=== PATIENT | male | born 1945 | race Caucasian/White ===

== ENCOUNTER 2018-01-24 08:01 | Inpatient (IN) | payer MEDICARE ==
[~2018-01-24] VITALS: Ht 177.8 cm; Wt 113.4 kg
--- NOTE | 2018-01-24 08:19 | PHYS DOC ---
Adult General HPI HPI Patient is a 72 year old male who presents to be evaluated for hematuria. Patient states he was discharged yesterday from the [facility] after being admitted for pneumonia. He states he had a Sutherland catheter for 4 days, he states the Sutherland catheter was removed yesterday before he went to rehab. He states he got to rehab, voided and was noted to have blood in his urine. He states he was sent to the emergency room to be evaluated because he is on blood thinners. Patient states he takes Plavix. Patient denies any other symptoms. Review of Systems Review of Systems Constitutional: Denies fever or chills [] Eyes: Denies change in visual acuity, redness, or eye pain [] HENT: Denies nasal congestion or sore throat [] Respiratory: Denies cough or shortness of breath [] Cardiovascular: No additional information not addressed in HPI [] GI: Denies abdominal pain, nausea, vomiting, bloody stools or diarrhea [] : Reports hematuria. Denies dysuria Musculoskeletal: Denies back pain or joint pain [] Integument: Denies rash or skin lesions [] Neurologic: Denies headache, focal weakness or sensory changes [] All other systems were reviewed and found to be within normal limits, except as documented in this note. Current Medications Current Medications Current Medications Medications (Trade) Dose Ordered Sig/[facility] Start Time Stop Time Status Last Admin Dose Admin Albuterol/ Ipratropium (Duoneb) 3 ml 1X ONCE 01/24/18 08:45 01/24/18 08:46 UNV 01/24/18 09:10 3 ML Physical Exam Physical Exam Constitutional: Well developed, well nourished, no acute distress, non-toxic appearance. [] HENT: Normocephalic, atraumatic, bilateral external ears normal, oropharynx moist, no oral exudates, nose normal. [] Eyes: PERRLA, EOMI, conjunctiva normal, no discharge. [] Neck: Normal range of motion, no tenderness, supple, no stridor. [] Cardiovascular:Heart rate regular rhythm, no murmur [] Lungs & Thorax: On oxygen, diminished breath sounds to posterior lung bases. Abdomen: Bowel sounds normal, soft, no tenderness, no masses, no pulsatile masses. [] Skin: Warm, dry, no erythema, no rash. [] Back: No tenderness, no CVA tenderness. [] Extremities: No tenderness, no cyanosis, no clubbing, ROM intact, no edema. [] Neurologic: Alert and oriented X 3, normal motor function, normal sensory function, no focal deficits noted. [] Psychologic: Affect normal, judgement normal, mood normal. [] Current Patient Data Vital Signs Vital Signs Date Time Temp Pulse Resp B/P (MAP) Pulse Ox O2 Delivery O2 Flow Rate FiO2 01/24/18 09:13 96 Nasal Cannula 3.0 01/24/18 08:30 98.0 103 25 153/80 (104) 98.0 Lab Values Laboratory Tests Test 01/24/18 08:40 White Blood Count 8.8 x10^3/uL (4.0-11.0) Red Blood Count 4.11 x10^6/uL (4.30-5.70) L Hemoglobin 13.1 g/dL (13.0-17.5) Hematocrit 39.3 % (39.0-53.0) Mean Corpuscular Volume 95 fL (79-100) Mean Corpuscular Hemoglobin 32 pg (25-35) Mean Corpuscular Hemoglobin Concent 34 g/dL (31-37) Red Cell Distribution Width 15.3 % (11.5-14.5) H Platelet Count 204 x10^3/uL (140-400) Neutrophils (%) (Auto) 77 % (31-73) H Lymphocytes (%) (Auto) 13 % (24-48) L Monocytes (%) (Auto) 9 % (0-9) Eosinophils (%) (Auto) 1 % (0-3) Basophils (%) (Auto) 0 % (0-3) Neutrophils # (Auto) 6.7 x10^3uL (1.8-7.7) Lymphocytes # (Auto) 1.1 x10^3/uL (1.0-4.8) Monocytes # (Auto) 0.8 x10^3/uL (0.0-1.1) Eosinophils # (Auto) 0.1 x10^3/uL (0.0-0.7) Basophils # (Auto) 0.0 x10^3/uL (0.0-0.2) Prothrombin Time 14.2 SEC (11.7-14.0) H Prothrombin Time INR 1.2 (0.8-1.1) H PTT 25 SEC (24-38) Sodium Level 146 mmol/L (136-145) H Potassium Level 4.1 mmol/L (3.5-5.1) Chloride Level 105 mmol/L (98-107) Carbon Dioxide Level 35 mmol/L (21-32) H Anion Gap 6 (6-14) Blood Urea Nitrogen 24 mg/dL (8-26) Creatinine 1.7 mg/dL (0.7-1.3) H Estimated GFR (Cockcroft-Gault) 39.6 BUN/Creatinine Ratio 14 (6-20) Glucose Level 158 mg/dL (70-99) H Calcium Level 8.9 mg/dL (8.5-10.1) Total Bilirubin 0.6 mg/dL (0.2-1.0) Aspartate Amino Transferase (AST) 31 U/L (15-37) Alanine Aminotransferase (ALT) 31 U/L (16-63) Alkaline Phosphatase 69 U/L (46-116) Total Protein 6.5 g/dL (6.4-8.2) Albumin 3.0 g/dL (3.4-5.0) L Albumin/Globulin Ratio 0.9 (1.0-1.7) L Laboratory Tests 01/24/18 08:40 Laboratory Tests 01/24/18 08:40 EKG EKG [] Radiology/Procedures Radiology/Procedures [] Course & Med Decision Making Course & Med Decision Making Pertinent Labs and Imaging studies reviewed. (See chart for details) This is a 72-year-old male patient presenting to the ED today to be evaluated for hematuria. Patient had a catheter that was removed yesterday and was noted to have blood in his urine. Currently on blood thinners/Plavix Dr. Hoover called requesting we admit patient under his service and get a urology consult. Dragon Disclaimer Dragon Disclaimer This electronic medical record was generated, in whole or in part, using a voice recognition dictation system. Departure Departure Impression: Primary Impression: Hematuria Disposition: ADMITTED INPATIENT Condition: STABLE Problem Qualifiers Primary Impression: Hematuria Hematuria type: gross Qualified Codes: R31.0 - Gross hematuria MOE [employer] Jan 24, 2018 08:19
[2018-01-24] MEDS ORDERED: IPRATRPIUM/ALBUTEROL 0.5/2.5MG 3 ML NEBU. NEB ONE (08:45)
[2018-01-24 08:55] LABS: BASO % 0 % (0-3); EOS # 0.1 x10^3/uL (0.0-0.7); EOS % 1 % (0-3); HEMATOCRIT 39.3 % (39.0-53.0); HEMOGLOBIN 13.1 g/dL (13.0-17.5); LYMPH # 1.1 x10^3/uL (1.0-4.8); LYMPH % 13 % (24-48); MEAN CORPUSCULAR HEMOGLOBIN 32 pg (25-35); MEAN CORPUSCULAR HGB CONC 34 g/dL (31-37); MEAN CORPUSCULAR VOLUME 95 fL (79-100); MONO # 0.8 x10^3/uL (0.0-1.1); MONO % 9 % (0-9); NEUT # 6.7 x10^3uL (1.8-7.7); NEUT % 77 % (31-73); PLATELET COUNT 204 x10^3/uL (140-400); RED BLOOD COUNT 4.11 x10^6/uL (4.30-5.70); RED CELL DISTRIBUTION WIDTH 15.3 % (11.5-14.5); WHITE BLOOD COUNT 8.8 x10^3/uL (4.0-11.0)
[2018-01-24 09:00] LABS: CALCIUM 8.9 mg/dL (8.5-10.1); CREATININE 1.7 mg/dL (0.7-1.3); GFR 39.6; POTASSIUM 4.1 mmol/L (3.5-5.1)
[2018-01-24 09:06] LABS: ALBUMIN/GLOBULIN RATIO 0.9 (1.0-1.7); TOTAL BILIRUBIN 0.6 mg/dL (0.2-1.0); TOTAL PROTEIN 6.5 g/dL (6.4-8.2)
[2018-01-24 09:10] LABS: PROTHROMBIN TIME PATIENT 14.2 SEC (11.7-14.0)
[2018-01-24] MEDS ORDERED: ACETAMINOPHEN 325 MG TABLET. PO PRN (09:30)
[2018-01-24] MEDS ORDERED: MORPHINE SULFATE 4 MG/ML VIAL. IV PRN (09:30)
[2018-01-24] MEDS ORDERED: ONDANSETRON PF 4 MG/2 ML VIAL. IV PRN (09:30)
[2018-01-24 11:00] VITALS: BP 131/71
--- NOTE | 2018-01-24 11:39 | PDOC2 ---
UROLOGY CONSULT Date of Consult Date of Consult DATE: 01/24/18 TIME: 11:24 Reason for Consult Reason for Consult: Gross Hematuria Referring Physician Referring Physician: Genesis Agrawal Identification/Chief Complaint Chief Complaint Gross Hematuria Source Source: Caregiver, Chart review, Patient History of Present Illness Reason for Visit: 72 year old pleasant male [facility] after having a mendoza catheter removed at the rehabilitation facility yesterday. He was transferred to the [facility] the [facility] after a recent londono with pneumonia and a mechanical fall. He reports that when the catheter came out, it "did not come out easy" and even hurt a little bit. A few hours after the mendoza was removed he had "very thick, bloody urine with some clots." This was yesterday. Today his urine is actually thin, and just red tinged like red Koolade with out the clots. He denies ever having visible hematuria before. He does have "weak kidneys" but denies ever having had kidney stones. He also denies enlarged prostate or history of prostate cancer. His last PSA and prostate check was about two years ago at the [place] and they told him at the time that everything "looked fine. " He denies frequency or bothersome nocturia (he gets up once or twice at night , but that's it). Despite the hematuria, he is not having significant pain with urination, only mild dysuria. Current Problem List Problems: (1) Hematuria Current Medications Current Medications Current Medications Acetaminophen (Tylenol) 650 mg PRN Q4HRS PRN PO FEVER; Start 01/24/18 at 09:30 ; Stop 01/25/18 at 09:29 Albuterol/ Ipratropium (Duoneb) 3 ml 1X ONCE NEB Last administered on at 09:10; Start 01/24/18 at 08:45; Stop 01/24/18 at 09:53; Status DC Albuterol/ Ipratropium (Duoneb) 3 ml RTQID NEB ; Start 01/24/18 at 12:00; Stop 01/25/18 at 11:59 Morphine Sulfate (Morphine Sulfate) 4 mg PRN Q2HR PRN IV PAIN; Start 01/24/18 at 09:30; Stop 01/25/18 at 09:29 Ondansetron HCl (Zofran) 4 mg PRN Q8HRS PRN IV NAUSEA/VOMITING; Start at 09:30; Stop 01/25/18 at 09:29 Allergies Allergies: Coded Allergies: Penicillins (Verified Allergy, Unknown, 01/24/18) ROS Review Of Systems: CONSTITUTIONAL: No fever or chills EYES: No recent changes SKIN: No rash or itching CARDIOVASCULAR: No chest pain, syncope, palpitations, or edema RESPIRATORY: No SOB or cough GASTROINTESTINAL: No nausea, vomiting or abdominal pain NEUROLOGICAL: No headaches or weakness ENDOCRINE: No cold or heat intolerance GENITOURINARY: Mild dysuria, gross hematuria MUSCULOSKELETAL: No back pain or joint pain LYMPHATICS: No enlarged lymph nodes PSYCHIATRIC: No anxiety or depression Physical Exam Physical Exam: General: Pleasant, no acute distress, well groomed Eyes: conjunctiva anicteric, eyes full range of motion ENT: moist oral mucosa, normal dentition Neck: Trachea midline, no masses Respiratory: unlabored breathing, not using accessory muscles. NC in place Abdomen: nontender, soft, obese nondistended Pelvic:Half- Buried phallus, scrotum WNL. No visible blood on genitals, groin area, legs or clothes. Psych: normal mood, affect. Alert and oriented x 3. Vitals VITALS Vital Signs Date Time Temp Pulse Resp B/P (MAP) Pulse Ox O2 Delivery O2 Flow Rate FiO2 01/24/18 09:36 100 22 132/62 (85) 95 3.0 01/24/18 09:13 Nasal Cannula 01/24/18 08:30 98.0 98.0 Labs Labs Laboratory Tests Test 01/24/18 08:40 White Blood Count 8.8 x10^3/uL (4.0-11.0) Red Blood Count 4.11 x10^6/uL (4.30-5.70) Hemoglobin 13.1 g/dL (13.0-17.5) Hematocrit 39.3 % (39.0-53.0) Mean Corpuscular Volume 95 fL (79-100) Mean Corpuscular Hemoglobin 32 pg (25-35) Mean Corpuscular Hemoglobin Concent 34 g/dL (31-37) Red Cell Distribution Width 15.3 % (11.5-14.5) Platelet Count 204 x10^3/uL (140-400) Neutrophils (%) (Auto) 77 % (31-73) Lymphocytes (%) (Auto) 13 % (24-48) Monocytes (%) (Auto) 9 % (0-9) Eosinophils (%) (Auto) 1 % (0-3) Basophils (%) (Auto) 0 % (0-3) Neutrophils # (Auto) 6.7 x10^3uL (1.8-7.7) Lymphocytes # (Auto) 1.1 x10^3/uL (1.0-4.8) Monocytes # (Auto) 0.8 x10^3/uL (0.0-1.1) Eosinophils # (Auto) 0.1 x10^3/uL (0.0-0.7) Basophils # (Auto) 0.0 x10^3/uL (0.0-0.2) Prothrombin Time 14.2 SEC (11.7-14.0) Prothromb Time International Ratio 1.2 (0.8-1.1) Activated Partial Thromboplast Time 25 SEC (24-38) Sodium Level 146 mmol/L (136-145) Potassium Level 4.1 mmol/L (3.5-5.1) Chloride Level 105 mmol/L (98-107) Carbon Dioxide Level 35 mmol/L (21-32) Anion Gap 6 (6-14) Blood Urea Nitrogen 24 mg/dL (8-26) Creatinine 1.7 mg/dL (0.7-1.3) Estimated GFR (Cockcroft-Gault) 39.6 BUN/Creatinine Ratio 14 (6-20) Glucose Level 158 mg/dL (70-99) Calcium Level 8.9 mg/dL (8.5-10.1) Total Bilirubin 0.6 mg/dL (0.2-1.0) Aspartate Amino Transf (AST/SGOT) 31 U/L (15-37) Alanine Aminotransferase (ALT/SGPT) 31 U/L (16-63) Alkaline Phosphatase 69 U/L (46-116) Total Protein 6.5 g/dL (6.4-8.2) Albumin 3.0 g/dL (3.4-5.0) Albumin/Globulin Ratio 0.9 (1.0-1.7) Laboratory Tests Test 01/24/18 08:40 White Blood Count 8.8 x10^3/uL (4.0-11.0) Red Blood Count 4.11 x10^6/uL (4.30-5.70) Hemoglobin 13.1 g/dL (13.0-17.5) Hematocrit 39.3 % (39.0-53.0) Mean Corpuscular Volume 95 fL (79-100) Mean Corpuscular Hemoglobin 32 pg (25-35) Mean Corpuscular Hemoglobin Concent 34 g/dL (31-37) Red Cell Distribution Width 15.3 % (11.5-14.5) Platelet Count 204 x10^3/uL (140-400) Neutrophils (%) (Auto) 77 % (31-73) Lymphocytes (%) (Auto) 13 % (24-48) Monocytes (%) (Auto) 9 % (0-9) Eosinophils (%) (Auto) 1 % (0-3) Basophils (%) (Auto) 0 % (0-3) Neutrophils # (Auto) 6.7 x10^3uL (1.8-7.7) Lymphocytes # (Auto) 1.1 x10^3/uL (1.0-4.8) Monocytes # (Auto) 0.8 x10^3/uL (0.0-1.1) Eosinophils # (Auto) 0.1 x10^3/uL (0.0-0.7) Basophils # (Auto) 0.0 x10^3/uL (0.0-0.2) Prothrombin Time 14.2 SEC (11.7-14.0) Prothromb Time International Ratio 1.2 (0.8-1.1) Activated Partial Thromboplast Time 25 SEC (24-38) Sodium Level 146 mmol/L (136-145) Potassium Level 4.1 mmol/L (3.5-5.1) Chloride Level 105 mmol/L (98-107) Carbon Dioxide Level 35 mmol/L (21-32) Anion Gap 6 (6-14) Blood Urea Nitrogen 24 mg/dL (8-26) Creatinine 1.7 mg/dL (0.7-1.3) Estimated GFR (Cockcroft-Gault) 39.6 BUN/Creatinine Ratio 14 (6-20) Glucose Level 158 mg/dL (70-99) Calcium Level 8.9 mg/dL (8.5-10.1) Total Bilirubin 0.6 mg/dL (0.2-1.0) Aspartate Amino Transf (AST/SGOT) 31 U/L (15-37) Alanine Aminotransferase (ALT/SGPT) 31 U/L (16-63) Alkaline Phosphatase 69 U/L (46-116) Total Protein 6.5 g/dL (6.4-8.2) Albumin 3.0 g/dL (3.4-5.0) Albumin/Globulin Ratio 0.9 (1.0-1.7) Assessment/Plan Assessment/Plan Gross Hematuria: Secondary to mendoza catheter trauma during removal. Should resolve with time. If Urine continues to stay light watermelon color or even red Gatorade color without clots, just continue to observe for now. Patient knows to notify Nursing staff if urine changes to resemble resemble laura blood or starts to have large clots. It patient starts to have very dark, copious red urine with laura blood or numerous large clots, please insert [address]za catheter and hand irrigate using the following procedure: Draw up 60 cc of NS into irrigation syringe, instill 30 cc into the bladder, withdraw. May instill up to 120 cc NS, and if no return after this, discontinue procedure, leave mendoza in place with CBI port capped, and notify Urology staff. Urology cart is at bedside, leave in place overnight for quick access. Repeat UA tomorrow. CORNELIO ABRAHAM APRN Jan 24, 2018 11:39
[2018-01-24] MEDS: IPRATRPIUM/ALBUTEROL 0.5/2.5MG 3 ML NEBU. NEB SCH ×3 (11:58→19:19)
[2018-01-24] MEDS ORDERED: APIX2.5T PO (12:13)
[2018-01-24] MEDS ORDERED: TRAZ-85 PO (12:13)
[2018-01-24] MEDS ORDERED: ACET325T9 PO (12:13)
[2018-01-24] MEDS ORDERED: CHOL10003 PO (12:13)
[2018-01-24] MEDS ORDERED: LEVO50TA5 PO (12:13)
[2018-01-24] MEDS ORDERED: PANT20TA2 PO (12:13)
[2018-01-24] MEDS ORDERED: DULO60CA44 PO (12:13)
[2018-01-24] MEDS ORDERED: CALC0.25 PO (12:13)
[2018-01-24] MEDS ORDERED: GUAI600T47 PO (12:13)
[2018-01-24] MEDS ORDERED: FURO20TA3 PO (12:13)
[2018-01-24] MEDS ORDERED: ATORVASTATIN CA80 MG PO (12:13)
[2018-01-24] MEDS ORDERED: BUSP10TA PO (12:13)
[2018-01-24] MEDS ORDERED: FOLI1TAB16 PO (12:13)
[2018-01-24] MEDS ORDERED: LACT1CAP19 PO (12:13)
[2018-01-24] MEDS ORDERED: GLIP5TAB10 PO (12:13)
[2018-01-24] MEDS ORDERED: POTA20TA82 PO (12:13)
[2018-01-24 12:15] LABS: BILIRUBIN,URINE NEGATIVE (NEG); COLOR,URINE RED; NITRITE,URINE NEGATIVE (NEG); PROTEIN,URINE 30 mg/dL (NEG-TRACE)
[2018-01-24 12:29] LABS: CLARITY,URINE CLOUDY
[2018-01-24 12:35] LABS: BACTERIA,URINE FEW /HPF (0-FEW); RBC,URINE TNTC /HPF (0-2); SQUAMOUS EPITHELIAL CELL,UR FEW /LPF
[2018-01-24 13:15] LABS: HEMATOCRIT 38.6 % (39.0-53.0); HEMOGLOBIN 12.8 g/dL (13.0-17.5)
[2018-01-24] MEDS: guaiFENesin ORAL 200 MG/10 ML LIQUID. PO SCH ×2 (14:27→20:35)
[2018-01-24] MEDS: DULoxetine HCL 30 MG CAPSULE.DR PO SCH (14:27)
[2018-01-24] MEDS: FOLIC ACID 1 MG TABLET. PO SCH (14:27)
[2018-01-24] MEDS: LACTOBACILLUS RHAMNOSUS GG 1 CAPSULE. PO SCH (14:27)
[2018-01-24] MEDS: POTASSIUM CHLORIDE 20 MEQ TABLET.ER. PO SCH (14:28)
[2018-01-24] MEDS: busPIRone 10 MG TABLET. PO SCH ×2 (14:28→20:37)
[2018-01-24] MEDS: ACETAMINOPHEN 500 MG TABLET PO SCH ×2 (14:28→20:37)
[2018-01-24] MEDS: CHOLECALCIFEROL (VITAMIN D3) 1,000 UNIT TABLET PO SCH (14:28)
[2018-01-24] MEDS: FUROSEMIDE 20 MG TABLET PO SCH (14:30)
[2018-01-24 15:00] VITALS: BP 123/55
[2018-01-24] MEDS: CALCITRIOL 0.25 MCG CAPSULE. PO SCH (17:08)
[2018-01-24 19:05] VITALS: BP 110/72
[2018-01-24] MEDS: glipiZIDE 5 MG TABLET PO SCH (20:35)
[2018-01-24] MEDS: traZODone 50 MG TABLET. PO SCH (20:35)
[2018-01-24] MEDS: ATORVASTATIN CALCIUM 40 MG TABLET. PO SCH (20:37)
[2018-01-24 23:05] VITALS: BP 106/67
[2018-01-25 03:05] VITALS: BP 132/76
[2018-01-25 05:05] LABS: BASO % 0 % (0-3); EOS # 0.2 x10^3/uL (0.0-0.7); EOS % 3 % (0-3); HEMATOCRIT 36.7 % (39.0-53.0); HEMOGLOBIN 12.2 g/dL (13.0-17.5); LYMPH # 1.1 x10^3/uL (1.0-4.8); LYMPH % 15 % (24-48); MEAN CORPUSCULAR HEMOGLOBIN 32 pg (25-35); MEAN CORPUSCULAR HGB CONC 33 g/dL (31-37); MEAN CORPUSCULAR VOLUME 96 fL (79-100); MONO # 0.6 x10^3/uL (0.0-1.1); MONO % 8 % (0-9); NEUT # 5.4 x10^3uL (1.8-7.7); NEUT % 73 % (31-73); PLATELET COUNT 174 x10^3/uL (140-400); RED BLOOD COUNT 3.82 x10^6/uL (4.30-5.70); RED CELL DISTRIBUTION WIDTH 15.3 % (11.5-14.5); WHITE BLOOD COUNT 7.4 x10^3/uL (4.0-11.0)
[2018-01-25 05:19] LABS: CALCIUM 8.9 mg/dL (8.5-10.1); CREATININE 1.9 mg/dL (0.7-1.3); GFR 34.8
[2018-01-25] MEDS: LEVOTHYROXINE 50 MCG TABLET PO SCH (06:18)
[2018-01-25 07:00] VITALS: BP 117/63
[2018-01-25] MEDS: IPRATRPIUM/ALBUTEROL 0.5/2.5MG 3 ML NEBU. NEB SCH (07:53)
--- NOTE | 2018-01-25 08:44 | PDOC ---
SUBJECTIVE Subjective Pt did well over night. Dysuria clearing up, no more hematuria. No pain. Would like to sit up and eat breakfast. OBJECTIVE Objective Physical Exam: General appearance: Alert and Oriented Head: Normocephalic, without obvious abnormality Eyes: conjunctivae/corneas clear. PERRL, EOM's intact. Fundi benign Lungs: regular respirations, non labored breathing Abdomen: soft, non-tender. No masses, no organomegaly Pelvic: Phallus half buried, WNL, no blood noted on genitals or gown/sheets. Vital Signs Vital Signs Date Time Temp Pulse Resp B/P (MAP) Pulse Ox O2 Delivery O2 Flow Rate FiO2 01/25/18 07:54 Nasal Cannula 3.0 01/25/18 07:00 97.5 99 20 117/63 (81) 94 Nasal Cannula 3.0 97.5 01/25/18 03:05 97.8 99 20 132/76 (94) 90 Nasal Cannula 3.0 97.8 01/24/18 23:05 97.7 99 20 106/67 (80) 90 Nasal Cannula 3.0 97.7 01/24/18 20:00 Nasal Cannula 3.0 01/24/18 19:19 Nasal Cannula 3.0 01/24/18 19:05 97.7 104 20 110/72 (85) 92 Room Air 3.0 97.7 01/24/18 16:27 Nasal Cannula 3.0 01/24/18 15:00 98.4 98 28 123/55 (77) 94 Nasal Cannula 3.0 98.4 01/24/18 13:36 Nasal Cannula 3.0 01/24/18 12:00 93 Nasal Cannula 3.0 01/24/18 11:00 97.7 101 24 131/71 (91) 89 Nasal Cannula 3.0 97.7 01/24/18 09:36 100 22 132/62 (85) 95 3.0 01/24/18 09:13 96 Nasal Cannula 3.0 I & O Intake and Output 01/25/18 07:00 Intake Total 650 ml Output Total 400 ml Balance 250 ml Intake Oral 650 ml Output Urine Total 400 ml # Voids 3 # Bowel Movements 2 PHYSICAL EXAM Physical Exam Physical Exam: General appearance: Alert and Oriented Head: Normocephalic, without obvious abnormality Eyes: conjunctivae/corneas clear. PERRL, EOM's intact. Fundi benign Lungs: regular respirations, non labored breathing Abdomen: soft, non-tender. No masses, no organomegaly Pelvic: Phallus half buried, WNL, no blood noted on genitals or gown/sheets. ASSESSMENT/PLAN Assessment/Plan Gross hematuria: Pt did not have any gross hematuria overnight. His dysuria is improving also. Bowels moving ok. Urine culture in progress, preliminary should be back tomorrow. Pt has a follow up appointment on 02/11/[address] at [address] De Leon of [facility]. Pt given appointment card, new patient paperwork. All questions answered. Ok to keep until culture is back. Discussed with Dr. Martinez. Will follow peripherally over the rest of the weekend but please call Urology with questions or concerns. Problems: (1) Hematuria COMMENT Lab Laboratory Tests Test 01/24/18 12:00 01/24/18 12:50 01/25/18 04:05 Urine Collection Type Unknown Urine Color Red Urine Clarity Cloudy Urine pH 7.0 Urine Specific [place] 1.025 Urine Protein 30 mg/dL (NEG-TRACE) Urine Glucose (UA) Negative mg/dL (NEG) Urine Ketones (Stick) Trace mg/dL (NEG) Urine Blood Large (NEG) Urine Nitrite Negative (NEG) Urine Bilirubin Negative (NEG) Urine Urobilinogen Dipstick 1.0 mg/dL (0.2 mg/dL) Urine Leukocyte Esterase Small (NEG) Urine RBC Tntc /HPF (0-2) Urine WBC 5-10 /HPF (0-4) Urine Squamous Epithelial Cells Few /LPF Urine Bacteria Few /HPF (0-FEW) Urine Mucus Slight /LPF Hemoglobin 12.8 g/dL (13.0-17.5) 12.2 g/dL (13.0-17.5) Hematocrit 38.6 % (39.0-53.0) 36.7 % (39.0-53.0) Mean Corpuscular Hemoglobin Concent 33 g/dL (31-37) 33 g/dL (31-37) White Blood Count 7.4 x10^3/uL (4.0-11.0) Red Blood Count 3.82 x10^6/uL (4.30-5.70) Mean Corpuscular Volume 96 fL (79-100) Mean Corpuscular Hemoglobin 32 pg (25-35) Red Cell Distribution Width 15.3 % (11.5-14.5) Platelet Count 174 x10^3/uL (140-400) Neutrophils (%) (Auto) 73 % (31-73) Lymphocytes (%) (Auto) 15 % (24-48) Monocytes (%) (Auto) 8 % (0-9) Eosinophils (%) (Auto) 3 % (0-3) Basophils (%) (Auto) 0 % (0-3) Neutrophils # (Auto) 5.4 x10^3uL (1.8-7.7) Lymphocytes # (Auto) 1.1 x10^3/uL (1.0-4.8) Monocytes # (Auto) 0.6 x10^3/uL (0.0-1.1) Eosinophils # (Auto) 0.2 x10^3/uL (0.0-0.7) Basophils # (Auto) 0.0 x10^3/uL (0.0-0.2) Sodium Level 144 mmol/L (136-145) Potassium Level 4.0 mmol/L (3.5-5.1) Chloride Level 104 mmol/L (98-107) Carbon Dioxide Level 32 mmol/L (21-32) Anion Gap 8 (6-14) Blood Urea Nitrogen 25 mg/dL (8-26) Creatinine 1.9 mg/dL (0.7-1.3) Estimated GFR (Cockcroft-Gault) 34.8 Glucose Level 118 mg/dL (70-99) Calcium Level 8.9 mg/dL (8.5-10.1) Problem Qualifiers (1) Hematuria: Hematuria type: gross Qualified Codes: R31.0 - Gross hematuria CORNELIO ABRAHAM APRN Jan 25, 2018 08:44
[2018-01-25] MEDS: FUROSEMIDE 20 MG TABLET PO SCH (09:00)
[2018-01-25] MEDS: LACTOBACILLUS RHAMNOSUS GG 1 CAPSULE. PO SCH (10:01)
[2018-01-25] MEDS: guaiFENesin ORAL 200 MG/10 ML LIQUID. PO SCH ×3 (10:01→20:53)
[2018-01-25] MEDS: busPIRone 10 MG TABLET. PO SCH ×2 (10:01→20:52)
[2018-01-25] MEDS: PANTOPRAZOLE 40 MG TABLET.DR. PO SCH (10:01)
[2018-01-25] MEDS: FOLIC ACID 1 MG TABLET. PO SCH (10:02)
[2018-01-25] MEDS: POTASSIUM CHLORIDE 20 MEQ TABLET.ER. PO SCH (10:02)
[2018-01-25] MEDS: CHOLECALCIFEROL (VITAMIN D3) 1,000 UNIT TABLET PO SCH (10:02)
[2018-01-25] MEDS: ACETAMINOPHEN 500 MG TABLET PO SCH ×3 (10:02→20:52)
[2018-01-25] MEDS: glipiZIDE 5 MG TABLET PO SCH ×2 (10:02→20:53)
[2018-01-25] MEDS: DULoxetine HCL 30 MG CAPSULE.DR PO SCH (10:02)
--- NOTE | 2018-01-25 10:40 | HP ---
ADMIT DATE: 01/24/2018 HISTORY OF PRESENT ILLNESS: The patient is a 72-year-old male patient, resident, who was just discharged from [facility] where he was admitted with increasing shortness of breath and was diagnosed with pneumonia. For some reason, he has a Sutherland catheter while at the [facility] and that apparently was removed prior to his discharge and by the time he arrived to the [facility] in [place], he developed gross hematuria. Unfortunately, he is also on apixaban for a history of DVT and pulmonary emboli x 2 and as he continued to have gross hematuria, a decision was made to send him to the Emergency Room where he was evaluated and was admitted to consult the Urology team. REVIEW OF SYSTEMS: The patient denied any abdominal pain. Denied any frequency or dysuria, but obviously has gross hematuria. On arrival to the Emergency Room, his hemoglobin was 13.1, hematocrit was 39.3, so I held his apixaban and will monitor his H and H, and if he continued to have gross hematuria, I have already consulted and the urology team in case he continues to bleed. PAST MEDICAL HISTORY: Significant for type 2 diabetes mellitus, hypertension, hyperlipidemia, coronary artery disease, status post myocardial infarction. He has a history of DVT and PE x 2, hypothyroidism, chronic kidney disease, benign prostatic hypertrophy, chronic obstructive pulmonary disease, morbid obesity, obstructive sleep apnea and he has also chronic back pain. PAST SURGICAL HISTORY: Significant for bilateral cataract extraction. He has had a loop monitor placed and removed about 3-4 years ago and underwent esophagogastroduodenoscopy and colonoscopy. ALLERGIES: HE IS ALLERGIC TO PENICILLIN. MEDICATIONS: He is currently on following medications: Apixaban 2.5 mg twice a day, atorvastatin calcium 80 mg at bedtime, acetaminophen 650 mg 3 times a day, duloxetine 60 mg daily, trazodone 50 mg at bedtime, buspirone 10 mg twice a day, potassium chloride 20 mEq once a day, furosemide 60 mg daily. He is on Mucinex 600 mg twice a day, Protonix 20 mg daily, lactobacillus rhamnosus for [place] 1 twice a day, glipizide 5 mg twice a day, levothyroxine sodium 50 mcg once a day. He is on folic acid 1 mg once a day, calcitriol 0.25 mcg once a day, cholecalciferol 2000 International Unit once a day. FAMILY HISTORY: He has one brother younger and lives with him, and he assists him. He has two sisters, both younger, one of them has multiple medical problems. The youngest sister is healthy. His father at the age of 47 because of myocardial infarction. His mother at age of 85, the cause of it is not clear to him. SOCIAL HISTORY: He is , has 2 daughters, one of them lives in [place]. He has a son who lives in [place] and one son because of alcoholism. He is an ex-smoker, quit in 1995. He drinks a shot of vodka every day. He used to be a [employer] and was in the [employer]. REVIEW OF SYSTEMS: The patient has bilateral cataract extraction, but denied any glaucoma or macular degeneration. He has bilateral hearing aid. Denied any stuffy nose, nosebleed or postnasal drip. Denied any sore throat, sore tongue, toothache, hoarseness of voice or difficulty swallowing. Denied any nausea, vomiting, diarrhea or constipation. Denied any hematemesis, melena or hematochezia. Denied any dysuria or frequency, but did obviously has gross hematuria. Denied any chest pain. Did complain of shortness of breath and orthopnea, but denied any paroxysmal nocturnal dyspnea. Denied any cough, phlegm or hemoptysis. Denied any chills, rigors or fever. OBJECTIVE: GENERAL: On arrival to the Emergency Room, he looked well and was clearly in no apparent respiratory distress, slightly pale, but no jaundice, cyanosis or thyromegaly. No jugular venous distention. No lower limb edema. VITAL SIGNS: His heart rate was 103, blood pressure was 153/80, temperature was 98, respiratory rate was 25, and oxygen saturation was 95% on 3 liters of oxygen. HEAD, EYES, EAR, NOSE AND THROAT: Showed normocephalic, atraumatic. NECK: Supple. HEART: Showed normal first and second heart sounds. No gallop, rub or murmur. CHEST: Shows central trachea, equally reduced expansion, reduced air entry. No crepitation or rhonchi. ABDOMEN: Distended, soft, nontender. NEUROLOGIC: He was awake, alert, responding appropriately. Cranial nerves intact. He moves extremities without difficulty. He ambulates with a walker. LABORATORY WORK: On admission showed a white cell count of 8800, hemoglobin 13, hematocrit 39, MCV 95 and platelet count of 204,000. His prothrombin time was 14.2, INR 1.2, APTT was 25. His serum sodium was 146, potassium 4.1, chloride 105, bicarbonate 35, anion gap of 6, BUN 24, creatinine 1.7, estimated GFR was 39 mL per hour. His blood sugar was 158, calcium was 8.9. Total bilirubin, AST, ALT, alkaline phosphatase were normal. His total protein was 6.5 and albumin was 3. His urinalysis showed the urine was red, cloudy with a pH of 7, specific gravity of 1.025. There was small amount of protein. The urine was negative for glucose, trace of ketones, large amount of blood, negative for nitrite and bilirubin. There was small amount of leukocyte esterase, too numerous to count rbcs, 5-10 wbc's and few bacteria. Plan is obviously to hold his apixaban and consult the urology team and monitor his H and H and once the urine cleared, we can discharge him back to [facility]. KAR PERSAUD MD DR: KEENAN/lindsay JOB#: [id number] / [id number]
[2018-01-25 11:00] VITALS: BP 115/63
[2018-01-25 15:00] VITALS: BP 127/89
--- NOTE | 2018-01-25 15:57 | PN ---
DATE: 01/25/2018 SUBJECTIVE: The patient is sitting at the edge of the bed comfortably, eating his breakfast, in no apparent distress. On questioning him, he denied any chest pain or shortness of breath, but continues to have some hematuria. His culture is still pending at the time of this dictation. His H and H has remained somewhat stable. His initial hemoglobin was 13.1, dropped down to 12.8 and this morning it was 12.2. He was seen by the urology team, and the plan is to monitor his H and H and await the result of the blood culture, and we will decide on further management accordingly. When I examined him this morning, he was sitting in the edge of the bed, eating his breakfast comfortably, in no apparent distress. He was slightly pale, but no jaundice or cyanosis. No lymphadenopathy, no thyromegaly. No jugular venous distention. No lower limb edema. PHYSICAL EXAMINATION: VITAL SIGNS: His heart rate was 99, blood pressure was 117/63, temperature was 97.5, respiratory rate was 20, and oxygen saturation was 94% on 3 liters of oxygen. HEAD, EYES, EARS, NOSE AND THROAT: Showed he is normocephalic, atraumatic. NECK: Supple. HEART: Showed normal first and second heart sounds. No gallop, rub or murmur. CHEST: Clear to auscultation. No crepitation or rhonchi. ABDOMEN: Distended, soft, nontender. NEUROLOGIC: He is awake, alert, responding appropriately. All his cranial nerves are intact. He moves extremities without difficulty, ambulates with a walker. His intake over the last 24 hours was 650, output was 400. LABORATORY DATA: His lab work this morning showed a white cell count 7400, hemoglobin 12, hematocrit 36, MCV was 96 and platelet count of 174,000. His chemistry showed a serum sodium 144, potassium 4, chloride 104, bicarbonate 32, anion gap of 8, BUN 25, creatinine was 1.9, estimated GFR was 34 mL per minute. His glucose was 118, calcium was 8.9. ASSESSMENT: Gross hematuria after removal of his Sutherland catheter prior to discharge from [facility], probably traumatic in nature. I held his apixaban. He continued to have gross hematuria, possible urinary tract infection, awaiting the result of urine culture and sensitivity. He has multiple other medical problems including acute on chronic kidney injury. His creatinine has slightly risen up from 1.7-1.9. We did scan his bladder, and he does not seem to be retaining urine. He is currently on most of his medication except his apixaban. I will probably hold his diuretics if they were not given this morning and repeat his labs tomorrow. KAR PERSAUD MD DR: KEENAN/lindsay JOB#: [id number] / [id number]
[2018-01-25 19:00] VITALS: BP 145/96
[2018-01-25] MEDS: ATORVASTATIN CALCIUM 40 MG TABLET. PO SCH (20:52)
[2018-01-25] MEDS: traZODone 50 MG TABLET. PO SCH (20:52)
[2018-01-25 22:46] VITALS: BP 156/88
[2018-01-26 03:00] VITALS: BP 138/80
[2018-01-26] MEDS ORDERED: HYDROcodone/APAP 5/325MG 1 TAB TABLET PO ONE (04:30)
[2018-01-26] MEDS: LEVOTHYROXINE 50 MCG TABLET PO SCH (05:39)
[2018-01-26 07:00] VITALS: BP 119/60
[2018-01-26 07:22] LABS: HEMATOCRIT 39.7 % (39.0-53.0); HEMOGLOBIN 12.8 g/dL (13.0-17.5); RED BLOOD COUNT 4.09 x10^6/uL (4.30-5.70); RED CELL DISTRIBUTION WIDTH 15.1 % (11.5-14.5); WHITE BLOOD COUNT 6.9 x10^3/uL (4.0-11.0)
[2018-01-26 07:51] LABS: CALCIUM 8.7 mg/dL (8.5-10.1); CREATININE 1.7 mg/dL (0.7-1.3); GFR 39.6; POTASSIUM 4.4 mmol/L (3.5-5.1)
[2018-01-26] MEDS: LACTOBACILLUS RHAMNOSUS GG 1 CAPSULE. PO SCH (09:33)
[2018-01-26] MEDS: guaiFENesin ORAL 200 MG/10 ML LIQUID. PO SCH ×3 (09:33→20:26)
[2018-01-26] MEDS: CHOLECALCIFEROL (VITAMIN D3) 1,000 UNIT TABLET PO SCH (09:33)
[2018-01-26] MEDS: DULoxetine HCL 30 MG CAPSULE.DR PO SCH (09:33)
[2018-01-26] MEDS: APIXABAN 2.5 MG TABLET. PO SCH ×2 (09:34→20:24)
[2018-01-26] MEDS: FOLIC ACID 1 MG TABLET. PO SCH (09:34)
[2018-01-26] MEDS: ACETAMINOPHEN 500 MG TABLET PO SCH ×3 (09:34→20:23)
[2018-01-26] MEDS: glipiZIDE 5 MG TABLET PO SCH ×2 (09:34→20:26)
[2018-01-26] MEDS: busPIRone 10 MG TABLET. PO SCH ×2 (09:34→20:23)
[2018-01-26] MEDS: PANTOPRAZOLE 40 MG TABLET.DR. PO SCH (09:34)
[2018-01-26] MEDS: FUROSEMIDE 20 MG TABLET PO SCH (09:34)
[2018-01-26] MEDS: POTASSIUM CHLORIDE 20 MEQ TABLET.ER. PO SCH (09:35)
[2018-01-26 10:41] VITALS: BP 120/64
[2018-01-26 15:00] VITALS: BP 118/60
[2018-01-26 19:00] VITALS: BP 134/82
--- NOTE | 2018-01-26 19:46 | PN ---
DATE: 01/26/2018 SUBJECTIVE: The patient is sitting comfortably in his chair, eating his breakfast, in no apparent distress. He stated that his urine is clear. Denied any pain. Denied any dysuria, frequency or hematuria. His urine culture showed growth of less than 10,000 colony forming units of bacteria per mL of urine. OBJECTIVE: GENERAL: When I examined him, he looked well and was clearly in no apparent respiratory distress. No pallor, jaundice, cyanosis, or thyromegaly. No jugular venous distension. No limb edema. VITAL SIGNS: His heart rate was 82, blood pressure was 118/69, temperature was 97.2, respiratory rate was 20, and oxygen saturation was 91% on 4 liters of oxygen. HEAD, EYES, EARS, NOSE AND THROAT: Showed normocephalic, atraumatic. NECK: Supple. HEART: Showed normal first and second heart sounds. No gallop, rub or murmur. CHEST: Clear to auscultation. No crepitation or rhonchi. ABDOMEN: Distended, soft, nontender. NEUROLOGIC: She was awake, alert, responding appropriately. All cranial nerves intact. He moves extremities without difficulty. His intake over the last 24 hours was 650, output was 400. LABORATORY DATA: As of this morning, his white cell count was 6800, hemoglobin 12.8, hematocrit 39.7, MCV 97 and platelet count of 189,000. His chemistry showed a serum sodium 143, potassium 4.4, chloride 103, bicarbonate 36, anion gap of 4, BUN 21, creatinine 1.7, estimated GFR was 39 mL per minute and glucose was 123, calcium was 8.7. ASSESSMENT: Gross hematuria, resolved. I will start his apixaban today and if he has no further episodes of hematuria, we can discharge him tomorrow, possible urinary tract infection; however, urine culture has grown only about less than 10,000 colony forming units per mL. The patient has multiple other medical problems including type 2 diabetes mellitus. This seems to be well controlled. Hypertension, hyperlipidemia, coronary artery disease, status post myocardial infarction. He has history of deep venous thrombosis and pulmonary embolism x 2, hypothyroidism, chronic kidney disease, benign prostatic hypertrophy, chronic obstructive pulmonary disease, morbid obesity, obstructive sleep apnea, also chronic back pain. PLAN: I will repeat his H and H tomorrow and if he remains stable and has no further episodes of hematuria, we will discharge him back to [facility] in [place]. KAR PERSAUD MD DR: KEENAN/lindsay JOB#: [id number] / [id number]
[2018-01-26] MEDS: ATORVASTATIN CALCIUM 40 MG TABLET. PO SCH (20:23)
[2018-01-26] MEDS: traZODone 50 MG TABLET. PO SCH (20:23)
[2018-01-26 23:00] VITALS: BP 139/73
[2018-01-27 03:00] VITALS: BP 140/81
[2018-01-27 04:03] LABS: HEMATOCRIT 38.7 % (39.0-53.0); HEMOGLOBIN 12.7 g/dL (13.0-17.5)
[2018-01-27] MEDS: LEVOTHYROXINE 50 MCG TABLET PO SCH (05:29)
[2018-01-27 07:00] VITALS: BP 131/69
--- NOTE | 2018-01-27 08:03 | DISCH ---
DISCHARGE DISCHARGE INFORMATION: FINAL DIAGNOSIS Problems Medical Problems: (1) Hematuria Status: Acute CONDITION ON DISCHARGE: Stable CODE STATUS: Code Status: Full CUSTODIAL: SNF STAY <30 DAYS: Yes POST DISCHARGE ORDERS: ACTIVITY ORDERS: Activity as tolerated DIET AFTER DISCHARGE: ADA CHECKS AFTER DISCHARGE: CHECKS AFTER DISCHARGE: Check blood sugar, ac/hs TREATMENT/EQUIPMENT ORDERS: ADAPTIVE EQUIPMENT NEEDED: Walker RESPIRATORY EQUIPMENT NEEDED: Oxygen, Nebulizer, CPAP Physical Therapy For: Evalulation/Treatment Occupational Therapy For: Evaluation/Treatment DISCHARGE MEDICATIONS: Home Meds Reported Medications Trazodone Hcl (TRAZODONE HCL) 50 Mg Tablet, 1 TAB PO QHS, #30 TAB 1 Refill 01/24/18 Lactobacillus Rhamnosus Gg (CULTURELLE) 1 Each Cap.sprink, 1 EACH PO, CAP 01/24/18 Atorvastatin Calcium (ATORVASTATIN CALCIUM) 80 Mg Tablet, 1 TAB PO DAILY, #30 TAB 5 Refills 01/24/18 Buspirone Hcl (BUSPIRONE HCL) 10 Mg Tablet, 1 TAB PO BID, #60 TAB 1 Refill 01/24/18 Glipizide (GLIPIZIDE) 5 Mg Tablet, 1 TAB PO BID, #60 TAB 3 Refills 01/24/18 Apixaban (ELIQUIS) 2.5 Mg Tablet, 2.5 MG PO BID, TAB 01/24/18 Pantoprazole Sodium (PROTONIX) 20 Mg Tablet.dr, 1 TAB PO DAILY, #30 TAB 01/24/18 Duloxetine Hcl (DULOXETINE HCL) 60 Mg Capsule.dr, 60 MG PO DAILY, CAP 01/24/18 Furosemide (FUROSEMIDE) 20 Mg Tablet, 60 TAB PO DAILY, #90 TAB 1 Refill 01/24/18 Calcitriol (CALCITRIOL) 0.25 Mcg Capsule, 1 CAP PO 3X/WEEK, #30 CAP 5 Refills 01/24/18 Guaifenesin (MUCINEX) 600 Mg Tablet.er, 200 TAB PO TID, #14 TAB 01/24/18 Potassium Chloride (POTASSIUM CHLORIDE) 20 Meq Tablet.er, 20 MEQ PO DAILY, TAB.SR 01/24/18 Levothyroxine Sodium (LEVOTHYROXINE SODIUM) 50 Mcg Tablet, 1 TAB PO DAILY, #30 TAB 5 Refills 01/24/18 Acetaminophen (TYLENOL) 325 Mg Tablet, 500 MG PO TID, TAB 01/24/18 Cholecalciferol (Vitamin D3) (VITAMIN D3) 1,000 Unit Tablet, 2 TAB PO DAILY, # 30 TAB 5 Refills 01/24/18 Folic Acid (FOLIC ACID) 1 Mg Tablet, 1 TAB PO DAILY, #90 TAB 1 Refill 01/24/18 KAR PERSAUD MD Jan 27, 2018 08:03
[2018-01-27] MEDS: glipiZIDE 5 MG TABLET PO SCH (08:07)
[2018-01-27] MEDS: ACETAMINOPHEN 500 MG TABLET PO SCH ×2 (08:07→11:46)
[2018-01-27] MEDS: FUROSEMIDE 20 MG TABLET PO SCH (08:07)
[2018-01-27] MEDS: guaiFENesin ORAL 200 MG/10 ML LIQUID. PO SCH ×2 (08:07→11:46)
[2018-01-27] MEDS: LACTOBACILLUS RHAMNOSUS GG 1 CAPSULE. PO SCH (08:07)
[2018-01-27] MEDS: busPIRone 10 MG TABLET. PO SCH (08:07)
[2018-01-27] MEDS: CHOLECALCIFEROL (VITAMIN D3) 1,000 UNIT TABLET PO SCH (08:07)
[2018-01-27] MEDS: FOLIC ACID 1 MG TABLET. PO SCH (08:08)
[2018-01-27] MEDS: APIXABAN 2.5 MG TABLET. PO SCH (08:08)
[2018-01-27] MEDS: DULoxetine HCL 30 MG CAPSULE.DR PO SCH (08:08)
[2018-01-27] MEDS: POTASSIUM CHLORIDE 20 MEQ TABLET.ER. PO SCH (08:08)
[2018-01-27] MEDS: PANTOPRAZOLE 40 MG TABLET.DR. PO SCH (08:08)
--- NOTE | 2018-01-27 09:15 | DS ---
DATE OF DISCHARGE: HOSPITAL COURSE: The patient is a 72-year-old male patient who was admitted with gross hematuria. He was on apixaban for history of DVT and PE before, and he was seen in consultation by the Urology. We basically monitored him, monitored his H and H and his urine, and his hemoglobin and hematocrit remained stable and his urine has cleared. I did start him back on his apixaban yesterday without any problem. When I questioned him this morning, he denied any complaint. The nursing staff did not voice any concerns that he had an uneventful night. PHYSICAL EXAMINATION: GENERAL: When I examined him, he was sitting comfortably in his chair, eating his breakfast, in no apparent distress. VITAL SIGNS: His heart rate was 91, blood pressure was 131/69, temperature was 97.8, respiratory rate 20 and oxygen saturation was 94% on 4 liters of oxygen. HEAD, EYES, EARS, NOSE AND THROAT: Showed normocephalic, atraumatic. NECK: Supple. HEART: Showed normal first and second heart sounds. No gallop, rub or murmur. CHEST: Clear to auscultation. No crepitation or rhonchi. ABDOMEN: Distended, soft, nontender. No guarding or rigidity. No organomegaly. All hernial orifice intact. Bowel sounds normal. NEUROLOGIC: He was awake, alert, responding appropriately. All cranial nerves intact. He moves extremities without difficulty. He ambulates with a walker. His intake over the last 24 hours was 2550, output was 1350. LABORATORY DATA: As of this morning showed his hemoglobin was 12.7, hematocrit 38.7. His chemistry showed a serum sodium 143, potassium 4.4, chloride 103, bicarbonate was 36, anion gap of 4, BUN of 21, creatinine 1.7, estimated GFR was 39 mL per minute. His glucose was 123 and calcium was 8.7. DISCHARGE MEDICATIONS: He will be discharged back to [facility] in [place] to continue on Tylenol 650 mg 3 times a day, apixaban 2.5 mg twice a day, atorvastatin calcium 80 mg daily, buspirone 10 mg twice a day, calcitriol 0.25 mcg 1 capsule 3 times per week, cholecalciferol for vitamin D3 of 2000 International Unit once a day, duloxetine 60 mg daily, folic acid 1 mg once a day, furosemide 60 mg daily, glipizide 5 mg twice a day, guaifenesin for Mucinex 200 mg 3 times a day, lactobacillus rhamnosus 1 capsule twice a day, levothyroxine sodium 50 mcg daily, Protonix 40 mg daily, potassium chloride 20 mEq daily, trazodone 50 mg at bedtime. FINAL DISCHARGE DIAGNOSES: 1. Gross hematuria, likely traumatic in nature, resolved. 2. Type 2 diabetes mellitus, reasonably controlled. 3. Hypertension. 4. Hyperlipidemia. 5. Coronary artery disease, status post myocardial infarction. 6. Deep vein thrombosis and pulmonary emboli, for which he is on apixaban. 7. Hypothyroidism. 8. Chronic kidney disease. 9. Benign prostatic hypertrophy. 10. Chronic obstructive pulmonary disease. 11. Morbid obesity, obstructive sleep apnea. 12. Chronic pain syndrome. KAR PERSAUD MD DR: KEENAN/lindsay JOB#: [id number] / [id number]
--- NOTE | 2018-01-27 09:58 | PDOC ---
SUBJECTIVE Subjective Pt doing well. No more hematuria/dysuria. Going to long term later today, feels ready to go. OBJECTIVE Objective Physical Exam: General appearance: Alert and Oriented Head: Normocephalic, without obvious abnormality Eyes: conjunctivae/corneas clear. PERRL, EOM's intact. Fundi benign Lungs: regular respirations, non labored breathing. Abdomen: soft, obese, non tender. Vital Signs Vital Signs Date Time Temp Pulse Resp B/P (MAP) Pulse Ox O2 Delivery O2 Flow Rate FiO2 01/27/18 08:00 Nasal Cannula 4.0 01/27/18 07:00 97.8 91 20 131/69 (89) 94 Nasal Cannula 4.0 97.8 01/27/18 03:00 98.0 101 20 140/81 (100) 91 Nasal Cannula 4.0 98.0 01/26/18 23:00 97.8 94 18 139/73 (95) 97 Room Air 4.0 97.8 01/26/18 20:00 Nasal Cannula 4.0 01/26/18 19:00 97.7 88 20 134/82 (99) 97 Nasal Cannula 4.0 97.7 01/26/18 15:00 97.7 80 20 118/60 (79) 93 Nasal Cannula 4.0 97.7 01/26/18 10:41 97.9 80 20 120/64 (82) 92 Nasal Cannula 4.0 97.9 I & O Intake and Output 01/27/18 07:00 Intake Total 2550 ml Output Total 1350 ml Balance 1200 ml Intake Oral 2550 ml Output Urine Total 1350 ml # Bowel Movements 2 PHYSICAL EXAM Physical Exam Physical Exam: General appearance: Alert and Oriented Head: Normocephalic, without obvious abnormality Eyes: conjunctivae/corneas clear. PERRL, EOM's intact. Fundi benign Lungs: regular respirations, non labored breathing. Abdomen: soft, obese, non tender. ASSESSMENT/PLAN Assessment/Plan Pt doing well, no more dysuria/hematuria. Hematuria from cath trauma, appears to be resolved now. Pt may go back to long term from a Urology perspective. Pt has follow up on the at 1000 am with Urology, he intends to keep this appointment. Still has paperwork, appointment card Will sign off at this time but please call with questions or changes in patient condition. Problems: (1) Hematuria (2) Traumatic hematuria COMMENT Lab Laboratory Tests Test 01/26/18 20:16 01/27/18 03:30 01/27/18 07:15 Glucose (Fingerstick) 175 mg/dL (70-99) 120 mg/dL (70-99) Hemoglobin 12.7 g/dL (13.0-17.5) Hematocrit 38.7 % (39.0-53.0) Problem Qualifiers (1) Hematuria: Hematuria type: gross Qualified Codes: R31.0 - Gross hematuria CORNELIO ABRAHAM APRN Jan 27, 2018 09:58
[2018-01-27 11:13] VITALS: BP 135/64
[2018-01-27 14:51] VITALS: BP 132/68
[2018-01-27] MEDS: CALCITRIOL 0.25 MCG CAPSULE. PO SCH (16:44)
== END 2018-01-27 17:49 | DRG 682 ==
LOC: ER 08:01 → 5 SOUTH 09:14
PROVIDERS: ADMIT Internal Medicine; ATTEND Internal Medicine
DX: N17.9 Acute kidney failure, unspecified (principal); I26.99 Other pulmonary embolism without acute cor pulmonale; R31.0 Gross hematuria; E03.9 Hypothyroidism, unspecified; E11.22 Type 2 diabetes mellitus with diabetic chronic kidney disease; E66.01 Morbid (severe) obesity due to excess calories; E78.5 Hyperlipidemia, unspecified; G47.33 Obstructive sleep apnea (adult) (pediatric); G89.4 Chronic pain syndrome; I12.9 Hypertensive chronic kidney disease with stage 1 through stage 4 chronic kidney disease, or unspecified chronic kidney disease; I25.10 Atherosclerotic heart disease of native coronary artery without angina pectoris; J44.9 Chronic obstructive pulmonary disease, unspecified; N18.9 Chronic kidney disease, unspecified; I25.2 Old myocardial infarction; N40.0 Benign prostatic hyperplasia without lower urinary tract symptoms; Z79.01 Long term (current) use of anticoagulants; Z82.49 Family history of ischemic heart disease and other diseases of the circulatory system; Z86.718 Personal history of other venous thrombosis and embolism; Z87.891 Personal history of nicotine dependence; Z98.41 Cataract extraction status, right eye; Z98.42 Cataract extraction status, left eye; Z86.711 Personal history of pulmonary embolism; Z87.01 Personal history of pneumonia (recurrent)
CPT/HCPCS: 36415; 80048; 80053; 81001; 82962; 85014; 85018; 85025; 85027; 85610; 85730; 87086; 87641; 94640; J7620; 99285-25

== ENCOUNTER 2018-01-29 08:13 | Inpatient (IN) | payer MEDICARE ==
[~2018-01-29] VITALS: Ht 177.8 cm; Wt 113.4 kg
[~2018-01-29 08:13] MED LIST: ACET325T9 PO; APIX2.5T PO; ATORVASTATIN CA80 MG PO; BUSP10TA PO; CALC0.25 PO; CHOL10003 PO; DULO60CA44 PO; FOLI1TAB16 PO; FURO20TA3 PO; GLIP5TAB10 PO; GUAI600T47 PO; LACT1CAP19 PO; LEVO50TA5 PO; PANT20TA2 PO; POTA20TA82 PO; TRAZ-85 PO
--- NOTE | 2018-01-29 08:44 | PHYS DOC ---
Past Medical History Past Medical History: CAD, COPD, Diabetes-Type II, DVT, Hypothyroid, [place], Pneumonia, Other Additional Past Medical Histor: PE,BPH,CKD,O. SLEEP APNEA,CHRONIC BACK PAIN Past Surgical History: Other Additional Past Surgical Histo: LOOP MONITOR, BILAT CATARACTS Smoking: Quit Greater Than 1 Year Alcohol Use: Heavy Additional Information: '2 SCREWDRIVERS EVERY DAY' Drug Use: None Adult General Chief Complaint Chief Complaint: BLOOD IN URINE HPI HPI Patient is a 72-year-old male who presents to the emergency department via EMS from his nursing facility. He states he was [facility] from the [facility] about 2 days ago, after being hospitalized there with pneumonia. He states that he had a Sutherland catheter in place during his hospital stay, and states he was removed before he left the hospital, although he states it was somewhat painful when it was removed. He states that this morning he was using the urine all to nursing facility and he had gross hematuria with some clots. There are still some blood clot remaining in his perineal area. He denies any other trauma or any wounds. He denies any genital pain. He does take Eliquis for a prior history of pulmonary embolism. He has not had any fevers or chills, denies any flank or back pain. There are no alleviating or exacerbating factors to his symptoms otherwise. Review of Systems Review of Systems Constitutional: Denies fever or chills [] Eyes: Denies change in visual acuity, redness, or eye pain [] HENT: Denies nasal congestion or sore throat [] Respiratory: Denies cough or shortness of breath [] Cardiovascular: The patient denies any shortness of breath, chest pain, palpitations, or orthopnea [] GI: Denies abdominal pain, nausea, vomiting, bloody stools or diarrhea [] : Denies dysuria. Does report gross hematuria this morning[] Musculoskeletal: Denies back pain or joint pain [] Integument: Denies rash or skin lesions. Denies any other easy bruising or bleeding. [] Neurologic: Denies headache, focal weakness or sensory changes [] Endocrine: Denies polyuria or polydipsia [] All other systems were reviewed and found to be within normal limits, except as documented in this note. Allergies Allergies Allergies Coded Allergies Type Severity Reaction Last Updated Verified Penicillins Allergy Intermediate 01/29/18 Yes oxycodone Allergy Intermediate Rash 01/29/18 Yes Physical Exam Physical Exam PHYSICAL EXAM: CONSTITUTIONAL: Well developed, well nourished HEAD: normocephalic, atraumatic EENT: PERRL, EOMI. Conjunctivae normal color, sclerae non-icteric; moist mucous membranes. NECK: Supple, non-tender; no meningismus. LUNGS: Lungs CTA, breathing even and unlabored. Normal air movement. HEART: Regular rate and rhythm, no murmur CHEST: No deformity; non-tender ABDOMEN: The abdomen is soft, and non-tender, no masses or bruits. EXTREM: Normal ROM; no deformity, no calf tenderness. Normal pulses palpable in all extremities. There is no pedal edema. SKIN: No rash; no diaphoresis NEURO: Alert; normal speech and cognition; CN's grossly intact; strength grossly intact without focal deficit. BACK: No CVA TTP. GENITOURINARY: Normal external genitalia. There are some dried blood clots on the perineum, although when they are removed, there are no wounds visualized. There is no gross blood at the urethral meatus. The patient did urinate in the urine on his urine appears rather normal looking, without obvious gross hematuria. Current Patient Data Vital Signs Vital Signs Date Time Temp Pulse Resp B/P (MAP) Pulse Ox O2 Delivery O2 Flow Rate FiO2 01/29/18 08:13 97.6 97 18 179/82 (114) 95 Nasal Cannula 3.0 97.6 Lab Values Laboratory Tests Test 01/29/18 08:45 White Blood Count 6.0 x10^3/uL (4.0-11.0) Red Blood Count 4.28 x10^6/uL (4.30-5.70) L Hemoglobin 13.4 g/dL (13.0-17.5) Hematocrit 41.0 % (39.0-53.0) Mean Corpuscular Volume 96 fL (79-100) Mean Corpuscular Hemoglobin 31 pg (25-35) Mean Corpuscular Hemoglobin Concent 33 g/dL (31-37) Red Cell Distribution Width 14.1 % (11.5-14.5) Platelet Count 186 x10^3/uL (140-400) Neutrophils (%) (Auto) 74 % (31-73) H Lymphocytes (%) (Auto) 15 % (24-48) L Monocytes (%) (Auto) 7 % (0-9) Eosinophils (%) (Auto) 3 % (0-3) Basophils (%) (Auto) 1 % (0-3) Neutrophils # (Auto) 4.4 x10^3uL (1.8-7.7) Lymphocytes # (Auto) 0.9 x10^3/uL (1.0-4.8) L Monocytes # (Auto) 0.4 x10^3/uL (0.0-1.1) Eosinophils # (Auto) 0.2 x10^3/uL (0.0-0.7) Basophils # (Auto) 0.0 x10^3/uL (0.0-0.2) Urine Color Lydia Urine Clarity Clear Urine pH 6.0 Urine Specific Granger 1.025 Urine Protein 30 mg/dL (NEG-TRACE) Urine Glucose (UA) Negative mg/dL (NEG) Urine Ketones (Stick) Trace mg/dL (NEG) Urine Blood Large (NEG) Urine Nitrite Negative (NEG) Urine Bilirubin Small (NEG) Urine Urobilinogen Dipstick 0.2 mg/dL (0.2 mg/dL) Urine Leukocyte Esterase Small (NEG) Urine RBC Tntc /HPF (0-2) Urine WBC Occ /HPF (0-4) Urine Bacteria 0 /HPF (0-FEW) Sodium Level 142 mmol/L (136-145) Potassium Level 4.4 mmol/L (3.5-5.1) Chloride Level 100 mmol/L (98-107) Carbon Dioxide Level 39 mmol/L (21-32) H Anion Gap 3 (6-14) L Blood Urea Nitrogen 17 mg/dL (8-26) Creatinine 1.8 mg/dL (0.7-1.3) H Estimated GFR (Cockcroft-Gault) 37.1 BUN/Creatinine Ratio 9 (6-20) Glucose Level 148 mg/dL (70-99) H Calcium Level 9.3 mg/dL (8.5-10.1) Total Bilirubin 0.6 mg/dL (0.2-1.0) Aspartate Amino Transferase (AST) 36 U/L (15-37) Alanine Aminotransferase (ALT) 40 U/L (16-63) Alkaline Phosphatase 62 U/L (46-116) Total Protein 6.8 g/dL (6.4-8.2) Albumin 3.3 g/dL (3.4-5.0) L Albumin/Globulin Ratio 0.9 (1.0-1.7) L Laboratory Tests 01/29/18 08:45 Laboratory Tests 01/29/18 08:45 EKG EKG [] Radiology/Procedures Radiology/Procedures [PROCEDURE: CT ABDOMEN PELVIS WO CONTRAST PQRS Compliance Statement: One or more of the following individualized dose reduction techniques were utilized for this examination: 1. Automated exposure control 2. Adjustment of the mA and/or kV according to patient size 3. Use of iterative reconstruction technique CT ABDOMEN PELVIS WO CONTRAST Clinical Indication: HEMATURIA Comparison: None. Technique: Helical CT imaging of the abdomen and pelvis is performed without IV or oral contrast. Findings: Peribronchial thickening in the bilateral basilar lower lobes. Mild consolidations in the bilateral lower lobes just above the hemidiaphragms may be pneumonia or atelectasis or aspiration. Mild cardiomegaly. Coronary artery disease. Cholelithiasis. Mild splenomegaly. The liver, pancreas, and adrenal glands are normal. Atherosclerotic abdominal aorta and its branches. There is no aneurysm. Moderate bilateral perinephric stranding. No renal calculus. No hydronephrosis. Stomach unremarkable. Tiny fat-containing periumbilical hernia. No small bowel obstruction. There is moderate sigmoid colon diverticulosis. The appendix is normal. No colon wall thickening. No abdominal adenopathy or free fluid. Urinary bladder is not well distended accentuating wall thickness. Prostate size normal. No pelvic free fluid. There are chronic appearing compression fractures of L1, L2, and L4. IMPRESSION: 1. There is bilateral lower lobe bronchitis. Small consolidation in the anterior right lower lobe is likely infectious/inflammatory. There are bilateral consolidations in the lower lobes just above the hemidiaphragms that may be pneumonia or atelectasis or aspiration. 2. No obstructive uropathy. 3. Cholelithiasis. 4. Mild splenomegaly. 5. Distal colon diverticulosis without diverticulitis. 6. Chronic appearing compression fractures of L1, L2, and L4.] Course & Med Decision Making Course & Med Decision Making Pertinent Labs and Imaging studies reviewed. (See chart for details) [The patient's condition remained stable. For some reason his cardiac in relation tests are still pending. I discussed the case with Dr. Persaud, the patient's PCP. He states that the patient has had problems with bleeding on and off since his recent hospital discharge. He held his Eliquis for the past 2 days and the bleeding seemed to have resolved but was resumed yesterday. He would like the patient admitted for urology consultation which will be obtained. ] Dragon Disclaimer Dragon Disclaimer This electronic medical record was generated, in whole or in part, using a voice recognition dictation system. Departure Departure Impression: Primary Impression: Gross hematuria Additional Impression: Traumatic hematuria Disposition: ADMITTED INPATIENT Admitting Physician: Arlyn Persaud Condition: STABLE Referrals: ARLYN PERSAUD MD (PCP) Problem Qualifiers KANNAN OSCAR MD Jan 29, 2018 08:44
[2018-01-29 08:54] LABS: BASO % 1 % (0-3); EOS # 0.2 x10^3/uL (0.0-0.7); EOS % 3 % (0-3); HEMOGLOBIN 13.4 g/dL (13.0-17.5); LYMPH # 0.9 x10^3/uL (1.0-4.8); LYMPH % 15 % (24-48); MEAN CORPUSCULAR HEMOGLOBIN 31 pg (25-35); MEAN CORPUSCULAR HGB CONC 33 g/dL (31-37); MEAN CORPUSCULAR VOLUME 96 fL (79-100); MONO # 0.4 x10^3/uL (0.0-1.1); MONO % 7 % (0-9); NEUT # 4.4 x10^3uL (1.8-7.7); NEUT % 74 % (31-73); PLATELET COUNT 186 x10^3/uL (140-400); RED BLOOD COUNT 4.28 x10^6/uL (4.30-5.70); RED CELL DISTRIBUTION WIDTH 14.1 % (11.5-14.5)
[2018-01-29 08:57] LABS: BILIRUBIN,URINE SMALL (NEG); CLARITY,URINE CLEAR; COLOR,URINE AMBER; NITRITE,URINE NEGATIVE (NEG); PROTEIN,URINE 30 mg/dL (NEG-TRACE); UROBILINOGEN,URINE 0.2 mg/dL (0.2 mg/dL)
[2018-01-29 09:12] LABS: CALCIUM 9.3 mg/dL (8.5-10.1); CREATININE 1.8 mg/dL (0.7-1.3); GFR 37.1; POTASSIUM 4.4 mmol/L (3.5-5.1)
[2018-01-29 09:24] LABS: ALBUMIN 3.3 g/dL (3.4-5.0); ALBUMIN/GLOBULIN RATIO 0.9 (1.0-1.7); TOTAL BILIRUBIN 0.6 mg/dL (0.2-1.0); TOTAL PROTEIN 6.8 g/dL (6.4-8.2)
[2018-01-29 09:30] LABS: BACTERIA,URINE 0 /HPF (0-FEW); RBC,URINE TNTC /HPF (0-2); WBC,URINE OCC /HPF (0-4)
--- NOTE | 2018-01-29 09:48 | RAD ---
PQRS Compliance Statement: One or more of the following individualized dose reduction techniques were utilized for this examination: 1. Automated exposure control 2. Adjustment of the mA and/or kV according to patient size 3. Use of iterative reconstruction technique CT ABDOMEN PELVIS WO CONTRAST Clinical Indication: HEMATURIA Comparison: None. Technique: Helical CT imaging of the abdomen and pelvis is performed without IV or oral contrast. Findings: Peribronchial thickening in the bilateral basilar lower lobes. Mild consolidations in the bilateral lower lobes just above the hemidiaphragms may be pneumonia or atelectasis or aspiration. Mild cardiomegaly. Coronary artery disease. Cholelithiasis. Mild splenomegaly. The liver, pancreas, and adrenal glands are normal. Atherosclerotic abdominal aorta and its branches. There is no aneurysm. Moderate bilateral perinephric stranding. No renal calculus. No hydronephrosis. Stomach unremarkable. Tiny fat-containing periumbilical hernia. No small bowel obstruction. There is moderate sigmoid colon diverticulosis. The appendix is normal. No colon wall thickening. No abdominal adenopathy or free fluid. Urinary bladder is not well distended accentuating wall thickness. Prostate size normal. No pelvic free fluid. There are chronic appearing compression fractures of L1, L2, and L4. IMPRESSION: 1. There is bilateral lower lobe bronchitis. Small consolidation in the anterior right lower lobe is likely infectious/inflammatory. There are bilateral consolidations in the lower lobes just above the hemidiaphragms that may be pneumonia or atelectasis or aspiration. 2. No obstructive uropathy. 3. Cholelithiasis. 4. Mild splenomegaly. 5. Distal colon diverticulosis without diverticulitis. 6. Chronic appearing compression fractures of L1, L2, and L4. Electronically signed by: Hebert Cleaning MD (01/29/2018 9:45 AM) [id number]
[2018-01-29 10:43] LABS: PROTHROMBIN TIME PATIENT 12.7 SEC (11.7-14.0)
[2018-01-29 12:07] VITALS: BP 154/85
[2018-01-29] MEDS ORDERED: C.DIFF MED SCREEN BY RX. MC ONE (14:00)
[2018-01-29] MEDS ORDERED: FURO40TA4 PO (14:05)
[2018-01-29] MEDS ORDERED: BUDE0.25 NEB (14:05)
[2018-01-29] MEDS ORDERED: ALBU2.5V14 NEB (14:05)
[2018-01-29 15:00] VITALS: BP 126/77
--- NOTE | 2018-01-29 15:34 | PDOC2 ---
UROLOGY CONSULT Date of Admission DATE: 01/29/18 TIME: 15:29 Reason for Consult: gh Chief Complaint gh Hx of recent [facility] ago and chronic anticoagulations for PE. UA on admission with no bacteria. NC-CT a/p with no gu abnormalities. cr 1.8 GH has resolved by this encounter. No luts, has mild dysuria. 60ppy smoking hx. ROS ROS: RESPIRATORY: Shortness of breath denies. Cough denies. UROLOGY: +blood in urine. Denies difficulty urinating Past Surgical History: Cataract Removal Past Surgical History: Other Additional Past Surgical Histo: LOOP MONITOR, BILAT CATARACTS Current Medications Current Medications Pharmacy Consult (C.diff Med Screen By Rx) 1 each 1X ONCE [facility] ; Start 01/29/18 at 14:00; Stop 01/29/18 at 14:01; Status DC Active Scripts Active Reported Furosemide 40 Mg Tablet 1.5 Tab PO DAILY Budesonide 0.25 Mg/2 Ml Ampul.neb 1 Vial NEB BID Albuterol Sulfate Conc Neb Soln (Albuterol Sulfate) 2.5 Mg/0.5 Ml Vial.neb 1 Vial NEB Q6HRS PRN Trazodone Hcl 50 Mg Tablet 1 Tab PO QHS Culturelle (Lactobacillus Rhamnosus Gg) 1 Each Cap.sprink 1 Each PO Atorvastatin Calcium 80 Mg Tablet 1 Tab PO DAILY Buspirone Hcl 10 Mg Tablet 1 Tab PO BID Glipizide 5 Mg Tablet 1 Tab PO BID Eliquis (Apixaban) 2.5 Mg Tablet 2.5 Mg PO BID Protonix (Pantoprazole Sodium) 20 Mg Tablet.dr 1 Tab PO DAILY Duloxetine Hcl 60 Mg Capsule.dr 60 Mg PO DAILY Furosemide 20 Mg Tablet 60 Tab PO DAILY Calcitriol 0.25 Mcg Capsule 1 Cap PO 3X/WEEK Mucinex (Guaifenesin) 600 Mg Tablet.er 200 Tab PO TID Potassium Chloride 20 Meq Tablet.er 20 Meq PO DAILY Levothyroxine Sodium 50 Mcg Tablet 1 Tab PO DAILY Tylenol (Acetaminophen) 325 Mg Tablet 500 Mg PO TID Vitamin D3 (Cholecalciferol (Vitamin D3)) 1,000 Unit Tablet 2 Tab PO DAILY Folic Acid 1 Mg Tablet 1 Tab PO DAILY Allergies: Coded Allergies: Penicillins (Verified Allergy, Intermediate, 01/29/18) oxycodone (Verified Allergy, Intermediate, Rash, 01/29/18) Physical Examination PHYSICAL EXAMINATION: GENERAL: Gen. appearance: No acute distress. Mood/affect: Pleasant. HEENT: Head: Normocephalic, atraumatic. Airway Impairment: No. CHEST: Shape and expansion: Normal. Expansion: Normal. SKIN: General: Warm. Color: Good. GENITOURINARY:External genitalia - wnl. NEUROLOGICAL: Mental status: Alert and oriented 3. Language: Normal. no blood at meatus DOES THIS PATIENT HAVE URINARY: No VITALS Vital Signs Date Time Temp Pulse Resp B/P (MAP) Pulse Ox O2 Delivery O2 Flow Rate FiO2 01/29/18 12:07 97.5 82 18 154/85 (108) 96 Nasal Cannula 3.0 97.5 Labs Laboratory Tests Test 01/29/18 08:45 White Blood Count 6.0 x10^3/uL (4.0-11.0) Red Blood Count 4.28 x10^6/uL (4.30-5.70) Hemoglobin 13.4 g/dL (13.0-17.5) Hematocrit 41.0 % (39.0-53.0) Mean Corpuscular Volume 96 fL (79-100) Mean Corpuscular Hemoglobin 31 pg (25-35) Mean Corpuscular Hemoglobin Concent 33 g/dL (31-37) Red Cell Distribution Width 14.1 % (11.5-14.5) Platelet Count 186 x10^3/uL (140-400) Neutrophils (%) (Auto) 74 % (31-73) Lymphocytes (%) (Auto) 15 % (24-48) Monocytes (%) (Auto) 7 % (0-9) Eosinophils (%) (Auto) 3 % (0-3) Basophils (%) (Auto) 1 % (0-3) Neutrophils # (Auto) 4.4 x10^3uL (1.8-7.7) Lymphocytes # (Auto) 0.9 x10^3/uL (1.0-4.8) Monocytes # (Auto) 0.4 x10^3/uL (0.0-1.1) Eosinophils # (Auto) 0.2 x10^3/uL (0.0-0.7) Basophils # (Auto) 0.0 x10^3/uL (0.0-0.2) Prothrombin Time 12.7 SEC (11.7-14.0) Prothromb Time International Ratio 1.0 (0.8-1.1) Activated Partial Thromboplast Time 28 SEC (24-38) Urine Color Lydia Urine Clarity Clear Urine pH 6.0 Urine Specific [place] 1.025 Urine Protein 30 mg/dL (NEG-TRACE) Urine Glucose (UA) Negative mg/dL (NEG) Urine Ketones (Stick) Trace mg/dL (NEG) Urine Blood Large (NEG) Urine Nitrite Negative (NEG) Urine Bilirubin Small (NEG) Urine Urobilinogen Dipstick 0.2 mg/dL (0.2 mg/dL) Urine Leukocyte Esterase Small (NEG) Urine RBC Tntc /HPF (0-2) Urine WBC Occ /HPF (0-4) Urine Bacteria 0 /HPF (0-FEW) Sodium Level 142 mmol/L (136-145) Potassium Level 4.4 mmol/L (3.5-5.1) Chloride Level 100 mmol/L (98-107) Carbon Dioxide Level 39 mmol/L (21-32) Anion Gap 3 (6-14) Blood Urea Nitrogen 17 mg/dL (8-26) Creatinine 1.8 mg/dL (0.7-1.3) Estimated GFR (Cockcroft-Gault) 37.1 BUN/Creatinine Ratio 9 (6-20) Glucose Level 148 mg/dL (70-99) Calcium Level 9.3 mg/dL (8.5-10.1) Total Bilirubin 0.6 mg/dL (0.2-1.0) Aspartate Amino Transf (AST/SGOT) 36 U/L (15-37) Alanine Aminotransferase (ALT/SGPT) 40 U/L (16-63) Alkaline Phosphatase 62 U/L (46-116) Total Protein 6.8 g/dL (6.4-8.2) Albumin 3.3 g/dL (3.4-5.0) Albumin/Globulin Ratio 0.9 (1.0-1.7) Laboratory Tests Test 01/29/18 08:45 White Blood Count 6.0 x10^3/uL (4.0-11.0) Red Blood Count 4.28 x10^6/uL (4.30-5.70) Hemoglobin 13.4 g/dL (13.0-17.5) Hematocrit 41.0 % (39.0-53.0) Mean Corpuscular Volume 96 fL (79-100) Mean Corpuscular Hemoglobin 31 pg (25-35) Mean Corpuscular Hemoglobin Concent 33 g/dL (31-37) Red Cell Distribution Width 14.1 % (11.5-14.5) Platelet Count 186 x10^3/uL (140-400) Neutrophils (%) (Auto) 74 % (31-73) Lymphocytes (%) (Auto) 15 % (24-48) Monocytes (%) (Auto) 7 % (0-9) Eosinophils (%) (Auto) 3 % (0-3) Basophils (%) (Auto) 1 % (0-3) Neutrophils # (Auto) 4.4 x10^3uL (1.8-7.7) Lymphocytes # (Auto) 0.9 x10^3/uL (1.0-4.8) Monocytes # (Auto) 0.4 x10^3/uL (0.0-1.1) Eosinophils # (Auto) 0.2 x10^3/uL (0.0-0.7) Basophils # (Auto) 0.0 x10^3/uL (0.0-0.2) Prothrombin Time 12.7 SEC (11.7-14.0) Prothromb Time International Ratio 1.0 (0.8-1.1) Activated Partial Thromboplast Time 28 SEC (24-38) Urine Color Lydia Urine Clarity Clear Urine pH 6.0 Urine Specific [place] 1.025 Urine Protein 30 mg/dL (NEG-TRACE) Urine Glucose (UA) Negative mg/dL (NEG) Urine Ketones (Stick) Trace mg/dL (NEG) Urine Blood Large (NEG) Urine Nitrite Negative (NEG) Urine Bilirubin Small (NEG) Urine Urobilinogen Dipstick 0.2 mg/dL (0.2 mg/dL) Urine Leukocyte Esterase Small (NEG) Urine RBC Tntc /HPF (0-2) Urine WBC Occ /HPF (0-4) Urine Bacteria 0 /HPF (0-FEW) Sodium Level 142 mmol/L (136-145) Potassium Level 4.4 mmol/L (3.5-5.1) Chloride Level 100 mmol/L (98-107) Carbon Dioxide Level 39 mmol/L (21-32) Anion Gap 3 (6-14) Blood Urea Nitrogen 17 mg/dL (8-26) Creatinine 1.8 mg/dL (0.7-1.3) Estimated GFR (Cockcroft-Gault) 37.1 BUN/Creatinine Ratio 9 (6-20) Glucose Level 148 mg/dL (70-99) Calcium Level 9.3 mg/dL (8.5-10.1) Total Bilirubin 0.6 mg/dL (0.2-1.0) Aspartate Amino Transf (AST/SGOT) 36 U/L (15-37) Alanine Aminotransferase (ALT/SGPT) 40 U/L (16-63) Alkaline Phosphatase 62 U/L (46-116) Total Protein 6.8 g/dL (6.4-8.2) Albumin 3.3 g/dL (3.4-5.0) Albumin/Globulin Ratio 0.9 (1.0-1.7) Images nct ct as above Assessment/Plan GH. urethra trauma. Hx of smoking. Pyridium prn dysuria. Recommend cysto as OP next week given smoking hx. may dc home tomorrow am from Gu standpoint. Past Medical History: CAD, COPD, Diabetes-Type II, DVT, Hypothyroid, PR, Pneumonia, Other Additional Past Medical Histor: PE,BPH,CKD,O. SLEEP APNEA,CHRONIC BACK PAIN Smoking: Quit Greater Than 1 Year Alcohol Use: Heavy Additional Information: '2 SCREWDRIVERS EVERY DAY' Drug Use: None MONICA COX MD Jan 29, 2018 15:34
[2018-01-29] MEDS ORDERED: PHENAZOPYRIDINE 200 MG TABLET. PO PRN (15:45)
[2018-01-29] MEDS ORDERED: ALBUTEROL SULFATE 2.5 MG/3 ML NEBU. NEB PRN (16:00)
[2018-01-29] MEDS ORDERED: PANTOPRAZOLE 40 MG TABLET.DR. PO SCH (16:30)
[2018-01-29] MEDS: LACTOBACILLUS RHAMNOSUS GG 1 CAPSULE. PO SCH (16:53)
[2018-01-29] MEDS: FOLIC ACID 1 MG TABLET. PO SCH (16:53)
[2018-01-29] MEDS: glipiZIDE 5 MG TABLET PO SCH (16:53)
[2018-01-29] MEDS: FUROSEMIDE 40 MG TABLET. PO SCH (16:53)
[2018-01-29] MEDS: CHOLECALCIFEROL (VITAMIN D3) 1,000 UNIT TABLET PO SCH (16:53)
[2018-01-29] MEDS: DULoxetine HCL 30 MG CAPSULE.DR PO SCH (16:53)
[2018-01-29] MEDS: LEVOTHYROXINE 50 MCG TABLET PO SCH (16:53)
[2018-01-29 18:15] LABS: HEMATOCRIT 45.1 % (39.0-53.0); HEMOGLOBIN 14.8 g/dL (13.0-17.5)
[2018-01-29 19:00] VITALS: BP 150/83
[2018-01-29] MEDS: BUDESONIDE 0.5 MG/2 ML NEBU. NEB SCH (20:00)
[2018-01-29] MEDS: busPIRone 10 MG TABLET. PO SCH (20:46)
[2018-01-29] MEDS: ATORVASTATIN CALCIUM 40 MG TABLET. PO SCH (20:46)
[2018-01-29] MEDS: traZODone 50 MG TABLET. PO SCH (20:46)
[2018-01-29] MEDS: ACETAMINOPHEN 500 MG TABLET PO SCH (20:47)
[2018-01-29] MEDS ORDERED: NON FORMULARY ITEM (Budesonide 1 VIAL) NEB SCH (21:00)
[2018-01-29 23:00] VITALS: BP 131/71
[2018-01-30] VITALS (7 sets, daily range): BP systolic 117–139; BP diastolic 70–96
[2018-01-30 04:50] LABS: BASO % 1 % (0-3); EOS # 0.2 x10^3/uL (0.0-0.7); EOS % 3 % (0-3); HEMATOCRIT 39.4 % (39.0-53.0); HEMOGLOBIN 13.1 g/dL (13.0-17.5); LYMPH # 0.8 x10^3/uL (1.0-4.8); LYMPH % 15 % (24-48); MEAN CORPUSCULAR HEMOGLOBIN 32 pg (25-35); MEAN CORPUSCULAR HGB CONC 33 g/dL (31-37); MEAN CORPUSCULAR VOLUME 96 fL (79-100); MONO # 0.4 x10^3/uL (0.0-1.1); MONO % 8 % (0-9); NEUT # 4.2 x10^3uL (1.8-7.7); NEUT % 74 % (31-73); PLATELET COUNT 165 x10^3/uL (140-400); PROTHROMBIN TIME PATIENT 12.3 SEC (11.7-14.0); RED CELL DISTRIBUTION WIDTH 14.8 % (11.5-14.5); WHITE BLOOD COUNT 5.6 x10^3/uL (4.0-11.0)
[2018-01-30 05:25] LABS: ALBUMIN 3.1 g/dL (3.4-5.0); ALBUMIN/GLOBULIN RATIO 0.9 (1.0-1.7); CREATININE 1.6 mg/dL (0.7-1.3); GFR 42.5; POTASSIUM 3.9 mmol/L (3.5-5.1); TOTAL BILIRUBIN 0.6 mg/dL (0.2-1.0); TOTAL PROTEIN 6.6 g/dL (6.4-8.2)
[2018-01-30] MEDS: LEVOTHYROXINE 50 MCG TABLET PO SCH (06:45)
[2018-01-30] MEDS: BUDESONIDE 0.5 MG/2 ML NEBU. NEB SCH (08:00)
[2018-01-30] MEDS: FUROSEMIDE 40 MG TABLET. PO SCH (08:42)
[2018-01-30] MEDS: FOLIC ACID 1 MG TABLET. PO SCH (08:42)
[2018-01-30] MEDS: CHOLECALCIFEROL (VITAMIN D3) 1,000 UNIT TABLET PO SCH (08:42)
[2018-01-30] MEDS: FAMOTIDINE 20 MG TABLET. PO SCH (08:43)
[2018-01-30] MEDS: LACTOBACILLUS RHAMNOSUS GG 1 CAPSULE. PO SCH (08:43)
[2018-01-30] MEDS: glipiZIDE 5 MG TABLET PO SCH ×2 (08:43→17:11)
[2018-01-30] MEDS: busPIRone 10 MG TABLET. PO SCH ×2 (08:43→20:16)
[2018-01-30] MEDS: ACETAMINOPHEN 500 MG TABLET PO SCH ×3 (08:43→20:16)
[2018-01-30] MEDS: DULoxetine HCL 30 MG CAPSULE.DR PO SCH (08:43)
[2018-01-30] MEDS: POTASSIUM CHLORIDE 20 MEQ TABLET.ER. PO SCH (08:43)
[2018-01-30] MEDS ORDERED: FUROSEMIDE 20 MG TABLET PO SCH (09:00)
--- NOTE | 2018-01-30 14:09 | HP ---
ADMIT DATE: 01/29/2018 INCOMPLETE DICTATION HISTORY OF PRESENT ILLNESS: The patient is a 72-year-old male patient who was discharged actually specifically on 01/27/2018 only to be admitted again yesterday, 01/29/2018, with again an episode of gross hematuria. Initially, the hematuria was related to trauma after he pulled the catheter out and given the patient is known to have been a smoker before and there is no trauma this time, it is obviously concerning that he might have either another source of bleeding, either malignancy in the bladder or the kidneys and therefore, I sent the patient to be admitted again and to consult the urologist. He has had multiple episodes of gross hematuria at [facility] in [place] and again, he continues to have gross hematuria by the time he arrived to the Emergency Room of [facility]. He was actually investigated in the Emergency Room and his initial H and H were 13.4 and 41. His chemistry showed that his BUN is 17, creatinine 1.8. He did have a CT scan of the abdomen and pelvis without contrast, which shows that there is bilateral lower lobe bronchitis, more consolidation in the anterior right lower lobe, likely infectious and inflammatory. There are bilateral consolidations in the lower lobes just above the hemidiaphragm that may represent pneumonia, atelectasis or aspiration. No obstructive uropathy. He was found to have cholelithiasis, mild splenomegaly and distal colon diverticulosis without diverticulitis. He has also chronic-appearing compression fracture of L1, L2 and L4. The patient was admitted to monitor his H and H and to consult the Urology team. PAST MEDICAL HISTORY: Significant for type 2 diabetes mellitus, hypertension, hyperlipidemia, coronary artery disease, status post myocardial infarction, has a history of DVT and PE x 2, hypothyroidism, chronic kidney disease, benign prostatic hypertrophy, chronic obstructive pulmonary disease, morbid obesity, obstructive sleep apnea and has also chronic back pain due to multiple compression fractures. PAST SURGICAL HISTORY: Significant for bilateral cataract extraction. He has also had loop monitor placed and removed about 3-4 years ago and underwent esophagogastroduodenoscopy and colonoscopy. ALLERGIES: HE IS ALLERGIC TO PENICILLIN. MEDICATIONS: He is currently on the following medications: He was on apixaban 2.5 mg twice a day, atorvastatin calcium 80 mg at bedtime, acetaminophen 650 mg 3 times a day, duloxetine 60 mg daily, trazodone 50 mg at bedtime, buspirone 2 mg twice a day, potassium chloride 20 mEq once a day, furosemide 60 mg daily, he is on Mucinex 600 mg twice a day, Protonix 20 mg daily, lactobacillus rhamnosus 1 twice a day. He is on glipizide 5 mg twice a day, levothyroxine sodium 50 mcg once a day. He is on folic acid 1 mg once a day, calcitriol 0.25 mcg once a day and ergocalciferol 2000 international unit once a day. FAMILY HISTORY: He has one brother, younger and lives with him. He has two sisters, both younger, one of them has multiple medical problems. The youngest sister is healthy. His father at the age of 47 because of myocardial infarction. His mother at the age of 85; the cause of is not clear to him. SOCIAL HISTORY: He is , has 2 daughters and one son. One of his daughters lives in [place]. His son lives in [place], [place] and had one son who because of alcoholism. He is an ex-smoker, quit in 1995. He drinks a shot of vodka every day. 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 REVIEW OF SYSTEMS: The patient had bilateral cataract extraction, but denied any glaucoma or macular degeneration. Denied any earache, tinnitus or sensorineural deafness. Denied any nosebleeds, stuffy nose or postnasal drip. Denied any sore throat, sore tongue, toothache, hoarseness of voice or difficulty swallowing. Denied any nausea, vomiting, diarrhea or constipation. Denied any hematemesis, melena or hematochezia. Denied any dysuria, frequency or hematuria. Did complain of gross hematuria. PHYSICAL EXAMINATION: GENERAL: On arrival to the Emergency Room, he looked well and was clearly in no apparent respiratory distress. No pallor, jaundice, cyanosis or thyromegaly. No jugular venous distention. Mild bilateral lower limb edema. VITAL SIGNS: His heart rate was 84, blood pressure was 127/89, temperature was 97.7, respiratory rate was 20 and oxygen saturation was 94% on 2 liters of oxygen. HEENT: Examination of the head, eyes, ears, nose and throat showed normocephalic, atraumatic. NECK: Supple. HEART: Showed normal first and second heart sounds. No gallop, rub or murmur. CHEST: Clear to auscultation. No crepitation or rhonchi. ABDOMEN: Distended, soft and tender. NEUROLOGIC: He was awake, alert, responding appropriately. All cranial nerves intact. He moves extremities without difficulty. LABORATORY DATA: His lab work on arrival showed white cell count of 6000, hemoglobin 13.4, hematocrit 41, MCV 96 and platelet count of 186,000. His chemistry showed a serum sodium 142, potassium 4.4, chloride 100, bicarbonate 39, anion gap of 3, BUN 17, creatinine 1.8, estimated GFR was 37 mL per minute, his glucose 148 and calcium was 9.3. Total bilirubin, AST, ALT, alkaline phosphatase were normal. Total protein was 6.8. Albumin 3.3. His prothrombin time was 12.3, INR of 1. His urinalysis showed the urine was clear with a pH of 6, specific gravity of 1.025, small amount of protein. The urine was negative for glucose, trace of ketones, large amount of blood, negative for nitrite, small amount of leukocyte esterase, too numerous to count rbc's, very few wbc's and no bacteria. SUMMARY: The patient was admitted. We will hold his apixaban. Continue to monitor his H and H and consult the Urology, as this time he came with spontaneous bleeding. He has no Sutherland catheter and given that and history of smoking, bladder cancer is obviously a possibility. DICTATION ENDS HERE. KAR PERSAUD MD DR: KEENAN/lindsay JOB#: [id number] / [id number]
[2018-01-30] MEDS: traZODone 50 MG TABLET. PO SCH (20:16)
[2018-01-30] MEDS: ATORVASTATIN CALCIUM 40 MG TABLET. PO SCH (20:16)
[2018-01-30] MEDS: APIXABAN 2.5 MG TABLET. PO SCH (20:16)
[2018-01-31 02:50] VITALS: BP 137/80
--- NOTE | 2018-01-31 03:42 | PN ---
DATE: SUBJECTIVE: The patient is sitting comfortably, eating his lunch, in no apparent distress. He continued to have blood in the urine. He was seen by , the urologist, who recommended that he can be discharged back and to come as an outpatient for cystoscopy. I am somewhat concerned that we are going to keep this patient back and forth. He has a history of DVT and PEs twice and he is on apixaban, continued with apixaban. Obviously, it would make him continue with this gross hematuria and I am not sure why he cannot have cystoscopy while as an inpatient. I would consult Dr. Bay to see whether perhaps an inferior vena cava filter is indicated in this case so that we can stop apixaban until his cystoscopy done. PHYSICAL EXAMINATION: GENERAL: When I examined him today, he looked well and was clearly in no apparent respiratory distress. No pallor, jaundice, cyanosis or thyromegaly. No jugular venous distension. No limb edema. VITAL SIGNS: Her heart rate was 96, blood pressure was 117/70, temperature was 98.1, respiratory rate was 20, and his oxygen saturation was 93% on 3 L of oxygen. The rest of examination is unremarkable, has not really changed. LABORATORY DATA: His lab work this morning showed his white cell count to be 5600, hemoglobin is 13.1, hematocrit 39, MCV 96, and platelet count of 165,000. His serum sodium was 145, potassium 3.9, chloride 102, bicarbonate 42, anion gap of 1, BUN 14, creatinine 1.6, estimated GFR was 42 mL per minute, his glucose 131, calcium was 9. Total bilirubin, AST, ALT, alkaline phosphatase were normal. Total protein 6.6, albumin 3.1. ASSESSMENT: Recurrent episode of gross hematuria. The patient was a heavy smoker before. On the last admission, there was suspicion that this may be traumatic in nature, but this time, it came spontaneously without any perceived trauma. PLAN: My plan is to discuss this ischium for further with the urologist and also consult Dr. Bay to see whether should we consider inferior vena cava filter given the fact that he has 2 episodes of DVT before and PE and his mobility is limited. KAR PERSAUD MD DR: KEENAN/lindsay JOB#: [id number] / [id number]
[2018-01-31] MEDS: LEVOTHYROXINE 50 MCG TABLET PO SCH (05:14)
[2018-01-31 07:00] VITALS: BP 138/73
[2018-01-31] MEDS: BUDESONIDE 0.5 MG/2 ML NEBU. NEB SCH ×3 (08:00→21:13)
[2018-01-31 08:13] LABS: HEMATOCRIT 41.7 % (39.0-53.0); HEMOGLOBIN 13.5 g/dL (13.0-17.5)
[2018-01-31] MEDS: glipiZIDE 5 MG TABLET PO SCH ×2 (08:22→17:00)
[2018-01-31] MEDS: busPIRone 10 MG TABLET. PO SCH ×2 (08:22→21:36)
[2018-01-31] MEDS: DULoxetine HCL 30 MG CAPSULE.DR PO SCH (08:22)
[2018-01-31] MEDS: APIXABAN 2.5 MG TABLET. PO SCH ×2 (08:22→21:36)
[2018-01-31] MEDS: FUROSEMIDE 40 MG TABLET. PO SCH (08:22)
[2018-01-31] MEDS: FOLIC ACID 1 MG TABLET. PO SCH (08:22)
[2018-01-31] MEDS: POTASSIUM CHLORIDE 20 MEQ TABLET.ER. PO SCH (08:23)
[2018-01-31] MEDS: LACTOBACILLUS RHAMNOSUS GG 1 CAPSULE. PO SCH (08:23)
[2018-01-31] MEDS: ACETAMINOPHEN 500 MG TABLET PO SCH ×3 (08:23→21:36)
[2018-01-31] MEDS: CHOLECALCIFEROL (VITAMIN D3) 1,000 UNIT TABLET PO SCH (08:23)
[2018-01-31] MEDS: FAMOTIDINE 20 MG TABLET. PO SCH (08:23)
[2018-01-31 08:27] LABS: CALCIUM 9.1 mg/dL (8.5-10.1); CREATININE 1.8 mg/dL (0.7-1.3); GFR 37.1; POTASSIUM 4.1 mmol/L (3.5-5.1)
[2018-01-31] MEDS ORDERED: CALCITRIOL 0.25 MCG CAPSULE. PO SCH (09:00)
[2018-01-31 11:00] VITALS: BP 135/69
[2018-01-31 15:55] VITALS: BP 129/76
--- NOTE | 2018-01-31 17:24 | PDOC ---
PULMONARY PROGRESS NOTES Vitals Vital Signs Date Time Temp Pulse Resp B/P (MAP) Pulse Ox O2 Delivery O2 Flow Rate FiO2 01/31/18 15:55 97.9 71 20 129/76 (93) 95 Nasal Cannula 3.0 97.9 Labs Laboratory Tests Test 01/29/18 18:05 01/29/18 21:06 01/30/18 03:55 01/30/18 07:29 Hemoglobin 14.8 g/dL (13.0-17.5) 13.1 g/dL (13.0-17.5) Hematocrit 45.1 % (39.0-53.0) 39.4 % (39.0-53.0) Mean Corpuscular Hemoglobin Concent 33 g/dL (31-37) 33 g/dL (31-37) Glucose (Fingerstick) 98 mg/dL (70-99) 135 mg/dL (70-99) White Blood Count 5.6 x10^3/uL (4.0-11.0) Red Blood Count 4.10 x10^6/uL (4.30-5.70) Mean Corpuscular Volume 96 fL (79-100) Mean Corpuscular Hemoglobin 32 pg (25-35) Red Cell Distribution Width 14.8 % (11.5-14.5) Platelet Count 165 x10^3/uL (140-400) Neutrophils (%) (Auto) 74 % (31-73) Lymphocytes (%) (Auto) 15 % (24-48) Monocytes (%) (Auto) 8 % (0-9) Eosinophils (%) (Auto) 3 % (0-3) Basophils (%) (Auto) 1 % (0-3) Neutrophils # (Auto) 4.2 x10^3uL (1.8-7.7) Lymphocytes # (Auto) 0.8 x10^3/uL (1.0-4.8) Monocytes # (Auto) 0.4 x10^3/uL (0.0-1.1) Eosinophils # (Auto) 0.2 x10^3/uL (0.0-0.7) Basophils # (Auto) 0.0 x10^3/uL (0.0-0.2) Prothrombin Time 12.3 SEC (11.7-14.0) Prothromb Time International Ratio 1.0 (0.8-1.1) Sodium Level 145 mmol/L (136-145) Potassium Level 3.9 mmol/L (3.5-5.1) Chloride Level 102 mmol/L (98-107) Carbon Dioxide Level 42 mmol/L (21-32) Anion Gap 1 (6-14) Blood Urea Nitrogen 14 mg/dL (8-26) Creatinine 1.6 mg/dL (0.7-1.3) Estimated GFR (Cockcroft-Gault) 42.5 BUN/Creatinine Ratio 9 (6-20) Glucose Level 131 mg/dL (70-99) Calcium Level 9.0 mg/dL (8.5-10.1) Total Bilirubin 0.6 mg/dL (0.2-1.0) Aspartate Amino Transf (AST/SGOT) 34 U/L (15-37) Alanine Aminotransferase (ALT/SGPT) 37 U/L (16-63) Alkaline Phosphatase 58 U/L (46-116) Total Protein 6.6 g/dL (6.4-8.2) Albumin 3.1 g/dL (3.4-5.0) Albumin/Globulin Ratio 0.9 (1.0-1.7) Test 01/30/18 11:00 01/31/18 08:05 Glucose (Fingerstick) 161 mg/dL (70-99) Hemoglobin 13.5 g/dL (13.0-17.5) Hematocrit 41.7 % (39.0-53.0) Sodium Level 142 mmol/L (136-145) Potassium Level 4.1 mmol/L (3.5-5.1) Chloride Level 98 mmol/L (98-107) Carbon Dioxide Level 41 mmol/L (21-32) Anion Gap 3 (6-14) Blood Urea Nitrogen 14 mg/dL (8-26) Creatinine 1.8 mg/dL (0.7-1.3) Estimated GFR (Cockcroft-Gault) 37.1 Glucose Level 152 mg/dL (70-99) Calcium Level 9.1 mg/dL (8.5-10.1) Laboratory Tests Test 01/31/18 08:05 Hemoglobin 13.5 g/dL (13.0-17.5) Hematocrit 41.7 % (39.0-53.0) Sodium Level 142 mmol/L (136-145) Potassium Level 4.1 mmol/L (3.5-5.1) Chloride Level 98 mmol/L (98-107) Carbon Dioxide Level 41 mmol/L (21-32) Anion Gap 3 (6-14) Blood Urea Nitrogen 14 mg/dL (8-26) Creatinine 1.8 mg/dL (0.7-1.3) Estimated GFR (Cockcroft-Gault) 37.1 Glucose Level 152 mg/dL (70-99) Calcium Level 9.1 mg/dL (8.5-10.1) Medications Active Scripts Medications Dose Route/Sig Max Daily Dose Days Date Category Furosemide 40 Mg Tablet 1.5 Tab PO DAILY 01/29/18 Reported Budesonide 0.25 Mg/2 Ml Ampul.neb 1 Vial NEB BID 01/29/18 Reported Albuterol Sulfate Conc Neb Soln (Albuterol Sulfate) 2.5 Mg/0.5 Ml Vial.neb 1 Vial NEB Q6HRS PRN 01/29/18 Reported Trazodone Hcl 50 Mg Tablet 1 Tab PO QHS 01/24/18 Reported Culturelle (Lactobacillus Rhamnosus Gg) 1 Each Cap.sprink 1 Each PO 01/24/18 Reported Atorvastatin Calcium 80 Mg Tablet 1 Tab PO DAILY 01/24/18 Reported Buspirone Hcl 10 Mg Tablet 1 Tab PO BID 01/24/18 Reported Glipizide 5 Mg Tablet 1 Tab PO BID 01/24/18 Reported Eliquis (Apixaban) 2.5 Mg Tablet 2.5 Mg PO BID 01/24/18 Reported Protonix (Pantoprazole Sodium) 20 Mg Tablet.dr 1 Tab PO DAILY 01/24/18 Reported Duloxetine Hcl 60 Mg Capsule.dr 60 Mg PO DAILY 01/24/18 Reported Furosemide 20 Mg Tablet 60 Tab PO DAILY 01/24/18 Reported Calcitriol 0.25 Mcg Capsule 1 Cap PO 3X/WEEK 01/24/18 Reported Mucinex (Guaifenesin) 600 Mg Tablet.er 200 Tab PO TID 01/24/18 Reported Potassium Chloride 20 Meq Tablet.er 20 Meq PO DAILY 01/24/18 Reported Levothyroxine Sodium 50 Mcg Tablet 1 Tab PO DAILY 01/24/18 Reported Tylenol (Acetaminophen) 325 Mg Tablet 500 Mg PO TID 01/24/18 Reported Vitamin D3 (Cholecalciferol (Vitamin D3)) 1,000 Unit Tablet 2 Tab PO DAILY 01/24/18 Reported Folic Acid 1 Mg Tablet 1 Tab PO DAILY 01/24/18 Reported Impression . NOTE DICTATED WILL D/W DR PERSAUD, CONTINUE ANTICOAGULATION FOR NOW VENOUS DOPPLER LOWER EXT THANKS CHELSEY CASTILLO MD Jan 31, 2018 17:24
[2018-01-31 19:59] VITALS: BP 134/71
[2018-01-31] MEDS: ATORVASTATIN CALCIUM 40 MG TABLET. PO SCH (21:36)
[2018-01-31] MEDS: traZODone 50 MG TABLET. PO SCH (21:36)
[2018-01-31 23:59] VITALS: BP 125/55
--- NOTE | 2018-02-01 01:07 | CONS ---
DATE OF CONSULTATION: 01/31/2018 ATTENDING PHYSICIAN: Dr. Hoover. REASON FOR CONSULTATION: The patient seen in pulmonary consultation at the request of Dr. Hoover for history of DVT, PE on anticoagulation and he now has hematuria. The patient has been seen by the urologist who recommended a cystoscopy as an outpatient next week. The patient currently is not having any gross hematuria. He does not know the specifics around his DVT and PE. He was never told of cause. He does not think he had DVT, even though it has been documented in the past medical history. He denies any hemoptysis. He wears oxygen at home at 3 liters. He has underlying COPD, quit tobacco in 1995. PAST MEDICAL HISTORY: 1. Chronic respiratory failure secondary to COPD, quit tobacco in 1995. 2. COPD. 3. DVT and PE x 2, specifics are unknown. The patient is on chronic anticoagulation. 4. Type 2 diabetes. 5. Hypertension. 6. Coronary artery disease, status post previous myocardial infarction. 7. Morbid obesity. 8. Obstructive sleep apnea. 9. Chronic pain. PAST SURGICAL HISTORY: Status post bilateral cataract extraction. He has had previous colonoscopy and EGD. MEDICATIONS: List was reviewed. He is back on [employer]. FAMILY HISTORY: Remarkable for coronary artery disease. SOCIAL HISTORY: He is , has 2 daughters. He is an ex-smoker, quit in 1995. Worked as a [employer], is a . REVIEW OF SYSTEMS: As indicated above, otherwise, a 10-point system was reviewed and negative. CONSTITUTIONAL: No fever or chills. EYES: No change in visual acuity. HEENT: No nasal congestion, no sore throat. PULMONARY: As indicated above. CARDIOVASCULAR: No chest pain or pressure. GASTROINTESTINAL: No nausea, vomiting, or diarrhea. GENITOURINARY: No dysuria or frequency. MUSCULOSKELETAL: No localized muscle aches or joint pains. SKIN: No new skin rashes. NEUROLOGIC: No headaches, diplopia or blurred vision. PHYSICAL EXAMINATION: VITAL SIGNS: Stable. O2 saturation was greater than 92% on his chronic 2 liters of oxygen supplementation. HEENT: Eyes, the sclerae were nonicteric. NECK: Jugular venous distention was not elevated. No lymphadenopathy. CHEST: Full expansion. LUNGS: Adequate airway flow with no wheezes. CARDIOVASCULAR: Regular rate and rhythm with S1, S2, no S3. ABDOMEN: Soft, obese. EXTREMITIES: No clubbing, cyanosis. Minimal edema. NEUROLOGIC: The patient was awake, alert, following commands. A detailed neuro exam was not performed. LABORATORY DATA: Reviewed. White count was normal. Hemoglobin and hematocrit were noted. IMPRESSION: 1. History of pulmonary embolism, questionable deep vein thrombosis x 2. 2. Hematuria. 3. Chronic obstructive pulmonary disease. 4. Chronic respiratory failure. 5. Other comorbidities as indicated above. PLAN: 1. Currently, the patient has no hematuria. We will recommend continue Eliquis. 2. We will discuss case with Dr. Hoover, possible discharge home and obtain outpatient cystoscopy. I do appreciate the privilege in sharing this patient's care. CHELSEY CASTILLO MD DR: CALI/lindsay JOB#: [id number] / [id number]
[2018-02-01 04:59] VITALS: BP 154/74
[2018-02-01] MEDS: LEVOTHYROXINE 50 MCG TABLET PO SCH (06:34)
[2018-02-01 07:00] VITALS: BP 141/80
[2018-02-01] MEDS: BUDESONIDE 0.5 MG/2 ML NEBU. NEB SCH (07:18)
--- NOTE | 2018-02-01 07:27 | PN ---
DATE: 01/31/2018 SUBJECTIVE: The patient is resting, sitting up in his chair, in no apparent respiratory distress. He has no further episode of gross hematuria; however, we did start him back on his apixaban. I will observe him one more time overnight and if obviously has further episodes of hematuria we will keep him over the weekend and otherwise we might be able to discharge him back to the retirement tomorrow. PHYSICAL EXAMINATION: GENERAL: When I examined him, he looked well and was clearly in no apparent respiratory distress. VITAL SIGNS: His heart rate was 75, blood pressure was 135/69, temperature was 98.7, respiratory rate was 20 and oxygen saturation was 97% on 3 liters oxygen by nasal cannula. The rest of clinical examination is stable. LABORATORY DATA: His H and H was 13.5 and hematocrit was 41.7. His chemistry showed that his serum sodium 142, potassium 4.1, chloride 98, bicarbonate 41, anion gap of 3, BUN 14, creatinine 1.8, estimated GFR was 37, glucose 152 and calcium was 9.1. ASSESSMENT: Recurrent episode of gross hematuria. The patient has a history of deep venous thrombosis and pulmonary embolism for which he is on apixaban. Other medical problems include type 2 diabetes for which he is on oral hypoglycemic agent, hypertension, hyperlipidemia, coronary artery disease, status post myocardial infarction, hypothyroidism, chronic kidney disease, benign prostatic hypertrophy, chronic obstructive pulmonary disease, morbid obesity, obstructive sleep apnea and chronic back pain due to multiple vertebral compression fractures. KAR PERSAUD MD DR: KEENAN/lindsay JOB#: [id number] / [id number]
[2018-02-01 07:29] LABS: HEMATOCRIT 37.9 % (39.0-53.0); HEMOGLOBIN 12.6 g/dL (13.0-17.5)
--- NOTE | 2018-02-01 07:56 | PDOC ---
PULMONARY PROGRESS NOTES Subjective PT NOT MUNIR SOA Vitals Vital Signs Date Time Temp Pulse Resp B/P (MAP) Pulse Ox O2 Delivery O2 Flow Rate FiO2 02/01/18 07:20 Nasal Cannula 3.0 02/01/18 07:00 97.5 95 18 141/80 (100) 98 97.5 ROS: No Nausea, No Chest Pain, No Abdominal Pain, No Increase Cough Labs Laboratory Tests Test 01/30/18 11:00 01/31/18 08:05 02/01/18 06:17 Glucose (Fingerstick) 161 mg/dL (70-99) Hemoglobin 13.5 g/dL (13.0-17.5) 12.6 g/dL (13.0-17.5) Hematocrit 41.7 % (39.0-53.0) 37.9 % (39.0-53.0) Sodium Level 142 mmol/L (136-145) Potassium Level 4.1 mmol/L (3.5-5.1) Chloride Level 98 mmol/L (98-107) Carbon Dioxide Level 41 mmol/L (21-32) Anion Gap 3 (6-14) Blood Urea Nitrogen 14 mg/dL (8-26) Creatinine 1.8 mg/dL (0.7-1.3) Estimated GFR (Cockcroft-Gault) 37.1 Glucose Level 152 mg/dL (70-99) Calcium Level 9.1 mg/dL (8.5-10.1) Laboratory Tests Test 01/31/18 08:05 02/01/18 06:17 Hemoglobin 13.5 g/dL (13.0-17.5) 12.6 g/dL (13.0-17.5) Hematocrit 41.7 % (39.0-53.0) 37.9 % (39.0-53.0) Sodium Level 142 mmol/L (136-145) Potassium Level 4.1 mmol/L (3.5-5.1) Chloride Level 98 mmol/L (98-107) Carbon Dioxide Level 41 mmol/L (21-32) Anion Gap 3 (6-14) Blood Urea Nitrogen 14 mg/dL (8-26) Creatinine 1.8 mg/dL (0.7-1.3) Estimated GFR (Cockcroft-Gault) 37.1 Glucose Level 152 mg/dL (70-99) Calcium Level 9.1 mg/dL (8.5-10.1) Medications Active Scripts Medications Dose Route/Sig Max Daily Dose Days Date Category Furosemide 40 Mg Tablet 1.5 Tab PO DAILY 01/29/18 Reported Budesonide 0.25 Mg/2 Ml Ampul.neb 1 Vial NEB BID 01/29/18 Reported Albuterol Sulfate Conc Neb Soln (Albuterol Sulfate) 2.5 Mg/0.5 Ml Vial.neb 1 Vial NEB Q6HRS PRN 01/29/18 Reported Trazodone Hcl 50 Mg Tablet 1 Tab PO QHS 01/24/18 Reported Culturelle (Lactobacillus Rhamnosus Gg) 1 Each Cap.sprink 1 Each PO 01/24/18 Reported Atorvastatin Calcium 80 Mg Tablet 1 Tab PO DAILY 01/24/18 Reported Buspirone Hcl 10 Mg Tablet 1 Tab PO BID 01/24/18 Reported Glipizide 5 Mg Tablet 1 Tab PO BID 01/24/18 Reported Eliquis (Apixaban) 2.5 Mg Tablet 2.5 Mg PO BID 01/24/18 Reported Protonix (Pantoprazole Sodium) 20 Mg Tablet.dr 1 Tab PO DAILY 01/24/18 Reported Duloxetine Hcl 60 Mg Capsule.dr 60 Mg PO DAILY 01/24/18 Reported Furosemide 20 Mg Tablet 60 Tab PO DAILY 01/24/18 Reported Calcitriol 0.25 Mcg Capsule 1 Cap PO 3X/WEEK 01/24/18 Reported Mucinex (Guaifenesin) 600 Mg Tablet.er 200 Tab PO TID 01/24/18 Reported Potassium Chloride 20 Meq Tablet.er 20 Meq PO DAILY 01/24/18 Reported Levothyroxine Sodium 50 Mcg Tablet 1 Tab PO DAILY 01/24/18 Reported Tylenol (Acetaminophen) 325 Mg Tablet 500 Mg PO TID 01/24/18 Reported Vitamin D3 (Cholecalciferol (Vitamin D3)) 1,000 Unit Tablet 2 Tab PO DAILY 01/24/18 Reported Folic Acid 1 Mg Tablet 1 Tab PO DAILY 01/24/18 Reported Impression . IMPRESSION: 1. History of pulmonary embolism, questionable deep vein thrombosis x 2. 2. Hematuria. 3. Chronic obstructive pulmonary disease. 4. Chronic respiratory failure. 5. Other comorbidities as indicated above. Plan . VENOUS DOPPLER NEGATIVE I DO NOT RECOMMEND A IVC FILTER D/W DR CORI LÓPEZ TO D/C ON ANTICOAGULATION NO HEMATURIA THIS AM OUT PT CYSTOSCOPY CHELSEY CASTILLO MD Feb 01, 2018 07:56
[2018-02-01] MEDS ORDERED: ANTI-COAG MONITOR BY PHARMACY. MC PRN (08:00)
[2018-02-01] MEDS: APIXABAN 2.5 MG TABLET. PO SCH (08:54)
[2018-02-01] MEDS: LACTOBACILLUS RHAMNOSUS GG 1 CAPSULE. PO SCH (08:55)
[2018-02-01] MEDS: POTASSIUM CHLORIDE 20 MEQ TABLET.ER. PO SCH (08:55)
[2018-02-01] MEDS: FOLIC ACID 1 MG TABLET. PO SCH (08:55)
[2018-02-01] MEDS: FUROSEMIDE 40 MG TABLET. PO SCH (08:55)
[2018-02-01] MEDS: DULoxetine HCL 30 MG CAPSULE.DR PO SCH (08:55)
[2018-02-01] MEDS: ACETAMINOPHEN 500 MG TABLET PO SCH ×2 (08:56→15:33)
[2018-02-01] MEDS: busPIRone 10 MG TABLET. PO SCH (08:56)
[2018-02-01] MEDS: CHOLECALCIFEROL (VITAMIN D3) 1,000 UNIT TABLET PO SCH (08:56)
[2018-02-01] MEDS: FAMOTIDINE 20 MG TABLET. PO SCH (08:56)
[2018-02-01] MEDS: glipiZIDE 5 MG TABLET PO SCH ×3 (09:01→17:02)
--- NOTE | 2018-02-01 09:12 | RAD ---
Examination: VENOUS LOWER EXT BILATERAL History: SOA, HX OF PE, NO LEG COMPLAINTS

NO EVIDENCE OF DVT Comparison/Correlation: None Findings: Bilateral lower extremity venous duplex ultrasound exam was performed. Grayscale, color Doppler, and spectral Doppler imaging was performed. Compression and augmentation performed. Common femoral vein, superficial femoral vein, popliteal vein, and calf veins are unremarkable with no thrombus identified. Posterior tibial and peroneal veins bilaterally are normal. Greater saphenous vein bilaterally is normal. Impression: No evidence of lower extremity deep venous thrombus. Electronically signed by: Zelalem Pope MD (02/01/2018 9:10 AM) [facility]
[2018-02-01 10:56] VITALS: BP 160/79
--- NOTE | 2018-02-01 13:36 | DISCH ---
DISCHARGE DISCHARGE INFORMATION: FINAL DIAGNOSIS Problems Medical Problems: (1) Gross hematuria Status: Acute CONDITION ON DISCHARGE: Stable CODE STATUS: Code Status: Full MCC: SNF STAY <30 DAYS: Yes POST DISCHARGE ORDERS: ACTIVITY ORDERS: Activity as tolerated DIET AFTER DISCHARGE: ADA WOUND/INCISION CARE: No wound care needed CHECKS AFTER DISCHARGE: CHECKS AFTER DISCHARGE: Check blood sugar, ac/hs FOLLOW-UP: PHYSICIAN FOLLOW-UP: urology office with Dr Natalia Aviles for outpatient Cystoscopy LAB ORDERS FOR FOLLOW-UP: CBC, BMP ON Saturday02/03/2018 TREATMENT/EQUIPMENT ORDERS: ADAPTIVE EQUIPMENT NEEDED: None, Front wheeled walker (Contact Dr Persaud if he develop gross hematuria) RESPIRATORY EQUIPMENT NEEDED: Oxygen, Nebulizer, CPAP Physical Therapy For: Evalulation/Treatment Occupational Therapy For: Evaluation/Treatment DISCHARGE MEDICATIONS: Home Meds Reported Medications Furosemide (FUROSEMIDE) 40 Mg Tablet, 1.5 TAB PO DAILY, #30 TAB 5 Refills 01/29/18 Budesonide (BUDESONIDE) 0.25 Mg/2 Ml Ampul.neb, 1 VIAL NEB BID, #60 ML 01/29/18 Albuterol Sulfate (ALBUTEROL SULFATE CONC NEB SOLN) 2.5 Mg/0.5 Ml Vial.neb, 1 VIAL NEB Q6HRS PRN for SHORTNESS OF BREATH, #120 VIAL 5 Refills 01/29/18 Trazodone Hcl (TRAZODONE HCL) 50 Mg Tablet, 1 TAB PO QHS, #30 TAB 1 Refill 01/24/18 Lactobacillus Rhamnosus Gg (CULTURELLE) 1 Each Cap.sprink, 1 EACH PO, CAP 01/24/18 Atorvastatin Calcium (ATORVASTATIN CALCIUM) 80 Mg Tablet, 1 TAB PO DAILY, #30 TAB 5 Refills 01/24/18 Buspirone Hcl (BUSPIRONE HCL) 10 Mg Tablet, 1 TAB PO BID, #60 TAB 1 Refill 01/24/18 Glipizide (GLIPIZIDE) 5 Mg Tablet, 1 TAB PO BID, #60 TAB 3 Refills 01/24/18 Apixaban (ELIQUIS) 2.5 Mg Tablet, 2.5 MG PO BID, TAB 01/24/18 Pantoprazole Sodium (PROTONIX) 20 Mg Tablet.dr, 1 TAB PO DAILY, #30 TAB 01/24/18 Duloxetine Hcl (DULOXETINE HCL) 60 Mg Capsule.dr, 60 MG PO DAILY, CAP 01/24/18 Furosemide (FUROSEMIDE) 20 Mg Tablet, 60 TAB PO DAILY, #90 TAB 1 Refill 01/24/18 Calcitriol (CALCITRIOL) 0.25 Mcg Capsule, 1 CAP PO 3X/WEEK, #30 CAP 5 Refills 01/24/18 Guaifenesin (MUCINEX) 600 Mg Tablet.er, 200 TAB PO TID, #14 TAB 01/24/18 Potassium Chloride (POTASSIUM CHLORIDE) 20 Meq Tablet.er, 20 MEQ PO DAILY, TAB.SR 01/24/18 Levothyroxine Sodium (LEVOTHYROXINE SODIUM) 50 Mcg Tablet, 1 TAB PO DAILY, #30 TAB 5 Refills 01/24/18 Acetaminophen (TYLENOL) 325 Mg Tablet, 500 MG PO TID, TAB 01/24/18 Cholecalciferol (Vitamin D3) (VITAMIN D3) 1,000 Unit Tablet, 2 TAB PO DAILY, # 30 TAB 5 Refills 01/24/18 Folic Acid (FOLIC ACID) 1 Mg Tablet, 1 TAB PO DAILY, #90 TAB 1 Refill 01/24/18 KAR PERSAUD MD Feb 01, 2018 13:36
[2018-02-01 15:00] VITALS: BP 122/73
--- NOTE | 2018-02-02 01:43 | DS ---
DATE OF DISCHARGE: 02/01/2018 HOSPITAL COURSE: The patient is a 72-year-old male patient, a resident at [facility] in [place], who yet again came with gross hematuria. We have observed him. We held initially his apixaban and although initially he did have some gross hematuria, his urine has cleared. I did restart him on apixaban and so far yesterday and today has no further episodes of hematuria. He was seen in consultation by the urologist and the plan is for him to be seen as an outpatient for cystoscopy to make sure that there is no bladder cancer as he is known to have been a heavy smoker before. He did have a CT scan of the abdomen and pelvis, which basically showed that there is bilateral lower lobe bronchitis, small consolidation in the anterior right lower lobe as likely infectious, inflammatory. There are bilateral consolidations in the lower just above the hemidiaphragm, likely due to atelectasis. There is no obstructive uropathy. There is cholelithiasis, mild splenomegaly. There is distal colon diverticulosis without diverticulitis. He has also chronic appearing compression fracture of L1, L2, L4. As he remained hemodynamically stable, his H and H is stable. His kidney function also remained stable. His creatinine about 1.8 which is his baseline. A decision was made to discharge him back to [facility] in [place] to continue with the Physical Therapy and Occupational Therapy. Continue with apixaban. We will continue to monitor his hemoglobin, hematocrit and obviously to keep an appointment with Dr. Josefina Aviles for outpatient cystoscopy. PHYSICAL EXAMINATION: GENERAL: When I examined him this afternoon, he looked well and was clearly in no apparent respiratory distress. No pallor, jaundice, cyanosis, or thyromegaly. No jugular venous distension. No limb edema. VITAL SIGNS: His heart rate was 93, blood pressure was 160/79, temperature was 98.6, respiratory rate was 18 and oxygen saturation was 96% on 3 liters of oxygen by nasal cannula. HEAD, EYES, EARS, NOSE AND THROAT: Showed normocephalic, atraumatic. NECK: Supple. HEART: Showed normal first and second sounds. No gallop, rub or murmur. CHEST: Clear to auscultation. No crepitation or rhonchi. ABDOMEN: Distended, soft, nontender. No guarding or rigidity. No organomegaly. Hernial orifice intact. Bowel sounds normal. NEUROLOGIC: He is awake, alert, responding appropriately. All cranial nerves intact. He moves extremities without difficulty, ambulates with a walker. LABORATORY DATA: His intake was 980, output was 1000. His lab work this morning showed a serum sodium 142, potassium 4.1, chloride 98, bicarbonate 41, anion gap of 3, BUN 14, creatinine 1.8, estimated GFR was 37 mL per minute, glucose 162, calcium was 9.1. His most recent hemoglobin of this morning was 12.6 and hematocrit 37.9. He did have a Doppler ultrasound of his both lower extremities, which showed no evidence of lower extremity deep vein thrombosis. I did consult Dr. Bay and the plan is to discharge the patient back to [place] and for him to be seen at the Urology office for outpatient cystoscopy. FINAL DISCHARGE DIAGNOSES: Recurrent episode of gross hematuria and the patient was already on apixaban for deep vein thrombosis and pulmonary embolism. Other problems include chronic obstructive pulmonary disease, hypothyroidism, chronic back pain, obstructive sleep apnea, benign prostatic hypertrophy, chronic kidney disease. KAR PERSAUD MD DR: KEENAN/lindsay JOB#: [id number] / [id number]
== END 2018-02-01 18:00 | DRG 696 ==
LOC: ER 08:13 → 5 SOUTH 10:50
PROVIDERS: ADMIT Internal Medicine; ATTEND Internal Medicine
DX: R31.0 Gross hematuria (principal); J96.10 Chronic respiratory failure, unspecified whether with hypoxia or hypercapnia; J98.11 Atelectasis; M48.56XA Collapsed vertebra, not elsewhere classified, lumbar region, initial encounter for fracture; M54.9 Dorsalgia, unspecified; N40.0 Benign prostatic hyperplasia without lower urinary tract symptoms; N18.9 Chronic kidney disease, unspecified; E11.22 Type 2 diabetes mellitus with diabetic chronic kidney disease; G89.29 Other chronic pain; G47.33 Obstructive sleep apnea (adult) (pediatric); F17.200 Nicotine dependence, unspecified, uncomplicated; I25.10 Atherosclerotic heart disease of native coronary artery without angina pectoris; E66.01 Morbid (severe) obesity due to excess calories; K80.20 Calculus of gallbladder without cholecystitis without obstruction; R16.1 Splenomegaly, not elsewhere classified; K57.30 Diverticulosis of large intestine without perforation or abscess without bleeding; E03.9 Hypothyroidism, unspecified; E78.5 Hyperlipidemia, unspecified; I12.9 Hypertensive chronic kidney disease with stage 1 through stage 4 chronic kidney disease, or unspecified chronic kidney disease; Z88.0 Allergy status to penicillin; Z98.49 Cataract extraction status, unspecified eye; Z82.49 Family history of ischemic heart disease and other diseases of the circulatory system; Z79.01 Long term (current) use of anticoagulants; I25.2 Old myocardial infarction; Z98.41 Cataract extraction status, right eye; Z98.42 Cataract extraction status, left eye; Z86.711 Personal history of pulmonary embolism; Z86.718 Personal history of other venous thrombosis and embolism; Z99.81 Dependence on supplemental oxygen
CPT/HCPCS: 36415; 74176; 80048; 80053; 81001; 82962; 85014; 85018; 85025; 85610; 85730; 87086; 93970; 94640; J7626; 99285-25

== ENCOUNTER 2018-07-28 10:21 | Inpatient (IN) | payer MEDICARE, OTHER ==
[2018-07-28] VITALS (13 sets, daily range): BP systolic 95–145; BP diastolic 43–88
[~2018-07-28] VITALS: Ht 177.8 cm; Wt 117.1 kg
[~2018-07-28 10:21] MED LIST changes: +ALBU2.5V14 NEB; +BUDE0.25 NEB; +FURO40TA4 PO; +TRAZ-118 PO; -TRAZ-85 PO
[2018-07-28] MEDS: MILRINONE 20MG/100ML PREMIX 100 ML IV PRN (11:51)
[2018-07-28] MEDS ORDERED: NON FORMULARY ITEM (Albuterol Sulfate (Albuterol Sulfate Conc Neb Soln) 1 VIAL) NEB PRN (12:00)
[2018-07-28] MEDS: METOPROLOL TART IMMED RELEASE 50 MG TABLET. PO SCH ×2 (12:00→20:59)
[2018-07-28] MEDS ORDERED: GUAI200T3 PO (12:18)
[2018-07-28] MEDS ORDERED: DEXTROSE 50% 25 GM / 50ML DISP.SYRIN. IV PRN (12:30)
[2018-07-28] MEDS: FUROSEMIDE 100 MG/10 ML VIAL. IVP SCH (13:00)
[2018-07-28] MEDS ORDERED: VANCOMYCIN 2 GM in IV NORMAL SALINE 500ML BAG 500 ML IV ONE (13:00)
[2018-07-28 13:55] LABS: BASE EXCESS ABG 6 mmol/L (-3-3); HCO3 ABG 33 mmol/L (21-28); PCO2 ABG 59 mmHg (35-46); PO2 ABG 60 mmHg (65-108); SAT O2 ABG 90 % (92-99)
--- NOTE | 2018-07-28 13:55 | PDOC ---
PULMONARY PROGRESS NOTES Vitals Vital Signs Date Time Temp Pulse Resp B/P (MAP) Pulse Ox O2 Delivery O2 Flow Rate FiO2 07/28/18 12:39 98 BiPAP/CPAP 07/28/18 12:00 92 24 141/74 (96) 07/28/18 11:00 97.8 97.8 Medications Active Scripts Medications Dose Route/Sig Max Daily Dose Days Date Category Guaifenesin 200 Mg Tablet 200 Mg PO PRN TID PRN 07/28/18 Reported Budesonide 0.25 Mg/2 Ml Ampul.neb 1 Vial NEB BID 01/29/18 Reported Albuterol Sulfate Conc Neb Soln (Albuterol Sulfate) 2.5 Mg/0.5 Ml Vial.neb 1 Vial NEB Q6HRS PRN 01/29/18 Reported Trazodone Hcl 50 Mg Tablet 1 Tab PO QHS 01/24/18 Reported Culturelle (Lactobacillus Rhamnosus Gg) 1 Each Cap.sprink 1 Each PO 01/24/18 Reported Atorvastatin Calcium 80 Mg Tablet 1 Tab PO DAILY 01/24/18 Reported Buspirone Hcl 10 Mg Tablet 1 Tab PO BID 01/24/18 Reported Glipizide 5 Mg Tablet 1 Tab PO BID 01/24/18 Reported Eliquis (Apixaban) 2.5 Mg Tablet 2.5 Mg PO BID 01/24/18 Reported Protonix (Pantoprazole Sodium) 20 Mg Tablet.dr 1 Tab PO DAILY 01/24/18 Reported Duloxetine Hcl 60 Mg Capsule.dr 60 Mg PO DAILY 01/24/18 Reported Furosemide 20 Mg Tablet 60 Tab PO DAILY 01/24/18 Reported Calcitriol 0.25 Mcg Capsule 1 Cap PO 3X/WEEK 01/24/18 Reported Mucinex (Guaifenesin) 600 Mg Tablet.er 200 Tab PO TID 01/24/18 Reported Potassium Chloride 20 Meq Tablet.er 20 Meq PO DAILY 01/24/18 Reported Levothyroxine Sodium 50 Mcg Tablet 1 Tab PO DAILY 01/24/18 Reported Tylenol (Acetaminophen) 325 Mg Tablet 500 Mg PO TID 01/24/18 Reported Vitamin D3 (Cholecalciferol (Vitamin D3)) 1,000 Unit Tablet 2 Tab PO DAILY 01/24/18 Reported Folic Acid 1 Mg Tablet 1 Tab PO DAILY 01/24/18 Reported Impression . full note dictated A/C HYPOXEMIC HYPERCAPNIA RESP FAILURE A/C SYST CHF ABNORMAL CXR WITH EFFUSION R>L SE ORDERS WILL PROCEED WITH THORACENTESIS THANKS CHELSEY CASTILLO MD Jul 28, 2018 13:55
[2018-07-28 13:56] LABS: FIO2 ABG 35
[2018-07-28] MEDS: ACETAMINOPHEN 325 MG TABLET. PO SCH ×2 (14:00→20:58)
[2018-07-28] MEDS: BUDESONIDE 0.5 MG/2 ML NEBU. NEB SCH ×2 (14:30→20:03)
[2018-07-28] MEDS: NYSTATIN TOPICAL POWDER 15GM BOTTLE. TP SCH ×2 (14:34→20:59)
[2018-07-28] MEDS: MEROPENEM 1 GM in IV NORMAL SALINE 100ML 100 ML IV SCH ×2 (14:34→20:57)
[2018-07-28] MEDS: FOLIC ACID 1 MG TABLET. PO SCH (16:15)
[2018-07-28] MEDS: CALCITRIOL 0.25 MCG CAPSULE. PO SCH (16:15)
[2018-07-28] MEDS: PANTOPRAZOLE 40 MG TABLET.DR. PO SCH (16:15)
[2018-07-28] MEDS: busPIRone 10 MG TABLET. PO SCH ×2 (16:15→20:58)
[2018-07-28] MEDS: DULoxetine HCL 30 MG CAPSULE.DR PO SCH (16:16)
[2018-07-28] MEDS: CHOLECALCIFEROL (VITAMIN D3) 1,000 UNIT TABLET PO SCH (16:16)
[2018-07-28] MEDS: LEVOTHYROXINE 50 MCG TABLET PO SCH (16:16)
[2018-07-28] MEDS: glipiZIDE 5 MG TABLET PO SCH (16:20)
[2018-07-28] MEDS: INSULIN LISPRO 300 UNITS/3 ML INSULN.PEN. SQ SCH (16:21)
[2018-07-28] MEDS: VANCOMYCIN PER PHARMACY MC PRN ×2 (16:52→17:03)
[2018-07-28] MEDS ORDERED: VANCOMYCIN 1.75 GM in IV NORMAL SALINE 500ML BAG 500 ML IV SCH (17:00)
--- NOTE | 2018-07-28 17:04 | NUR ---
Pharmacy Vancomycin Dosing Note S:Consulted to monitor and dose vancomycin started 07/24/18. O:JOVANNI IZQUIERDO is a 73 year old M with Pneumonia . Height: 5 feet, 10 inches Weight: 118.107379 kg [place] Body Weight: 73.00 Adjusted Body Weight: 91.00 Dosing Weight: Actual Other Antibiotics: MEROPENEM 07/24 - LABS: Last BUN: 41 Last Creatinine: 2.6 Creatinine Clearance: 34 mL/min Last WBC: 8.6 Last Procalcitonin: 0.15 Tmax (past 24 hours): 97.7 Microbiology: 07/28: 07/24 [facility] NGTD I/O: 820/625 Drug Levels: Last Trough level: 17.7 on 07/26/18 at 2300 Last dose given 07/27/18 at 2345 Vancomycin Dosing: Loading Dose: x1 Dosing Weight: Actual Target Trough: 15-20 A: Based on: [facility], P: 1. INITIATE Vancomycin 1750 mg IV q24h 2. Follow up Trough level on 07/30/18 at 1630 3. Pharmacy will continue to monitor, follow and adjust therapy as needed. LEIDY FRANK ROPER [facility], 07/28/18 [id number]
--- NOTE | 2018-07-28 17:46 | PDOC ---
CARDIOLOGY PROGRESS NOTE SUBJECTIVE: Patient being followed at [facility] and has been transferred to [facility] for further evaluation 73-year-old man presented originally with Sarmad carlos with RVR and also had significant heart failure. Despite aggressive diuresis and rate control he has not made any significant progress and continues to have worsening of hypoxia and respiratory issues. His renal function also has been worsening. Today he is on a noninvasive ventilation and minimally responsive OBJECTIVE: Vital SIgns: Vital Signs Date Time Temp Pulse Resp B/P (MAP) Pulse Ox O2 Delivery O2 Flow Rate FiO2 07/28/18 16:22 98 BiPAP/CPAP 07/28/18 12:00 92 24 141/74 (96) 07/28/18 11:00 97.8 97.8 Objective: Decreased breath sounds in the lung bases Protrudent abdomen Anasarca Irregular heart tones CURRENT MEDICATIONS: Current Medications Medications (Trade) Dose Ordered Sig/Bettina Start Time Stop Time Status Last Admin Dose Admin Acetaminophen (Tylenol) 500 mg TID 07/28/18 14:00 Albuterol Sulfate (Ventolin Neb Soln) 2.5 mg PRN Q6HRS PRN 07/28/18 18:00 Atorvastatin Calcium (Lipitor) 40 mg QHS 07/28/18 21:00 Budesonide (Pulmicort) 0.5 mg RTBID 07/28/18 12:00 07/28/18 14:30 0.5 MG Buspirone HCl (Buspar) 10 mg BID 07/28/18 12:00 07/28/18 16:15 10 MG Calcitriol (Rocaltrol) 0.25 mcg MoWeFr 07/28/18 12:00 07/28/18 16:15 0.25 MCG Dextrose (Dextrose 50%-Water Syringe) 12.5 gm PRN Q15MIN PRN 07/28/18 12:30 Duloxetine HCl (Cymbalta) 60 mg DAILY 07/29/18 09:00 UNV Fluticasone Propionate (Flonase) 2 spray DAILY 07/29/18 09:00 Folic Acid (Folic Acid) 1 mg DAILY 07/28/18 12:00 07/28/18 16:15 1 MG Furosemide (Lasix) 80 mg DAILY 07/28/18 13:00 Glipizide (Glucotrol) 2.5 mg BIDBFRMEAL 07/28/18 16:30 07/28/18 16:20 2.5 MG Insulin Human Lispro (HumaLOG) 0-5 UNITS TIDWMEALS 07/28/18 17:00 Lactobacillus Rhamnosus (Culturelle) 1 cap BID 07/28/18 21:00 Levothyroxine Sodium (Synthroid) 50 mcg DAILY06 07/28/18 15:30 07/28/18 16:16 50 MCG Lorazepam (Ativan) 0.5 mg PRN Q4HRS PRN 07/28/18 12:15 Meropenem 1 gm/ Sodium Chloride 100 ml @ 200 mls/hr Q12HR 07/28/18 12:00 07/28/18 14:34 200 MLS/HR Metoprolol Tartrate (Lopressor) 50 mg BID 07/28/18 12:00 Milrinone Lactate/ Dextrose 100 ml @ 4.238 mls/ hr CONT PRN 07/28/18 11:00 07/28/18 11:51 4.4 MLS/HR Non-Formulary Medication (Albuterol Sulfate (Albuterol Sulfate Conc Neb Soln)) 1 vial Q6HRS PRN 07/28/18 12:00 UNV Non-Formulary Medication (Budesonide ) 1 vial BID 07/28/18 21:00 UNV Nystatin (Nystop) 1 ute BID 07/28/18 13:00 07/28/18 14:34 1 UTE Pantoprazole Sodium (Protonix) 40 mg DAILYAC 07/28/18 16:30 07/28/18 16:15 40 MG Senna/Docusate Sodium (Senna Plus) 2 tab PRN BID PRN 07/28/18 12:15 Trazodone HCl (Desyrel) 50 mg QHS 07/28/18 21:00 Vancomycin HCl (Vanco Per Pharmacy) 1 each PRN DAILY PRN 07/28/18 12:15 07/28/18 17:03 1 EACH Vancomycin HCl (Vancomycin Trough Level) 1 each 1X ONCE 07/30/18 16:30 07/30/18 16:31 Vancomycin HCl 1.75 gm/Sodium Chloride 500 ml @ 250 mls/hr Q24H 07/28/18 17:00 07/28/18 17:00 250 MLS/HR Vancomycin HCl 2 gm/Sodium Chloride 500 ml @ 250 mls/hr ONCE ONCE 07/28/18 13:00 07/28/18 14:59 Cancel Vitamin D (Vitamin D3) 2,000 unit DAILY 07/28/18 12:00 07/28/18 16:16 2,000 UNIT DIAGNOSTIC TESTING: Creatinine 2.6 ASSESSMENT: 1. Acute on chronic systolic and diastolic heart failure 2. Anasarca 3. Acute on chronic kidney disease 4. Acute hypoxemic and hypercapnic respiratory failure likely secondary to above 5. Atrial fibrillation with a rapid ventricular response now better controlled PLAN: 1. We will start milrinone therapy for inotropic support. Continue diuresis as renal function allows. Agree with thoracentesis. Supportive care. SHIRLENE RAMOS MD Jul 28, 2018 17:46
--- NOTE | 2018-07-28 17:47 | PDOC ---
Provider Note Provider Note Please see cardiology consult from [place] for further details. Patient initially presented 07/24/18 to [facility] due to shortness of breath and worsening edema. He was initially noted in AFIB with RVR and started on Cardizem gtt. CXR with R > L pleural effusion. Echo showed severe impaired LV systolic function with an EF of 20-25%. Due to significant cardiomyopathy, Cardizem was converted to oral metoprolol. Patient was diuresed with IV Lasix. Due to worsening renal function and decline in respiratory status overnight requiring continuous BiPAP, patient was transferred to [facility] for further evaluation and treatment. Assessment 1. Acute on chronic respiratory failure; multifactorial given pleural effusion, a/c systolic HF, PNA, and AE COPD 2. Acute on chronic systolic HF 3. ICM; LVEF 20% 4. AFIB; remains in AFIB with controlled rate. 5. CAD with prior HI 6. YARELY on CKD; Cr^ 7. Hypertension 8. H/o recurrent DVT/PE 9. Diabetes, II 0. Hyperlipidemia Recommendations Resume BB for rate control Hold Eliquis for possible thoracentesis Continue diuresis Start inotropic with milrinone therapy Renal consult. Follow pulm recommendations. KOBE BENSON APRN Jul 28, 2018 17:47
[2018-07-28] MEDS ORDERED: ALBUTEROL SULFATE 2.5 MG/3 ML NEBU. NEB PRN (18:00)
[2018-07-28] MEDS ORDERED: BUDESONIDE 0.5 MG/2 ML NEBU. NEB SCH (20:00)
[2018-07-28] MEDS: IPRATRPIUM/ALBUTEROL 0.5/2.5MG 3 ML NEBU. NEB SCH (20:13)
[2018-07-28] MEDS: LACTOBACILLUS RHAMNOSUS GG 1 CAPSULE. PO SCH (20:58)
[2018-07-28] MEDS: ATORVASTATIN CALCIUM 40 MG TABLET. PO SCH (20:58)
[2018-07-28] MEDS: traZODone 50 MG TABLET. PO SCH (20:58)
[2018-07-28] MEDS ORDERED: NON FORMULARY ITEM (Budesonide 1 VIAL) NEB SCH (21:00)
[2018-07-29] VITALS (24 sets, daily range): BP systolic 91–176; BP diastolic 57–87
[2018-07-29] MEDS ORDERED: FUROSEMIDE 40 MG/4 ML VIAL. IVP ONE (00:15)
--- NOTE | 2018-07-29 04:14 | CONS ---
DATE OF CONSULTATION: 07/28/2018 ATTENDING PHYSICIAN: Dr. Hoover. REASON FOR CONSULTATION: The patient seen in pulmonary consultation at the request of Dr. Hoover for abnormal x-ray of hypercapnic respiratory failure. HISTORY OF PRESENT ILLNESS: The patient is a 73-year-old that was initially hospitalized on 07/24/2018 at [facility] with increasing shortness of breath. He has been treated for [id number] CHF with no improvement. His x-ray revealed bilateral effusions, right greater than left, evidence of CHF. This morning, the patient had difficulty with hypercapnic respiratory failure. He was placed on BiPAP. He was transferred to [facility] for further evaluation and management. He currently is on BiPAP. He is arousable, follows direction. PAST MEDICAL HISTORY: The patient actually had been hospitalized in the past back in January for history of pulmonary embolism, questionable prior DVT x 2. He has chronic respiratory failure secondary to COPD, quit tobacco in 1995, type 2 diabetes, hypertension, coronary artery disease, status post previous myocardial infarction, morbid obesity, obstructive sleep apnea, chronic pain. He has had cardiomyopathy in comparison to the echocardiogram of 2013, which revealed a normal ejection fraction; his ejection fraction is now 20-25%. PAST SURGICAL HISTORY: Status post bilateral cataract extraction. He had previous colonoscopy and EGD. MEDICATIONS: List was reviewed. FAMILY HISTORY: Coronary artery disease. SOCIAL HISTORY: He is , has 2 daughters. He is an ex-smoker, quit in 1995. Worked as a [employer]. He was also an ex-. REVIEW OF SYSTEMS: Unobtainable secondary to the patient's condition. PHYSICAL EXAMINATION: GENERAL: The patient was in the intensive care unit. He is currently being treated with milrinone. He also has a-fib with rapid ventricular response. VITAL SIGNS: His temperature was 97.8. He is on BiPAP. HEENT: Eyes, the sclerae were nonicteric. NECK: Jugular venous distention could not be assessed secondary to body habitus. CHEST: Full expansion. LUNGS: Adequate air flow, no wheezes. CARDIOVASCULAR: Regular rate and rhythm with S1, S2, no S3. ABDOMEN: Soft, nontender, nondistended. EXTREMITIES: No clubbing, cyanosis, 1+ edema. LABORATORY DATA: Chest x-ray as indicated above. Labs are pending. Arterial blood gas noted. IMPRESSION: 1. Acute hypoxemic hypercapnic respiratory failure, multifactorial. 2. Acute on chronic heart failure. 3. Abnormal x-ray with persistent right lower lobe effusion greater than left. 4. Cardiomyopathy, ejection fraction 20-25%. 5. Atrial fibrillation with rapid ventricular response. 6. Type 2 diabetes. 7. Hypertension. 8. Obesity. 9. Chronic obstructive pulmonary disease, unknown FEV1. 10. Possible obstructive sleep apnea. PLAN: 1. We will continue support with BiPAP. 2. Repeat ABG. 3. Follow Cardiology input, continue milrinone. 4. Interventional radiologist to perform thoracentesis. 5. Hold anticoagulation. 6. Diurese. I do appreciate the privilege in sharing in this patient's care. CHELSEY CASTILLO MD DR: CALI/lindsay JOB#: [id number] / [id number]
[2018-07-29] MEDS: MILRINONE 20MG/100ML PREMIX 100 ML IV PRN (04:42)
[2018-07-29] MEDS: LEVOTHYROXINE 50 MCG TABLET PO SCH (05:44)
[2018-07-29] MEDS: INSULIN LISPRO 300 UNITS/3 ML INSULN.PEN. SQ SCH ×3 (08:00→17:00)
[2018-07-29] MEDS: IPRATRPIUM/ALBUTEROL 0.5/2.5MG 3 ML NEBU. NEB SCH ×4 (08:37→19:36)
[2018-07-29] MEDS: BUDESONIDE 0.5 MG/2 ML NEBU. NEB SCH ×2 (08:37→19:36)
[2018-07-29] MEDS: MEROPENEM 1 GM in IV NORMAL SALINE 100ML 100 ML IV SCH ×2 (08:57→20:55)
[2018-07-29] MEDS ORDERED: DULoxetine HCL 30 MG CAPSULE.DR PO SCH (09:00)
[2018-07-29] MEDS: FUROSEMIDE 100 MG/10 ML VIAL. IVP SCH (09:07)
[2018-07-29] MEDS: PANTOPRAZOLE 40 MG TABLET.DR. PO SCH (09:07)
[2018-07-29] MEDS: LACTOBACILLUS RHAMNOSUS GG 1 CAPSULE. PO SCH ×2 (09:07→20:54)
[2018-07-29] MEDS: FOLIC ACID 1 MG TABLET. PO SCH (09:08)
[2018-07-29] MEDS: CHOLECALCIFEROL (VITAMIN D3) 1,000 UNIT TABLET PO SCH (09:08)
[2018-07-29] MEDS: ACETAMINOPHEN 325 MG TABLET. PO SCH ×3 (09:08→20:54)
[2018-07-29] MEDS: glipiZIDE 5 MG TABLET PO SCH ×2 (09:08→17:18)
[2018-07-29] MEDS: busPIRone 10 MG TABLET. PO SCH ×2 (09:08→20:54)
[2018-07-29] MEDS: DULoxetine HCL 30 MG CAPSULE.DR PO SCH (09:09)
[2018-07-29] MEDS: FLUTICASONE 50MCG/NASAL SPRAY 16GM BOTTLE. NS SCH (09:14)
[2018-07-29] MEDS: METOPROLOL TART IMMED RELEASE 50 MG TABLET. PO SCH ×2 (09:14→20:54)
[2018-07-29] MEDS: NYSTATIN TOPICAL POWDER 15GM BOTTLE. TP SCH ×2 (09:15→21:00)
--- NOTE | 2018-07-29 09:28 | PDOC ---
THUY SAVAGE SOFTWARE PROJECT MANAGER 07/29/18 0928: CARDIO Progress Notes Date and Time Date of Service 07/29/2018 Time of Evaluation 0845 Subjective Subjective: No Chest Pain, No Palpitations, Other (on bipap but SOA better) Vitals Vitals Vital Signs Date Time Temp Pulse Resp B/P (MAP) Pulse Ox O2 Delivery O2 Flow Rate FiO2 07/29/18 09:14 109 169/83 07/29/18 08:38 98 BiPAP/CPAP 07/29/18 07:00 97.8 27 4.0 97.8 Weight Weight [ ] Input and Output Intake and Output Intake and Output 07/29/18 07:00 Intake Total 1373 ml Output Total 1550 ml Balance -177 ml Intake Oral 700 ml IV Total 673 ml Output Urine Total 1550 ml Laboratory Labs Laboratory Tests Test 07/28/18 13:40 07/28/18 16:19 07/29/18 09:06 O2 Saturation 90 % (92-99) Arterial Blood pH 7.37 (7.35-7.45) Arterial Blood pCO2 at Patient Temp 59 mmHg (35-46) Arterial Blood pO2 at Patient Temp 60 mmHg (65-108) Arterial Blood HCO3 33 mmol/L (21-28) Arterial Blood Base Excess 6 mmol/L (-3-3) FiO2 35 Glucose (Fingerstick) 115 mg/dL (70-99) 108 mg/dL (70-99) Physical Exam HEENT: Neck Supple W Full Motion Chest: Symmetric LUNGS: Other (diminsihed) Heart: irregularly irregular (AFIB) Abdomen: Soft N/T, Other (obese) Extremities: Other (3-4+ bilateral LE pitting edema) Neurology: alert, oriented, follow commands Assessment Assessment 1. Acute on chronic respiratory failure; multifactorial given pleural effusion, a/c systolic HF, PNA, and AE COPD 2. Acute on chronic systolic CHF 3. ICM; LVEF 20% 4. AFIB; rate controlled 5. CAD with prior ME 6. YARELY on CKD; good UOP, nephrology following 7. Hypertension 8. H/o recurrent DVT/PE 9. Diabetes, II 0. Hyperlipidemia Recommendations Continue BB. Lasix therapy and milrinone Hold Eliquis for possible thoracentesis today Supportive care Bipap PRN SHIRLENE RAMOS MD 07/29/18 0600: CARDIO Progress Notes Plan Plan Pt. seen and examined. Agree with above RADIOLOGICAL TECHNICIAN note. Discussed at bedside extensively with family about his multiorgan issues including COPD, decompensated HF and renal failure. Continue diuresis as tolerated and thoracentesis. When resp more stable, consider ischemic evaluation. THUY SAVAGE APRN Jul 29, 2018 09:28 SHIRLENE RAMOS MD Jul 29, 2018 18:20
[2018-07-29 09:47] LABS: HEMATOCRIT 37.6 % (39.0-53.0); HEMOGLOBIN 11.9 g/dL (13.0-17.5); RED BLOOD COUNT 3.95 x10^6/uL (4.30-5.70); RED CELL DISTRIBUTION WIDTH 14.8 % (11.5-14.5); WHITE BLOOD COUNT 6.1 x10^3/uL (4.0-11.0)
[2018-07-29 09:56] LABS: PROTHROMBIN TIME PATIENT 13.7 SEC (11.7-14.0)
[2018-07-29 09:57] LABS: CALCIUM 8.6 mg/dL (8.5-10.1); CREATININE 2.4 mg/dL (0.7-1.3); GFR 26.5; POTASSIUM 3.5 mmol/L (3.5-5.1)
[2018-07-29 10:03] LABS: ALBUMIN 2.6 g/dL (3.4-5.0); TOTAL BILIRUBIN 0.9 mg/dL (0.2-1.0); TOTAL PROTEIN 5.3 g/dL (6.4-8.2)
--- NOTE | 2018-07-29 10:21 | HP ---
ADMIT DATE: 07/28/2018 HISTORY OF PRESENT ILLNESS: The patient is a 73-year-old male patient who was admitted to [facility] in 07/24/2018 with increasing shortness of breath and generalized anasarca. He was at [facility], undergoing physical therapy and was noted to have worsening shortness of breath and at that time, he was transferred to Emergency Room of [facility]. He, in fact, was on Levaquin for treatment of healthcare-associated pneumonia. He did report increased shortness of breath with exertion, increased swelling and later in the Emergency Room, was found to be in atrial fibrillation with rapid ventricular response. He was started on Cardizem drip and was eventually admitted to ICU where he continued to be on Cardizem drip and eventually I did switch him to IV vancomycin and meropenem as he is allergic to PENICILLIN. He has had an echocardiogram done, which showed that his ejection fraction was only 25% and the patient's kidney function continued to worsen, his congestive heart failure has worsened and required BiPAP to maintain an oxygen saturation more than 90% and therefore, a decision was made to transfer him to [facility] ICU for further evaluation and treatment by the centrifugal drier operator, clip loading machine adjuster as well as sanitary aide. PAST MEDICAL HISTORY: Significant for type 2 diabetes mellitus, hypertension, hyperlipidemia, coronary artery disease, status post myocardial infarction, known to have chronic diastolic congestive heart failure, history of DVT and PE for which he is on Eliquis, hypothyroidism, chronic kidney disease, benign prostatic hypertrophy, chronic obstructive pulmonary disease. He has also morbid obesity, obstructive sleep apnea, chronic back pain with multiple compression fractures, had had history of pneumonia and also multiple episodes of gross hematuria. Apparently, his ejection fraction on an echocardiogram done in 2013 was 55%-60%. At that time, his left ventricular size was normal with normal left ventricular systolic wall thickness and his transmitral Doppler flow pattern was a grade 1 abnormal relaxation pattern, mild aortic valve sclerosis. PAST SURGICAL HISTORY: Significant for bilateral cataract extraction, loop implantation and removal. He has also had cystoscopy. FAMILY HISTORY: His father of myocardial infarction in his 40s. SOCIAL HISTORY: He is and lives with his brother, he has a son and 2 daughters. He quit smoking in 1995. He drinks vodka daily. He denied any drug abuse. REVIEW OF SYSTEMS: As per history of present illness. ALLERGIES: He is allergic to PENICILLIN and OXYCODONE. MEDICATIONS: The patient was transferred from [facility] to continue on following medications: He is on albuterol sulfate 2.5 mg in 0.5 mL via nebulizer every 6 hours, apixaban 2.5 mg twice a day, atorvastatin calcium 80 mg daily, Tylenol 500 mg 3 times a day, duloxetine 60 mg daily, trazodone 50 mg at bedtime, buspirone 10 mg twice a day, potassium chloride 20 mEq once a day, furosemide 60 mg once a day, Pulmicort 0.25 mg in 2 mL by nebulizer twice a day, Mucinex 600 mg twice a day, Protonix 40 mg daily, lactobacillus rhamnosus 1 capsule once a day, glipizide 5 mg p.o. b.i.d., levothyroxine sodium 50 mcg once a day, folic acid 1 mg once a day, calcitriol 0.25 mcg 3 times a week, and cholecalciferol or vitamin D3 2000 international units once a day. OBJECTIVE: GENERAL: On arrival to the ICU at [facility], the patient was lethargic, but arousable. There was no pallor, jaundice, cyanosis, or thyromegaly. No jugular venous distension. No lower limb edema. VITAL SIGNS: His heart rate was 92, blood pressure was 126/88, temperature was 97.8, respiratory rate was 24, and oxygen saturation was 97% on BiPAP. HEAD, EYES, EARS, NOSE AND THROAT: Showed normocephalic, atraumatic. NECK: Supple. HEART: Showed normal first and second sounds. No gallop or murmur. CHEST: Shows central trachea, equally reduced chest expansion, reduced air entry, vesicular breath sounds. I really could not appreciate any crepitation or bilateral diffuse rhonchi. ABDOMEN: Distended, soft, nontender. NEUROLOGIC: He was lethargic, but arousable. All cranial nerves intact. EXTREMITIES: He moves extremities without difficulty. PLAN: Consult the centrifugal drier operator and clip loading machine adjuster. Continue with his current medication. ADMISSION DIAGNOSES: 1. Mrpyt-[id number] respiratory failure. Hypoxic, hypercapnic, multifactorial including [id number] systolic congestive heart failure, pneumonia, chronic obstructive pulmonary disease exacerbation and pleural effusion. 2. Fpwad-if-ranuyhj systolic congestive heart failure. 3. Ischemic cardiomyopathy, left ventricular ejection fraction of only 20%. 4. Atrial fibrillation with rate controlled on apixaban. 5. Coronary artery disease with prior myocardial infarction. 6. Acute kidney [id number] kidney disease. 7. Hypertension. 8. 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 9. Type 2 diabetes. 10. Hyperlipidemia. 11. Morbid obesity and obstructive sleep apnea. 12. Chronic back pain due to multiple compression fractures. His Eliquis was held for possible thoracentesis. KAR PERSAUD MD DR: KEENAN/lindsay JOB#: [id number] / [id number]
[2018-07-29 10:48] LABS: BASE EXCESS ABG 8 mmol/L (-3-3); HCO3 ABG 36 mmol/L (21-28); PCO2 ABG 63 mmHg (35-46); PO2 ABG 65 mmHg (65-108)
[2018-07-29 10:49] LABS: FIO2 ABG 35; SAT O2 ABG 92 % (92-99)
--- NOTE | 2018-07-29 11:41 | PDOC ---
PULMONARY PROGRESS NOTES Subjective Pt. is currently on bipap and appear comfortably, he opens is eyes but is minimally interactive on exam. Vitals Vital Signs Date Time Temp Pulse Resp B/P (MAP) Pulse Ox O2 Delivery O2 Flow Rate FiO2 07/29/18 10:00 109 25 166/76 (106) 94 BiPAP/CPAP 07/29/18 07:00 97.8 4.0 97.8 Comments ROS unobtainable General: Alert Cardiovascular: Other (Diminished) Abdomen: Soft, Non-tender Neuro Exam: Alert Extremities: Other (edema BLE +2) Skin: Warm, Dry Labs Laboratory Tests Test 07/28/18 13:40 07/28/18 16:19 07/29/18 08:00 07/29/18 08:55 O2 Saturation 90 % 92 % Arterial Blood pH 7.37 7.37 Arterial Blood pCO2 at Patient Temp 59 mmHg 63 mmHg Arterial Blood pO2 at Patient Temp 60 mmHg 65 mmHg Arterial Blood HCO3 33 mmol/L 36 mmol/L Arterial Blood Base Excess 6 mmol/L 8 mmol/L FiO2 35 35 Glucose (Fingerstick) 115 mg/dL White Blood Count 6.1 x10^3/uL Red Blood Count 3.95 x10^6/uL Hemoglobin 11.9 g/dL Hematocrit 37.6 % Mean Corpuscular Volume 95 fL Mean Corpuscular Hemoglobin 30 pg Mean Corpuscular Hemoglobin Concent 32 g/dL Red Cell Distribution Width 14.8 % Platelet Count 83 x10^3/uL Prothrombin Time 13.7 SEC Prothromb Time International Ratio 1.1 Sodium Level 143 mmol/L Potassium Level 3.5 mmol/L Chloride Level 100 mmol/L Carbon Dioxide Level 38 mmol/L Anion Gap 5 Blood Urea Nitrogen 40 mg/dL Creatinine 2.4 mg/dL Estimated GFR (Cockcroft-Gault) 26.5 BUN/Creatinine Ratio 17 Glucose Level 123 mg/dL Calcium Level 8.6 mg/dL Total Bilirubin 0.9 mg/dL Aspartate Amino Transf (AST/SGOT) 19 U/L Alanine Aminotransferase (ALT/SGPT) 17 U/L Alkaline Phosphatase 45 U/L Total Protein 5.3 g/dL Albumin 2.6 g/dL Albumin/Globulin Ratio 1.0 Thyroid Stimulating Hormone (TSH) 1.372 uIU/mL Test 07/29/18 09:06 Glucose (Fingerstick) 108 mg/dL Current Medications Medications (Trade) Dose Ordered Sig/Bettina Route PRN Reason Start Time Stop Time Status Last Admin Dose Admin Milrinone Lactate/ Dextrose 100 ml @ 4.238 mls/ hr CONT PRN IV SEE I/O RECORD 07/28/18 11:00 07/29/18 04:42 Acetaminophen (Tylenol) 500 mg TID PO 07/28/18 14:00 07/29/18 09:08 Buspirone HCl (Buspar) 10 mg BID PO 07/28/18 12:00 07/29/18 09:08 Vitamin D (Vitamin D3) 2,000 unit DAILY PO 07/28/18 12:00 07/29/18 09:08 Folic Acid (Folic Acid) 1 mg DAILY PO 07/28/18 12:00 07/29/18 09:08 Non-Formulary Medication (Albuterol Sulfate (Albuterol Sulfate Conc Neb Soln)) 1 vial Q6HRS PRN NEB SHORTNESS OF BREATH 07/28/18 12:00 UNV Non-Formulary Medication (Budesonide ) 1 vial BID NEB 07/28/18 21:00 UNV Calcitriol (Rocaltrol) 0.25 mcg MoWeFr PO 07/28/18 12:00 07/28/18 16:15 Duloxetine HCl (Cymbalta) 60 mg DAILY PO 07/28/18 12:00 07/29/18 09:09 Levothyroxine Sodium (Synthroid) 50 mcg DAILY06 PO 07/28/18 15:30 07/29/18 05:44 Atorvastatin Calcium (Lipitor) 40 mg QHS PO 07/28/18 21:00 07/28/18 20:58 Budesonide (Pulmicort) 0.5 mg RTBID NEB 07/28/18 20:00 UNV Fluticasone Propionate (Flonase) 2 spray DAILY NS 07/29/18 09:00 07/29/18 09:14 Duloxetine HCl (Cymbalta) 60 mg DAILY PO 07/29/18 09:00 UNV Furosemide (Lasix) 80 mg DAILY IVP 07/28/18 13:00 07/29/18 09:07 Lactobacillus Rhamnosus (Culturelle) 1 cap BID PO 07/28/18 21:00 07/29/18 09:07 Lorazepam (Ativan) 0.5 mg PRN Q4HRS PRN PO ANXIETY / AGITATION 07/28/18 12:15 Meropenem 1 gm/ Sodium Chloride 100 ml @ 200 mls/hr Q12HR IV 07/28/18 12:00 07/29/18 08:57 Metoprolol Tartrate (Lopressor) 50 mg BID PO 07/28/18 12:00 07/29/18 09:14 Nystatin (Nystop) 1 ute BID TP 07/28/18 13:00 07/29/18 09:15 Pantoprazole Sodium (Protonix) 40 mg DAILYAC PO 07/28/18 16:30 07/29/18 09:07 Senna/Docusate Sodium (Senna Plus) 2 tab PRN BID PRN PO CONSTIPATION 07/28/18 12:15 Vancomycin HCl (Vanco Per Pharmacy) 1 each PRN DAILY PRN MC SEE COMMENTS 07/28/18 12:15 07/28/18 17:03 Glipizide (Glucotrol) 2.5 mg BIDBFRMEAL PO 07/28/18 16:30 07/29/18 09:08 Trazodone HCl (Desyrel) 50 mg QHS PO 07/28/18 21:00 07/28/18 20:58 Budesonide (Pulmicort) 0.5 mg RTBID NEB 07/28/18 12:00 07/29/18 08:37 Insulin Human Lispro (HumaLOG) 0-5 UNITS TIDWMEALS SQ 07/28/18 17:00 Dextrose (Dextrose 50%-Water Syringe) 12.5 gm PRN Q15MIN PRN IV SEE COMMENTS 07/28/18 12:30 Albuterol Sulfate (Ventolin Neb Soln) 2.5 mg PRN Q6HRS PRN NEB SHORTNESS OF BREATH 07/28/18 18:00 07/28/18 20:07 Vancomycin HCl 2 gm/Sodium Chloride 500 ml @ 250 mls/hr ONCE ONCE IV 07/28/18 13:00 07/28/18 14:59 Cancel Vancomycin HCl 1.75 gm/Sodium Chloride 500 ml @ 250 mls/hr Q24H IV 07/28/18 17:00 07/28/18 17:00 Vancomycin HCl (Vancomycin Trough Level) 1 each 1X ONCE MC 07/30/18 16:30 07/30/18 16:31 Albuterol/ Ipratropium (Duoneb) 3 ml RTQID NEB 07/28/18 20:30 07/29/18 08:37 Furosemide (Lasix) 40 mg 1X ONCE IVP 07/29/18 00:15 07/29/18 00:16 DC 07/29/18 00:28 Laboratory Tests Test 07/28/18 13:40 07/28/18 16:19 07/29/18 08:00 07/29/18 08:55 O2 Saturation 90 % (92-99) 92 % (92-99) Arterial Blood pH 7.37 (7.35-7.45) 7.37 (7.35-7.45) Arterial Blood pCO2 at Patient Temp 59 mmHg (35-46) 63 mmHg (35-46) Arterial Blood pO2 at Patient Temp 60 mmHg (65-108) 65 mmHg (65-108) Arterial Blood HCO3 33 mmol/L (21-28) 36 mmol/L (21-28) Arterial Blood Base Excess 6 mmol/L (-3-3) 8 mmol/L (-3-3) FiO2 35 35 Glucose (Fingerstick) 115 mg/dL (70-99) White Blood Count 6.1 x10^3/uL (4.0-11.0) Red Blood Count 3.95 x10^6/uL (4.30-5.70) Hemoglobin 11.9 g/dL (13.0-17.5) Hematocrit 37.6 % (39.0-53.0) Mean Corpuscular Volume 95 fL (79-100) Mean Corpuscular Hemoglobin 30 pg (25-35) Mean Corpuscular Hemoglobin Concent 32 g/dL (31-37) Red Cell Distribution Width 14.8 % (11.5-14.5) Platelet Count 83 x10^3/uL (140-400) Prothrombin Time 13.7 SEC (11.7-14.0) Prothromb Time International Ratio 1.1 (0.8-1.1) Sodium Level 143 mmol/L (136-145) Potassium Level 3.5 mmol/L (3.5-5.1) Chloride Level 100 mmol/L (98-107) Carbon Dioxide Level 38 mmol/L (21-32) Anion Gap 5 (6-14) Blood Urea Nitrogen 40 mg/dL (8-26) Creatinine 2.4 mg/dL (0.7-1.3) Estimated GFR (Cockcroft-Gault) 26.5 BUN/Creatinine Ratio 17 (6-20) Glucose Level 123 mg/dL (70-99) Calcium Level 8.6 mg/dL (8.5-10.1) Total Bilirubin 0.9 mg/dL (0.2-1.0) Aspartate Amino Transf (AST/SGOT) 19 U/L (15-37) Alanine Aminotransferase (ALT/SGPT) 17 U/L (16-63) Alkaline Phosphatase 45 U/L (46-116) Total Protein 5.3 g/dL (6.4-8.2) Albumin 2.6 g/dL (3.4-5.0) Albumin/Globulin Ratio 1.0 (1.0-1.7) Thyroid Stimulating Hormone (TSH) 1.372 uIU/mL (0.358-3.74) Test 07/29/18 09:06 Glucose (Fingerstick) 108 mg/dL (70-99) Laboratory Tests Test 07/28/18 13:40 07/28/18 16:19 07/29/18 08:00 07/29/18 08:55 O2 Saturation 90 % (92-99) 92 % (92-99) Arterial Blood pH 7.37 (7.35-7.45) 7.37 (7.35-7.45) Arterial Blood pCO2 at Patient Temp 59 mmHg (35-46) 63 mmHg (35-46) Arterial Blood pO2 at Patient Temp 60 mmHg (65-108) 65 mmHg (65-108) Arterial Blood HCO3 33 mmol/L (21-28) 36 mmol/L (21-28) Arterial Blood Base Excess 6 mmol/L (-3-3) 8 mmol/L (-3-3) FiO2 35 35 Glucose (Fingerstick) 115 mg/dL (70-99) White Blood Count 6.1 x10^3/uL (4.0-11.0) Red Blood Count 3.95 x10^6/uL (4.30-5.70) Hemoglobin 11.9 g/dL (13.0-17.5) Hematocrit 37.6 % (39.0-53.0) Mean Corpuscular Volume 95 fL (79-100) Mean Corpuscular Hemoglobin 30 pg (25-35) Mean Corpuscular Hemoglobin Concent 32 g/dL (31-37) Red Cell Distribution Width 14.8 % (11.5-14.5) Platelet Count 83 x10^3/uL (140-400) Prothrombin Time 13.7 SEC (11.7-14.0) Prothromb Time International Ratio 1.1 (0.8-1.1) Sodium Level 143 mmol/L (136-145) Potassium Level 3.5 mmol/L (3.5-5.1) Chloride Level 100 mmol/L (98-107) Carbon Dioxide Level 38 mmol/L (21-32) Anion Gap 5 (6-14) Blood Urea Nitrogen 40 mg/dL (8-26) Creatinine 2.4 mg/dL (0.7-1.3) Estimated GFR (Cockcroft-Gault) 26.5 BUN/Creatinine Ratio 17 (6-20) Glucose Level 123 mg/dL (70-99) Calcium Level 8.6 mg/dL (8.5-10.1) Total Bilirubin 0.9 mg/dL (0.2-1.0) Aspartate Amino Transf (AST/SGOT) 19 U/L (15-37) Alanine Aminotransferase (ALT/SGPT) 17 U/L (16-63) Alkaline Phosphatase 45 U/L (46-116) Total Protein 5.3 g/dL (6.4-8.2) Albumin 2.6 g/dL (3.4-5.0) Albumin/Globulin Ratio 1.0 (1.0-1.7) Thyroid Stimulating Hormone (TSH) 1.372 uIU/mL (0.358-3.74) Test 07/29/18 09:06 Glucose (Fingerstick) 108 mg/dL (70-99) Medications Active Scripts Medications Dose Route/Sig Max Daily Dose Days Date Category Guaifenesin 200 Mg Tablet 200 Mg PO PRN TID PRN 07/28/18 Reported Budesonide 0.25 Mg/2 Ml Ampul.neb 1 Vial NEB BID 01/29/18 Reported Albuterol Sulfate Conc Neb Soln (Albuterol Sulfate) 2.5 Mg/0.5 Ml Vial.neb 1 Vial NEB Q6HRS PRN 01/29/18 Reported Trazodone Hcl 50 Mg Tablet 1 Tab PO QHS 01/24/18 Reported Culturelle (Lactobacillus Rhamnosus Gg) 1 Each Cap.sprink 1 Each PO 01/24/18 Reported Atorvastatin Calcium 80 Mg Tablet 1 Tab PO DAILY 01/24/18 Reported Buspirone Hcl 10 Mg Tablet 1 Tab PO BID 01/24/18 Reported Glipizide 5 Mg Tablet 1 Tab PO BID 01/24/18 Reported Eliquis (Apixaban) 2.5 Mg Tablet 2.5 Mg PO BID 01/24/18 Reported Protonix (Pantoprazole Sodium) 20 Mg Tablet.dr 1 Tab PO DAILY 01/24/18 Reported Duloxetine Hcl 60 Mg Capsule.dr 60 Mg PO DAILY 01/24/18 Reported Furosemide 20 Mg Tablet 60 Tab PO DAILY 01/24/18 Reported Calcitriol 0.25 Mcg Capsule 1 Cap PO 3X/WEEK 01/24/18 Reported Mucinex (Guaifenesin) 600 Mg Tablet.er 200 Tab PO TID 01/24/18 Reported Potassium Chloride 20 Meq Tablet.er 20 Meq PO DAILY 01/24/18 Reported Levothyroxine Sodium 50 Mcg Tablet 1 Tab PO DAILY 01/24/18 Reported Tylenol (Acetaminophen) 325 Mg Tablet 500 Mg PO TID 01/24/18 Reported Vitamin D3 (Cholecalciferol (Vitamin D3)) 1,000 Unit Tablet 2 Tab PO DAILY 01/24/18 Reported Folic Acid 1 Mg Tablet 1 Tab PO DAILY 01/24/18 Reported Active Scripts Medications Dose Route/Sig Max Daily Dose Days Date Category Guaifenesin 200 Mg Tablet 200 Mg PO PRN TID PRN 07/28/18 Reported Budesonide 0.25 Mg/2 Ml Ampul.neb 1 Vial NEB BID 01/29/18 Reported Albuterol Sulfate Conc Neb Soln (Albuterol Sulfate) 2.5 Mg/0.5 Ml Vial.neb 1 Vial NEB Q6HRS PRN 01/29/18 Reported Trazodone Hcl 50 Mg Tablet 1 Tab PO QHS 01/24/18 Reported Culturelle (Lactobacillus Rhamnosus Gg) 1 Each Cap.sprink 1 Each PO 01/24/18 Reported Atorvastatin Calcium 80 Mg Tablet 1 Tab PO DAILY 01/24/18 Reported Buspirone Hcl 10 Mg Tablet 1 Tab PO BID 01/24/18 Reported Glipizide 5 Mg Tablet 1 Tab PO BID 01/24/18 Reported Eliquis (Apixaban) 2.5 Mg Tablet 2.5 Mg PO BID 01/24/18 Reported Protonix (Pantoprazole Sodium) 20 Mg Tablet.dr 1 Tab PO DAILY 01/24/18 Reported Duloxetine Hcl 60 Mg Capsule.dr 60 Mg PO DAILY 01/24/18 Reported Furosemide 20 Mg Tablet 60 Tab PO DAILY 01/24/18 Reported Calcitriol 0.25 Mcg Capsule 1 Cap PO 3X/WEEK 01/24/18 Reported Mucinex (Guaifenesin) 600 Mg Tablet.er 200 Tab PO TID 01/24/18 Reported Potassium Chloride 20 Meq Tablet.er 20 Meq PO DAILY 01/24/18 Reported Levothyroxine Sodium 50 Mcg Tablet 1 Tab PO DAILY 01/24/18 Reported Tylenol (Acetaminophen) 325 Mg Tablet 500 Mg PO TID 01/24/18 Reported Vitamin D3 (Cholecalciferol (Vitamin D3)) 1,000 Unit Tablet 2 Tab PO DAILY 01/24/18 Reported Folic Acid 1 Mg Tablet 1 Tab PO DAILY 01/24/18 Reported Impression . 1. Acute hypoxemic hypercapnic respiratory failure, multifactorial. 2. Acute on chronic heart failure. 3. Abnormal x-ray with persistent right lower lobe effusion greater than left. 4. Cardiomyopathy, ejection fraction 20-25%. 5. Atrial fibrillation with rapid ventricular response. 6. Type 2 diabetes. 7. Hypertension. 8. Obesity. 9. Chronic obstructive pulmonary disease, unknown FEV1. 10. Possible obstructive sleep apnea. Plan . Acute hypoxemic hypercapnic respiratory failure * multifactorial.Possible obstructive sleep apnea/COPD/heart failure * cont. bronchodilators/Pulmicort * BIPAP @ 35% * cont. ABX Acute on chronic heart failure/Cardiomyopathy, * ejection fraction 20-25%. * cont. milrinone * cardiology following Atrial fibrillation with rapid ventricular response. * rate controlled today * on BB * eliquis at home * cardiology following Chronic obstructive pulmonary disease * unknown FEV1. * as above Pleural Effusion * cont. Lasix * repeat CXR today * plan for thoracentesis tomorrow, Eliquis on hold YARELY on CKD * Cr. 1.6-1.8 is past * Cr. is 2.4 today * avoid nephrotoxic medications * nephrology following DVT/GI PPX: Protonix, eliquis on hold/ [facility] CHELSEY CASTILLO MD Jul 29, 2018 11:41
--- NOTE | 2018-07-29 11:58 | PDOC2 ---
CONSULT Date of Consult Date of Consult DATE: 07/29/18 TIME: 11:47 Reason for Consult Reason for Consult: YARELY Referring Physician Referring Physician: CORI Identification/Chief Complaint Chief Complaint SOB Source Source: Chart review History of Present Illness Reason for Visit: THIS IS A 73 YR OLD WITH SOB AND AFIB RVR ON ADMIT. WAS HYPOXIC AND NOW ON BIPAP AND SUPPLEMENTAL O2. CR OF 2.4 NOW. HAS CKD STAGE 3 WITH CR OF 1.7-1.8 AT BASELINE. HX NOTABLE FOR CM WITH EF OF 20-25%. UA NOTED FOR HEMATURIA WITHOUT ANY EVIDENCE OF NEPHRITIS. MOST LIKELY BURT TRAUMA. NO OTHER HX NOTED EXCEPT TO BURT TRAUMA AND RELATED HEMATURIA IN JAN OF LAST YEAR FOR WHICH HAD A FOLLOW UP WITH UROLOGY FOR A CYSTO. UNCERTAIN IF THIS WAS DONE SINCE HE IS NOT ABLE TO PROVIDE ANY HX. CKD DUE TO DM II AND HTN Past Medical History Cardiovascular: AFIB, CAD, CHF, HTN GI: Constipation Heme/Onc: Anemia NOS Renal/: Chronic renal insuff Endocrine: Diabetes, Hyperparathyroidism Past Surgical History Past Surgical History: Cataract Removal Family History Family History: No Significant Current Medications Current Medications Current Medications Milrinone Lactate/ Dextrose 100 ml @ 4.238 mls/ hr CONT PRN IV SEE I/O RECORD Last administered on 07/29/18at 04:42; Start 07/28/18 at 11:00 Acetaminophen (Tylenol) 500 mg TID PO Last administered on 07/29/18at 09:08; Start 07/28/18 at 14:00 Buspirone HCl (Buspar) 10 mg BID PO Last administered on 07/29/18at 09:08; Start 07/28/18 at 12:00 Vitamin D (Vitamin D3) 2,000 unit DAILY PO Last administered on 07/29/18at 09:08; Start 07/28/18 at 12:00 Folic Acid (Folic Acid) 1 mg DAILY PO Last administered on 07/29/18at 09:08; Start 07/28/18 at 12:00 Non-Formulary Medication (Albuterol Sulfate (Albuterol Sulfate Conc Neb Soln)) 1 vial Q6HRS PRN NEB SHORTNESS OF BREATH; Start 07/28/18 at 12:00; Status UNV Non-Formulary Medication (Budesonide ) 1 vial BID NEB ; Start 07/28/18 at 21:00; Status UNV Calcitriol (Rocaltrol) 0.25 mcg MoWeFr PO Last administered on 07/28/18 16:15; Start 07/28/18 at 12:00 Duloxetine HCl (Cymbalta) 60 mg DAILY PO Last administered on 07/29/18 09:09; Start 07/28/18 at 12:00 Levothyroxine Sodium (Synthroid) 50 mcg DAILY06 PO Last administered on 07/29/18 05:44; Start 07/28/18 at 15:30 Atorvastatin Calcium (Lipitor) 40 mg QHS PO Last administered on 07/28/18 20:58; Start 07/28/18 at 21:00 Budesonide (Pulmicort) 0.5 mg RTBID NEB ; Start 07/28/18 at 20:00; Status UNV Fluticasone Propionate (Flonase) 2 spray DAILY NS Last administered on 07/29/18 09:14; Start 07/29/18 at 09:00 Duloxetine HCl (Cymbalta) 60 mg DAILY PO ; Start 07/29/18 at 09:00; Status UNV Furosemide (Lasix) 80 mg DAILY IVP Last administered on 07/29/18 09:07; Start 07/28/18 at 13:00 Lactobacillus Rhamnosus (Culturelle) 1 cap BID PO Last administered on 07/29/18 09:07; Start 07/28/18 at 21:00 Lorazepam (Ativan) 0.5 mg PRN Q4HRS PRN PO ANXIETY / AGITATION; Start 07/28/18 at 12:15 Meropenem 1 gm/ Sodium Chloride 100 ml @ 200 mls/hr Q12HR IV Last administered on 07/29/18 08:57; Start 07/28/18 at 12:00 Metoprolol Tartrate (Lopressor) 50 mg BID PO Last administered on 07/29/18 09:14; Start 07/28/18 at 12:00 Nystatin (Nystop) 1 ute BID TP Last administered on 07/29/18 09:15; Start 07/28/18 at 13:00 Pantoprazole Sodium (Protonix) 40 mg DAILYAC PO Last administered on 07/29/18 09:07; Start 07/28/18 at 16:30 Senna/Docusate Sodium (Senna Plus) 2 tab PRN BID PRN PO CONSTIPATION; Start 07/28/18 at 12:15 Vancomycin HCl (Vanco Per Pharmacy) 1 each PRN DAILY PRN MC SEE COMMENTS Last administered on 07/28/18at 17:03; Start 07/28/18 at 12:15 Glipizide (Glucotrol) 2.5 mg BIDBFRMEAL PO Last administered on 07/29/18at 09:08; Start 07/28/18 at 16:30 Trazodone HCl (Desyrel) 50 mg QHS PO Last administered on 07/28/18at 20:58; Start 07/28/18 at 21:00 Budesonide (Pulmicort) 0.5 mg RTBID NEB Last administered on 07/29/18at 08:37; Start 07/28/18 at 12:00 Insulin Human Lispro (HumaLOG) 0-5 UNITS TIDWMEALS SQ ; Start 07/28/18 at 17:00 Dextrose (Dextrose 50%-Water Syringe) 12.5 gm PRN Q15MIN PRN IV SEE COMMENTS; Start 07/28/18 at 12:30 Albuterol Sulfate (Ventolin Neb Soln) 2.5 mg PRN Q6HRS PRN NEB SHORTNESS OF BREATH Last administered on 07/28/18at 20:07; Start 07/28/18 at 18:00 Vancomycin HCl 2 gm/Sodium Chloride 500 ml @ 250 mls/hr ONCE ONCE IV ; Start 07/28/18 at 13:00; Stop 07/28/18 at 14:59; Status Cancel Vancomycin HCl 1.75 gm/Sodium Chloride 500 ml @ 250 mls/hr Q24H IV Last administered on 07/28/18at 17:00; Start 07/28/18 at 17:00 Vancomycin HCl (Vancomycin Trough Level) 1 each 1X ONCE MC ; Start 07/30/18 at 16:30; Stop 07/30/18 at 16:31 Albuterol/ Ipratropium (Duoneb) 3 ml RTQID NEB Last administered on 07/29/18at 08:37; Start 07/28/18 at 20:30 Furosemide (Lasix) 40 mg 1X ONCE IVP Last administered on 07/29/18at 00:28; Start 07/29/18 at 00:15; Stop 07/29/18 at 00:16; Status DC Active Scripts Active Reported Guaifenesin 200 Mg Tablet 200 Mg PO PRN TID PRN Budesonide 0.25 Mg/2 Ml Ampul.neb 1 Vial NEB BID Albuterol Sulfate Conc Neb Soln (Albuterol Sulfate) 2.5 Mg/0.5 Ml Vial.neb 1 Vial NEB Q6HRS PRN Trazodone Hcl 50 Mg Tablet 1 Tab PO QHS Culturelle (Lactobacillus Rhamnosus Gg) 1 Each Cap.sprink 1 Each PO Atorvastatin Calcium 80 Mg Tablet 1 Tab PO DAILY Buspirone Hcl 10 Mg Tablet 1 Tab PO BID Glipizide 5 Mg Tablet 1 Tab PO BID Eliquis (Apixaban) 2.5 Mg Tablet 2.5 Mg PO BID Protonix (Pantoprazole Sodium) 20 Mg Tablet.dr 1 Tab PO DAILY Duloxetine Hcl 60 Mg Capsule.dr 60 Mg PO DAILY Furosemide 20 Mg Tablet 60 Tab PO DAILY Calcitriol 0.25 Mcg Capsule 1 Cap PO 3X/WEEK Mucinex (Guaifenesin) 600 Mg Tablet.er 200 Tab PO TID Potassium Chloride 20 Meq Tablet.er 20 Meq PO DAILY Levothyroxine Sodium 50 Mcg Tablet 1 Tab PO DAILY Tylenol (Acetaminophen) 325 Mg Tablet 500 Mg PO TID Vitamin D3 (Cholecalciferol (Vitamin D3)) 1,000 Unit Tablet 2 Tab PO DAILY Folic Acid 1 Mg Tablet 1 Tab PO DAILY Allergies Allergies: Coded Allergies: Penicillins (Verified Allergy, Intermediate, 01/29/18) oxycodone (Verified Allergy, Intermediate, Rash, 01/29/18) ROS Review of System UNABLE TO OBTAIN FROM PT Physical Exam General: moderate distress HEENT: Other (BIPAP IN PLACE) Lungs: Other (BASILAR RALES) Heart: Regular rate, Other (OCC TACY WITH AFIB RVR) Abdomen: Normal bowel sounds, Soft, No hepatosplenomegaly Extremities: No clubbing, No cyanosis, Other (2+ EDEMA) Skin: No rashes Neuro: Other (UNABLE TO ASSESS) Psych/Mental Status: Other (ANXIOUS, UNABLE TO ASSESS) MUSCULOSKELETAL: No joint tenderness, Other (EDEMA) Vitals VITALS Vital Signs Date Time Temp Pulse Resp B/P (MAP) Pulse Ox O2 Delivery O2 Flow Rate FiO2 07/29/18 10:00 109 25 166/76 (106) 94 BiPAP/CPAP 07/29/18 07:00 97.8 4.0 97.8 Labs Labs Laboratory Tests Test 07/28/18 13:40 07/28/18 16:19 07/29/18 08:00 07/29/18 08:55 O2 Saturation 90 % (92-99) 92 % (92-99) Arterial Blood pH 7.37 (7.35-7.45) 7.37 (7.35-7.45) Arterial Blood pCO2 at Patient Temp 59 mmHg (35-46) 63 mmHg (35-46) Arterial Blood pO2 at Patient Temp 60 mmHg (65-108) 65 mmHg (65-108) Arterial Blood HCO3 33 mmol/L (21-28) 36 mmol/L (21-28) Arterial Blood Base Excess 6 mmol/L (-3-3) 8 mmol/L (-3-3) FiO2 35 35 Glucose (Fingerstick) 115 mg/dL (70-99) White Blood Count 6.1 x10^3/uL (4.0-11.0) Red Blood Count 3.95 x10^6/uL (4.30-5.70) Hemoglobin 11.9 g/dL (13.0-17.5) Hematocrit 37.6 % (39.0-53.0) Mean Corpuscular Volume 95 fL (79-100) Mean Corpuscular Hemoglobin 30 pg (25-35) Mean Corpuscular Hemoglobin Concent 32 g/dL (31-37) Red Cell Distribution Width 14.8 % (11.5-14.5) Platelet Count 83 x10^3/uL (140-400) Prothrombin Time 13.7 SEC (11.7-14.0) Prothromb Time International Ratio 1.1 (0.8-1.1) Sodium Level 143 mmol/L (136-145) Potassium Level 3.5 mmol/L (3.5-5.1) Chloride Level 100 mmol/L (98-107) Carbon Dioxide Level 38 mmol/L (21-32) Anion Gap 5 (6-14) Blood Urea Nitrogen 40 mg/dL (8-26) Creatinine 2.4 mg/dL (0.7-1.3) Estimated GFR (Cockcroft-Gault) 26.5 BUN/Creatinine Ratio 17 (6-20) Glucose Level 123 mg/dL (70-99) Calcium Level 8.6 mg/dL (8.5-10.1) Total Bilirubin 0.9 mg/dL (0.2-1.0) Aspartate Amino Transf (AST/SGOT) 19 U/L (15-37) Alanine Aminotransferase (ALT/SGPT) 17 U/L (16-63) Alkaline Phosphatase 45 U/L (46-116) Total Protein 5.3 g/dL (6.4-8.2) Albumin 2.6 g/dL (3.4-5.0) Albumin/Globulin Ratio 1.0 (1.0-1.7) Thyroid Stimulating Hormone (TSH) 1.372 uIU/mL (0.358-3.74) Test 07/29/18 09:06 Glucose (Fingerstick) 108 mg/dL (70-99) Laboratory Tests Test 07/28/18 13:40 07/28/18 16:19 07/29/18 08:00 07/29/18 08:55 O2 Saturation 90 % (92-99) 92 % (92-99) Arterial Blood pH 7.37 (7.35-7.45) 7.37 (7.35-7.45) Arterial Blood pCO2 at Patient Temp 59 mmHg (35-46) 63 mmHg (35-46) Arterial Blood pO2 at Patient Temp 60 mmHg (65-108) 65 mmHg (65-108) Arterial Blood HCO3 33 mmol/L (21-28) 36 mmol/L (21-28) Arterial Blood Base Excess 6 mmol/L (-3-3) 8 mmol/L (-3-3) FiO2 35 35 Glucose (Fingerstick) 115 mg/dL (70-99) White Blood Count 6.1 x10^3/uL (4.0-11.0) Red Blood Count 3.95 x10^6/uL (4.30-5.70) Hemoglobin 11.9 g/dL (13.0-17.5) Hematocrit 37.6 % (39.0-53.0) Mean Corpuscular Volume 95 fL (79-100) Mean Corpuscular Hemoglobin 30 pg (25-35) Mean Corpuscular Hemoglobin Concent 32 g/dL (31-37) Red Cell Distribution Width 14.8 % (11.5-14.5) Platelet Count 83 x10^3/uL (140-400) Prothrombin Time 13.7 SEC (11.7-14.0) Prothromb Time International Ratio 1.1 (0.8-1.1) Sodium Level 143 mmol/L (136-145) Potassium Level 3.5 mmol/L (3.5-5.1) Chloride Level 100 mmol/L (98-107) Carbon Dioxide Level 38 mmol/L (21-32) Anion Gap 5 (6-14) Blood Urea Nitrogen 40 mg/dL (8-26) Creatinine 2.4 mg/dL (0.7-1.3) Estimated GFR (Cockcroft-Gault) 26.5 BUN/Creatinine Ratio 17 (6-20) Glucose Level 123 mg/dL (70-99) Calcium Level 8.6 mg/dL (8.5-10.1) Total Bilirubin 0.9 mg/dL (0.2-1.0) Aspartate Amino Transf (AST/SGOT) 19 U/L (15-37) Alanine Aminotransferase (ALT/SGPT) 17 U/L (16-63) Alkaline Phosphatase 45 U/L (46-116) Total Protein 5.3 g/dL (6.4-8.2) Albumin 2.6 g/dL (3.4-5.0) Albumin/Globulin Ratio 1.0 (1.0-1.7) Thyroid Stimulating Hormone (TSH) 1.372 uIU/mL (0.358-3.74) Test 07/29/18 09:06 Glucose (Fingerstick) 108 mg/dL (70-99) Assessment/Plan Assessment/Plan IMP YARELY WITH CR OF 2.1-[id number] CKD STAGE 3 WITH CR OF 1.7-1.8 ACUTE ON CHRONIC SYSTOLIC AND DIASTOLIC CHF CM WITH EF OF 20-25% AFIB RVR DM II HTN COPD CHRONIC MET ALKALOSIS PLAN DIURESE BIPAP SUPPLEMENTAL O2 INOTROPE AND NEG CHRONOTROPES TRIAL OF PINA-I TO AFTERLOAD LATER WILL FOLLOW JOSE ANTONIO JACKSON MD Jul 29, 2018 11:58
[2018-07-29 14:29] LABS: BASE EXCESS ABG 8 mmol/L (-3-3); HCO3 ABG 35 mmol/L (21-28); PO2 ABG 61 mmHg (65-108); SAT O2 ABG 89 % (92-99)
[2018-07-29 14:34] LABS: FIO2 ABG 35%; PCO2 ABG 63 mmHg (35-46)
--- NOTE | 2018-07-29 18:02 | RAD ---
CHEST AP ONLY History: soa. No prior study for comparison. There is widening of cardiomediastinal silhouette, although this partially could be due to the portable technique. Small moderate right pleural effusion and small left pleural effusion. There are hazy opacities in both lung bases. No lobar consolidation is seen. No pneumothorax. IMPRESSION: 1. Pleural effusions, greater on the right. 2. Hazy opacities in both lung bases, compatible with superimposed infiltrate or atelectasis. 3. Widening of the cardiac silhouette, could be due to cardiomegaly or pericardial effusion. Electronically signed by: Lamin Velázquez MD (07/29/2018 6:00 PM) [id number]
[2018-07-29] MEDS: ATORVASTATIN CALCIUM 40 MG TABLET. PO SCH (20:55)
[2018-07-29] MEDS: traZODone 50 MG TABLET. PO SCH (20:55)
--- NOTE | 2018-07-29 22:10 | PN ---
DATE: 07/29/2018 SUBJECTIVE: The patient is resting, slightly propped up continues to be on BiPAP, is very lethargic, arousable. He is on milrinone drip. PHYSICAL EXAMINATION: GENERAL: When I examined him, he looked pale. No jaundice, cyanosis or thyromegaly. No jugular venous distention but generalized anasarca. VITAL SIGNS: His heart rate was 109, blood pressure was /83, temperature was 97.8, respiratory rate was 27 and oxygen saturation was 98%. HEAD, EYES, EARS, NOSE AND THROAT: Normocephalic and atraumatic. NECK: Supple. HEART: Showed normal first and second heart sounds. No gallop or murmur. CHEST: Clear to auscultation. No crepitation or rhonchi. ABDOMEN: Distended, soft and nontender. NEUROLOGICAL: He was lethargic but arousable. His intake over the last 24 hours and output were incompletely recorded. LABORATORY DATA: His blood gases showed a pH of 7.37, pCO2 of 59 and pO2 of 60. Oxygen saturation was 90% on FiO2 of 35%. ASSESSMENT: 1. Ovluy-ke-[id number] hypoxic hypercapnic respiratory failure, multifactorial due to acute on chronic systolic congestive heart failure, pneumonia, chronic obstructive pulmonary disease exacerbation as well as pleural effusion. 2. Nyace-cb-ckiiftu systolic congestive heart failure. 3. Ischemic cardiomyopathy with ejection fraction has dropped down to 20% on most recent echocardiogram. 4. Atrial fibrillation, rate controlled, was well anticoagulated on apixaban; however, apixaban was on hold. 5. Coronary artery disease, history of myocardial infarction. 6. Acute kidney injury on chronic kidney disease with rising serum creatinine. 7. Hypertension. 8. 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 9. Type 2 diabetes mellitus. 10. Hyperlipidemia. 11. Morbid obesity with obstructive sleep apnea. 12. Chronic back pain due to multiple lumbar vertebral compression fracture. PLAN: Obviously, the patient is scheduled for thoracentesis and apixaban was discontinued. We will continue with all his other medications. Continue with diuresis. Continue with milrinone drip. Continue with BiPAP machine as per special forces specialist. KAR PERSAUD MD DR: KEENAN/lindsay JOB#: [id number] / [id number]
[2018-07-30] VITALS (25 sets, daily range): BP systolic 85–161; BP diastolic 55–94
[2018-07-30] MEDS: MILRINONE 20MG/100ML PREMIX 100 ML IV PRN (00:11)
[2018-07-30] MEDS: LORazepam 0.5 MG TABLET PO PRN ×2 (01:26→18:54)
[2018-07-30 05:56] LABS: HEMATOCRIT 37.7 % (39.0-53.0); HEMOGLOBIN 12.1 g/dL (13.0-17.5); RED BLOOD COUNT 3.98 x10^6/uL (4.30-5.70); RED CELL DISTRIBUTION WIDTH 14.4 % (11.5-14.5); WHITE BLOOD COUNT 3.8 x10^3/uL (4.0-11.0)
[2018-07-30] MEDS: LEVOTHYROXINE 50 MCG TABLET PO SCH (06:02)
[2018-07-30 06:14] LABS: ALBUMIN 2.4 g/dL (3.4-5.0); ALBUMIN/GLOBULIN RATIO 0.9 (1.0-1.7); CALCIUM 8.4 mg/dL (8.5-10.1); CREATININE 2.5 mg/dL (0.7-1.3); GFR 25.3; PHOSPHORUS 3.2 mg/dL (2.6-4.7); POTASSIUM 3.4 mmol/L (3.5-5.1); TOTAL BILIRUBIN 0.8 mg/dL (0.2-1.0); TOTAL PROTEIN 5.2 g/dL (6.4-8.2)
[2018-07-30] MEDS: IPRATRPIUM/ALBUTEROL 0.5/2.5MG 3 ML NEBU. NEB SCH ×4 (07:37→19:25)
[2018-07-30] MEDS: BUDESONIDE 0.5 MG/2 ML NEBU. NEB SCH ×2 (07:37→19:25)
[2018-07-30] MEDS ORDERED: POTASSIUM CHLORIDE 20 MEQ TABLET.ER. PO ONE (07:45)
[2018-07-30] MEDS: INSULIN LISPRO 300 UNITS/3 ML INSULN.PEN. SQ SCH ×3 (08:00→16:39)
[2018-07-30] MEDS: FUROSEMIDE 100 MG/10 ML VIAL. IVP SCH ×2 (08:52→21:46)
[2018-07-30] MEDS: glipiZIDE 5 MG TABLET PO SCH ×2 (08:52→16:32)
[2018-07-30] MEDS: MEROPENEM 1 GM in IV NORMAL SALINE 100ML 100 ML IV SCH ×2 (08:52→21:47)
[2018-07-30] MEDS: LACTOBACILLUS RHAMNOSUS GG 1 CAPSULE. PO SCH ×2 (08:53→21:30)
[2018-07-30] MEDS: DULoxetine HCL 30 MG CAPSULE.DR PO SCH (08:53)
[2018-07-30] MEDS: busPIRone 10 MG TABLET. PO SCH ×2 (08:53→21:30)
[2018-07-30] MEDS: METOPROLOL TART IMMED RELEASE 50 MG TABLET. PO SCH ×2 (08:53→21:32)
[2018-07-30] MEDS: FOLIC ACID 1 MG TABLET. PO SCH (08:54)
[2018-07-30] MEDS: PANTOPRAZOLE 40 MG TABLET.DR. PO SCH (08:54)
[2018-07-30] MEDS: ACETAMINOPHEN 325 MG TABLET. PO SCH ×3 (08:54→21:30)
[2018-07-30] MEDS: CHOLECALCIFEROL (VITAMIN D3) 1,000 UNIT TABLET PO SCH (08:54)
[2018-07-30] MEDS: NYSTATIN TOPICAL POWDER 15GM BOTTLE. TP SCH ×2 (08:55→21:00)
[2018-07-30] MEDS: FLUTICASONE 50MCG/NASAL SPRAY 16GM BOTTLE. NS SCH (08:55)
[2018-07-30] MEDS ORDERED: METOPROLOL TART IMMED RELEASE 25 MG TABLET. PO ONE (10:00)
--- NOTE | 2018-07-30 10:01 | PDOC ---
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 07/30/18 1001: CARDIO Progress Notes Date and Time Date of Service 07/30/2018 Time of Evaluation 0940 Subjective Subjective: No Chest Pain, No shortness of breath, No Palpitations, Other (no discomfort) Vitals Vitals Vital Signs Date Time Temp Pulse Resp B/P (MAP) Pulse Ox O2 Delivery O2 Flow Rate FiO2 07/30/18 08:53 111 141/68 07/30/18 07:40 96 Venturi Mask 6.0 07/30/18 07:00 98.0 28 98.0 Weight Weight [ ] Input and Output Intake and Output Intake and Output 07/30/18 06:59 Intake Total 142 ml Output Total 1385 ml Balance -1243 ml Intake Oral 120 ml IV Total 22 ml Output Urine Total 1385 ml Laboratory Labs Laboratory Tests Test 07/29/18 12:43 07/29/18 14:08 07/29/18 17:24 07/30/18 05:30 Glucose (Fingerstick) 105 mg/dL (70-99) 110 mg/dL (70-99) O2 Saturation 89 % (92-99) Arterial Blood pH 7.37 (7.35-7.45) Arterial Blood pCO2 at Patient Temp 63 mmHg (35-46) Arterial Blood pO2 at Patient Temp 61 mmHg (65-108) Arterial Blood HCO3 35 mmol/L (21-28) Arterial Blood Base Excess 8 mmol/L (-3-3) FiO2 35% White Blood Count 3.8 x10^3/uL (4.0-11.0) Red Blood Count 3.98 x10^6/uL (4.30-5.70) Hemoglobin 12.1 g/dL (13.0-17.5) Hematocrit 37.7 % (39.0-53.0) Mean Corpuscular Volume 95 fL (79-100) Mean Corpuscular Hemoglobin 31 pg (25-35) Mean Corpuscular Hemoglobin Concent 32 g/dL (31-37) Red Cell Distribution Width 14.4 % (11.5-14.5) Platelet Count 82 x10^3/uL (140-400) Sodium Level 144 mmol/L (136-145) Potassium Level 3.4 mmol/L (3.5-5.1) Chloride Level 102 mmol/L (98-107) Carbon Dioxide Level 39 mmol/L (21-32) Anion Gap 3 (6-14) Blood Urea Nitrogen 35 mg/dL (8-26) Creatinine 2.5 mg/dL (0.7-1.3) Estimated GFR (Cockcroft-Gault) 25.3 BUN/Creatinine Ratio 14 (6-20) Glucose Level 120 mg/dL (70-99) Calcium Level 8.4 mg/dL (8.5-10.1) Phosphorus Level 3.2 mg/dL (2.6-4.7) Magnesium Level 2.0 mg/dL (1.8-2.4) Total Bilirubin 0.8 mg/dL (0.2-1.0) Aspartate Amino Transf (AST/SGOT) 23 U/L (15-37) Alanine Aminotransferase (ALT/SGPT) 19 U/L (16-63) Alkaline Phosphatase 46 U/L (46-116) Total Protein 5.2 g/dL (6.4-8.2) Albumin 2.4 g/dL (3.4-5.0) Albumin/Globulin Ratio 0.9 (1.0-1.7) Test 07/30/18 08:23 Glucose (Fingerstick) 98 mg/dL (70-99) Physical Exam HEENT: Neck Supple W Full Motion Chest: Symmetric LUNGS: Other (diminished, faint upper expiratory wheeze) Heart: irregularly irregular (AFIB) Abdomen: Soft N/T, Other (obese, anasarca) Extremities: Other (3-4+ bilateral LE pitting edema) Neurology: alert, oriented, follow commands Assessment Assessment 1. Acute on chronic respiratory failure; multifactorial with pleural effusion, a/c systolic CHF, PNA, and AECOPD 2. Acute on chronic systolic CHF 3. ICM; LVEF 20% 4. AFIB; rate at 100-120s 5. CAD with prior TX 6. YARELY on CKD; Cr steady at 2.5. nephrology following 7. Hypertension: controlled 8. H/o recurrent DVT/PE 9. DM2/HLP 10. Obesity Recommendations Continue BB additional 25 mg this am. Lasix therapy and milrinone Continue to hold Eliquis for thoracentesis scheduled today. ASA. Replace K. Bipap PRN SHIRLENE RAMOS MD 07/30/18 4002: CARDIO Progress Notes Plan Plan Pt. seen and examined. 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 Continue diuresis as tolerated. Reviewed renal notes, labs. Consider outpt ischemic w[facility]u [facility] or [facility] office. Will follow along. 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
--- NOTE | 2018-07-30 10:56 | PDOC ---
PULMONARY PROGRESS NOTES Subjective OFF BIPAP ALL AM NOW BACK ON BIPAP LESS SOA Vitals Vital Signs Date Time Temp Pulse Resp B/P (MAP) Pulse Ox O2 Delivery O2 Flow Rate FiO2 07/30/18 10:52 113 144/66 07/30/18 07:40 96 Venturi Mask 6.0 07/30/18 07:00 98.0 28 98.0 Comments ROS unobtainable General: Alert Cardiovascular: Other (Diminished) Abdomen: Soft, Non-tender Neuro Exam: Alert Extremities: Other (edema BLE +2) Skin: Warm, Dry Labs Laboratory Tests Test 07/28/18 13:40 07/28/18 13:45 07/28/18 16:19 07/29/18 08:00 O2 Saturation 90 % (92-99) 92 % (92-99) Arterial Blood pH 7.37 (7.35-7.45) 7.37 (7.35-7.45) Arterial Blood pCO2 at Patient Temp 59 mmHg (35-46) 63 mmHg (35-46) Arterial Blood pO2 at Patient Temp 60 mmHg (65-108) 65 mmHg (65-108) Arterial Blood HCO3 33 mmol/L (21-28) 36 mmol/L (21-28) Arterial Blood Base Excess 6 mmol/L (-3-3) 8 mmol/L (-3-3) FiO2 35 35 Nasal Screen MRSA (PCR) Negative (Negative) Glucose (Fingerstick) 115 mg/dL (70-99) Test 07/29/18 08:55 07/29/18 09:06 07/29/18 12:43 07/29/18 14:08 White Blood Count 6.1 x10^3/uL (4.0-11.0) Red Blood Count 3.95 x10^6/uL (4.30-5.70) Hemoglobin 11.9 g/dL (13.0-17.5) Hematocrit 37.6 % (39.0-53.0) Mean Corpuscular Volume 95 fL (79-100) Mean Corpuscular Hemoglobin 30 pg (25-35) Mean Corpuscular Hemoglobin Concent 32 g/dL (31-37) Red Cell Distribution Width 14.8 % (11.5-14.5) Platelet Count 83 x10^3/uL (140-400) Prothrombin Time 13.7 SEC (11.7-14.0) Prothromb Time International Ratio 1.1 (0.8-1.1) Sodium Level 143 mmol/L (136-145) Potassium Level 3.5 mmol/L (3.5-5.1) Chloride Level 100 mmol/L (98-107) Carbon Dioxide Level 38 mmol/L (21-32) Anion Gap 5 (6-14) Blood Urea Nitrogen 40 mg/dL (8-26) Creatinine 2.4 mg/dL (0.7-1.3) Estimated GFR (Cockcroft-Gault) 26.5 BUN/Creatinine Ratio 17 (6-20) Glucose Level 123 mg/dL (70-99) Calcium Level 8.6 mg/dL (8.5-10.1) Total Bilirubin 0.9 mg/dL (0.2-1.0) Aspartate Amino Transf (AST/SGOT) 19 U/L (15-37) Alanine Aminotransferase (ALT/SGPT) 17 U/L (16-63) Alkaline Phosphatase 45 U/L (46-116) Total Protein 5.3 g/dL (6.4-8.2) Albumin 2.6 g/dL (3.4-5.0) Albumin/Globulin Ratio 1.0 (1.0-1.7) Thyroid Stimulating Hormone (TSH) 1.372 uIU/mL (0.358-3.74) Glucose (Fingerstick) 108 mg/dL (70-99) 105 mg/dL (70-99) O2 Saturation 89 % (92-99) Arterial Blood pH 7.37 (7.35-7.45) Arterial Blood pCO2 at Patient Temp 63 mmHg (35-46) Arterial Blood pO2 at Patient Temp 61 mmHg (65-108) Arterial Blood HCO3 35 mmol/L (21-28) Arterial Blood Base Excess 8 mmol/L (-3-3) FiO2 35% Test 07/29/18 17:24 07/30/18 05:30 07/30/18 08:23 Glucose (Fingerstick) 110 mg/dL (70-99) 98 mg/dL (70-99) White Blood Count 3.8 x10^3/uL (4.0-11.0) Red Blood Count 3.98 x10^6/uL (4.30-5.70) Hemoglobin 12.1 g/dL (13.0-17.5) Hematocrit 37.7 % (39.0-53.0) Mean Corpuscular Volume 95 fL (79-100) Mean Corpuscular Hemoglobin 31 pg (25-35) Mean Corpuscular Hemoglobin Concent 32 g/dL (31-37) Red Cell Distribution Width 14.4 % (11.5-14.5) Platelet Count 82 x10^3/uL (140-400) Sodium Level 144 mmol/L (136-145) Potassium Level 3.4 mmol/L (3.5-5.1) Chloride Level 102 mmol/L (98-107) Carbon Dioxide Level 39 mmol/L (21-32) Anion Gap 3 (6-14) Blood Urea Nitrogen 35 mg/dL (8-26) Creatinine 2.5 mg/dL (0.7-1.3) Estimated GFR (Cockcroft-Gault) 25.3 BUN/Creatinine Ratio 14 (6-20) Glucose Level 120 mg/dL (70-99) Calcium Level 8.4 mg/dL (8.5-10.1) Phosphorus Level 3.2 mg/dL (2.6-4.7) Magnesium Level 2.0 mg/dL (1.8-2.4) Total Bilirubin 0.8 mg/dL (0.2-1.0) Aspartate Amino Transf (AST/SGOT) 23 U/L (15-37) Alanine Aminotransferase (ALT/SGPT) 19 U/L (16-63) Alkaline Phosphatase 46 U/L (46-116) Total Protein 5.2 g/dL (6.4-8.2) Albumin 2.4 g/dL (3.4-5.0) Albumin/Globulin Ratio 0.9 (1.0-1.7) Laboratory Tests Test 07/29/18 12:43 07/29/18 14:08 07/29/18 17:24 07/30/18 05:30 Glucose (Fingerstick) 105 mg/dL (70-99) 110 mg/dL (70-99) O2 Saturation 89 % (92-99) Arterial Blood pH 7.37 (7.35-7.45) Arterial Blood pCO2 at Patient Temp 63 mmHg (35-46) Arterial Blood pO2 at Patient Temp 61 mmHg (65-108) Arterial Blood HCO3 35 mmol/L (21-28) Arterial Blood Base Excess 8 mmol/L (-3-3) FiO2 35% White Blood Count 3.8 x10^3/uL (4.0-11.0) Red Blood Count 3.98 x10^6/uL (4.30-5.70) Hemoglobin 12.1 g/dL (13.0-17.5) Hematocrit 37.7 % (39.0-53.0) Mean Corpuscular Volume 95 fL (79-100) Mean Corpuscular Hemoglobin 31 pg (25-35) Mean Corpuscular Hemoglobin Concent 32 g/dL (31-37) Red Cell Distribution Width 14.4 % (11.5-14.5) Platelet Count 82 x10^3/uL (140-400) Sodium Level 144 mmol/L (136-145) Potassium Level 3.4 mmol/L (3.5-5.1) Chloride Level 102 mmol/L (98-107) Carbon Dioxide Level 39 mmol/L (21-32) Anion Gap 3 (6-14) Blood Urea Nitrogen 35 mg/dL (8-26) Creatinine 2.5 mg/dL (0.7-1.3) Estimated GFR (Cockcroft-Gault) 25.3 BUN/Creatinine Ratio 14 (6-20) Glucose Level 120 mg/dL (70-99) Calcium Level 8.4 mg/dL (8.5-10.1) Phosphorus Level 3.2 mg/dL (2.6-4.7) Magnesium Level 2.0 mg/dL (1.8-2.4) Total Bilirubin 0.8 mg/dL (0.2-1.0) Aspartate Amino Transf (AST/SGOT) 23 U/L (15-37) Alanine Aminotransferase (ALT/SGPT) 19 U/L (16-63) Alkaline Phosphatase 46 U/L (46-116) Total Protein 5.2 g/dL (6.4-8.2) Albumin 2.4 g/dL (3.4-5.0) Albumin/Globulin Ratio 0.9 (1.0-1.7) Test 07/30/18 08:23 Glucose (Fingerstick) 98 mg/dL (70-99) Medications Active Scripts Medications Dose Route/Sig Max Daily Dose Days Date Category Guaifenesin 200 Mg Tablet 200 Mg PO PRN TID PRN 07/28/18 Reported Budesonide 0.25 Mg/2 Ml Ampul.neb 1 Vial NEB BID 01/29/18 Reported Albuterol Sulfate Conc Neb Soln (Albuterol Sulfate) 2.5 Mg/0.5 Ml Vial.neb 1 Vial NEB Q6HRS PRN 01/29/18 Reported Trazodone Hcl 50 Mg Tablet 1 Tab PO QHS 01/24/18 Reported Culturelle (Lactobacillus Rhamnosus Gg) 1 Each Cap.sprink 1 Each PO 01/24/18 Reported Atorvastatin Calcium 80 Mg Tablet 1 Tab PO DAILY 01/24/18 Reported Buspirone Hcl 10 Mg Tablet 1 Tab PO BID 01/24/18 Reported Glipizide 5 Mg Tablet 1 Tab PO BID 01/24/18 Reported Eliquis (Apixaban) 2.5 Mg Tablet 2.5 Mg PO BID 01/24/18 Reported Protonix (Pantoprazole Sodium) 20 Mg Tablet.dr 1 Tab PO DAILY 01/24/18 Reported Duloxetine Hcl 60 Mg Capsule.dr 60 Mg PO DAILY 01/24/18 Reported Furosemide 20 Mg Tablet 60 Tab PO DAILY 01/24/18 Reported Calcitriol 0.25 Mcg Capsule 1 Cap PO 3X/WEEK 01/24/18 Reported Mucinex (Guaifenesin) 600 Mg Tablet.er 200 Tab PO TID 01/24/18 Reported Potassium Chloride 20 Meq Tablet.er 20 Meq PO DAILY 01/24/18 Reported Levothyroxine Sodium 50 Mcg Tablet 1 Tab PO DAILY 01/24/18 Reported Tylenol (Acetaminophen) 325 Mg Tablet 500 Mg PO TID 01/24/18 Reported Vitamin D3 (Cholecalciferol (Vitamin D3)) 1,000 Unit Tablet 2 Tab PO DAILY 01/24/18 Reported Folic Acid 1 Mg Tablet 1 Tab PO DAILY 01/24/18 Reported Active Scripts Medications Dose Route/Sig Max Daily Dose Days Date Category Guaifenesin 200 Mg Tablet 200 Mg PO PRN TID PRN 07/28/18 Reported Budesonide 0.25 Mg/2 Ml Ampul.neb 1 Vial NEB BID 01/29/18 Reported Albuterol Sulfate Conc Neb Soln (Albuterol Sulfate) 2.5 Mg/0.5 Ml Vial.neb 1 Vial NEB Q6HRS PRN 01/29/18 Reported Trazodone Hcl 50 Mg Tablet 1 Tab PO QHS 01/24/18 Reported Culturelle (Lactobacillus Rhamnosus Gg) 1 Each Cap.sprink 1 Each PO 01/24/18 Reported Atorvastatin Calcium 80 Mg Tablet 1 Tab PO DAILY 01/24/18 Reported Buspirone Hcl 10 Mg Tablet 1 Tab PO BID 01/24/18 Reported Glipizide 5 Mg Tablet 1 Tab PO BID 01/24/18 Reported Eliquis (Apixaban) 2.5 Mg Tablet 2.5 Mg PO BID 01/24/18 Reported Protonix (Pantoprazole Sodium) 20 Mg Tablet.dr 1 Tab PO DAILY 01/24/18 Reported Duloxetine Hcl 60 Mg Capsule.dr 60 Mg PO DAILY 01/24/18 Reported Furosemide 20 Mg Tablet 60 Tab PO DAILY 01/24/18 Reported Calcitriol 0.25 Mcg Capsule 1 Cap PO 3X/WEEK 01/24/18 Reported Mucinex (Guaifenesin) 600 Mg Tablet.er 200 Tab PO TID 01/24/18 Reported Potassium Chloride 20 Meq Tablet.er 20 Meq PO DAILY 01/24/18 Reported Levothyroxine Sodium 50 Mcg Tablet 1 Tab PO DAILY 01/24/18 Reported Tylenol (Acetaminophen) 325 Mg Tablet 500 Mg PO TID 01/24/18 Reported Vitamin D3 (Cholecalciferol (Vitamin D3)) 1,000 Unit Tablet 2 Tab PO DAILY 01/24/18 Reported Folic Acid 1 Mg Tablet 1 Tab PO DAILY 01/24/18 Reported Impression . 1. Acute hypoxemic hypercapnic respiratory failure, multifactorial. 2. Acute on chronic heart failure. 3. Abnormal x-ray with persistent right lower lobe effusion greater than left. 4. Cardiomyopathy, ejection fraction 20-25%. 5. Atrial fibrillation with rapid ventricular response. 6. Type 2 diabetes. 7. Hypertension. 8. Obesity. 9. Chronic obstructive pulmonary disease, unknown FEV1. 10. Possible obstructive sleep apnea. Plan . Acute hypoxemic hypercapnic respiratory failure * multifactorial.Possible obstructive sleep apnea/COPD/heart failure * cont. bronchodilators/Pulmicort * BIPAP @ 35% PRN AND QHS * cont. ABX Acute on chronic heart failure/Cardiomyopathy, * ejection fraction 20-25%. * cardiology following Atrial fibrillation with rapid ventricular response. * rate controlled today * on BB * eliquis at home * cardiology following Chronic obstructive pulmonary disease * unknown FEV1. * as above Pleural Effusion S/P THORACOCENTESIS SEE ORDERS * cont. Lasix * repeat CXR NO PTX * FOLLOW ANALYSIS YARELY on CKD * Cr. 1.6-1.8 is past * Cr. is 2.4 today * avoid nephrotoxic medications * nephrology following DVT/GI PPX: saige Garza on hold/ [facility] CHELSEY CASTILLO MD Jul 30, 2018 10:56
--- NOTE | 2018-07-30 12:19 | PDOC ---
Renal-Progress Notes Subjective Notes Notes LESS SOB, O2 BETTER History of Present Illness Hx of present illness IMPROVING Vitals Vitals Vital Signs Date Time Temp Pulse Resp B/P (MAP) Pulse Ox O2 Delivery O2 Flow Rate FiO2 07/30/18 12:00 Venturi Mask 07/30/18 12:00 114 26 96/64 (75) 98 9.0 07/30/18 07:00 98.0 98.0 Weight Weight [ ] I.O. Intake and Output Intake and Output 07/30/18 06:59 Intake Total 142 ml Output Total 1385 ml Balance -1243 ml Intake Oral 120 ml IV Total 22 ml Output Urine Total 1385 ml Labs Labs Laboratory Tests Test 07/29/18 12:43 07/29/18 14:08 07/29/18 17:24 07/30/18 05:30 Glucose (Fingerstick) 105 mg/dL (70-99) 110 mg/dL (70-99) O2 Saturation 89 % (92-99) Arterial Blood pH 7.37 (7.35-7.45) Arterial Blood pCO2 at Patient Temp 63 mmHg (35-46) Arterial Blood pO2 at Patient Temp 61 mmHg (65-108) Arterial Blood HCO3 35 mmol/L (21-28) Arterial Blood Base Excess 8 mmol/L (-3-3) FiO2 35% White Blood Count 3.8 x10^3/uL (4.0-11.0) Red Blood Count 3.98 x10^6/uL (4.30-5.70) Hemoglobin 12.1 g/dL (13.0-17.5) Hematocrit 37.7 % (39.0-53.0) Mean Corpuscular Volume 95 fL (79-100) Mean Corpuscular Hemoglobin 31 pg (25-35) Mean Corpuscular Hemoglobin Concent 32 g/dL (31-37) Red Cell Distribution Width 14.4 % (11.5-14.5) Platelet Count 82 x10^3/uL (140-400) Sodium Level 144 mmol/L (136-145) Potassium Level 3.4 mmol/L (3.5-5.1) Chloride Level 102 mmol/L (98-107) Carbon Dioxide Level 39 mmol/L (21-32) Anion Gap 3 (6-14) Blood Urea Nitrogen 35 mg/dL (8-26) Creatinine 2.5 mg/dL (0.7-1.3) Estimated GFR (Cockcroft-Gault) 25.3 BUN/Creatinine Ratio 14 (6-20) Glucose Level 120 mg/dL (70-99) Calcium Level 8.4 mg/dL (8.5-10.1) Phosphorus Level 3.2 mg/dL (2.6-4.7) Magnesium Level 2.0 mg/dL (1.8-2.4) Total Bilirubin 0.8 mg/dL (0.2-1.0) Aspartate Amino Transf (AST/SGOT) 23 U/L (15-37) Alanine Aminotransferase (ALT/SGPT) 19 U/L (16-63) Alkaline Phosphatase 46 U/L (46-116) Total Protein 5.2 g/dL (6.4-8.2) Albumin 2.4 g/dL (3.4-5.0) Albumin/Globulin Ratio 0.9 (1.0-1.7) Test 07/30/18 08:23 Glucose (Fingerstick) 98 mg/dL (70-99) Review of Systems Constitutional: yes: other (CONFUSED) Physical Exam General Appearance: no apparent distress Skin: warm Respiratory: decreased breath sounds Heart: S1S2, other (IRREGULAR) Abdomen: soft, bowel sounds present Genitourinary: mendoza catheter Extremities: edema Neurology: alert Assessment Assessment IMP YARELY WITH CR OF 2.3-[id number] HYPOKALEMIA CKD STAGE 3 WITH CR OF 1.7-1.8 ACUTE ON CHRONIC SYSTOLIC AND DIASTOLIC CHF CM WITH EF OF 20% AFIB RVR-BETTER DM II HTN COPD CHRONIC MET ALKALOSIS PLAN DIURESE REPLACE K BIPAP SUPPLEMENTAL O2 TRIAL OF PINA-I TO AFTERLOAD LATER WILL FOLLOW JOSE ANTONIO JACKSON MD Jul 30, 2018 12:19
[2018-07-30] MEDS ORDERED: ELECTROLYTE (ICU) PROTOCOL. MC PRN (13:45)
[2018-07-30 14:13] LABS: TOTAL PROTEIN 4.6 g/dL (6.4-8.2)
--- NOTE | 2018-07-30 14:29 | PN ---
DATE: 07/30/2018 SUBJECTIVE: The patient is resting, slightly propped up in bed, no apparent distress. He is more awake, alert. He is on a Venturi mask, maintaining his oxygen saturation at 97% on FiO2 of 35%. Questioning him, he denied any complaint. Nursing staff stated that he has eaten some yesterday. He is n.p.o. for thoracentesis today. We changed his code status to full code. PHYSICAL EXAMINATION: GENERAL: When I examined him, he looked well and was clearly in no apparent respiratory distress. There is no pallor, jaundice, cyanosis or thyromegaly. No jugular venous distention, but generalized anasarca. VITAL SIGNS: His heart rate continued to be high, in fact his heart rate goes up to 110, 130, irregularly irregular. His blood pressure was 133/70, temperature was 98, respiratory rate was 28 and oxygen saturation was 98% on FiO2 of 35%. HEAD, EYES, EARS, NOSE AND THROAT: Showed normocephalic, atraumatic. NECK: Supple. HEART: Showed normal first and second heart sounds. No gallop or murmur. CHEST: Clear to auscultation. No crepitation or rhonchi. ABDOMEN: Distended, soft, nontender. No guarding or rigidity. No organomegaly. All hernial orifices intact. Bowel sounds normal. NEUROLOGIC: He was more awake, alert, responding appropriately. All cranial nerves are intact. He moves extremities without difficulty. INTAKE AND OUTPUT: His intake was 1373, output was 1375. LABORATORY DATA: As of this morning, his white cell count is down to 3800, hemoglobin 12, hematocrit 38, MCV 95, and platelet count of 82,000. His chemistry showed a serum sodium 144, potassium 3.4, chloride 102, bicarbonate 39, anion gap of 3, BUN 35, creatinine 2.5, estimated GFR was 25 mL per minute. His glucose was 120, calcium was 8.4, phosphorus was 3.2, magnesium was 2. Total bilirubin, AST, ALT, alkaline phosphatase were normal. Total protein was 5.2, albumin 2.4. His blood gases of yesterday showed a pH of 7.37, pCO2 of 63, pO2 of 61, bicarbonate 35, and oxygen saturation was 89%. His prothrombin time and INR are normal. His nasal screen for MRSA PCR was negative. His chest x-ray showed that he had bilateral pleural effusion, greater on the right; has hazy opacities in both lung bases compatible with superimposed infiltrate or atelectasis; widening of the cardiac silhouette, could be due to cardiomegaly and/or pericardial effusion. ASSESSMENT: This is a 73-year-old male patient who was transferred from [facility] with: 1. [id number] hypoxic hypercapnic respiratory failure, multifactorial due to fbkec-ai-fhxrqyv systolic congestive heart failure, pneumonia, chronic obstructive pulmonary disease exacerbation as well as pleural effusions. 2. Vbzsp-kw-ljoygoq systolic congestive heart failure. 3. Ischemic cardiomyopathy with ejection fraction has dropped down to 20%, his most recent echocardiogram. 4. Atrial fibrillation. The rate of which is suboptimally controlled. His apixaban was on hold for thoracentesis. 5. Coronary artery disease with history of myocardial infarction. 6. Acute kidney injury on chronic kidney disease. His serum creatinine is rising. Today is up to 2.5 mg/dL. 7. Hypertension. 8. 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 9. Type 2 diabetes mellitus. 10. Hyperlipidemia. 11. Morbid obesity, obstructive sleep apnea. 12. Chronic back pain due to multiple lumbar vertebral compression fractures. PLAN: To continue with the BiPAP machine, continue with milrinone drip, continue with all his other medications. His apixaban still on hold as he is scheduled for thoracentesis today. KAR PERSAUD MD DR: KEENAN/lindsay JOB#: [id number] / [id number]
--- NOTE | 2018-07-30 14:47 | RAD ---
Ultrasound Guided Thoracentesis, right side Indication: 73-year-old with right pleural effusion Sedation: Local anesthesia only Sterility: The procedure was performed in its entirety using appropriate elements of sterile technique. Technique and Findings: Following informed consent, the patient was prepped and draped in the usual sterile fashion. Ultrasound interrogation of the area of interest was performed revealing the presence of a pleural fluid collection. 1% Lidocaine was used to achieve local anesthesia over the area of interest. A small dermatotomy was made and a 5F Xyp-w-rqhutunf catheter was advanced under ultrasound guidance into the pleural space [id number] cc's of clear lucie fluid was removed. The catheter was then removed and hemostasis was achieved with manual compression. Impression: US thoracentesis as described.
--- NOTE | 2018-07-30 16:18 | NUR ---
SS following for discharge planning. SS reviewed pt chart. Pt is from home with brother and is currently requiring oxygen. No discharge needs noted at this time. SS will continue to follow for discharge planning.
[2018-07-30] MEDS: CALCITRIOL 0.25 MCG CAPSULE. PO SCH (16:32)
--- NOTE | 2018-07-30 17:15 | RAD ---
CHEST AP ONLY Clinical Indication: POST RIGHT THORACENTESIS Comparison: AP chest, prior day. Findings: Right pleural effusion has decreased post thoracentesis. No pneumothorax is identified. There are small bilateral pleural effusions. The cardiomediastinal silhouette is stable. There are left greater than right basilar airspace opacities. There are are increased interstitial markings but improved from prior study. There are old left lateral rib fractures.. IMPRESSION: 1. Decreased right pleural effusion postthoracentesis. No pneumothorax. 2. Small bilateral pleural effusions. 3. Left greater than right basilar airspace disease. 4. Interstitial edema is improved. Electronically signed by: Hebert Cleaning MD (07/30/2018 5:12 PM) [id number]
--- NOTE | 2018-07-30 17:42 | NUR ---
Patient tolerated thoracentesis which 1250cc was removed. Patient is tachypneic with a productive, intermittent cough, afib, no fever. Patient is waiting for central line placement at this time. Family friends at bedside Addendum: 07/30/18 at 1841 by MAX RUGGIERO RN Dr. Clemente ordered to stop milrinone. No access for central line. Will change to PICC Line.
--- NOTE | 2018-07-30 19:30 | NUR ---
Received ok from Dr Franks to place PICC
[2018-07-30] MEDS: ATORVASTATIN CALCIUM 40 MG TABLET. PO SCH (21:30)
[2018-07-30] MEDS: traZODone 50 MG TABLET. PO SCH (21:30)
[2018-07-31] VITALS (22 sets, daily range): BP systolic 85–152; BP diastolic 43–78
[2018-07-31 05:51] LABS: HEMATOCRIT 37.9 % (39.0-53.0); HEMOGLOBIN 12.4 g/dL (13.0-17.5); RED BLOOD COUNT 3.98 x10^6/uL (4.30-5.70); RED CELL DISTRIBUTION WIDTH 14.6 % (11.5-14.5); WHITE BLOOD COUNT 4.1 x10^3/uL (4.0-11.0)
[2018-07-31 05:53] LABS: CALCIUM 8.7 mg/dL (8.5-10.1); CREATININE 2.2 mg/dL (0.7-1.3); GFR 29.3; MAGNESIUM 2.1 mg/dL (1.8-2.4); PHOSPHORUS 3.5 mg/dL (2.6-4.7); POTASSIUM 3.6 mmol/L (3.5-5.1)
[2018-07-31] MEDS: LEVOTHYROXINE 50 MCG TABLET PO SCH (05:57)
[2018-07-31] MEDS: BUDESONIDE 0.5 MG/2 ML NEBU. NEB SCH ×2 (07:32→19:38)
[2018-07-31] MEDS: IPRATRPIUM/ALBUTEROL 0.5/2.5MG 3 ML NEBU. NEB SCH ×4 (07:32→19:38)
--- NOTE | 2018-07-31 07:53 | RAD ---
Examination: PORTABLE CHEST 1V History: picc line Comparison/Correlation: 07/30/2018 portable chest x-ray exam Findings: Right-sided PICC is present. No pneumothorax. Cardiomegaly noted. Old left-sided rib fractures are present. Mild pulmonary vasculature congestion. Small pleural effusions noted. Right midthoracic focal opacity noted. Retrocardiac left basilar consolidation. Impression: Congestive heart failure and small pleural effusions. Right midthoracic focal opacity which may represent early infiltrate is present in the interval. Electronically signed by: Zelalem Pope MD (07/31/2018 7:50 AM) [facility]
[2018-07-31] MEDS: INSULIN LISPRO 300 UNITS/3 ML INSULN.PEN. SQ SCH ×3 (08:00→17:00)
[2018-07-31] MEDS: glipiZIDE 5 MG TABLET PO SCH ×2 (08:17→16:30)
[2018-07-31] MEDS: ASPIRIN ENTERIC COATED 81 MG TABLET.DR. PO SCH (08:17)
[2018-07-31] MEDS: CHOLECALCIFEROL (VITAMIN D3) 1,000 UNIT TABLET PO SCH (08:18)
[2018-07-31] MEDS: DULoxetine HCL 30 MG CAPSULE.DR PO SCH (08:18)
[2018-07-31] MEDS: PANTOPRAZOLE 40 MG TABLET.DR. PO SCH (08:18)
[2018-07-31] MEDS: LACTOBACILLUS RHAMNOSUS GG 1 CAPSULE. PO SCH ×2 (08:19→21:15)
[2018-07-31] MEDS: busPIRone 10 MG TABLET. PO SCH ×2 (08:19→21:14)
[2018-07-31] MEDS: ACETAMINOPHEN 325 MG TABLET. PO SCH ×3 (08:19→21:14)
[2018-07-31] MEDS: MEROPENEM 1 GM in IV NORMAL SALINE 100ML 100 ML IV SCH ×3 (08:20→18:08)
[2018-07-31] MEDS: FLUTICASONE 50MCG/NASAL SPRAY 16GM BOTTLE. NS SCH (08:20)
[2018-07-31] MEDS: FUROSEMIDE 100 MG/10 ML VIAL. IVP SCH ×2 (08:20→21:13)
[2018-07-31] MEDS: FOLIC ACID 1 MG TABLET. PO SCH (08:20)
[2018-07-31] MEDS: METOPROLOL TART IMMED RELEASE 50 MG TABLET. PO SCH (08:20)
[2018-07-31] MEDS: NYSTATIN TOPICAL POWDER 15GM BOTTLE. TP SCH ×2 (08:21→21:34)
--- NOTE | 2018-07-31 09:16 | PDOC ---
PULMONARY PROGRESS NOTES Subjective OFF BIPAP IN AM NOW ON BIPAP Vitals Vital Signs Date Time Temp Pulse Resp B/P (MAP) Pulse Ox O2 Delivery O2 Flow Rate FiO2 07/31/18 08:20 116 106/62 07/31/18 07:33 97 Venturi Mask 9.0 07/31/18 07:00 24 07/31/18 04:00 97.8 97.8 Comments ROS unobtainable General: Alert Cardiovascular: Other (Diminished) Abdomen: Soft, Non-tender Neuro Exam: Alert Extremities: Other (edema BLE +2) Skin: Warm, Dry Labs Laboratory Tests Test 07/29/18 12:43 07/29/18 14:08 07/29/18 17:24 07/30/18 05:30 Glucose (Fingerstick) 105 mg/dL (70-99) 110 mg/dL (70-99) O2 Saturation 89 % (92-99) Arterial Blood pH 7.37 (7.35-7.45) Arterial Blood pCO2 at Patient Temp 63 mmHg (35-46) Arterial Blood pO2 at Patient Temp 61 mmHg (65-108) Arterial Blood HCO3 35 mmol/L (21-28) Arterial Blood Base Excess 8 mmol/L (-3-3) FiO2 35% White Blood Count 3.8 x10^3/uL (4.0-11.0) Red Blood Count 3.98 x10^6/uL (4.30-5.70) Hemoglobin 12.1 g/dL (13.0-17.5) Hematocrit 37.7 % (39.0-53.0) Mean Corpuscular Volume 95 fL (79-100) Mean Corpuscular Hemoglobin 31 pg (25-35) Mean Corpuscular Hemoglobin Concent 32 g/dL (31-37) Red Cell Distribution Width 14.4 % (11.5-14.5) Platelet Count 82 x10^3/uL (140-400) Sodium Level 144 mmol/L (136-145) Potassium Level 3.4 mmol/L (3.5-5.1) Chloride Level 102 mmol/L (98-107) Carbon Dioxide Level 39 mmol/L (21-32) Anion Gap 3 (6-14) Blood Urea Nitrogen 35 mg/dL (8-26) Creatinine 2.5 mg/dL (0.7-1.3) Estimated GFR (Cockcroft-Gault) 25.3 BUN/Creatinine Ratio 14 (6-20) Glucose Level 120 mg/dL (70-99) Calcium Level 8.4 mg/dL (8.5-10.1) Phosphorus Level 3.2 mg/dL (2.6-4.7) Magnesium Level 2.0 mg/dL (1.8-2.4) Total Bilirubin 0.8 mg/dL (0.2-1.0) Aspartate Amino Transf (AST/SGOT) 23 U/L (15-37) Alanine Aminotransferase (ALT/SGPT) 19 U/L (16-63) Alkaline Phosphatase 46 U/L (46-116) Lactate Dehydrogenase 253 U/L (85-227) Total Protein 4.6 g/dL (6.4-8.2) Albumin 2.4 g/dL (3.4-5.0) Albumin/Globulin Ratio 0.9 (1.0-1.7) Test 07/30/18 08:23 07/30/18 11:00 07/30/18 16:38 07/30/18 22:53 Glucose (Fingerstick) 98 mg/dL (70-99) 118 mg/dL (70-99) 90 mg/dL (70-99) Body Fluid pH 7.58 Test 07/31/18 05:30 07/31/18 08:16 White Blood Count 4.1 x10^3/uL (4.0-11.0) Red Blood Count 3.98 x10^6/uL (4.30-5.70) Hemoglobin 12.4 g/dL (13.0-17.5) Hematocrit 37.9 % (39.0-53.0) Mean Corpuscular Volume 95 fL (79-100) Mean Corpuscular Hemoglobin 31 pg (25-35) Mean Corpuscular Hemoglobin Concent 33 g/dL (31-37) Red Cell Distribution Width 14.6 % (11.5-14.5) Platelet Count 76 x10^3/uL (140-400) Sodium Level 143 mmol/L (136-145) Potassium Level 3.6 mmol/L (3.5-5.1) Chloride Level 101 mmol/L (98-107) Carbon Dioxide Level 39 mmol/L (21-32) Anion Gap 3 (6-14) Blood Urea Nitrogen 30 mg/dL (8-26) Creatinine 2.2 mg/dL (0.7-1.3) Estimated GFR (Cockcroft-Gault) 29.3 Glucose Level 104 mg/dL (70-99) Calcium Level 8.7 mg/dL (8.5-10.1) Phosphorus Level 3.5 mg/dL (2.6-4.7) Magnesium Level 2.1 mg/dL (1.8-2.4) Glucose (Fingerstick) 124 mg/dL (70-99) Laboratory Tests Test 07/30/18 11:00 07/30/18 16:38 07/30/18 22:53 07/31/18 05:30 Body Fluid pH 7.58 Glucose (Fingerstick) 118 mg/dL (70-99) 90 mg/dL (70-99) White Blood Count 4.1 x10^3/uL (4.0-11.0) Red Blood Count 3.98 x10^6/uL (4.30-5.70) Hemoglobin 12.4 g/dL (13.0-17.5) Hematocrit 37.9 % (39.0-53.0) Mean Corpuscular Volume 95 fL (79-100) Mean Corpuscular Hemoglobin 31 pg (25-35) Mean Corpuscular Hemoglobin Concent 33 g/dL (31-37) Red Cell Distribution Width 14.6 % (11.5-14.5) Platelet Count 76 x10^3/uL (140-400) Sodium Level 143 mmol/L (136-145) Potassium Level 3.6 mmol/L (3.5-5.1) Chloride Level 101 mmol/L (98-107) Carbon Dioxide Level 39 mmol/L (21-32) Anion Gap 3 (6-14) Blood Urea Nitrogen 30 mg/dL (8-26) Creatinine 2.2 mg/dL (0.7-1.3) Estimated GFR (Cockcroft-Gault) 29.3 Glucose Level 104 mg/dL (70-99) Calcium Level 8.7 mg/dL (8.5-10.1) Phosphorus Level 3.5 mg/dL (2.6-4.7) Magnesium Level 2.1 mg/dL (1.8-2.4) Test 07/31/18 08:16 Glucose (Fingerstick) 124 mg/dL (70-99) Medications Active Scripts Medications Dose Route/Sig Max Daily Dose Days Date Category Guaifenesin 200 Mg Tablet 200 Mg PO PRN TID PRN 07/28/18 Reported Budesonide 0.25 Mg/2 Ml Ampul.neb 1 Vial NEB BID 01/29/18 Reported Albuterol Sulfate Conc Neb Soln (Albuterol Sulfate) 2.5 Mg/0.5 Ml Vial.neb 1 Vial NEB Q6HRS PRN 01/29/18 Reported Trazodone Hcl 50 Mg Tablet 1 Tab PO QHS 01/24/18 Reported Culturelle (Lactobacillus Rhamnosus Gg) 1 Each Cap.sprink 1 Each PO 01/24/18 Reported Atorvastatin Calcium 80 Mg Tablet 1 Tab PO DAILY 01/24/18 Reported Buspirone Hcl 10 Mg Tablet 1 Tab PO BID 01/24/18 Reported Glipizide 5 Mg Tablet 1 Tab PO BID 01/24/18 Reported Eliquis (Apixaban) 2.5 Mg Tablet 2.5 Mg PO BID 01/24/18 Reported Protonix (Pantoprazole Sodium) 20 Mg Tablet.dr 1 Tab PO DAILY 01/24/18 Reported Duloxetine Hcl 60 Mg Capsule.dr 60 Mg PO DAILY 01/24/18 Reported Furosemide 20 Mg Tablet 60 Tab PO DAILY 01/24/18 Reported Calcitriol 0.25 Mcg Capsule 1 Cap PO 3X/WEEK 01/24/18 Reported Mucinex (Guaifenesin) 600 Mg Tablet.er 200 Tab PO TID 01/24/18 Reported Potassium Chloride 20 Meq Tablet.er 20 Meq PO DAILY 01/24/18 Reported Levothyroxine Sodium 50 Mcg Tablet 1 Tab PO DAILY 01/24/18 Reported Tylenol (Acetaminophen) 325 Mg Tablet 500 Mg PO TID 01/24/18 Reported Vitamin D3 (Cholecalciferol (Vitamin D3)) 1,000 Unit Tablet 2 Tab PO DAILY 01/24/18 Reported Folic Acid 1 Mg Tablet 1 Tab PO DAILY 01/24/18 Reported Active Scripts Medications Dose Route/Sig Max Daily Dose Days Date Category Guaifenesin 200 Mg Tablet 200 Mg PO PRN TID PRN 07/28/18 Reported Budesonide 0.25 Mg/2 Ml Ampul.neb 1 Vial NEB BID 01/29/18 Reported Albuterol Sulfate Conc Neb Soln (Albuterol Sulfate) 2.5 Mg/0.5 Ml Vial.neb 1 Vial NEB Q6HRS PRN 01/29/18 Reported Trazodone Hcl 50 Mg Tablet 1 Tab PO QHS 01/24/18 Reported Culturelle (Lactobacillus Rhamnosus Gg) 1 Each Cap.sprink 1 Each PO 01/24/18 Reported Atorvastatin Calcium 80 Mg Tablet 1 Tab PO DAILY 01/24/18 Reported Buspirone Hcl 10 Mg Tablet 1 Tab PO BID 01/24/18 Reported Glipizide 5 Mg Tablet 1 Tab PO BID 01/24/18 Reported Eliquis (Apixaban) 2.5 Mg Tablet 2.5 Mg PO BID 01/24/18 Reported Protonix (Pantoprazole Sodium) 20 Mg Tablet.dr 1 Tab PO DAILY 01/24/18 Reported Duloxetine Hcl 60 Mg Capsule.dr 60 Mg PO DAILY 01/24/18 Reported Furosemide 20 Mg Tablet 60 Tab PO DAILY 01/24/18 Reported Calcitriol 0.25 Mcg Capsule 1 Cap PO 3X/WEEK 01/24/18 Reported Mucinex (Guaifenesin) 600 Mg Tablet.er 200 Tab PO TID 01/24/18 Reported Potassium Chloride 20 Meq Tablet.er 20 Meq PO DAILY 01/24/18 Reported Levothyroxine Sodium 50 Mcg Tablet 1 Tab PO DAILY 01/24/18 Reported Tylenol (Acetaminophen) 325 Mg Tablet 500 Mg PO TID 01/24/18 Reported Vitamin D3 (Cholecalciferol (Vitamin D3)) 1,000 Unit Tablet 2 Tab PO DAILY 01/24/18 Reported Folic Acid 1 Mg Tablet 1 Tab PO DAILY 01/24/18 Reported Impression . 1. Acute hypoxemic hypercapnic respiratory failure, multifactorial. 2. Acute on chronic heart failure. 3. Abnormal x-ray with persistent right lower lobe effusion greater than left. 4. Cardiomyopathy, ejection fraction 20-25%. 5. Atrial fibrillation with rapid ventricular response. 6. Type 2 diabetes. 7. Hypertension. 8. Obesity. 9. Chronic obstructive pulmonary disease, unknown FEV1. 10. Possible obstructive sleep apnea. 11. TRANSUDATE EFFUSION Plan . REPEAT ABG AND CXR BIPAP QHS AND PRN FOLLOW CARD THORACENTESIS RESULTS NOTED CHELSEY CASTILLO MD Jul 31, 2018 09:16
--- NOTE | 2018-07-31 11:20 | PDOC ---
Renal-Progress Notes Subjective Notes Notes NOTHING NEW History of Present Illness Hx of present illness IMPROVING Vitals Vitals Vital Signs Date Time Temp Pulse Resp B/P (MAP) Pulse Ox O2 Delivery O2 Flow Rate FiO2 07/31/18 10:00 104 24 89/67 (74) 95 Venturi Mask 07/31/18 08:00 98.6 98.6 07/31/18 07:33 9.0 Weight Weight [ ] I.O. Intake and Output Intake and Output 07/31/18 07:00 Intake Total 608 ml Output Total 3410 ml Balance -2802 ml Intake Oral 370 ml IV Total 238 ml Output Urine Total 3410 ml Labs Labs Laboratory Tests Test 07/30/18 16:38 07/30/18 22:53 07/31/18 05:30 07/31/18 08:16 Glucose (Fingerstick) 118 mg/dL (70-99) 90 mg/dL (70-99) 124 mg/dL (70-99) White Blood Count 4.1 x10^3/uL (4.0-11.0) Red Blood Count 3.98 x10^6/uL (4.30-5.70) Hemoglobin 12.4 g/dL (13.0-17.5) Hematocrit 37.9 % (39.0-53.0) Mean Corpuscular Volume 95 fL (79-100) Mean Corpuscular Hemoglobin 31 pg (25-35) Mean Corpuscular Hemoglobin Concent 33 g/dL (31-37) Red Cell Distribution Width 14.6 % (11.5-14.5) Platelet Count 76 x10^3/uL (140-400) Sodium Level 143 mmol/L (136-145) Potassium Level 3.6 mmol/L (3.5-5.1) Chloride Level 101 mmol/L (98-107) Carbon Dioxide Level 39 mmol/L (21-32) Anion Gap 3 (6-14) Blood Urea Nitrogen 30 mg/dL (8-26) Creatinine 2.2 mg/dL (0.7-1.3) Estimated GFR (Cockcroft-Gault) 29.3 Glucose Level 104 mg/dL (70-99) Calcium Level 8.7 mg/dL (8.5-10.1) Phosphorus Level 3.5 mg/dL (2.6-4.7) Magnesium Level 2.1 mg/dL (1.8-2.4) Review of Systems Constitutional: yes: other (CONFUSED) Physical Exam General Appearance: no apparent distress Skin: warm Respiratory: decreased breath sounds Heart: S1S2, other (IRREGULAR) Abdomen: soft, bowel sounds present Genitourinary: mendoza catheter Extremities: edema Neurology: alert Assessment Assessment IMP YARELY WITH CR IMPROVED TO 2.6-[id number] HYPOKALEMIA CKD STAGE 3 WITH CR OF 1.7-1.8 ACUTE ON CHRONIC SYSTOLIC AND DIASTOLIC CHF CM WITH EF OF 20% AFIB RVR-BETTER DM II HTN COPD CHRONIC MET ALKALOSIS PLAN DIURESE REPLACE K NEEDED BIPAP NEEDED SUPPLEMENTAL O2 TRIAL OF PINA-I TO AFTERLOAD LATER WILL FOLLOW JOSE ANTONIO JACKSON MD Jul 31, 2018 11:20
[2018-07-31] MEDS: METOPROLOL SUCC 24HR ER 50 MG TAB.ER.24H. PO SCH (12:00)
--- NOTE | 2018-07-31 12:20 | NUR ---
Nursing Note Pt on venti mask 35% with increased wob and O2sat in the low 80s. Bipap placed on pt titrating O2 to bring sat up to 88-90%. Dr. Bay at bedside. CXR and ABG ordered. Family at bedside. Will continue to monitor.
[2018-07-31 12:32] LABS: BASE EXCESS ABG 11 mmol/L (-3-3); HCO3 ABG 39 mmol/L (21-28); PO2 ABG 52 mmHg (65-108); SAT O2 ABG 86 % (92-99)
[2018-07-31 12:34] LABS: PCO2 ABG 62 mmHg (35-46)
--- NOTE | 2018-07-31 12:45 | RAD ---
CHEST AP ONLY Clinical Indication: INCREASED SHORT OF BREATH Comparison: AP chest, prior day. Findings: Right PICC tip in right atrium. Stable cardiomegaly. Moderate vascular congestion is unchanged. There is increased opacity in the left lung base probably due to increased effusion. There are bibasilar airspace opacities. Small right pleural effusion is unchanged. There is no pneumothorax. There are old left rib fractures. IMPRESSION: 1. Moderate left pleural effusion, increased from prior study. Stable small right pleural effusion. 2. Unchanged bibasilar airspace opacities. 3. Unchanged pulmonary vascular congestion. Electronically signed by: Hebert Cleaning MD (07/31/2018 12:42 PM) [id number]
--- NOTE | 2018-07-31 15:14 | PDOC ---
THUY SAVAGE [employer] 07/31/18 1514: CARDIO Progress Notes Date and Time Date of Service 07/31/2018 Time of Evaluation 1450 Subjective Subjective: No Chest Pain, No shortness of breath, No Palpitations, Other (no discomfort) Vitals Vitals Vital Signs Date Time Temp Pulse Resp B/P (MAP) Pulse Ox O2 Delivery O2 Flow Rate FiO2 07/31/18 14:00 114 24 114/76 (89) 100 BiPAP/CPAP 07/31/18 12:00 99.0 99.0 07/31/18 11:36 9.0 Weight Weight [ ] Input and Output Intake and Output Intake and Output 07/31/18 06:59 Intake Total 608 ml Output Total 3320 ml Balance -2712 ml Intake Oral 370 ml IV Total 238 ml Output Urine Total 3320 ml Laboratory Labs Laboratory Tests Test 07/30/18 16:38 07/30/18 22:53 07/31/18 05:30 07/31/18 08:16 Glucose (Fingerstick) 118 mg/dL (70-99) 90 mg/dL (70-99) 124 mg/dL (70-99) White Blood Count 4.1 x10^3/uL (4.0-11.0) Red Blood Count 3.98 x10^6/uL (4.30-5.70) Hemoglobin 12.4 g/dL (13.0-17.5) Hematocrit 37.9 % (39.0-53.0) Mean Corpuscular Volume 95 fL (79-100) Mean Corpuscular Hemoglobin 31 pg (25-35) Mean Corpuscular Hemoglobin Concent 33 g/dL (31-37) Red Cell Distribution Width 14.6 % (11.5-14.5) Platelet Count 76 x10^3/uL (140-400) Sodium Level 143 mmol/L (136-145) Potassium Level 3.6 mmol/L (3.5-5.1) Chloride Level 101 mmol/L (98-107) Carbon Dioxide Level 39 mmol/L (21-32) Anion Gap 3 (6-14) Blood Urea Nitrogen 30 mg/dL (8-26) Creatinine 2.2 mg/dL (0.7-1.3) Estimated GFR (Cockcroft-Gault) 29.3 Glucose Level 104 mg/dL (70-99) Calcium Level 8.7 mg/dL (8.5-10.1) Phosphorus Level 3.5 mg/dL (2.6-4.7) Magnesium Level 2.1 mg/dL (1.8-2.4) Test 07/31/18 12:19 07/31/18 13:09 O2 Saturation 86 % (92-99) Arterial Blood pH 7.41 (7.35-7.45) Arterial Blood pCO2 at Patient Temp 62 mmHg (35-46) Arterial Blood pO2 at Patient Temp 52 mmHg (65-108) Arterial Blood HCO3 39 mmol/L (21-28) Arterial Blood Base Excess 11 mmol/L (-3-3) FiO2 40% bipap Glucose (Fingerstick) 92 mg/dL (70-99) Review of Systems Constitutional: yes: other (CONFUSED) Physical Exam HEENT: Neck Supple W Full Motion Chest: Symmetric LUNGS: Other (diminished, bipap in place) Heart: irregularly irregular (AFIB) Abdomen: Soft N/T, Other (obese, anasarca) Extremities: Other (3-4+ bilateral LE pitting edema) Neurology: alert, oriented, follow commands Assessment Assessment 1. Acute on chronic respiratory failure; multifactorial with pleural effusion, a/c systolic CHF, PNA, and AECOPD 2. Acute on chronic systolic CHF 3. ICM; LVEF 20% 4. AFIB; rate controlled 5. CAD with prior MO 6. YARELY on CKD; Cr improving at 2.2. nephrology following 7. Hypertension: controlled 8. H/o recurrent DVT/PE 9. DM2/HLP 10. Obesity Recommendations Continue toprol. Lasix therapy and milrinone Resume eliquis if no any plans for invasive lines. Discussed with RN. Home dose 2.5 mg bid which is inadequate per CrCl if no contraindication then will need 5 mg po bid. ASA. Will consider for Oupt ischemic workup. Bipap PRN SHIRLENE RAMOS MD 07/31/18 2226: CARDIO Progress Notes Plan Plan Pt. seen and examined. Agree with above Bait Tier note. Supportive care. THUY SAVAGE APRN Jul 31, 2018 15:14 SHIRLENE RAMOS MD Jul 31, 2018 22:26
--- NOTE | 2018-07-31 17:17 | RAD ---
Examination: VENOUS UPPER EXTREMITY RIGHT History: DX: Right arm swelling-PICC line put in 24 hrs ago; IMP; What veins I could compress show no DVT; PICC line seen in Basilic v and subclv vein. Could not see part of Veins in Hum due to OPsite from PICC line Comparison/Correlation: None Findings: Right upper extremity deep venous duplex ultrasound examination is present. Simultaneous edema involving the right forearm is noted. Evaluation is limited due to presence of a PICC. The right internal jugular, subclavian, brachial, axillary, cephalic, and basilic veins are identified have normal flow on color Doppler imaging. Basilic vein is evaluated and imaged to have normal flow distal to the PICC. The radial vein has normal flow. Right ulnar vein is not delineated. Impression: No deep venous thrombus involving the right upper extremity. Electronically signed by: Zelalem Pope MD (07/31/2018 5:14 PM) [facility]
--- NOTE | 2018-07-31 19:01 | PN ---
DATE: 07/31/2018 SUBJECTIVE: The patient is resting, slightly propped up in bed, in no apparent respiratory distress. He is definitely more awake, alert, heart rate continued to be suboptimally controlled, in fact started ranging between 120-130. He continued to desaturate quickly even when he talks and his oxygen saturation at around 91% on FiO2 of 40% by Venturi mask. He did have a thoracentesis done yesterday and about 1250 mL of clear lucie fluid were removed. His kidney function has if anything slightly improved. PHYSICAL EXAMINATION: GENERAL: When I examined him this morning, he was somewhat pale, but no jaundice, cyanosis, or thyromegaly. No jugular distention, generalized anasarca. VITAL SIGNS: His heart rate was 130, blood pressure 106/62, temperature was 97.8, respiratory rate was 20, and oxygen saturation was 97% on 9 liters via Venturi mask. HEAD, EYES, EARS, NOSE AND THROAT: Showed normocephalic, atraumatic. NECK: Supple. HEART: Showed normal first and second sounds. No gallop, rub or murmur. CHEST: Shows central trachea, equally reduced expansion, reduced air entry, vesicular sounds with bilateral scattered rhonchi. ABDOMEN: Not distended, soft, nontender. NEUROLOGIC: He is awake, alert, responding appropriately. Cranial nerves intact. He moves extremities without difficulty, although he is mostly bed bound. His intake over the last 24 hours was 242, output was 1585. LABORATORY DATA: As of this morning, his white cell count was 4100, hemoglobin 12, hematocrit 38, MCV 95, platelet count of 76,000. His chemistry showed a serum sodium 143, potassium 3.6, chloride 101, bicarbonate 39, anion gap of 3, BUN 30, creatinine 2.2, estimated GFR was 29 mL per minute, his glucose 104, calcium was 8.7, phosphorus 3.5, magnesium was 2.1. ASSESSMENT: 1. Acute on chronic hypoxic respiratory failure, multifactorial including acute on chronic systolic congestive heart failure, pneumonia, chronic obstructive pulmonary disease exacerbation as well as pleural effusion. 2. Acute on chronic systolic congestive heart failure. 3. Ischemic cardiomyopathy with ejection fraction dropped down to 20% on his most recent echocardiogram. 4. Atrial fibrillation, rate is suboptimally controlled. His apixaban was put on hold for thoracentesis. 5. Coronary artery disease with history of myocardial infarction. 6. Acute kidney injury, chronic kidney disease as her creatinine is slightly down today from 2.5-2.2. 7. Hypertension, well controlled. 8. Recurrent episode of deep vein thrombosis and pulmonary embolism. He was on apixaban. 9. Type 2 diabetes mellitus, seems to be reasonably controlled. 10. Hyperlipidemia. 11. Morbid obesity, obstructive sleep apnea. 12. Chronic back pain due to multiple lumbar vertebral compression fracture. PLAN: To continue with BiPAP machine, continue with milrinone drip. Continue with IV Lasix. KAR PERSAUD MD DR: KEENAN/lindsay JOB#: [id number] / [id number]
[2018-07-31] MEDS: MILRINONE 20MG/100ML PREMIX 100 ML IV PRN (19:46)
[2018-07-31] MEDS: APIXABAN 5 MG TABLET. PO SCH (21:13)
[2018-07-31] MEDS: ATORVASTATIN CALCIUM 40 MG TABLET. PO SCH (21:14)
[2018-07-31] MEDS: traZODone 50 MG TABLET. PO SCH (21:14)
[2018-07-31] MEDS ORDERED: DIGOXIN IV 500 MCG/2 ML AMPUL. IV ONE (22:00)
[2018-08-01] VITALS (18 sets, daily range): BP systolic 81–156; BP diastolic 46–82
[2018-08-01] MEDS: LEVOTHYROXINE 50 MCG TABLET PO SCH ×2 (06:00→06:07)
[2018-08-01 06:24] LABS: CALCIUM 8.5 mg/dL (8.5-10.1); CREATININE 2.2 mg/dL (0.7-1.3); GFR 29.3; POTASSIUM 3.6 mmol/L (3.5-5.1)
[2018-08-01 06:28] LABS: MAGNESIUM 1.9 mg/dL (1.8-2.4); PHOSPHORUS 3.9 mg/dL (2.6-4.7)
[2018-08-01] MEDS: INSULIN LISPRO 300 UNITS/3 ML INSULN.PEN. SQ SCH ×3 (08:00→17:00)
[2018-08-01] MEDS: IPRATRPIUM/ALBUTEROL 0.5/2.5MG 3 ML NEBU. NEB SCH ×4 (08:04→20:18)
[2018-08-01] MEDS: BUDESONIDE 0.5 MG/2 ML NEBU. NEB SCH ×2 (08:05→20:18)
[2018-08-01 08:25] LABS: BASE EXCESS ABG 11 mmol/L (-3-3); HCO3 ABG 38 mmol/L (21-28); PO2 ABG 114 mmHg (65-108); SAT O2 ABG 98 % (92-99)
[2018-08-01 08:29] LABS: PCO2 ABG 64 mmHg (35-46)
[2018-08-01 08:30] LABS: FIO2 ABG 50
[2018-08-01] MEDS: LACTOBACILLUS RHAMNOSUS GG 1 CAPSULE. PO SCH ×2 (09:04→21:02)
[2018-08-01] MEDS: APIXABAN 5 MG TABLET. PO SCH (09:04)
[2018-08-01] MEDS: PANTOPRAZOLE 40 MG TABLET.DR. PO SCH (09:04)
[2018-08-01] MEDS: glipiZIDE 5 MG TABLET PO SCH ×2 (09:04→17:57)
[2018-08-01] MEDS: FOLIC ACID 1 MG TABLET. PO SCH (09:04)
[2018-08-01] MEDS: ASPIRIN ENTERIC COATED 81 MG TABLET.DR. PO SCH (09:04)
[2018-08-01] MEDS: busPIRone 10 MG TABLET. PO SCH ×2 (09:04→21:01)
[2018-08-01] MEDS: METOPROLOL SUCC 24HR ER 50 MG TAB.ER.24H. PO SCH (09:05)
[2018-08-01] MEDS: CHOLECALCIFEROL (VITAMIN D3) 1,000 UNIT TABLET PO SCH (09:06)
[2018-08-01] MEDS: NYSTATIN TOPICAL POWDER 15GM BOTTLE. TP SCH ×2 (09:06→21:02)
[2018-08-01] MEDS: FUROSEMIDE 100 MG/10 ML VIAL. IVP SCH (09:07)
[2018-08-01] MEDS: MEROPENEM 1 GM in IV NORMAL SALINE 100ML 100 ML IV SCH ×2 (09:07→21:02)
--- NOTE | 2018-08-01 09:32 | NUR ---
SS following up with discharge planning. Pt currently requiring BIPAP and Milrinone drip. Pt has Medicare Part A only and has no Part B or supplemental for outpatient services. Pt may require oxygen at discharge. SS will continue to follow for discharge planning.
[2018-08-01] MEDS ORDERED: BISACODYL 10 MG SUPP.RECT. PR ONE (10:30)
[2018-08-01] MEDS: ACETAMINOPHEN 325 MG TABLET. PO SCH ×3 (10:37→21:02)
[2018-08-01] MEDS: SENNOSIDES/DOCUSATE 8.6/50MG TABLET. PO PRN (10:37)
[2018-08-01] MEDS: ANTI-COAG MONITOR BY PHARMACY. MC PRN (10:43)
[2018-08-01] MEDS: DULoxetine HCL 30 MG CAPSULE.DR PO SCH (10:46)
--- NOTE | 2018-08-01 11:03 | PDOC ---
Renal-Progress Notes Subjective Notes Notes SITTING UP FEELING BETTER History of Present Illness Hx of present illness IMPROVED Vitals Vitals Vital Signs Date Time Temp Pulse Resp B/P (MAP) Pulse Ox O2 Delivery O2 Flow Rate FiO2 08/01/18 10:43 98 Nasal Cannula 5.0 08/01/18 09:05 125 117/63 08/01/18 06:00 24 08/01/18 04:00 98.0 98.0 Weight Weight [ ] I.O. Intake and Output Intake and Output0 08/01/18 06:59 Intake Total 482 ml Output Total 1730 ml Balance -1248 ml Intake Oral 460 ml IV Total 22 ml Output Urine Total 1730 ml Labs Labs Laboratory Tests Test 07/31/18 12:19 07/31/18 13:09 07/31/18 16:59 08/01/18 05:55 O2 Saturation 86 % (92-99) Arterial Blood pH 7.41 (7.35-7.45) Arterial Blood pCO2 at Patient Temp 62 mmHg (35-46) Arterial Blood pO2 at Patient Temp 52 mmHg (65-108) Arterial Blood HCO3 39 mmol/L (21-28) Arterial Blood Base Excess 11 mmol/L (-3-3) FiO2 40% bipap Glucose (Fingerstick) 92 mg/dL (70-99) 78 mg/dL (70-99) Sodium Level 144 mmol/L (136-145) Potassium Level 3.6 mmol/L (3.5-5.1) Chloride Level 103 mmol/L (98-107) Carbon Dioxide Level 38 mmol/L (21-32) Anion Gap 3 (6-14) Blood Urea Nitrogen 29 mg/dL (8-26) Creatinine 2.2 mg/dL (0.7-1.3) Estimated GFR (Cockcroft-Gault) 29.3 Glucose Level 113 mg/dL (70-99) Calcium Level 8.5 mg/dL (8.5-10.1) Phosphorus Level 3.9 mg/dL (2.6-4.7) Magnesium Level 1.9 mg/dL (1.8-2.4) Test 08/01/18 08:00 O2 Saturation 98 % (92-99) Arterial Blood pH 7.40 (7.35-7.45) Arterial Blood pCO2 at Patient Temp 64 mmHg (35-46) Arterial Blood pO2 at Patient Temp 114 mmHg (65-108) Arterial Blood HCO3 38 mmol/L (21-28) Arterial Blood Base Excess 11 mmol/L (-3-3) FiO2 50 Micro Micro Microbiology 07/30/18 Anaerobic/Aerobic Culture, Resulted Pending 07/30/18 Anaerobic Culture Result 1 (GARCIA), Resulted Pending 07/30/18 Aerobic Culture, Resulted Pending 07/30/18 Aerobic Culture Result 1 (GARCIA), Resulted Pending 07/30/18 Gram Stain - Final, Resulted 07/30/18 Gram Stain Result 1 (GARCIA) - Final, Resulted 07/30/18 Gram Stain Result 2 (GARCIA) - Final, Resulted Review of Systems Constitutional: yes: other (CONFUSED) Physical Exam General Appearance: no apparent distress Skin: warm Respiratory: decreased breath sounds Heart: S1S2, other (IRREGULAR) Abdomen: soft, bowel sounds present Genitourinary: mendoza catheter Extremities: edema Neurology: alert, oriented, follow commands Assessment Assessment IMP YARELY WITH CR IMPROVED TO 2.9-[id number] HYPOKALEMIA CKD STAGE 3 WITH CR OF 1.7-1.8 ACUTE ON CHRONIC SYSTOLIC AND DIASTOLIC CHF CM WITH EF OF 20% AFIB RVR-BETTER DM II HTN COPD CHRONIC MET ALKALOSIS PLAN DIURESE DECREASE LASIX REPLACE K NEEDED BIPAP NEEDED SUPPLEMENTAL O2 TRIAL OF PINA-I TO AFTERLOAD LATER WILL FOLLOW JOSE ANTONIO JACKSON MD Aug 01, 2018 11:03
--- NOTE | 2018-08-01 11:43 | PDOC ---
PULMONARY PROGRESS NOTES Subjective SITTING UP IN CHAIR OFF BIPAP A/A NAD Vitals Vital Signs Date Time Temp Pulse Resp B/P (MAP) Pulse Ox O2 Delivery O2 Flow Rate FiO2 08/01/18 10:43 98 Nasal Cannula 5.0 08/01/18 09:05 125 117/63 08/01/18 06:00 24 08/01/18 04:00 98.0 98.0 Comments ROS unobtainable General: Alert Cardiovascular: Other (Diminished) Abdomen: Soft, Non-tender Neuro Exam: Alert Extremities: Other (edema BLE +2) Skin: Warm, Dry Labs Laboratory Tests Test 07/30/18 16:38 07/30/18 22:53 07/31/18 05:30 07/31/18 08:16 Glucose (Fingerstick) 118 mg/dL (70-99) 90 mg/dL (70-99) 124 mg/dL (70-99) White Blood Count 4.1 x10^3/uL (4.0-11.0) Red Blood Count 3.98 x10^6/uL (4.30-5.70) Hemoglobin 12.4 g/dL (13.0-17.5) Hematocrit 37.9 % (39.0-53.0) Mean Corpuscular Volume 95 fL (79-100) Mean Corpuscular Hemoglobin 31 pg (25-35) Mean Corpuscular Hemoglobin Concent 33 g/dL (31-37) Red Cell Distribution Width 14.6 % (11.5-14.5) Platelet Count 76 x10^3/uL (140-400) Sodium Level 143 mmol/L (136-145) Potassium Level 3.6 mmol/L (3.5-5.1) Chloride Level 101 mmol/L (98-107) Carbon Dioxide Level 39 mmol/L (21-32) Anion Gap 3 (6-14) Blood Urea Nitrogen 30 mg/dL (8-26) Creatinine 2.2 mg/dL (0.7-1.3) Estimated GFR (Cockcroft-Gault) 29.3 Glucose Level 104 mg/dL (70-99) Calcium Level 8.7 mg/dL (8.5-10.1) Phosphorus Level 3.5 mg/dL (2.6-4.7) Magnesium Level 2.1 mg/dL (1.8-2.4) Test 07/31/18 12:19 07/31/18 13:09 07/31/18 16:59 08/01/18 05:55 O2 Saturation 86 % (92-99) Arterial Blood pH 7.41 (7.35-7.45) Arterial Blood pCO2 at Patient Temp 62 mmHg (35-46) Arterial Blood pO2 at Patient Temp 52 mmHg (65-108) Arterial Blood HCO3 39 mmol/L (21-28) Arterial Blood Base Excess 11 mmol/L (-3-3) FiO2 40% bipap Glucose (Fingerstick) 92 mg/dL (70-99) 78 mg/dL (70-99) Sodium Level 144 mmol/L (136-145) Potassium Level 3.6 mmol/L (3.5-5.1) Chloride Level 103 mmol/L (98-107) Carbon Dioxide Level 38 mmol/L (21-32) Anion Gap 3 (6-14) Blood Urea Nitrogen 29 mg/dL (8-26) Creatinine 2.2 mg/dL (0.7-1.3) Estimated GFR (Cockcroft-Gault) 29.3 Glucose Level 113 mg/dL (70-99) Calcium Level 8.5 mg/dL (8.5-10.1) Phosphorus Level 3.9 mg/dL (2.6-4.7) Magnesium Level 1.9 mg/dL (1.8-2.4) Test 08/01/18 08:00 O2 Saturation 98 % (92-99) Arterial Blood pH 7.40 (7.35-7.45) Arterial Blood pCO2 at Patient Temp 64 mmHg (35-46) Arterial Blood pO2 at Patient Temp 114 mmHg (65-108) Arterial Blood HCO3 38 mmol/L (21-28) Arterial Blood Base Excess 11 mmol/L (-3-3) FiO2 50 Laboratory Tests Test 07/31/18 12:19 07/31/18 13:09 07/31/18 16:59 08/01/18 05:55 O2 Saturation 86 % (92-99) Arterial Blood pH 7.41 (7.35-7.45) Arterial Blood pCO2 at Patient Temp 62 mmHg (35-46) Arterial Blood pO2 at Patient Temp 52 mmHg (65-108) Arterial Blood HCO3 39 mmol/L (21-28) Arterial Blood Base Excess 11 mmol/L (-3-3) FiO2 40% bipap Glucose (Fingerstick) 92 mg/dL (70-99) 78 mg/dL (70-99) Sodium Level 144 mmol/L (136-145) Potassium Level 3.6 mmol/L (3.5-5.1) Chloride Level 103 mmol/L (98-107) Carbon Dioxide Level 38 mmol/L (21-32) Anion Gap 3 (6-14) Blood Urea Nitrogen 29 mg/dL (8-26) Creatinine 2.2 mg/dL (0.7-1.3) Estimated GFR (Cockcroft-Gault) 29.3 Glucose Level 113 mg/dL (70-99) Calcium Level 8.5 mg/dL (8.5-10.1) Phosphorus Level 3.9 mg/dL (2.6-4.7) Magnesium Level 1.9 mg/dL (1.8-2.4) Test 08/01/18 08:00 O2 Saturation 98 % (92-99) Arterial Blood pH 7.40 (7.35-7.45) Arterial Blood pCO2 at Patient Temp 64 mmHg (35-46) Arterial Blood pO2 at Patient Temp 114 mmHg (65-108) Arterial Blood HCO3 38 mmol/L (21-28) Arterial Blood Base Excess 11 mmol/L (-3-3) FiO2 50 Medications Active Scripts Medications Dose Route/Sig Max Daily Dose Days Date Category Guaifenesin 200 Mg Tablet 200 Mg PO PRN TID PRN 07/28/18 Reported Budesonide 0.25 Mg/2 Ml Ampul.neb 1 Vial NEB BID 01/29/18 Reported Albuterol Sulfate Conc Neb Soln (Albuterol Sulfate) 2.5 Mg/0.5 Ml Vial.neb 1 Vial NEB Q6HRS PRN 01/29/18 Reported Trazodone Hcl 50 Mg Tablet 1 Tab PO QHS 01/24/18 Reported Culturelle (Lactobacillus Rhamnosus Gg) 1 Each Cap.sprink 1 Each PO 01/24/18 Reported Atorvastatin Calcium 80 Mg Tablet 1 Tab PO DAILY 01/24/18 Reported Buspirone Hcl 10 Mg Tablet 1 Tab PO BID 01/24/18 Reported Glipizide 5 Mg Tablet 1 Tab PO BID 01/24/18 Reported Eliquis (Apixaban) 2.5 Mg Tablet 2.5 Mg PO BID 01/24/18 Reported Protonix (Pantoprazole Sodium) 20 Mg Tablet.dr 1 Tab PO DAILY 01/24/18 Reported Duloxetine Hcl 60 Mg Capsule.dr 60 Mg PO DAILY 01/24/18 Reported Furosemide 20 Mg Tablet 60 Tab PO DAILY 01/24/18 Reported Calcitriol 0.25 Mcg Capsule 1 Cap PO 3X/WEEK 01/24/18 Reported Mucinex (Guaifenesin) 600 Mg Tablet.er 200 Tab PO TID 01/24/18 Reported Potassium Chloride 20 Meq Tablet.er 20 Meq PO DAILY 01/24/18 Reported Levothyroxine Sodium 50 Mcg Tablet 1 Tab PO DAILY 01/24/18 Reported Tylenol (Acetaminophen) 325 Mg Tablet 500 Mg PO TID 01/24/18 Reported Vitamin D3 (Cholecalciferol (Vitamin D3)) 1,000 Unit Tablet 2 Tab PO DAILY 01/24/18 Reported Folic Acid 1 Mg Tablet 1 Tab PO DAILY 01/24/18 Reported Active Scripts Medications Dose Route/Sig Max Daily Dose Days Date Category Guaifenesin 200 Mg Tablet 200 Mg PO PRN TID PRN 07/28/18 Reported Budesonide 0.25 Mg/2 Ml Ampul.neb 1 Vial NEB BID 01/29/18 Reported Albuterol Sulfate Conc Neb Soln (Albuterol Sulfate) 2.5 Mg/0.5 Ml Vial.neb 1 Vial NEB Q6HRS PRN 01/29/18 Reported Trazodone Hcl 50 Mg Tablet 1 Tab PO QHS 01/24/18 Reported Culturelle (Lactobacillus Rhamnosus Gg) 1 Each Cap.sprink 1 Each PO 01/24/18 Reported Atorvastatin Calcium 80 Mg Tablet 1 Tab PO DAILY 01/24/18 Reported Buspirone Hcl 10 Mg Tablet 1 Tab PO BID 01/24/18 Reported Glipizide 5 Mg Tablet 1 Tab PO BID 01/24/18 Reported Eliquis (Apixaban) 2.5 Mg Tablet 2.5 Mg PO BID 01/24/18 Reported Protonix (Pantoprazole Sodium) 20 Mg Tablet. 1 Tab PO DAILY 01/24/18 Reported Duloxetine Hcl 60 Mg Capsule.dr 60 Mg PO DAILY 01/24/18 Reported Furosemide 20 Mg Tablet 60 Tab PO DAILY 01/24/18 Reported Calcitriol 0.25 Mcg Capsule 1 Cap PO 3X/WEEK 01/24/18 Reported Mucinex (Guaifenesin) 600 Mg Tablet.er 200 Tab PO TID 01/24/18 Reported Potassium Chloride 20 Meq Tablet.er 20 Meq PO DAILY 01/24/18 Reported Levothyroxine Sodium 50 Mcg Tablet 1 Tab PO DAILY 01/24/18 Reported Tylenol (Acetaminophen) 325 Mg Tablet 500 Mg PO TID 01/24/18 Reported Vitamin D3 (Cholecalciferol (Vitamin D3)) 1,000 Unit Tablet 2 Tab PO DAILY 01/24/18 Reported Folic Acid 1 Mg Tablet 1 Tab PO DAILY 01/24/18 Reported Impression . 1. Acute hypoxemic hypercapnic respiratory failure, multifactorial. 2. Acute on chronic heart failure. 3. Abnormal x-ray with persistent right lower lobe effusion greater than left. 4. Cardiomyopathy, ejection fraction 20-25%. 5. Atrial fibrillation with rapid ventricular response. 6. Type 2 diabetes. 7. Hypertension. 8. Obesity. 9. Chronic obstructive pulmonary disease, unknown FEV1. 10. Possible obstructive sleep apnea. 11. TRANSUDATE EFFUSION Impression: No deep venous thrombus involving the right upper extremity. Plan . PT OT WILL NEED REHAB ABG NOTED THIS AM WILL DECREASE 02 REPEAT ABG AND CXR FROM YESTERDAY REVIEWED WILL MONITOR FOR NOW BIPAP QHS AND PRN FOLLOW CARD THORACENTESIS RESULTS NOTED CHELSEY CASTILLO MD Aug 01, 2018 11:43
[2018-08-01] MEDS: FLUTICASONE 50MCG/NASAL SPRAY 16GM BOTTLE. NS SCH (13:02)
[2018-08-01] MEDS: CALCITRIOL 0.25 MCG CAPSULE. PO SCH (13:02)
[2018-08-01] MEDS: FUROSEMIDE 40 MG TABLET. PO SCH (13:06)
--- NOTE | 2018-08-01 13:26 | PDOC ---
KOBE BENSON SOFTWARE FIRMWARE ENGINEER 08/01/18 1326: CARDIO Progress Notes Date and Time Date of Service 08/01/18 Time of Evaluation 1240 Subjective Subjective: No Chest Pain, No Palpitations, Other (SOA and LE edema improved) Vitals Vitals Vital Signs Date Time Temp Pulse Resp B/P (MAP) Pulse Ox O2 Delivery O2 Flow Rate FiO2 08/01/18 12:00 97.9 105 26 98/58 (71) 97 BiPAP/CPAP 97.9 08/01/18 11:00 6.0 Weight Weight [ ] Input and Output Intake and Output Intake and Output 08/01/18 06:59 Intake Total 482 ml Output Total 1730 ml Balance -1248 ml Intake Oral 460 ml IV Total 22 ml Output Urine Total 1730 ml Laboratory Labs Laboratory Tests Test 07/31/18 16:59 08/01/18 05:55 08/01/18 08:00 08/01/18 13:04 Glucose (Fingerstick) 78 mg/dL (70-99) 130 mg/dL (70-99) Sodium Level 144 mmol/L (136-145) Potassium Level 3.6 mmol/L (3.5-5.1) Chloride Level 103 mmol/L (98-107) Carbon Dioxide Level 38 mmol/L (21-32) Anion Gap 3 (6-14) Blood Urea Nitrogen 29 mg/dL (8-26) Creatinine 2.2 mg/dL (0.7-1.3) Estimated GFR (Cockcroft-Gault) 29.3 Glucose Level 113 mg/dL (70-99) Calcium Level 8.5 mg/dL (8.5-10.1) Phosphorus Level 3.9 mg/dL (2.6-4.7) Magnesium Level 1.9 mg/dL (1.8-2.4) O2 Saturation 98 % (92-99) Arterial Blood pH 7.40 (7.35-7.45) Arterial Blood pCO2 at Patient Temp 64 mmHg (35-46) Arterial Blood pO2 at Patient Temp 114 mmHg (65-108) Arterial Blood HCO3 38 mmol/L (21-28) Arterial Blood Base Excess 11 mmol/L (-3-3) FiO2 50 Microbiology Micro Microbiology 07/30/18 Anaerobic/Aerobic Culture, Resulted Pending 07/30/18 Anaerobic Culture Result 1 (GARCIA), Resulted Pending 07/30/18 Aerobic Culture, Resulted Pending 07/30/18 Aerobic Culture Result 1 (GARCIA), Resulted Pending 07/30/18 Gram Stain - Final, Resulted 07/30/18 Gram Stain Result 1 (GARCIA) - Final, Resulted 07/30/18 Gram Stain Result 2 (GARCIA) - Final, Resulted Review of Systems Constitutional: yes: other (CONFUSED) Physical Exam HEENT: Neck Supple W Full Motion Chest: Symmetric LUNGS: Other (diminished throughout, bipap PRN) Heart: irregularly irregular (AFIB rate 105-130) Abdomen: Soft N/T, Other (obese) Extremities: Other (1-2+ bilateral LE pitting edema) Neurology: alert, oriented, follow commands Assessment Assessment 1. Acute on chronic respiratory failure; multifactorial with pleural effusion, a/c systolic CHF, PNA, and AECOPD 2. Acute on chronic systolic CHF; CXR yest with ongoing vascular congestion 3. ICM; LVEF 20% 4. AFIB; rate intermittently elevated. BP marginal. 5. CAD with prior SD 6. YARELY on CKD; Cr stable at 2.2. 7. Hypertension: low-normotensive 8. H/o recurrent DVT/PE 9. DM2/HLP Recommendations Continue Lasix therapy and milrinone gtt BB for rate control. Unable to uptitrate as BP remains marginal Dig IV PRN for tachycardia. Consider scheduled oral Dig. Eliquis for stroke prophylaxis Supportive care SHIRLENE RAMOS MD 08/01/18 1616: CARDIO Progress Notes Plan Plan Pt. seen and examined. Agree with above SENIOR ENERGY CONSULTANT note. Continue current meds including asa, atorvastatin, metoprolol, lasix. Will stop milrinone. May benefit from left sided thoracentesis. Continue supportive care from Cardiopulmonary perspective. Will hold eliquis. Dr. Gaston will follow the patient over the weekend. When stable, ok to transfer to rehab and consider outpt ischemic w/u. KOBE BENSON APRN Aug 01, 2018 13:26 SHIRLENE RAMOS MD Aug 01, 2018 16:16
[2018-08-01] MEDS: ATORVASTATIN CALCIUM 40 MG TABLET. PO SCH (21:01)
[2018-08-01] MEDS: traZODone 50 MG TABLET. PO SCH (21:02)
--- NOTE | 2018-08-01 23:27 | PN ---
DATE: 08/01/2018 SUBJECTIVE: The patient is sitting slightly propped up in bed, eating his breakfast comfortably, in no apparent distress. On questioning him, he denied any complaint. The nursing staff stated that his heart rate continued to be suboptimally controlled. However, he continues to be on milrinone and he continued to have good urine output. Over the last 24 hours, his urine output was 3300. PHYSICAL EXAMINATION: GENERAL: When I examined him, he looked well and was clearly in no apparent respiratory distress. No pallor, jaundice or cyanosis from thyromegaly. No jugular venous distention. Generalized anasarca. VITAL SIGNS: His heart rate was 114, blood pressure was 102/54, temperature was 98, respiratory rate was 24 and oxygen saturation was 100%. HEENT: Examination of the head, eyes, ears, nose and throat showed normocephalic, atraumatic. NECK: Supple. HEART: Showed normal first and second heart sounds. No gallop, rub or murmur. CHEST: Showed central trachea, equal in expansion, reduced air entry, vesicular sounds. I could not appreciate any crepitation or rhonchi anteriorly. ABDOMEN: Distended, soft and nontender. NEUROLOGIC: He was awake, alert, responding appropriately. All cranial nerves intact. He moved extremities without difficulty, although he was mostly bed bound. His intake over the last 24 hours was 608, output was 3320. LABORATORY DATA: As of this morning, his white cell count was 4000, hemoglobin 12, hematocrit 38, MCV 95 and platelet count of 76,000. His chemistry showed a serum sodium 144, potassium 3.6, chloride 103, bicarbonate 38, anion gap of 3, BUN 29, creatinine 2.2, estimated GFR was 29 mL per minute, his glucose 113 and calcium was 8.5. Phosphorus 3.9 and magnesium was 1.9. His blood gas this morning showed a pH of 7.40, pCO2 of 64, pO2 of 114, bicarbonate 38, anion gap of 11 and oxygen saturation was 98% on FiO2 of 50%. ASSESSMENT: 1. Gieaf-eh-yipjout hypoxic respiratory failure, multifactorial, including lrlev-yf-quaictk systolic congestive heart failure, pneumonia, chronic obstructive pulmonary disease exacerbation as well as pleural effusion. 2. Yjxrr-ow-ngeewaj systolic congestive heart failure. 3. Ischemic cardiomyopathy with ejection fraction down to 20% on his most recent echocardiogram. 4. Atrial fibrillation, rate suboptimally controlled. His apixaban was put on hold for thoracentesis. 5. Coronary artery disease with history of myocardial infarction. 6. Acute kidney injury on chronic kidney disease. However, his creatinine is down to 2.2. Today, it continued to be around 2.2. 7. Hypertension, well controlled. 8. Recurrent episode of deep vein thrombosis and pulmonary embolism, for which he was on apixaban. 9. Type 2 diabetes mellitus, which seems to be reasonably controlled. 10. Hyperlipidemia. 11. Morbid obesity and obstructive sleep apnea. 12. Chronic back pain due to multiple lumbar vertebral compression fractures. PLAN: Plan is to continue with milrinone drip. Continue with IV Lasix. Continue with BiPAP machine, continue with fluid restriction. Continue to monitor his blood sugar and adjust insulin as needed. His apixaban was resumed. KAR PERSAUD MD DR: KEENAN/lindsay JOB#: [id number] / [id number]
[2018-08-02] MEDS: ACETAMINOPHEN 325 MG TABLET. PO SCH ×3 (03:02→20:53)
[2018-08-02 03:15] VITALS: BP 95/59
[2018-08-02 06:45] LABS: CALCIUM 8.4 mg/dL (8.5-10.1); CREATININE 2.3 mg/dL (0.7-1.3); GFR 27.9
[2018-08-02 07:00] VITALS: BP 99/54
[2018-08-02] MEDS: BUDESONIDE 0.5 MG/2 ML NEBU. NEB SCH ×2 (07:31→18:26)
[2018-08-02] MEDS: IPRATRPIUM/ALBUTEROL 0.5/2.5MG 3 ML NEBU. NEB SCH ×4 (07:31→18:26)
[2018-08-02] MEDS: INSULIN LISPRO 300 UNITS/3 ML INSULN.PEN. SQ SCH ×3 (07:38→17:23)
[2018-08-02] MEDS: NYSTATIN TOPICAL POWDER 15GM BOTTLE. TP SCH ×2 (08:30→20:54)
[2018-08-02] MEDS: CHOLECALCIFEROL (VITAMIN D3) 1,000 UNIT TABLET PO SCH (08:30)
[2018-08-02] MEDS: FLUTICASONE 50MCG/NASAL SPRAY 16GM BOTTLE. NS SCH (08:30)
[2018-08-02] MEDS: MEROPENEM 1 GM in IV NORMAL SALINE 100ML 100 ML IV SCH ×2 (08:30→20:52)
[2018-08-02] MEDS: FUROSEMIDE 40 MG TABLET. PO SCH ×2 (08:31→14:12)
[2018-08-02] MEDS: busPIRone 10 MG TABLET. PO SCH ×2 (08:31→20:53)
[2018-08-02] MEDS: METOPROLOL SUCC 24HR ER 50 MG TAB.ER.24H. PO SCH (08:31)
[2018-08-02] MEDS: PANTOPRAZOLE 40 MG TABLET.DR. PO SCH (08:31)
[2018-08-02] MEDS: DULoxetine HCL 30 MG CAPSULE.DR PO SCH (08:31)
[2018-08-02] MEDS: glipiZIDE 5 MG TABLET PO SCH ×2 (08:31→16:41)
[2018-08-02] MEDS: FOLIC ACID 1 MG TABLET. PO SCH (08:31)
[2018-08-02] MEDS: LACTOBACILLUS RHAMNOSUS GG 1 CAPSULE. PO SCH ×2 (08:31→20:53)
[2018-08-02] MEDS: ASPIRIN ENTERIC COATED 81 MG TABLET.DR. PO SCH (08:32)
[2018-08-02 11:00] VITALS: BP 115/63
--- NOTE | 2018-08-02 11:12 | PDOC ---
PROGRESS NOTES Subjective Subjective Denied any new complaints Objective Objective Vital Signs Date Time Temp Pulse Resp B/P (MAP) Pulse Ox O2 Delivery O2 Flow Rate FiO2 08/02/18 11:00 98.0 109 20 115/63 (80) 96 Nasal Cannula 4.0 98.0 Intake and Output 08/02/18 06:59 Intake Total 853 ml Output Total 1250 ml Balance -397 ml Intake Oral 610 ml IV Total 243 ml Output Urine Total 1250 ml # Bowel Movements 3 Physical Exam Abdomen: Normal bowel sounds, Soft, No hepatosplenomegaly Heart: Regular rate, Other (OCC TACY WITH AFIB RVR) Extremities: No clubbing, No cyanosis, Other (2+ EDEMA) General: moderate distress HEENT: Other (BIPAP IN PLACE) Lungs: Other (BASILAR RALES) MUSCULOSKELETAL: No joint tenderness, Other (EDEMA) Neuro: Other (UNABLE TO ASSESS) Psych/Mental Status: Other (ANXIOUS, UNABLE TO ASSESS) Skin: No rashes Assessment Assessment 1. Acute on chronic respiratory failure; multifactorial with pleural effusion, a/c systolic CHF, PNA, and AECOPD. Symptoms improved with right sided thoracentesis. Pulmonary team following. 2. Acute on chronic systolic CHF; ischemic cardiomyopathy with LVEF 20% improved with diuretics. Continue current medical regimen 3. AFIB; rate better controlled. Resume eliquis if no further plans for left- sided thoracentesis. 4. CAD with prior AR: Clinically stable and chest pain-free 5. YARELY on CKD; nephrology following 6. DM2/HLP; treated per IM Comment Review of Relevant I have reviewed the following items arturo (where applicable) has been applied. Labs Laboratory Tests Test 08/01/18 13:04 08/01/18 17:58 08/02/18 06:25 08/02/18 07:11 Glucose (Fingerstick) 130 mg/dL (70-99) 144 mg/dL (70-99) 103 mg/dL (70-99) Sodium Level 144 mmol/L (136-145) Potassium Level 4.0 mmol/L (3.5-5.1) Chloride Level 102 mmol/L (98-107) Carbon Dioxide Level 40 mmol/L (21-32) Anion Gap 2 (6-14) Blood Urea Nitrogen 29 mg/dL (8-26) Creatinine 2.3 mg/dL (0.7-1.3) Estimated GFR (Cockcroft-Gault) 27.9 Glucose Level 109 mg/dL (70-99) Calcium Level 8.4 mg/dL (8.5-10.1) Test 08/02/18 10:34 Glucose (Fingerstick) 137 mg/dL (70-99) Microbiology 07/30/18 Anaerobic/Aerobic Culture, Resulted Pending 07/30/18 Anaerobic Culture Result 1 (GARCIA), Resulted Pending 07/30/18 Aerobic Culture - Preliminary, Resulted 07/30/18 Aerobic Culture Result 1 (GARCIA) - Preliminary, Resulted 07/30/18 Gram Stain - Final, Resulted 07/30/18 Gram Stain Result 1 (GARCIA) - Final, Resulted 07/30/18 Gram Stain Result 2 (GARCIA) - Final, Resulted Medications Current Medications Furosemide (Lasix) 40 mg [id number] PO Last administered on 08/02/18at 08:31; Start 08/01/18 at 14:00 Vitals/I & O Vital Sign - Last 24 Hours 08/01/18 08/01/18 08/01/18 08/01/18 12:00 12:00 13:00 13:56 Temp 97.9 97.9 Pulse 105 111 102 Resp 24 25 B/P (MAP) 98/58 (71) 98/58 (71) 84/49 (61) Pulse Ox 97 97 95 O2 Delivery Bi-pap BiPAP/CPAP Nasal Cannula Nasal Cannula O2 Flow Rate 6.0 6.0 08/01/18 08/01/18 08/01/18 08/01/18 15:00 15:50 16:00 19:55 Temp 98.5 98.5 Pulse 108 96 Resp 25 B/P (MAP) 95/49 (64) Pulse Ox 97 99 O2 Delivery Nasal Cannula Nasal Cannula Bi-pap O2 Flow Rate 4.0 5.0 08/01/18 08/01/18 08/01/18 08/01/18 20:00 20:03 20:03 20:09 Temp 97.9 97.9 Pulse 100 Resp 24 B/P (MAP) 114/54 (74) Pulse Ox 99 99 O2 Delivery Nasal Cannula Bi-pap Nasal Cannula O2 Flow Rate 5.0 6.0 5.0 5.0 08/01/18 08/01/18 08/02/18 08/02/18 23:28 23:48 00:04 00:53 Temp 98.0 98.0 Pulse 101 Resp 22 B/P (MAP) 99/51 (67) Pulse Ox 95 96 O2 Delivery Nasal Cannula BiPAP/CPAP O2 Flow Rate 4.0 4.0 4.0 08/02/18 08/02/18 08/02/18 08/02/18 03:15 04:20 07:00 07:28 Temp 98.0 97.9 98.0 97.9 Pulse 90 94 Resp 24 20 B/P (MAP) 95/59 (71) 99/54 (69) Pulse Ox 95 97 98 O2 Delivery Nasal Cannula Nasal Cannula Nasal Cannula O2 Flow Rate 4.0 4.0 4.0 4.0 08/02/18 08/02/18 08/02/18 08/02/18 07:31 07:59 08:31 11:00 Temp 98.0 98.0 Pulse 109 Resp 20 B/P (MAP) 99/54 115/63 (80) Pulse Ox 96 O2 Delivery Nasal Cannula Nasal Cannula O2 Flow Rate 4.0 3.0 4.0 Intake and Output 08/01/18 08/01/18 08/02/18 14:59 22:59 06:59 Intake Total 600 ml 143 ml 110 ml Output Total 450 ml 100 ml 700 ml Balance 150 ml 43 ml -590 ml LAKEISHA LOMELI MD Aug 02, 2018 11:12
--- NOTE | 2018-08-02 12:50 | PDOC ---
PULMONARY PROGRESS NOTES Subjective SITTING UP IN CHAIR OFF BIPAP A/A NAD Vitals Vital Signs Date Time Temp Pulse Resp B/P (MAP) Pulse Ox O2 Delivery O2 Flow Rate FiO2 08/02/18 11:24 97 Nasal Cannula 3.0 08/02/18 11:00 98.0 109 20 115/63 (80) 98.0 Comments ROS unobtainable General: Alert Cardiovascular: Other (Diminished) Abdomen: Soft, Non-tender Neuro Exam: Alert Extremities: Other (edema BLE +2) Skin: Warm, Dry Labs Laboratory Tests Test 07/31/18 13:09 07/31/18 16:59 08/01/18 05:55 08/01/18 08:00 Glucose (Fingerstick) 92 mg/dL (70-99) 78 mg/dL (70-99) Sodium Level 144 mmol/L (136-145) Potassium Level 3.6 mmol/L (3.5-5.1) Chloride Level 103 mmol/L (98-107) Carbon Dioxide Level 38 mmol/L (21-32) Anion Gap 3 (6-14) Blood Urea Nitrogen 29 mg/dL (8-26) Creatinine 2.2 mg/dL (0.7-1.3) Estimated GFR (Cockcroft-Gault) 29.3 Glucose Level 113 mg/dL (70-99) Calcium Level 8.5 mg/dL (8.5-10.1) Phosphorus Level 3.9 mg/dL (2.6-4.7) Magnesium Level 1.9 mg/dL (1.8-2.4) O2 Saturation 98 % (92-99) Arterial Blood pH 7.40 (7.35-7.45) Arterial Blood pCO2 at Patient Temp 64 mmHg (35-46) Arterial Blood pO2 at Patient Temp 114 mmHg (65-108) Arterial Blood HCO3 38 mmol/L (21-28) Arterial Blood Base Excess 11 mmol/L (-3-3) FiO2 50 Test 08/01/18 13:04 08/01/18 17:58 08/02/18 06:25 08/02/18 07:11 Glucose (Fingerstick) 130 mg/dL (70-99) 144 mg/dL (70-99) 103 mg/dL (70-99) Sodium Level 144 mmol/L (136-145) Potassium Level 4.0 mmol/L (3.5-5.1) Chloride Level 102 mmol/L (98-107) Carbon Dioxide Level 40 mmol/L (21-32) Anion Gap 2 (6-14) Blood Urea Nitrogen 29 mg/dL (8-26) Creatinine 2.3 mg/dL (0.7-1.3) Estimated GFR (Cockcroft-Gault) 27.9 Glucose Level 109 mg/dL (70-99) Calcium Level 8.4 mg/dL (8.5-10.1) Test 08/02/18 10:34 Glucose (Fingerstick) 137 mg/dL (70-99) Laboratory Tests Test 08/01/18 13:04 08/01/18 17:58 08/02/18 06:25 08/02/18 07:11 Glucose (Fingerstick) 130 mg/dL (70-99) 144 mg/dL (70-99) 103 mg/dL (70-99) Sodium Level 144 mmol/L (136-145) Potassium Level 4.0 mmol/L (3.5-5.1) Chloride Level 102 mmol/L (98-107) Carbon Dioxide Level 40 mmol/L (21-32) Anion Gap 2 (6-14) Blood Urea Nitrogen 29 mg/dL (8-26) Creatinine 2.3 mg/dL (0.7-1.3) Estimated GFR (Cockcroft-Gault) 27.9 Glucose Level 109 mg/dL (70-99) Calcium Level 8.4 mg/dL (8.5-10.1) Test 08/02/18 10:34 Glucose (Fingerstick) 137 mg/dL (70-99) Medications Active Scripts Medications Dose Route/Sig Max Daily Dose Days Date Category Guaifenesin 200 Mg Tablet 200 Mg PO PRN TID PRN 07/28/18 Reported Budesonide 0.25 Mg/2 Ml Ampul.neb 1 Vial NEB BID 01/29/18 Reported Albuterol Sulfate Conc Neb Soln (Albuterol Sulfate) 2.5 Mg/0.5 Ml Vial.neb 1 Vial NEB Q6HRS PRN 01/29/18 Reported Trazodone Hcl 50 Mg Tablet 1 Tab PO QHS 01/24/18 Reported Culturelle (Lactobacillus Rhamnosus Gg) 1 Each Cap.sprink 1 Each PO 01/24/18 Reported Atorvastatin Calcium 80 Mg Tablet 1 Tab PO DAILY 01/24/18 Reported Buspirone Hcl 10 Mg Tablet 1 Tab PO BID 01/24/18 Reported Glipizide 5 Mg Tablet 1 Tab PO BID 01/24/18 Reported Eliquis (Apixaban) 2.5 Mg Tablet 2.5 Mg PO BID 01/24/18 Reported Protonix (Pantoprazole Sodium) 20 Mg Tablet.dr 1 Tab PO DAILY 01/24/18 Reported Duloxetine Hcl 60 Mg Capsule.dr 60 Mg PO DAILY 01/24/18 Reported Furosemide 20 Mg Tablet 60 Tab PO DAILY 01/24/18 Reported Calcitriol 0.25 Mcg Capsule 1 Cap PO 3X/WEEK 01/24/18 Reported Mucinex (Guaifenesin) 600 Mg Tablet.er 200 Tab PO TID 01/24/18 Reported Potassium Chloride 20 Meq Tablet.er 20 Meq PO DAILY 01/24/18 Reported Levothyroxine Sodium 50 Mcg Tablet 1 Tab PO DAILY 01/24/18 Reported Tylenol (Acetaminophen) 325 Mg Tablet 500 Mg PO TID 01/24/18 Reported Vitamin D3 (Cholecalciferol (Vitamin D3)) 1,000 Unit Tablet 2 Tab PO DAILY 01/24/18 Reported Folic Acid 1 Mg Tablet 1 Tab PO DAILY 01/24/18 Reported Active Scripts Medications Dose Route/Sig Max Daily Dose Days Date Category Guaifenesin 200 Mg Tablet 200 Mg PO PRN TID PRN 07/28/18 Reported Budesonide 0.25 Mg/2 Ml Ampul.neb 1 Vial NEB BID 01/29/18 Reported Albuterol Sulfate Conc Neb Soln (Albuterol Sulfate) 2.5 Mg/0.5 Ml Vial.neb 1 Vial NEB Q6HRS PRN 01/29/18 Reported Trazodone Hcl 50 Mg Tablet 1 Tab PO QHS 01/24/18 Reported Culturelle (Lactobacillus Rhamnosus Gg) 1 Each Cap.sprink 1 Each PO 01/24/18 Reported Atorvastatin Calcium 80 Mg Tablet 1 Tab PO DAILY 01/24/18 Reported Buspirone Hcl 10 Mg Tablet 1 Tab PO BID 01/24/18 Reported Glipizide 5 Mg Tablet 1 Tab PO BID 01/24/18 Reported Eliquis (Apixaban) 2.5 Mg Tablet 2.5 Mg PO BID 01/24/18 Reported Protonix (Pantoprazole Sodium) 20 Mg Tablet.dr 1 Tab PO DAILY 01/24/18 Reported Duloxetine Hcl 60 Mg Capsule.dr 60 Mg PO DAILY 01/24/18 Reported Furosemide 20 Mg Tablet 60 Tab PO DAILY 01/24/18 Reported Calcitriol 0.25 Mcg Capsule 1 Cap PO 3X/WEEK 01/24/18 Reported Mucinex (Guaifenesin) 600 Mg Tablet.er 200 Tab PO TID 01/24/18 Reported Potassium Chloride 20 Meq Tablet.er 20 Meq PO DAILY 01/24/18 Reported Levothyroxine Sodium 50 Mcg Tablet 1 Tab PO DAILY 01/24/18 Reported Tylenol (Acetaminophen) 325 Mg Tablet 500 Mg PO TID 01/24/18 Reported Vitamin D3 (Cholecalciferol (Vitamin D3)) 1,000 Unit Tablet 2 Tab PO DAILY 01/24/18 Reported Folic Acid 1 Mg Tablet 1 Tab PO DAILY 01/24/18 Reported Impression . 1. Acute hypoxemic hypercapnic respiratory failure, multifactorial. 2. Acute on chronic heart failure. 3. Abnormal x-ray with persistent right lower lobe effusion greater than left. 4. Cardiomyopathy, ejection fraction 20-25%. 5. Atrial fibrillation with rapid ventricular response. 6. Type 2 diabetes. 7. Hypertension. 8. Obesity. 9. Chronic obstructive pulmonary disease, unknown FEV1. 10. Possible obstructive sleep apnea. 11. TRANSUDATE EFFUSION Impression: No deep venous thrombus involving the right upper extremity. Plan . BETTER TODAY OFF BIPAP IN AM RESP STATUS IS COMPENSATED PT OT WILL NEED REHAB REPEAT CXR MON BIPAP QHS AND PRN FOLLOW CARD THORACENTESIS RESULTS NOTED CHELSEY CASTILLO MD Aug 02, 2018 12:50
--- NOTE | 2018-08-02 13:27 | PDOC ---
SUBJECTIVE ROS Follow-up for chronic kidney disease stage 3/4 Patient denies any new specific complaints. Asks about going home. CVS: no Orthopnea, no CP RESP: no SOB, no DOAN GI: no Nausea, no Vomiting : no Dysuria, no Urgency S[place] catheter in place OBJECTIVE Vital Signs Vital Signs Date Time Temp Pulse Resp B/P (MAP) Pulse Ox O2 Delivery O2 Flow Rate FiO2 08/02/18 12:00 3.0 08/02/18 11:24 97 Nasal Cannula 08/02/18 11:00 98.0 109 20 115/63 (80) 98.0 I & 0 Intake and Output 08/02/18 07:00 Intake Total 853 ml Output Total 1250 ml Balance -397 ml Intake Oral 610 ml IV Total 243 ml Output Urine Total 1250 ml # Bowel Movements 3 PHYSICAL EXAM Physical Exam GEN: Awake, Oriented x 2, In no visible distress, morbidly obese gentleman sitting up in a chair EYES: Vision Unchanged, Conjunctiva Normal EN: No EN Drainage, Mucous Membranes moist NECK: no JVD, no JVP, Supple, no Thyromegaly, short thick neck and unable to visualize JVD CVS: S1S2, no audible Murmur, No Gallop, No Rub,+ Edema, very distal heart sounds RESP: no Rales, no Rhonchi,no Acc. Muscle Use, barely audible breath sounds given morbid obesity GI: BS + ve, NO Bruit, Non Tender, Non Distended, morbidly obese and unable to palpate hepatosplenomegaly : no CVA tenderness, no Suprapubic Tenderness DIAGNOSIS/ASSESSMENT Assessment & Plan Chronic kidney disease stage 4 at current levels: Creatinine has remained relatively stable at current levels. Current fluid and E-lyte status does not necessitate emergent need for dialysis. Will re-evaluate for dialysis in the am Edema in lower extremity: Diuresis as best tolerated by hemodynamics YARELY WITH CR IMPROVED TO 2.0-[id number] state as has been outlined previously. This may very well be his new baseline and a fluid optimize state. HYPOKALEMIA: Appears to have been repleted currently. Can consider use of Aldactone as an outpatient if needed. ACUTE ON CHRONIC SYSTOLIC AND DIASTOLIC CHF; WITH EF OF 20%: Fluid balance is barely negative at current ongoing diuretics. If respiratory function worsens he may need inotropes. COPD and CHRONIC MET ALKALOSIS which appears to be presumably chronic compensation for underlying respiratory acidosis. COMMENT/RELEVANT DATA Meds Current Medications Medications (Trade) Dose Ordered Sig/Bettina Start Time Stop Time Status Last Admin Dose Admin Acetaminophen (Tylenol) 500 mg TID 07/28/18 14:00 08/02/18 03:02 325 MG Albuterol Sulfate (Ventolin Neb Soln) 2.5 mg PRN Q6HRS PRN 07/28/18 18:00 07/28/18 20:07 2.5 MG Albuterol/ Ipratropium (Duoneb) 3 ml RTQID 07/28/18 20:30 08/02/18 11:24 3 ML Apixaban (Eliquis) 5 mg BID 07/31/18 21:00 08/01/18 16:24 DC 08/01/18 09:04 5 MG Aspirin (Ecotrin) 81 mg [id number] 07/31/18 08:00 08/02/18 08:32 81 MG Atorvastatin Calcium (Lipitor) 40 mg QHS 07/28/18 21:00 08/01/18 21:01 40 MG Bisacodyl (Dulcolax Supp) 10 mg 1X ONCE 08/01/18 10:30 08/01/18 10:31 DC Budesonide (Pulmicort) 0.5 mg RTBID 07/28/18 12:00 08/02/18 07:31 0.5 MG Buspirone HCl (Buspar) 10 mg BID 07/28/18 12:00 08/02/18 08:31 10 MG Calcitriol (Rocaltrol) 0.25 mcg MoWeFr 07/28/18 12:00 08/01/18 13:02 0.25 MCG Dextrose (Dextrose 50%-Water Syringe) 12.5 gm PRN Q15MIN PRN 07/28/18 12:30 Digoxin (Lanoxin) 500 mcg 1X ONCE 07/31/18 22:00 07/31/18 22:01 DC 07/31/18 21:58 500 MCG Duloxetine HCl (Cymbalta) 60 mg DAILY 07/29/18 09:00 UNV Fluticasone Propionate (Flonase) 2 spray DAILY 07/29/18 09:00 08/02/18 08:30 2 SPRAY Folic Acid (Folic Acid) 1 mg DAILY 07/28/18 12:00 08/02/18 08:31 1 MG Furosemide (Lasix) 40 mg [id number] 08/01/18 14:00 08/02/18 08:31 40 MG Glipizide (Glucotrol) 2.5 mg BIDBFRMEAL 07/28/18 16:30 08/02/18 08:31 2.5 MG Info (Anti-Coagulation Monitoring By Pharmacy) 1 each PRN DAILY PRN 07/31/18 17:30 08/01/18 10:43 1 EACH Info (Icu Electrolyte Protocol) 1 ea CONT PRN PRN 07/30/18 13:45 Insulin Human Lispro (HumaLOG) 0-5 UNITS TIDWMEALS 07/28/18 17:00 Lactobacillus Rhamnosus (Culturelle) 1 cap BID 07/28/18 21:00 08/02/18 08:31 1 CAP Levothyroxine Sodium (Synthroid) 50 mcg DAILY06 07/28/18 15:30 08/01/18 06:07 50 MCG Lorazepam (Ativan) 0.5 mg PRN Q4HRS PRN 07/28/18 12:15 07/30/18 18:54 0.5 MG Meropenem 1 gm/ Sodium Chloride 100 ml @ 200 mls/hr Q12HR 07/28/18 12:00 08/02/18 08:30 200 MLS/HR Metoprolol Succinate (Toprol Xl) 75 mg DAILY 07/31/18 12:00 08/02/18 08:31 75 MG Metoprolol Tartrate (Lopressor) 25 mg 1X ONCE 07/30/18 10:00 07/30/18 10:01 DC 07/30/18 10:52 25 MG Milrinone Lactate/ Dextrose 100 ml @ 4.238 mls/ hr CONT PRN 07/28/18 11:00 08/01/18 16:24 DC 07/31/18 19:46 4.238 MLS/HR Non-Formulary Medication (Albuterol Sulfate (Albuterol Sulfate Conc Neb Soln)) 1 vial Q6HRS PRN 07/28/18 12:00 UNV Non-Formulary Medication (Budesonide ) 1 vial BID 07/28/18 21:00 UNV Nystatin (Nystop) 1 ute BID 07/28/18 13:00 08/02/18 08:30 1 UTE Pantoprazole Sodium (Protonix) 40 mg DAILYAC 07/28/18 16:30 08/02/18 08:31 40 MG Potassium Chloride (Klor-Con) 20 meq 1X ONCE 07/30/18 07:45 07/30/18 07:46 DC 07/30/18 08:58 20 MEQ Senna/Docusate Sodium (Senna Plus) 2 tab PRN BID PRN 07/28/18 12:15 08/01/18 10:37 2 TAB Trazodone HCl (Desyrel) 50 mg QHS 07/28/18 21:00 08/01/18 21:02 50 MG Vancomycin HCl (Vanco Per Pharmacy) 1 each PRN DAILY PRN 07/28/18 12:15 07/29/18 14:12 DC 07/28/18 17:03 1 EACH Vancomycin HCl (Vancomycin Trough Level) 1 each 1X ONCE 07/30/18 16:30 07/30/18 16:30 DC Vancomycin HCl 1.75 gm/Sodium Chloride 500 ml @ 250 mls/hr Q24H 07/28/18 17:00 07/29/18 14:12 DC 07/28/18 17:00 250 MLS/HR Vancomycin HCl 2 gm/Sodium Chloride 500 ml @ 250 mls/hr ONCE ONCE 07/28/18 13:00 07/28/18 14:59 Cancel Vitamin D (Vitamin D3) 2,000 unit DAILY 07/28/18 12:00 08/02/18 08:30 2,000 UNIT Lab Laboratory Tests Test 08/01/18 17:58 08/02/18 06:25 08/02/18 07:11 08/02/18 10:34 Glucose (Fingerstick) 144 mg/dL (70-99) 103 mg/dL (70-99) 137 mg/dL (70-99) Sodium Level 144 mmol/L (136-145) Potassium Level 4.0 mmol/L (3.5-5.1) Chloride Level 102 mmol/L (98-107) Carbon Dioxide Level 40 mmol/L (21-32) Anion Gap 2 (6-14) Blood Urea Nitrogen 29 mg/dL (8-26) Creatinine 2.3 mg/dL (0.7-1.3) Estimated GFR (Cockcroft-Gault) 27.9 Glucose Level 109 mg/dL (70-99) Calcium Level 8.4 mg/dL (8.5-10.1) Results All relevant outside records, renal labs, imaging studies, telemetry/EKG's were reviewed. CHAVO DENSON MD Aug 02, 2018 13:27
[2018-08-02] MEDS: SENNOSIDES/DOCUSATE 8.6/50MG TABLET. PO PRN (14:12)
[2018-08-02 15:06] VITALS: BP 133/73
[2018-08-02] MEDS: LORazepam 0.5 MG TABLET PO PRN (16:42)
--- NOTE | 2018-08-02 17:14 | NUR ---
Bleeding noted from PICC to RUE, pt states that he felt like it was pulled on white moving earlier while transferring. Dressing changed, sterile procedure performed, securing device in place but PICC cath appeared to be withdrawn from site. STAT CXR ordered to check for placement.
[2018-08-02 19:05] VITALS: BP 118/70
--- NOTE | 2018-08-02 19:10 | RAD ---
CHEST AP ONLY History: PICC LINE Comparison: July 31, 2018 Findings: Single view of the chest is submitted. There is now a right upper extremity PICC with the tip near the cavoatrial junction. Pericardial cardiac silhouette is again enlarged. There is again probable moderate sized left pleural effusion and small right pleural effusion with adjacent bibasilar airspace opacity somewhat increased on the right in interval. There is no pneumothorax. Impression: 1. There is now a right upper extremity PICC with the tip near the cavoatrial junction. 2. There are again left greater than right pleural effusions, somewhat increased right base airspace opacity which may be due to edema although infiltrates not excluded. Constellation of findings could be due to left ventricular failure given the enlarged cardiac silhouette. Electronically signed by: Abdias Worthy MD (08/02/2018 7:07 PM) [facility]
[2018-08-02] MEDS: traZODone 50 MG TABLET. PO SCH (20:53)
[2018-08-02] MEDS: ATORVASTATIN CALCIUM 40 MG TABLET. PO SCH (20:53)
[2018-08-02 23:24] VITALS: BP 110/69
[2018-08-03 03:46] VITALS: BP 109/57
--- NOTE | 2018-08-03 04:27 | PN ---
DATE: 08/02/2018 SUBJECTIVE: The patient is sitting comfortably in his recliner, in no apparent distress. He is maintaining his oxygen saturation at 97% on 3 liters oxygen, definitely more awake, alert. All the anasarca has largely subsided. He denied any chest pain or shortness of breath. OBJECTIVE: GENERAL: When I examined him, he looked slightly pale, no jaundice, cyanosis, or thyromegaly. No jugular venous distension. No lower limb edema. VITAL SIGNS: Heart rate was 109, blood pressure was 115/63, temperature was 98, respiratory rate 20, and oxygen saturation was 96% on 3 liters of oxygen. HEAD, EYES, EARS, NOSE AND THROAT: Showed he is normocephalic, atraumatic. NECK: Supple. HEART: Showed normal first and second heart sounds. No gallop, rub or murmur. CHEST: Clear to auscultation. No crepitation or rhonchi. Has dull percussion noted mostly in the left side posteriorly. I could not appreciate any crepitation or rhonchi. ABDOMEN: Distended, soft, nontender. No guarding or rigidity. No organomegaly. All hernial orifice intact. Bowel sounds normal. NEUROLOGIC: He was definitely awake, alert, responding appropriately. All cranial nerves intact. He moves extremities without difficulty, although he is mostly bed bound and chair bound. He does ambulate with a walker. INPUT AND OUTPUT: His intake is 482, output was 1730. LABORATORY AND DIAGNOSTIC DATA: As of this morning, his serum sodium was 144, potassium 4, chloride 102, bicarbonate 40, anion gap of 2, BUN 29, creatinine 2.3, estimated GFR was 28 mL per minute, his glucose was 109, calcium was 8.4. His white cell count was 4100, hemoglobin 12.4, hematocrit 37.9, MCV 95, and platelet count 76,000. ASSESSMENT: 1. Acute on chronic hypoxic respiratory failure, multifactorial, improving. 2. Acute on chronic systolic congestive heart failure, much better compensated. 3. Ischemic cardiomyopathy with ejection fraction 20% on his most recent echocardiogram. 4. Atrial fibrillation, rate suboptimally controlled. His apixaban was put on hold for thoracentesis. 5. Coronary artery disease with history of myocardial infarction. 6. Acute kidney injury on chronic kidney disease. Creatinine is slightly up to 2.3. 7. Hypertension, well controlled. 8. 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 9. Type 2 diabetes mellitus that seems to be reasonably controlled. 10. Hyperlipidemia. 11. Morbid obesity, obstructive sleep apnea. 12. Chronic back pain due to multiple lumbar vertebral compression fracture. PLAN: To continue with IV Lasix. Continue BiPAP machine at nighttime and oxygen supplementation daytime. Continue with fluid restriction. Continue to monitor his blood sugar and adjust insulin as needed. He is back on his apixaban. KAR PERSAUD MD DR: KEENAN/lindsay JOB#: [id number] / [id number]
[2018-08-03] MEDS: LEVOTHYROXINE 50 MCG TABLET PO SCH (06:07)
[2018-08-03 06:50] LABS: CALCIUM 8.6 mg/dL (8.5-10.1); CREATININE 2.2 mg/dL (0.7-1.3); GFR 29.3; MAGNESIUM 2.1 mg/dL (1.8-2.4); POTASSIUM 3.8 mmol/L (3.5-5.1)
[2018-08-03 06:55] LABS: HEMATOCRIT 36.7 % (39.0-53.0); HEMOGLOBIN 11.7 g/dL (13.0-17.5); RED BLOOD COUNT 3.83 x10^6/uL (4.30-5.70); RED CELL DISTRIBUTION WIDTH 14.8 % (11.5-14.5); WHITE BLOOD COUNT 3.1 x10^3/uL (4.0-11.0)
[2018-08-03 07:44] VITALS: BP 112/61
[2018-08-03] MEDS: INSULIN LISPRO 300 UNITS/3 ML INSULN.PEN. SQ SCH ×3 (07:53→17:19)
[2018-08-03] MEDS: IPRATRPIUM/ALBUTEROL 0.5/2.5MG 3 ML NEBU. NEB SCH ×4 (08:19→19:15)
[2018-08-03] MEDS: BUDESONIDE 0.5 MG/2 ML NEBU. NEB SCH ×2 (08:19→19:15)
[2018-08-03] MEDS: MEROPENEM 1 GM in IV NORMAL SALINE 100ML 100 ML IV SCH ×2 (08:25→20:16)
[2018-08-03] MEDS: NYSTATIN TOPICAL POWDER 15GM BOTTLE. TP SCH ×2 (08:25→20:17)
[2018-08-03] MEDS: FLUTICASONE 50MCG/NASAL SPRAY 16GM BOTTLE. NS SCH (08:25)
[2018-08-03] MEDS: LACTOBACILLUS RHAMNOSUS GG 1 CAPSULE. PO SCH ×2 (08:25→20:17)
[2018-08-03] MEDS: FUROSEMIDE 40 MG TABLET. PO SCH ×2 (08:26→15:20)
[2018-08-03] MEDS: ASPIRIN ENTERIC COATED 81 MG TABLET.DR. PO SCH (08:26)
[2018-08-03] MEDS: METOPROLOL SUCC 24HR ER 50 MG TAB.ER.24H. PO SCH (08:26)
[2018-08-03] MEDS: PANTOPRAZOLE 40 MG TABLET.DR. PO SCH (08:26)
[2018-08-03] MEDS: DULoxetine HCL 30 MG CAPSULE.DR PO SCH (08:28)
[2018-08-03] MEDS: CHOLECALCIFEROL (VITAMIN D3) 1,000 UNIT TABLET PO SCH (08:28)
[2018-08-03] MEDS: glipiZIDE 5 MG TABLET PO SCH ×2 (08:28→16:27)
[2018-08-03] MEDS: busPIRone 10 MG TABLET. PO SCH ×2 (08:28→20:16)
[2018-08-03] MEDS: FOLIC ACID 1 MG TABLET. PO SCH (08:28)
[2018-08-03] MEDS: ACETAMINOPHEN 500 MG TABLET PO SCH ×3 (09:49→20:17)
[2018-08-03 10:51] VITALS: BP 116/61
--- NOTE | 2018-08-03 11:36 | PDOC ---
PROGRESS NOTES Subjective Subjective Denied any chest pain or shortness of breath Objective Objective Vital Signs Date Time Temp Pulse Resp B/P (MAP) Pulse Ox O2 Delivery O2 Flow Rate FiO2 08/03/18 10:51 98.0 100 32 116/61 (79) 90 BiPAP/CPAP 98.0 08/03/18 08:20 3.0 Intake and Output 08/03/18 07:00 Output Total 1250 ml Balance -1250 ml Output Urine Total 1250 ml Stool Total 0 ml # Bowel Movements 1 Physical Exam Abdomen: Normal bowel sounds, Soft, No hepatosplenomegaly Heart: Regular rate, Other (OCC TACY WITH AFIB RVR) Extremities: No clubbing, No cyanosis, Other (2+ EDEMA) General: moderate distress HEENT: Other (BIPAP IN PLACE) Lungs: Other (BASILAR RALES) MUSCULOSKELETAL: No joint tenderness, Other (EDEMA) Neuro: Other (UNABLE TO ASSESS) Psych/Mental Status: Other (ANXIOUS, UNABLE TO ASSESS) Skin: No rashes Assessment Assessment 1. Acute on chronic respiratory failure; multifactorial with pleural effusion, a/c systolic CHF, PNA, and AECOPD. Symptoms improved with right sided thoracentesis. Pulmonary team following. 2. Acute on chronic systolic CHF; ischemic cardiomyopathy with LVEF 20% improved with diuretics. Continue current medical regimen 3. AFIB; heart rate slightly elevated. Increase Toprol XL to 100 mg daily. Resume eliquis if no further plans for left-sided thoracentesis. 4. CAD with prior HI: Clinically stable and chest pain-free 5. YARELY on CKD; nephrology following 6. DM2/HLP; treated per IM Comment Review of Relevant I have reviewed the following items arturo (where applicable) has been applied. Labs Laboratory Tests Test 08/02/18 17:16 08/02/18 20:53 08/03/18 06:15 08/03/18 07:11 Glucose (Fingerstick) 188 mg/dL (70-99) 140 mg/dL (70-99) 101 mg/dL (70-99) White Blood Count 3.1 x10^3/uL (4.0-11.0) Red Blood Count 3.83 x10^6/uL (4.30-5.70) Hemoglobin 11.7 g/dL (13.0-17.5) Hematocrit 36.7 % (39.0-53.0) Mean Corpuscular Volume 96 fL (79-100) Mean Corpuscular Hemoglobin 31 pg (25-35) Mean Corpuscular Hemoglobin Concent 32 g/dL (31-37) Red Cell Distribution Width 14.8 % (11.5-14.5) Platelet Count 80 x10^3/uL (140-400) Sodium Level 145 mmol/L (136-145) Potassium Level 3.8 mmol/L (3.5-5.1) Chloride Level 101 mmol/L (98-107) Carbon Dioxide Level 42 mmol/L (21-32) Anion Gap 2 (6-14) Blood Urea Nitrogen 26 mg/dL (8-26) Creatinine 2.2 mg/dL (0.7-1.3) Estimated GFR (Cockcroft-Gault) 29.3 Glucose Level 106 mg/dL (70-99) Calcium Level 8.6 mg/dL (8.5-10.1) Magnesium Level 2.1 mg/dL (1.8-2.4) Test 08/03/18 09:59 Glucose (Fingerstick) 123 mg/dL (70-99) Microbiology 07/30/18 Anaerobic/Aerobic Culture, Resulted Pending 07/30/18 Anaerobic Culture Result 1 (GARCIA), Resulted Pending 07/30/18 Aerobic Culture - Final, Resulted 07/30/18 Aerobic Culture Result 1 (GARCIA) - Final, Resulted 07/30/18 Gram Stain - Final, Resulted 07/30/18 Gram Stain Result 1 (GARCIA) - Final, Resulted 07/30/18 Gram Stain Result 2 (GARCIA) - Final, Resulted Medications Current Medications Acetaminophen (Tylenol) 500 mg TID PO Last administered on 08/03/18at 09:49; Start 08/03/18 at 09:00 Vitals/I & O Vital Sign - Last 24 Hours 08/02/18 08/02/18 08/02/18 08/02/18 12:00 15:06 15:28 16:18 Temp 98.4 98.4 Pulse 100 Resp 20 B/P (MAP) 133/73 (93) Pulse Ox 96 O2 Delivery Nasal Cannula Nasal Cannula O2 Flow Rate 3.0 4.0 3.0 3.0 08/02/18 08/02/18 08/02/18 08/02/18 18:27 19:05 19:21 19:22 Temp 97.9 97.9 Pulse 118 Resp 24 B/P (MAP) 118/70 (86) Pulse Ox 96 O2 Delivery Nasal Cannula Nasal Cannula Nasal Cannula O2 Flow Rate 3.0 3.0 3.0 3.0 08/02/18 08/02/18 08/02/18 08/03/18 22:31 23:24 23:56 00:10 Temp 97.9 97.9 Pulse 101 Resp 24 B/P (MAP) 110/69 (83) Pulse Ox 96 96 99 O2 Delivery BiPAP/CPAP BiPAP/CPAP BiPAP/CPAP O2 Flow Rate 3.0 08/03/18 08/03/18 08/03/18 08/03/18 03:46 03:49 04:00 07:44 Temp 97.7 97.8 97.7 97.8 Pulse 91 105 Resp 24 32 B/P (MAP) 109/57 (74) 112/61 (78) Pulse Ox 97 99 93 O2 Delivery BiPAP/CPAP BiPAP/CPAP BiPAP/CPAP O2 Flow Rate 3.0 08/03/18 08/03/18 08/03/18 08/03/18 07:54 08:00 08:20 08:26 B/P (MAP) 112/61 Pulse Ox 94 O2 Delivery Nasal Cannula Nasal Cannula O2 Flow Rate 3.0 3.0 3.0 08/03/18 10:51 Temp 98.0 98.0 Pulse 100 Resp 32 B/P (MAP) 116/61 (79) Pulse Ox 90 O2 Delivery BiPAP/CPAP Intake and Output 08/02/18 08/02/18 08/03/18 15:00 23:00 07:00 Output Total 650 ml 600 ml Balance -650 ml -600 ml LAKEISHA LOMELI MD Aug 03, 2018 11:36
[2018-08-03 15:23] VITALS: BP 138/65
[2018-08-03 19:20] VITALS: BP 151/73
[2018-08-03] MEDS: traZODone 50 MG TABLET. PO SCH (20:17)
[2018-08-03] MEDS: ATORVASTATIN CALCIUM 40 MG TABLET. PO SCH (20:17)
[2018-08-03 23:10] VITALS: BP 109/58
[2018-08-04] VITALS (21 sets, daily range): BP systolic 110–159; BP diastolic 54–74
[2018-08-04] MEDS: LEVOTHYROXINE 50 MCG TABLET PO SCH (05:03)
[2018-08-04] MEDS: ACETAMINOPHEN 500 MG TABLET PO SCH ×3 (05:03→20:39)
[2018-08-04 06:10] LABS: CALCIUM 8.4 mg/dL (8.5-10.1); CREATININE 2.1 mg/dL (0.7-1.3); GFR 30.9; POTASSIUM 3.9 mmol/L (3.5-5.1)
[2018-08-04] MEDS: BUDESONIDE 0.5 MG/2 ML NEBU. NEB SCH ×2 (07:25→19:15)
[2018-08-04] MEDS: IPRATRPIUM/ALBUTEROL 0.5/2.5MG 3 ML NEBU. NEB SCH ×4 (07:25→19:15)
[2018-08-04] MEDS: INSULIN LISPRO 300 UNITS/3 ML INSULN.PEN. SQ SCH ×3 (08:00→17:48)
[2018-08-04] MEDS: PANTOPRAZOLE 40 MG TABLET.DR. PO SCH (08:21)
[2018-08-04] MEDS: glipiZIDE 5 MG TABLET PO SCH ×2 (08:21→17:43)
[2018-08-04] MEDS: ASPIRIN ENTERIC COATED 81 MG TABLET.DR. PO SCH (08:23)
[2018-08-04] MEDS: METOPROLOL SUCC 24HR ER 100 MG TAB.ER.24H. PO SCH (08:30)
[2018-08-04] MEDS: FOLIC ACID 1 MG TABLET. PO SCH (08:30)
[2018-08-04] MEDS: FUROSEMIDE 40 MG TABLET. PO SCH ×2 (08:30→13:51)
[2018-08-04] MEDS: DULoxetine HCL 30 MG CAPSULE.DR PO SCH (08:30)
[2018-08-04] MEDS: busPIRone 10 MG TABLET. PO SCH ×2 (08:30→20:39)
[2018-08-04] MEDS: CHOLECALCIFEROL (VITAMIN D3) 1,000 UNIT TABLET PO SCH (08:30)
[2018-08-04] MEDS: LACTOBACILLUS RHAMNOSUS GG 1 CAPSULE. PO SCH ×2 (08:30→20:39)
[2018-08-04] MEDS: FLUTICASONE 50MCG/NASAL SPRAY 16GM BOTTLE. NS SCH (08:31)
[2018-08-04] MEDS: NYSTATIN TOPICAL POWDER 15GM BOTTLE. TP SCH ×2 (08:31→20:39)
[2018-08-04] MEDS: MEROPENEM 1 GM in IV NORMAL SALINE 100ML 100 ML IV SCH ×2 (09:16→20:39)
--- NOTE | 2018-08-04 09:30 | PDOC ---
PULMONARY PROGRESS NOTES Subjective WANTS TO GO HOME OFF BIPAP A/A NAD Vitals Vital Signs Date Time Temp Pulse Resp B/P (MAP) Pulse Ox O2 Delivery O2 Flow Rate FiO2 08/04/18 08:30 104 124/59 08/04/18 07:27 96 Nasal Cannula 3.0 08/04/18 07:00 98.3 18 98.3 ROS: No Nausea, No Chest Pain, No Abdominal Pain, No Increase Cough General: Alert Cardiovascular: Other (Diminished) Abdomen: Soft, Non-tender Neuro Exam: Alert Extremities: Other (edema BLE +2) Skin: Warm, Dry Labs Laboratory Tests Test 08/02/18 10:34 08/02/18 17:16 08/02/18 20:53 08/03/18 06:15 Glucose (Fingerstick) 137 mg/dL (70-99) 188 mg/dL (70-99) 140 mg/dL (70-99) White Blood Count 3.1 x10^3/uL (4.0-11.0) Red Blood Count 3.83 x10^6/uL (4.30-5.70) Hemoglobin 11.7 g/dL (13.0-17.5) Hematocrit 36.7 % (39.0-53.0) Mean Corpuscular Volume 96 fL (79-100) Mean Corpuscular Hemoglobin 31 pg (25-35) Mean Corpuscular Hemoglobin Concent 32 g/dL (31-37) Red Cell Distribution Width 14.8 % (11.5-14.5) Platelet Count 80 x10^3/uL (140-400) Sodium Level 145 mmol/L (136-145) Potassium Level 3.8 mmol/L (3.5-5.1) Chloride Level 101 mmol/L (98-107) Carbon Dioxide Level 42 mmol/L (21-32) Anion Gap 2 (6-14) Blood Urea Nitrogen 26 mg/dL (8-26) Creatinine 2.2 mg/dL (0.7-1.3) Estimated GFR (Cockcroft-Gault) 29.3 Glucose Level 106 mg/dL (70-99) Calcium Level 8.6 mg/dL (8.5-10.1) Magnesium Level 2.1 mg/dL (1.8-2.4) Test 08/03/18 07:11 08/03/18 09:59 08/03/18 16:46 08/04/18 05:15 Glucose (Fingerstick) 101 mg/dL (70-99) 123 mg/dL (70-99) 159 mg/dL (70-99) Sodium Level 146 mmol/L (136-145) Potassium Level 3.9 mmol/L (3.5-5.1) Chloride Level 103 mmol/L (98-107) Carbon Dioxide Level 41 mmol/L (21-32) Anion Gap 2 (6-14) Blood Urea Nitrogen 23 mg/dL (8-26) Creatinine 2.1 mg/dL (0.7-1.3) Estimated GFR (Cockcroft-Gault) 30.9 Glucose Level 106 mg/dL (70-99) Calcium Level 8.4 mg/dL (8.5-10.1) Test 08/04/18 07:50 Glucose (Fingerstick) 117 mg/dL (70-99) Laboratory Tests Test 08/03/18 09:59 08/03/18 16:46 08/04/18 05:15 08/04/18 07:50 Glucose (Fingerstick) 123 mg/dL (70-99) 159 mg/dL (70-99) 117 mg/dL (70-99) Sodium Level 146 mmol/L (136-145) Potassium Level 3.9 mmol/L (3.5-5.1) Chloride Level 103 mmol/L (98-107) Carbon Dioxide Level 41 mmol/L (21-32) Anion Gap 2 (6-14) Blood Urea Nitrogen 23 mg/dL (8-26) Creatinine 2.1 mg/dL (0.7-1.3) Estimated GFR (Cockcroft-Gault) 30.9 Glucose Level 106 mg/dL (70-99) Calcium Level 8.4 mg/dL (8.5-10.1) Medications Active Scripts Medications Dose Route/Sig Max Daily Dose Days Date Category Guaifenesin 200 Mg Tablet 200 Mg PO PRN TID PRN 07/28/18 Reported Budesonide 0.25 Mg/2 Ml Ampul.neb 1 Vial NEB BID 01/29/18 Reported Albuterol Sulfate Conc Neb Soln (Albuterol Sulfate) 2.5 Mg/0.5 Ml Vial.neb 1 Vial NEB Q6HRS PRN 01/29/18 Reported Trazodone Hcl 50 Mg Tablet 1 Tab PO QHS 01/24/18 Reported Culturelle (Lactobacillus Rhamnosus Gg) 1 Each Cap.sprink 1 Each PO 01/24/18 Reported Atorvastatin Calcium 80 Mg Tablet 1 Tab PO DAILY 01/24/18 Reported Buspirone Hcl 10 Mg Tablet 1 Tab PO BID 01/24/18 Reported Glipizide 5 Mg Tablet 1 Tab PO BID 01/24/18 Reported Eliquis (Apixaban) 2.5 Mg Tablet 2.5 Mg PO BID 01/24/18 Reported Protonix (Pantoprazole Sodium) 20 Mg Tablet.dr 1 Tab PO DAILY 01/24/18 Reported Duloxetine Hcl 60 Mg Capsule.dr 60 Mg PO DAILY 01/24/18 Reported Furosemide 20 Mg Tablet 60 Tab PO DAILY 01/24/18 Reported Calcitriol 0.25 Mcg Capsule 1 Cap PO 3X/WEEK 01/24/18 Reported Mucinex (Guaifenesin) 600 Mg Tablet.er 200 Tab PO TID 01/24/18 Reported Potassium Chloride 20 Meq Tablet.er 20 Meq PO DAILY 01/24/18 Reported Levothyroxine Sodium 50 Mcg Tablet 1 Tab PO DAILY 01/24/18 Reported Tylenol (Acetaminophen) 325 Mg Tablet 500 Mg PO TID 01/24/18 Reported Vitamin D3 (Cholecalciferol (Vitamin D3)) 1,000 Unit Tablet 2 Tab PO DAILY 01/24/18 Reported Folic Acid 1 Mg Tablet 1 Tab PO DAILY 01/24/18 Reported Active Scripts Medications Dose Route/Sig Max Daily Dose Days Date Category Guaifenesin 200 Mg Tablet 200 Mg PO PRN TID PRN 07/28/18 Reported Budesonide 0.25 Mg/2 Ml Ampul.neb 1 Vial NEB BID 01/29/18 Reported Albuterol Sulfate Conc Neb Soln (Albuterol Sulfate) 2.5 Mg/0.5 Ml Vial.neb 1 Vial NEB Q6HRS PRN 01/29/18 Reported Trazodone Hcl 50 Mg Tablet 1 Tab PO QHS 01/24/18 Reported Culturelle (Lactobacillus Rhamnosus Gg) 1 Each Cap.sprink 1 Each PO 01/24/18 Reported Atorvastatin Calcium 80 Mg Tablet 1 Tab PO DAILY 01/24/18 Reported Buspirone Hcl 10 Mg Tablet 1 Tab PO BID 01/24/18 Reported Glipizide 5 Mg Tablet 1 Tab PO BID 01/24/18 Reported Eliquis (Apixaban) 2.5 Mg Tablet 2.5 Mg PO BID 01/24/18 Reported Protonix (Pantoprazole Sodium) 20 Mg Tablet. 1 Tab PO DAILY 01/24/18 Reported Duloxetine Hcl 60 Mg Capsule. 60 Mg PO DAILY 01/24/18 Reported Furosemide 20 Mg Tablet 60 Tab PO DAILY 01/24/18 Reported Calcitriol 0.25 Mcg Capsule 1 Cap PO 3X/WEEK 01/24/18 Reported Mucinex (Guaifenesin) 600 Mg Tablet.er 200 Tab PO TID 01/24/18 Reported Potassium Chloride 20 Meq Tablet.er 20 Meq PO DAILY 01/24/18 Reported Levothyroxine Sodium 50 Mcg Tablet 1 Tab PO DAILY 01/24/18 Reported Tylenol (Acetaminophen) 325 Mg Tablet 500 Mg PO TID 01/24/18 Reported Vitamin D3 (Cholecalciferol (Vitamin D3)) 1,000 Unit Tablet 2 Tab PO DAILY 01/24/18 Reported Folic Acid 1 Mg Tablet 1 Tab PO DAILY 01/24/18 Reported Impression . 1. Acute hypoxemic hypercapnic respiratory failure, multifactorial. 2. Acute on chronic heart failure. 3. Abnormal x-ray with persistent right lower lobe effusion greater than left. 4. Cardiomyopathy, ejection fraction 20-25%. 5. Atrial fibrillation with rapid ventricular response. 6. Type 2 diabetes. 7. Hypertension. 8. Obesity. 9. Chronic obstructive pulmonary disease, unknown FEV1. 10. Possible obstructive sleep apnea. 11. TRANSUDATE EFFUSION REPEAT THORACENTESIS ON 08/04 600 CC REMOVED Procedure Result ANAEROBIC-AEROBIC CULTURE Final Final report ANAEROBIC RES 1 Final Comment No anaerobic growth in 72 hours. AEROBIC CULT Final Final report AEROBIC RES 1 Final Comment No growth in 56 - 72 hours. GRAM STAIN Final Final report GRAM STAIN RES 1 Final Comment No white blood cells seen. GRAM STAIN RES 2 Final No organisms seen Impression: No deep venous thrombus involving the right upper extremity. Plan . REPEAT THORACENTESIS 600 CC RESP STATUS IS COMPENSATED PT OT WILL NEED REHAB BIPAP QHS AND PRN FOLLOW CARD CHELSEY CASTILLO MD Aug 04, 2018 09:30
[2018-08-04] MEDS: CALCITRIOL 0.25 MCG CAPSULE. PO SCH (12:30)
--- NOTE | 2018-08-04 14:15 | PDOC ---
SUBJECTIVE ROS No complaints, eating Lunch OBJECTIVE Vital Signs Vital Signs Date Time Temp Pulse Resp B/P (MAP) Pulse Ox O2 Delivery O2 Flow Rate FiO2 08/04/18 11:28 94 Nasal Cannula 3.0 08/04/18 11:00 97.5 93 20 159/67 (97) 97.5 I & 0 Intake and Output 08/04/18 07:00 Intake Total 500 ml Output Total 1400 ml Balance -900 ml Intake Oral 400 ml IV Total 100 ml Output Urine Total 1400 ml # Voids 1 PHYSICAL EXAM Physical Exam GEN: NAD, Morbidly obese EYES: Vision Unchanged, Conjunctiva Normal EN: No EN Drainage, Mucous Membranes moist NECK: no JVD, no JVP, Supple, no Thyromegaly, short thick neck and unable to visualize JVD CVS: S1S2, no audible Murmur, No Gallop, No Rub,+ Edema, very distal heart sounds RESP: no Rales, no Rhonchi,no Acc. Muscle Use, barely audible breath sounds given morbid obesity GI: BS + ve, NO Bruit, Non Tender, Non Distended, morbidly obese and unable to palpate hepatosplenomegaly : no CVA tenderness, no Suprapubic Tenderness, [place] + DIAGNOSIS/ASSESSMENT Assessment & Plan YARELY -ATN/Cardiorenal Slowly improving Monitor Current fluid and E-lyte status does not necessitate emergent need for dialysis Chronic kidney disease stage 3 - Baseline Cr 1.7-1.8 in 2018 No prior labs Edema in lower extremity: Diuresis as best tolerated by hemodynamics and weight Hypokalemia- resolved Acute on Chronic Systolic and Diastolic CHF - EF OF 20% Pleural Effusion- bilat S/P Rt Thoracentesis on 07/30 Recent CxR Lt > Rt- Pulm following Chronic Metab Alkalosis - presumably chronic compensation for underlying respiratory acidosis Bicarb going up, may need to decrease Lasix COPD COMMENT/RELEVANT DATA Meds Current Medications Medications (Trade) Dose Ordered Sig/Bettina Start Time Stop Time Status Last Admin Dose Admin Acetaminophen (Tylenol) 500 mg TID 08/03/18 09:00 08/04/18 13:51 500 MG Albuterol Sulfate (Ventolin Neb Soln) 2.5 mg PRN Q6HRS PRN 07/28/18 18:00 07/28/18 20:07 2.5 MG Albuterol/ Ipratropium (Duoneb) 3 ml RTQID 07/28/18 20:30 08/04/18 11:28 3 ML Apixaban (Eliquis) 5 mg BID 07/31/18 21:00 08/01/18 16:24 DC 08/01/18 09:04 5 MG Aspirin (Ecotrin) 81 mg [id number] 07/31/18 08:00 08/04/18 08:23 81 MG Atorvastatin Calcium (Lipitor) 40 mg QHS 07/28/18 21:00 08/03/18 20:17 40 MG Bisacodyl (Dulcolax Supp) 10 mg 1X ONCE 08/01/18 10:30 08/01/18 10:31 DC Budesonide (Pulmicort) 0.5 mg RTBID 07/28/18 12:00 08/04/18 07:25 0.5 MG Buspirone HCl (Buspar) 10 mg BID 07/28/18 12:00 08/04/18 08:30 10 MG Calcitriol (Rocaltrol) 0.25 mcg MoWeFr 07/28/18 12:00 08/04/18 12:30 0.25 MCG Dextrose (Dextrose 50%-Water Syringe) 12.5 gm PRN Q15MIN PRN 07/28/18 12:30 Digoxin (Lanoxin) 500 mcg 1X ONCE 07/31/18 22:00 07/31/18 22:01 DC 07/31/18 21:58 500 MCG Duloxetine HCl (Cymbalta) 60 mg DAILY 07/29/18 09:00 UNV Fluticasone Propionate (Flonase) 2 spray DAILY 07/29/18 09:00 08/04/18 08:31 2 SPRAY Folic Acid (Folic Acid) 1 mg DAILY 07/28/18 12:00 08/04/18 08:30 1 MG Furosemide (Lasix) 40 mg BID92 08/01/18 14:00 08/04/18 13:51 40 MG Glipizide (Glucotrol) 2.5 mg BIDBFRMEAL 07/28/18 16:30 08/04/18 08:21 2.5 MG Info (Anti-Coagulation Monitoring By Pharmacy) 1 each PRN DAILY PRN 07/31/18 17:30 08/01/18 10:43 1 EACH Info (Icu Electrolyte Protocol) 1 ea CONT PRN PRN 07/30/18 13:45 08/04/18 11:15 DC Insulin Human Lispro (HumaLOG) 0-5 UNITS TIDWMEALS 07/28/18 17:00 08/03/18 17:19 2 UNITS Lactobacillus Rhamnosus (Culturelle) 1 cap BID 07/28/18 21:00 08/04/18 08:30 1 CAP Levothyroxine Sodium (Synthroid) 50 mcg DAILY06 07/28/18 15:30 08/04/18 05:03 50 MCG Lorazepam (Ativan) 0.5 mg PRN Q4HRS PRN 07/28/18 12:15 08/02/18 16:42 0.5 MG Meropenem 1 gm/ Sodium Chloride 100 ml @ 200 mls/hr Q12HR 07/28/18 12:00 08/04/18 09:16 200 MLS/HR Metoprolol Succinate (Toprol Xl) 100 mg DAILY 08/04/18 09:00 08/04/18 08:30 100 MG Metoprolol Tartrate (Lopressor) 25 mg 1X ONCE 07/30/18 10:00 07/30/18 10:01 DC 07/30/18 10:52 25 MG Milrinone Lactate/ Dextrose 100 ml @ 4.238 mls/ hr CONT PRN 07/28/18 11:00 08/01/18 16:24 DC 07/31/18 19:46 4.238 MLS/HR Non-Formulary Medication (Albuterol Sulfate (Albuterol Sulfate Conc Neb Soln)) 1 vial Q6HRS PRN 07/28/18 12:00 UNV Non-Formulary Medication (Budesonide ) 1 vial BID 07/28/18 21:00 UNV Nystatin (Nystop) 1 ute BID 07/28/18 13:00 08/04/18 08:31 1 UTE Pantoprazole Sodium (Protonix) 40 mg DAILYAC 07/28/18 16:30 08/04/18 08:21 40 MG Potassium Chloride (Klor-Con) 20 meq 1X ONCE 07/30/18 07:45 07/30/18 07:46 DC 07/30/18 08:58 20 MEQ Senna/Docusate Sodium (Senna Plus) 2 tab PRN BID PRN 07/28/18 12:15 08/02/18 14:12 2 TAB Trazodone HCl (Desyrel) 50 mg QHS 07/28/18 21:00 08/03/18 20:17 50 MG Vancomycin HCl (Vanco Per Pharmacy) 1 each PRN DAILY PRN 07/28/18 12:15 07/29/18 14:12 DC 07/28/18 17:03 1 EACH Vancomycin HCl (Vancomycin Trough Level) 1 each 1X ONCE 07/30/18 16:30 07/30/18 16:30 DC Vancomycin HCl 1.75 gm/Sodium Chloride 500 ml @ 250 mls/hr Q24H 07/28/18 17:00 07/29/18 14:12 DC 07/28/18 17:00 250 MLS/HR Vancomycin HCl 2 gm/Sodium Chloride 500 ml @ 250 mls/hr ONCE ONCE 07/28/18 13:00 07/28/18 14:59 Cancel Vitamin D (Vitamin D3) 2,000 unit DAILY 07/28/18 12:00 08/04/18 08:30 2,000 UNIT Lab Laboratory Tests Test 08/03/18 16:46 08/04/18 05:15 08/04/18 07:50 08/04/18 11:51 Glucose (Fingerstick) 159 mg/dL (70-99) 117 mg/dL (70-99) 124 mg/dL (70-99) Sodium Level 146 mmol/L (136-145) Potassium Level 3.9 mmol/L (3.5-5.1) Chloride Level 103 mmol/L (98-107) Carbon Dioxide Level 41 mmol/L (21-32) Anion Gap 2 (6-14) Blood Urea Nitrogen 23 mg/dL (8-26) Creatinine 2.1 mg/dL (0.7-1.3) Estimated GFR (Cockcroft-Gault) 30.9 Glucose Level 106 mg/dL (70-99) Calcium Level 8.4 mg/dL (8.5-10.1) Results All relevant outside records, renal labs, imaging studies, telemetry/EKG's were reviewed. Other CxR-- 1. There is now a right upper extremity PICC with the tip near the cavoatrial junction. 2. There are again left greater than right pleural effusions, somewhat increased right base airspace opacity which may be due to edema although infiltrates not excluded. Constellation of findings could be due to left ventricular failure given the enlarged cardiac silhouette. SHERRIE PEREIRA MD Aug 04, 2018 14:15
--- NOTE | 2018-08-04 15:00 | NUR ---
Pt arrived to unit s/p thoracentesis. Bandaid to right mid back clean, dry, and intact. No complaints of pain or shortness of breath. Will continue to monitor.
--- NOTE | 2018-08-04 15:21 | NUR ---
Wound care: Patient seen per wound care consult. See wound assessment. Patient has skin tear to left elbow. Wound cleansed and assessed. Recommendations for Xeroform gauze, ABD pad, and kerlix. Dressing applied and patient tolerated well. A stockinette placed over dressing to help hold in place. No other wounds noted upon complete head to toe assessment. Patient repositioned in bed. Dressing change instructions left in room. Call light in reach bed lowered. Will follow patient regarding wound care.
--- NOTE | 2018-08-04 15:21 | RAD ---
Ultrasound-guided right-sided thoracentesis 08/04/2018 3:17 PM Indication: LARGE LT PLEURAL EFFUSION Procedure: Informed consent was obtained. A timeout procedure was performed. Sonographic evaluation of the left chest was performed demonstrating moderate pleural effusion. The left upper posterior chest was prepped and draped in sterile fashion. 1% lidocaine without epinephrine was administered for local anesthesia. Real-time ultrasonographic guidance was used in passing a 5 [place] Yueh catheter into the left pleural space. 650 cc of serosanguineous pleural fluid was removed. Samples of fluid were sent to the lab for further evaluation per ordering physician request. The catheter was removed and pressure held to achieve hemostasis. A sterile dressing was applied. No immediate complications were identified. The patient tolerated the procedure well. Impression: Left sided ultrasound-guided thoracentesis
[2018-08-04] MEDS ORDERED: ANTI-COAG MONITOR BY PHARMACY. MC PRN (19:00)
[2018-08-04] MEDS: ATORVASTATIN CALCIUM 40 MG TABLET. PO SCH (20:39)
[2018-08-04] MEDS: traZODone 50 MG TABLET. PO SCH (20:39)
--- NOTE | 2018-08-04 21:19 | PDOC ---
PROGRESS NOTES Subjective Subjective s/p left thoracentesis earlier today and feeling better Objective Objective Vital Signs Date Time Temp Pulse Resp B/P (MAP) Pulse Ox O2 Delivery O2 Flow Rate FiO2 08/04/18 20:00 Nasal Cannula 3.0 08/04/18 19:17 96 08/04/18 19:10 97.7 98 22 116/68 (84) 97.7 Intake and Output 08/04/18 07:00 Intake Total 500 ml Output Total 1400 ml Balance -900 ml Intake Oral 400 ml IV Total 100 ml Output Urine Total 1400 ml # Voids 1 Physical Exam Abdomen: Normal bowel sounds, Soft, No hepatosplenomegaly Heart: Regular rate, Other (OCC TACY WITH AFIB RVR) Extremities: No clubbing, No cyanosis, Other (2+ EDEMA) General: moderate distress HEENT: Other (BIPAP IN PLACE) Lungs: Other (BASILAR RALES) MUSCULOSKELETAL: No joint tenderness, Other (EDEMA) Neuro: Other (UNABLE TO ASSESS) Psych/Mental Status: Other (ANXIOUS, UNABLE TO ASSESS) Skin: No rashes Assessment Assessment 1. Acute on chronic respiratory failure; multifactorial with pleural effusion, a/c systolic CHF, PNA, and AECOPD. Symptoms improved with bilateral thoracentesis. Pulmonary team following. 2. Acute on chronic systolic CHF; ischemic cardiomyopathy with LVEF 20% improved with diuretics. Continue current medical regimen 3. AFIB; heart rate better controlled. Resume eliquis tomorrow since he had thoracentesis today 4. CAD with prior VA: Clinically stable and chest pain-free 5. YARELY on CKD; nephrology following 6. DM2/HLP; treated per IM Comment Review of Relevant I have reviewed the following items arturo (where applicable) has been applied. Labs Laboratory Tests Test 08/04/18 05:15 08/04/18 07:50 08/04/18 11:51 08/04/18 16:32 Sodium Level 146 mmol/L (136-145) Potassium Level 3.9 mmol/L (3.5-5.1) Chloride Level 103 mmol/L (98-107) Carbon Dioxide Level 41 mmol/L (21-32) Anion Gap 2 (6-14) Blood Urea Nitrogen 23 mg/dL (8-26) Creatinine 2.1 mg/dL (0.7-1.3) Estimated GFR (Cockcroft-Gault) 30.9 Glucose Level 106 mg/dL (70-99) Calcium Level 8.4 mg/dL (8.5-10.1) Glucose (Fingerstick) 117 mg/dL (70-99) 124 mg/dL (70-99) 166 mg/dL (70-99) Test 08/04/18 20:39 Glucose (Fingerstick) 153 mg/dL (70-99) Microbiology 07/30/18 Anaerobic/Aerobic Culture - Final, Complete 07/30/18 Anaerobic Culture Result 1 (GARCIA) - Final, Complete 07/30/18 Aerobic Culture - Final, Complete 07/30/18 Aerobic Culture Result 1 (GARCIA) - Final, Complete 07/30/18 Gram Stain - Final, Complete 07/30/18 Gram Stain Result 1 (GARCIA) - Final, Complete 07/30/18 Gram Stain Result 2 (GARCIA) - Final, Complete Medications Current Medications Apixaban (Eliquis) 2.5 mg BID PO ; Start 08/05/18 at 09:00 Info (Anti-Coagulation Monitoring By Pharmacy) 1 each PRN DAILY PRN MC SEE COMMENTS; Start 08/04/18 at 19:00 Metoprolol Succinate (Toprol Xl) 100 mg DAILY PO Last administered on 08/04/18at 08:30; Start 08/04/18 at 09:00 Vitals/I & O Vital Sign - Last 24 Hours 08/03/18 08/04/18 08/04/18 08/04/18 23:10 03:00 07:00 07:27 Temp 97.8 97.7 98.3 97.8 97.7 98.3 Pulse 92 96 104 Resp 22 20 18 B/P (MAP) 109/58 (75) 125/69 (87) 124/59 (80) Pulse Ox 95 96 99 96 O2 Delivery Nasal Cannula Nasal Cannula Nasal Cannula Nasal Cannula O2 Flow Rate 4.0 4.0 4.0 3.0 08/04/18 08/04/18 08/04/18 08/04/18 08:00 08:00 08:30 11:00 Temp 97.5 97.5 Pulse 104 93 Resp 20 B/P (MAP) 124/59 159/67 (97) Pulse Ox 96 O2 Delivery Nasal Cannula Nasal Cannula O2 Flow Rate 3.0 3.0 4.0 08/04/18 08/04/18 08/04/1829/19 11:28 14:45 14:54 15:00 Temp 97.8 97.8 Pulse 102 105 98 Resp 19 18 20 B/P (MAP) 149/74 (99) 124/65 (84) 118/59 (78) Pulse Ox 94 99 98 99 O2 Delivery Nasal Cannula Nasal Cannula Nasal Cannula Nasal Cannula O2 Flow Rate 3.0 3.0 3.0 4.0 08/04/18 08/04/18 08/04/18 08/04/18 15:25 15:33 15:48 16:03 Pulse 106 96 98 100 B/P (MAP) 119/69 (86) 115/62 (79) 131/63 (85) 114/58 (76) Pulse Ox 99 98 O2 Delivery Nasal Cannula Nasal Cannula O2 Flow Rate 4.0 4.0 08/04/18 08/04/18 08/04/18 08/04/18 16:16 16:18 16:33 16:48 Pulse 96 96 98 B/P (MAP) 119/67 (84) 112/60 (77) 116/62 (80) Pulse Ox 97 O2 Delivery Nasal Cannula O2 Flow Rate 3.0 08/04/18 08/04/18 08/04/18 08/04/18 17:03 17:18 17:33 17:48 Pulse 96 100 96 102 B/P (MAP) 129/65 (86) 110/61 (77) 110/56 (74) 112/61 (78) 08/04/18 08/04/18 08/04/18 08/04/18 18:03 18:18 19:10 19:17 Temp 97.7 97.7 Pulse 102 98 98 Resp 22 B/P (MAP) 118/54 (75) 112/58 (76) 116/68 (84) Pulse Ox 96 96 O2 Delivery Nasal Cannula Nasal Cannula O2 Flow Rate 3.0 3.0 08/04/18 20:00 O2 Delivery Nasal Cannula O2 Flow Rate 3.0 Intake and Output 08/03/18 08/03/18 08/04/18 15:00 23:00 07:00 Intake Total 100 ml 400 ml Output Total 950 ml 450 ml Balance -850 ml -50 ml LAKEISHA LOMELI MD Aug 04, 2018 21:19
--- NOTE | 2018-08-04 22:21 | PN ---
DATE: 08/04/2018 SUBJECTIVE: The patient is resting comfortably in his recliner, in no apparent respiratory distress. On questioning him, he denied any complaints, did have a generally uneventful night. OBJECTIVE: GENERAL: When I examined him, he looked pale. No jaundice, cyanosis, or thyromegaly. No jugular venous distention. No limb edema. VITAL SIGNS: His heart rate was 104, blood pressure was 124/59, temperature was 98.3, respiratory rate was 18 and oxygen saturation was 96% on 3 liters of oxygen. HEAD, EYES, EARS, NOSE AND THROAT: Showed normocephalic, atraumatic. NECK: Supple. CARDIAC: Normal first and second heart sounds with no gallop, rub or murmur. CHEST: Showed central trachea, equally reduced expansion, reduced air entry. Dull percussion noted and absent breath sounds in the left side posteriorly, very few scattered rhonchi, could not appreciate any crepitation. ABDOMEN: Markedly distended, soft, nontender. NEUROLOGIC: He is awake, alert, responding appropriately. All cranial nerves intact. He moves extremities without difficulty. He ambulates with a walker. His intake over the last 24 hours was incompletely recorded, output was 1250. LABORATORY DATA: As of this morning, his serum sodium was 146, potassium 3.9, chloride 103, bicarbonate 41, anion gap of 2, BUN 23, creatinine 2.1, estimated GFR was 30 mL per minute. His glucose was 106, calcium was 8.4. ASSESSMENT AND PLAN: 1. Acute on chronic hypoxic respiratory failure, multifactorial, improving. 2. Acute on chronic systolic congestive heart failure, much better compensated. 3. Ischemic cardiomyopathy, ejection fraction 20% on his most recent echocardiogram. 4. Atrial fibrillation, rate much better controlled. His apixaban was on hold for thoracentesis. 5. Coronary artery disease with history of myocardial infarction. 6. Acute kidney injury on chronic kidney disease. His creatinine is slightly down today at 2.1 mg/dL. 7. Hypertension, well controlled. 8. 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 9. Type 2 diabetes mellitus, seems to be reasonably controlled. 10. Hyperlipidemia. 11. Morbid obesity, obstructive sleep apnea. 12. Chronic back pain due to multiple lumbar vertebral compression fractures. 13. Large left-sided pleural effusion for which an order was put in for left-sided thoracentesis. Once that is done and the patient remains stable, we might be able to discharge him back to [place]. KAR PERSAUD MD DR: KEENAN/lindsay JOB#: [id number] / [id number]
--- NOTE | 2018-08-05 01:39 | PN ---
DATE: 08/03/2018 SUBJECTIVE: The patient is resting comfortably in his recliner, in no apparent distress. On questioning him, he denied any complaint. The nursing staff did not voice any concern and stated that he had an uneventful night. His heart rate is much better controlled. PHYSICAL EXAMINATION: GENERAL: When I examined him, he looked well and was clearly in no apparent respiratory distress. No pallor, jaundice or cyanosis from thyromegaly. No jugular venous distention. No lower limb edema. VITAL SIGNS: His heart rate was 100, blood pressure 116/61, temperature was 98, respiratory rate was 20 and oxygen saturation was 90%. HEENT: Examination of the head, eyes, ears, nose and throat showed normocephalic, atraumatic. NECK: Supple. HEART: Showed normal first and second heart sounds. No gallop, rub or murmur. CHEST: Showed central trachea, equally reduced expansion, reduced air entry. Dull percussion noted more on the left side posteriorly. I could not really appreciate any crepitation or rhonchi. ABDOMEN: Distended, soft and nontender. NEUROLOGIC: He was awake, alert, responding appropriately. All cranial nerves intact. He moved extremities without difficulty, although he was mostly bedbound, chair bound. His intake was 850, output was 1250. LABORATORY DATA: As of this morning, his serum sodium was 145, potassium 3.8, chloride 101, bicarbonate 42, anion gap of 2, BUN 26, creatinine 2.2, estimated GFR was 29 mL per minute, his glucose was 106, calcium was 8.6 and magnesium was 2.1. His white cell count was 3100, hemoglobin 11.7, hematocrit 6.7, MCV 96 and platelet count of 80,000. ASSESSMENT: 1. [id number] hypoxic respiratory failure, multifactorial, improving. 2. Roqfm-pr-kiwceqn systolic congestive heart failure, much better compensated. 3. Ischemic cardiomyopathy with ejection fraction 20% on his most recent echocardiogram. 4. Atrial fibrillation, rate much better controlled. His apixaban was put on hold for thoracentesis. 5. Coronary artery disease with history of myocardial infarction. 6. Acute kidney injury on chronic kidney disease. His creatinine is stable around 2.2. 7. Hypertension, well controlled. 8. Recurrent episode of deep vein thrombosis and pulmonary embolism, for which he was on apixaban. 9. Type 2 diabetes mellitus, seems to be reasonably controlled. 10. Hyperlipidemia. 11. Morbid obesity and obstructive sleep apnea. 12. Chronic back pain due to multiple lumbar vertebral compression fractures. PLAN: Plan is to continue with IV Lasix. Continue BiPAP at nighttime and oxygen supplementation at daytime. Continue with fluid restriction. Continue to monitor his blood sugar and adjust insulin as needed. KAR PERSAUD MD DR: KEENAN/lindsay JOB#: [id number] / [id number]
--- NOTE | 2018-08-05 01:47 | RAD ---
Indication:INPATIENT. POST THORACENTESIS. PRIOR XRAY. TECHNIQUE:Portable AP chest X-ray COMPARISON:08/02/2018 FINDINGS: Stable position of right-sided PICC line. Heart is moderately enlarged in size. Blunting of the right CP angle. Bibasilar patchy opacities. Bilateral opacities. No pneumothorax. Visualized bony thorax within normal limits. IMPRESSION: Small right pleural effusion. Bibasilar patchy opacities may be secondary to atelectasis or pneumonia. Electronically signed by: Zeyad Godoy DO (08/05/2018 1:44 AM) [facility]
[2018-08-05] MEDS: LORazepam 0.5 MG TABLET PO PRN (02:13)
[2018-08-05 03:50] VITALS: BP 128/62
[2018-08-05] MEDS: LEVOTHYROXINE 50 MCG TABLET PO SCH (05:30)
[2018-08-05 07:00] VITALS: BP 130/59
[2018-08-05] MEDS: IPRATRPIUM/ALBUTEROL 0.5/2.5MG 3 ML NEBU. NEB SCH ×4 (07:40→19:50)
[2018-08-05] MEDS: INSULIN LISPRO 300 UNITS/3 ML INSULN.PEN. SQ SCH ×3 (08:00→17:00)
[2018-08-05] MEDS ORDERED: APIXABAN 2.5 MG TABLET. PO SCH (09:00)
--- NOTE | 2018-08-05 09:23 | PDOC ---
PULMONARY PROGRESS NOTES Subjective SOA WITH EXERTION OFF BIPAP DURING THE DAY Vitals Vital Signs Date Time Temp Pulse Resp B/P (MAP) Pulse Ox O2 Delivery O2 Flow Rate FiO2 08/05/18 07:44 94 Nasal Cannula 3.0 08/05/18 07:00 98.1 98 22 130/59 (82) 98.1 ROS: No Nausea, No Chest Pain, No Abdominal Pain, No Increase Cough General: Alert Cardiovascular: Other (Diminished) Abdomen: Soft, Non-tender Neuro Exam: Alert Extremities: Other (edema BLE +2) Skin: Warm, Dry Labs Laboratory Tests Test 08/03/18 09:59 08/03/18 16:46 08/04/18 05:15 08/04/18 07:50 Glucose (Fingerstick) 123 mg/dL (70-99) 159 mg/dL (70-99) 117 mg/dL (70-99) Sodium Level 146 mmol/L (136-145) Potassium Level 3.9 mmol/L (3.5-5.1) Chloride Level 103 mmol/L (98-107) Carbon Dioxide Level 41 mmol/L (21-32) Anion Gap 2 (6-14) Blood Urea Nitrogen 23 mg/dL (8-26) Creatinine 2.1 mg/dL (0.7-1.3) Estimated GFR (Cockcroft-Gault) 30.9 Glucose Level 106 mg/dL (70-99) Calcium Level 8.4 mg/dL (8.5-10.1) Test 08/04/18 11:51 08/04/18 16:32 08/04/18 20:39 08/05/18 07:34 Glucose (Fingerstick) 124 mg/dL (70-99) 166 mg/dL (70-99) 153 mg/dL (70-99) 111 mg/dL (70-99) Laboratory Tests Test 08/04/18 11:51 08/04/18 16:32 08/04/18 20:39 08/05/18 07:34 Glucose (Fingerstick) 124 mg/dL (70-99) 166 mg/dL (70-99) 153 mg/dL (70-99) 111 mg/dL (70-99) Medications Active Scripts Medications Dose Route/Sig Max Daily Dose Days Date Category Guaifenesin 200 Mg Tablet 200 Mg PO PRN TID PRN 07/28/18 Reported Budesonide 0.25 Mg/2 Ml Ampul.neb 1 Vial NEB BID 01/29/18 Reported Albuterol Sulfate Conc Neb Soln (Albuterol Sulfate) 2.5 Mg/0.5 Ml Vial.neb 1 Vial NEB Q6HRS PRN 01/29/18 Reported Trazodone Hcl 50 Mg Tablet 1 Tab PO QHS 01/24/18 Reported Culturelle (Lactobacillus Rhamnosus Gg) 1 Each Cap.sprink 1 Each PO 01/24/18 Reported Atorvastatin Calcium 80 Mg Tablet 1 Tab PO DAILY 01/24/18 Reported Buspirone Hcl 10 Mg Tablet 1 Tab PO BID 01/24/18 Reported Glipizide 5 Mg Tablet 1 Tab PO BID 01/24/18 Reported Eliquis (Apixaban) 2.5 Mg Tablet 2.5 Mg PO BID 01/24/18 Reported Protonix (Pantoprazole Sodium) 20 Mg Tablet.dr 1 Tab PO DAILY 01/24/18 Reported Duloxetine Hcl 60 Mg Capsule.dr 60 Mg PO DAILY 01/24/18 Reported Furosemide 20 Mg Tablet 60 Tab PO DAILY 01/24/18 Reported Calcitriol 0.25 Mcg Capsule 1 Cap PO 3X/WEEK 01/24/18 Reported Mucinex (Guaifenesin) 600 Mg Tablet.er 200 Tab PO TID 01/24/18 Reported Potassium Chloride 20 Meq Tablet.er 20 Meq PO DAILY 01/24/18 Reported Levothyroxine Sodium 50 Mcg Tablet 1 Tab PO DAILY 01/24/18 Reported Tylenol (Acetaminophen) 325 Mg Tablet 500 Mg PO TID 01/24/18 Reported Vitamin D3 (Cholecalciferol (Vitamin D3)) 1,000 Unit Tablet 2 Tab PO DAILY 01/24/18 Reported Folic Acid 1 Mg Tablet 1 Tab PO DAILY 01/24/18 Reported Active Scripts Medications Dose Route/Sig Max Daily Dose Days Date Category Guaifenesin 200 Mg Tablet 200 Mg PO PRN TID PRN 07/28/18 Reported Budesonide 0.25 Mg/2 Ml Ampul.neb 1 Vial NEB BID 01/29/18 Reported Albuterol Sulfate Conc Neb Soln (Albuterol Sulfate) 2.5 Mg/0.5 Ml Vial.neb 1 Vial NEB Q6HRS PRN 01/29/18 Reported Trazodone Hcl 50 Mg Tablet 1 Tab PO QHS 01/24/18 Reported Culturelle (Lactobacillus Rhamnosus Gg) 1 Each Cap.sprink 1 Each PO 01/24/18 Reported Atorvastatin Calcium 80 Mg Tablet 1 Tab PO DAILY 01/24/18 Reported Buspirone Hcl 10 Mg Tablet 1 Tab PO BID 01/24/18 Reported Glipizide 5 Mg Tablet 1 Tab PO BID 01/24/18 Reported Eliquis (Apixaban) 2.5 Mg Tablet 2.5 Mg PO BID 01/24/18 Reported Protonix (Pantoprazole Sodium) 20 Mg Tablet.dr 1 Tab PO DAILY 01/24/18 Reported Duloxetine Hcl 60 Mg Capsule.dr 60 Mg PO DAILY 01/24/18 Reported Furosemide 20 Mg Tablet 60 Tab PO DAILY 01/24/18 Reported Calcitriol 0.25 Mcg Capsule 1 Cap PO 3X/WEEK 01/24/18 Reported Mucinex (Guaifenesin) 600 Mg Tablet.er 200 Tab PO TID 01/24/18 Reported Potassium Chloride 20 Meq Tablet.er 20 Meq PO DAILY 01/24/18 Reported Levothyroxine Sodium 50 Mcg Tablet 1 Tab PO DAILY 01/24/18 Reported Tylenol (Acetaminophen) 325 Mg Tablet 500 Mg PO TID 01/24/18 Reported Vitamin D3 (Cholecalciferol (Vitamin D3)) 1,000 Unit Tablet 2 Tab PO DAILY 01/24/18 Reported Folic Acid 1 Mg Tablet 1 Tab PO DAILY 01/24/18 Reported Impression . 1. Acute hypoxemic hypercapnic respiratory failure, multifactorial. 2. Acute on chronic heart failure. 3. Abnormal x-ray with persistent right lower lobe effusion greater than left. 4. Cardiomyopathy, ejection fraction 20-25%. 5. Atrial fibrillation with rapid ventricular response. 6. Type 2 diabetes. 7. Hypertension. 8. Obesity. 9. Chronic obstructive pulmonary disease, unknown FEV1. 10. Possible obstructive sleep apnea. 11. TRANSUDATE EFFUSION REPEAT THORACENTESIS ON 08/04 600 CC REMOVED Procedure Result ANAEROBIC-AEROBIC CULTURE Final Final report ANAEROBIC RES 1 Final Comment No anaerobic growth in 72 hours. AEROBIC CULT Final Final report AEROBIC RES 1 Final Comment No growth in 56 - 72 hours. GRAM STAIN Final Final report GRAM STAIN RES 1 Final Comment No white blood cells seen. GRAM STAIN RES 2 Final No organisms seen Impression: No deep venous thrombus involving the right upper extremity. Plan . SS WORKING ON PLACEMENT BIPAP QHS REPEAT THORACENTESIS 600 CC RESP STATUS IS COMPENSATED PT OT WILL NEED REHAB BIPAP QHS AND PRN FOLLOW CARD CHELSEY CASTILLO MD Aug 05, 2018 09:23
--- NOTE | 2018-08-05 10:14 | PDOC ---
SUBJECTIVE ROS Sitting in chair, states feeling better, s/p Lt Thoracentesis on 08/04 OBJECTIVE Vital Signs Vital Signs Date Time Temp Pulse Resp B/P (MAP) Pulse Ox O2 Delivery O2 Flow Rate FiO2 08/05/18 07:44 94 Nasal Cannula 3.0 08/05/18 07:00 98.1 98 22 130/59 (82) 98.1 I & 0 Intake and Output 08/05/18 06:59 Intake Total 1213.26 ml Output Total 1925 ml Balance -711.74 ml Intake Oral 860 ml IV Total 353.26 ml Output Urine Total 1275 ml Drainage Total 650 ml PHYSICAL EXAM Physical Exam GEN: NAD, Morbidly obese EYES: Vision Unchanged, Conjunctiva Normal EN: No EN Drainage, Mucous Membranes moist NECK: no JVD, no JVP, Supple, no Thyromegaly, short thick neck and unable to visualize JVD CVS: S1S2, no audible Murmur, No Gallop, No Rub,+ Edema, very distal heart sounds RESP: no Rales, no Rhonchi,no Acc. Muscle Use, barely audible breath sounds given morbid obesity GI: BS + ve, NO Bruit, Non Tender, Non Distended, morbidly obese and unable to palpate hepatosplenomegaly : no CVA tenderness, no Suprapubic Tenderness, Sutherland + DIAGNOSIS/ASSESSMENT Assessment & Plan YARELY -ATN/Cardiorenal Slowly improving Monitor Chronic kidney disease stage 3 - Baseline Cr 1.7-1.8 in 2018 No prior labs Follow up with Nephrology([facility] or with us after dc ) Edema in lower extremity: Diuresis as best tolerated by hemodynamics and weight Hypokalemia- resolved Acute on Chronic Systolic and Diastolic CHF - EF OF 20% Pleural Effusion- bilat S/P Rt Thoracentesis on 07/30- 1200 ml fluid drained S/P Rt Thoracentesis 08/04 650 ml removed Pulm following Chronic Metab Alkalosis - presumably chronic compensation for underlying respiratory acidosis Bicarb going up, may need to decrease Lasix Defer to Pulmonary COPD COMMENT/RELEVANT DATA Meds Current Medications Medications (Trade) Dose Ordered Sig/Bettina Start Time Stop Time Status Last Admin Dose Admin Acetaminophen (Tylenol) 500 mg TID 08/03/18 09:00 08/04/18 20:39 500 MG Albuterol Sulfate (Ventolin Neb Soln) 2.5 mg PRN Q6HRS PRN 07/28/18 18:00 07/28/18 20:07 2.5 MG Albuterol/ Ipratropium (Duoneb) 3 ml RTQID 07/28/18 20:30 08/05/18 07:40 3 ML Apixaban (Eliquis) 2.5 mg BID 08/05/18 09:00 Aspirin (Ecotrin) 81 mg DAILYWBKFT 07/31/18 08:00 08/04/18 08:23 81 MG Atorvastatin Calcium (Lipitor) 40 mg QHS 07/28/18 21:00 08/04/18 20:39 40 MG Bisacodyl (Dulcolax Supp) 10 mg 1X ONCE 08/01/18 10:30 08/01/18 10:31 DC Budesonide (Pulmicort) 0.5 mg RTBID 07/28/18 12:00 08/04/18 19:15 0.5 MG Buspirone HCl (Buspar) 10 mg BID 07/28/18 12:00 08/04/18 20:39 10 MG Calcitriol (Rocaltrol) 0.25 mcg MoWeFr 07/28/18 12:00 08/04/18 12:30 0.25 MCG Dextrose (Dextrose 50%-Water Syringe) 12.5 gm PRN Q15MIN PRN 07/28/18 12:30 Digoxin (Lanoxin) 500 mcg 1X ONCE 07/31/18 22:00 07/31/18 22:01 DC 07/31/18 21:58 500 MCG Duloxetine HCl (Cymbalta) 60 mg DAILY 07/29/18 09:00 UNV Fluticasone Propionate (Flonase) 2 spray DAILY 07/29/18 09:00 08/04/18 08:31 2 SPRAY Folic Acid (Folic Acid) 1 mg DAILY 07/28/18 12:00 08/04/18 08:30 1 MG Furosemide (Lasix) 40 mg BID92 08/01/18 14:00 08/04/18 13:51 40 MG Glipizide (Glucotrol) 2.5 mg BIDBFRMEAL 07/28/18 16:30 08/04/18 17:43 2.5 MG Info (Anti-Coagulation Monitoring By Pharmacy) 1 each PRN DAILY PRN 08/04/18 19:00 Cancel Info (Icu Electrolyte Protocol) 1 ea CONT PRN PRN 07/30/18 13:45 08/04/18 11:15 DC Insulin Human Lispro (HumaLOG) 0-5 UNITS TIDWMEALS 07/28/18 17:00 08/04/18 17:48 2 UNITS Lactobacillus Rhamnosus (Culturelle) 1 cap BID 07/28/18 21:00 08/04/18 20:39 1 CAP Levothyroxine Sodium (Synthroid) 50 mcg DAILY06 07/28/18 15:30 08/05/18 05:30 50 MCG Lorazepam (Ativan) 0.5 mg PRN Q4HRS PRN 07/28/18 12:15 08/05/18 02:13 0.5 MG Meropenem 1 gm/ Sodium Chloride 100 ml @ 200 mls/hr Q12HR 07/28/18 12:00 08/05/18 08:12 DC 08/04/18 20:39 200 MLS/HR Metoprolol Succinate (Toprol Xl) 100 mg DAILY 08/04/18 09:00 08/04/18 08:30 100 MG Metoprolol Tartrate (Lopressor) 25 mg 1X ONCE 07/30/18 10:00 07/30/18 10:01 DC 07/30/18 10:52 25 MG Milrinone Lactate/ Dextrose 100 ml @ 4.238 mls/ hr CONT PRN 07/28/18 11:00 08/01/18 16:24 DC 07/31/18 19:46 4.238 MLS/HR Non-Formulary Medication (Albuterol Sulfate (Albuterol Sulfate Conc Neb Soln)) 1 vial Q6HRS PRN 07/28/18 12:00 UNV Non-Formulary Medication (Budesonide ) 1 vial BID 07/28/18 21:00 UNV Nystatin (Nystop) 1 ute BID 07/28/18 13:00 08/04/18 20:39 1 UTE Pantoprazole Sodium (Protonix) 40 mg DAILYAC 07/28/18 16:30 08/04/18 08:21 40 MG Potassium Chloride (Klor-Con) 20 meq 1X ONCE 07/30/18 07:45 07/30/18 07:46 DC 07/30/18 08:58 20 MEQ Senna/Docusate Sodium (Senna Plus) 2 tab PRN BID PRN 07/28/18 12:15 08/02/18 14:12 2 TAB Trazodone HCl (Desyrel) 50 mg QHS 07/28/18 21:00 08/04/18 20:39 50 MG Vancomycin HCl (Vanco Per Pharmacy) 1 each PRN DAILY PRN 07/28/18 12:15 07/29/18 14:12 DC 07/28/18 17:03 1 EACH Vancomycin HCl (Vancomycin Trough Level) 1 each 1X ONCE 07/30/18 16:30 07/30/18 16:30 DC Vancomycin HCl 1.75 gm/Sodium Chloride 500 ml @ 250 mls/hr Q24H 07/28/18 17:00 07/29/18 14:12 DC 07/28/18 17:00 250 MLS/HR Vancomycin HCl 2 gm/Sodium Chloride 500 ml @ 250 mls/hr ONCE ONCE 07/28/18 13:00 07/28/18 14:59 Cancel Vitamin D (Vitamin D3) 2,000 unit DAILY 07/28/18 12:00 08/04/18 08:30 2,000 UNIT Lab Laboratory Tests Test 08/04/18 11:51 08/04/18 16:32 08/04/18 20:39 08/05/18 07:34 Glucose (Fingerstick) 124 mg/dL (70-99) 166 mg/dL (70-99) 153 mg/dL (70-99) 111 mg/dL (70-99) Results All relevant outside records, renal labs, imaging studies, telemetry/EKG's were reviewed. SHERRIE PEREIRA MD Aug 05, 2018 10:14
[2018-08-05 10:16] LABS: BLOOD UREA NITROGEN 21 mg/dL (8-26); CALCIUM 8.8 mg/dL (8.5-10.1); CARBON DIOXIDE 43 mmol/L (21-32); CHLORIDE 101 mmol/L (98-107); GFR 32.7; GLUCOSE 125 mg/dL (70-99); POTASSIUM 4.2 mmol/L (3.5-5.1); SODIUM 142 mmol/L (136-145)
[2018-08-05] MEDS: CHOLECALCIFEROL (VITAMIN D3) 1,000 UNIT TABLET PO SCH (10:22)
[2018-08-05] MEDS: busPIRone 10 MG TABLET. PO SCH ×2 (10:23→20:23)
[2018-08-05] MEDS: PANTOPRAZOLE 40 MG TABLET.DR. PO SCH (10:23)
[2018-08-05] MEDS: glipiZIDE 5 MG TABLET PO SCH ×2 (10:23→18:43)
[2018-08-05] MEDS: ACETAMINOPHEN 500 MG TABLET PO SCH ×3 (10:24→20:24)
[2018-08-05] MEDS: FOLIC ACID 1 MG TABLET. PO SCH (10:24)
[2018-08-05] MEDS: LACTOBACILLUS RHAMNOSUS GG 1 CAPSULE. PO SCH ×2 (10:24→20:24)
[2018-08-05] MEDS: ASPIRIN ENTERIC COATED 81 MG TABLET.DR. PO SCH (10:25)
[2018-08-05] MEDS: FUROSEMIDE 40 MG TABLET. PO SCH ×2 (10:25→14:28)
[2018-08-05] MEDS: FLUTICASONE 50MCG/NASAL SPRAY 16GM BOTTLE. NS SCH (10:26)
[2018-08-05] MEDS: DULoxetine HCL 30 MG CAPSULE.DR PO SCH (10:26)
[2018-08-05] MEDS: METOPROLOL SUCC 24HR ER 100 MG TAB.ER.24H. PO SCH (10:27)
[2018-08-05] MEDS: NYSTATIN TOPICAL POWDER 15GM BOTTLE. TP SCH ×2 (10:32→20:26)
[2018-08-05 11:00] VITALS: BP 123/64
[2018-08-05 15:00] VITALS: BP 130/63
--- NOTE | 2018-08-05 15:30 | NUR ---
AMBIKA following pt. Spoke with pt and brother in room regarding dc plan. Brother reported pt was at [facility] but is currently on co-pay and they are not able to afford. Pt's brother [facility] the past. AMBIKA phoned and faxed referral to [facility]. Pt acceptance and admission pending. Will continue to follow. NABOR EGAN.
--- NOTE | 2018-08-05 16:26 | PDOC ---
THUY SAVAGE READING INSTRUCTOR 08/05/18 1626: CARDIO Progress Notes Date and Time Date of Service 08/05/2018 Time of Evaluation 1230 Subjective Subjective: No Chest Pain, No Palpitations, Other (SOA better) Vitals Vitals Vital Signs Date Time Temp Pulse Resp B/P (MAP) Pulse Ox O2 Delivery O2 Flow Rate FiO2 08/05/18 15:00 97.7 95 22 130/63 (85) 95 Nasal Cannula 3.0 97.7 Weight Weight [ ] Input and Output Intake and Output Intake and Output 08/05/18 07:00 Intake Total 1213.26 ml Output Total 1925 ml Balance -711.74 ml Intake Oral 860 ml IV Total 353.26 ml Output Urine Total 1275 ml Drainage Total 650 ml Laboratory Labs Laboratory Tests Test 08/04/18 16:32 08/04/18 20:39 08/05/18 07:34 08/05/18 09:15 Glucose (Fingerstick) 166 mg/dL (70-99) 153 mg/dL (70-99) 111 mg/dL (70-99) Sodium Level 142 mmol/L (136-145) Potassium Level 4.2 mmol/L (3.5-5.1) Chloride Level 101 mmol/L (98-107) Carbon Dioxide Level 43 mmol/L (21-32) Anion Gap (6-14) Blood Urea Nitrogen 21 mg/dL (8-26) Creatinine 2.0 mg/dL (0.7-1.3) Estimated GFR (Cockcroft-Gault) 32.7 Glucose Level 125 mg/dL (70-99) Calcium Level 8.8 mg/dL (8.5-10.1) Test 08/05/18 11:37 Glucose (Fingerstick) 165 mg/dL (70-99) Microbiology Micro Microbiology 07/30/18 Anaerobic/Aerobic Culture - Final, Complete 07/30/18 Anaerobic Culture Result 1 (GARCIA) - Final, Complete 07/30/18 Aerobic Culture - Final, Complete 07/30/18 Aerobic Culture Result 1 (GARCIA) - Final, Complete 07/30/18 Gram Stain - Final, Complete 07/30/18 Gram Stain Result 1 (GARCIA) - Final, Complete 07/30/18 Gram Stain Result 2 (GARCIA) - Final, Complete Review of Systems Constitutional: yes: other (CONFUSED) Physical Exam HEENT: Neck Supple W Full Motion Chest: Symmetric LUNGS: Other (diminished with basilar crackles) Heart: irregularly irregular (AFIB) Abdomen: Soft N/T, Other (obese) Extremities: Other (1-2+ bilateral LE pitting edema) Neurology: alert, oriented, follow commands Assessment Assessment 1. Acute on chronic respiratory failure; multifactorial with pleural effusion, systolic CHF, COPD, pleural effusion with post thoracentesis 2. Acute on chronic systolic CHF: compensated 3. ICM; LVEF 20% 4. AFIB; rate controlled 5. CAD with prior [place] 6. YARELY on CKD; stable Cr at 2 7. Hypertension: controlled 8. H/o recurrent DVT/PE 9. DM2/HLP 10. Obesity 11. Hx of falls Recommendations Continue toprol. Lasix therapy. Eliquis 5 mg po bid Continue with secondary prevention. ASA. Will consider for Oupt ischemic workup. Bipap PRN LAKEISHA LOMELI MD 08/06/18 1601: CARDIO Progress Notes Assessment Assessment Patient seen and examined 08/05/18. Agree with CONCRETE MIXER TRUCK DRIVER's assessment and plan. Resume eliquis, continue toprol and plan outpatient ischemic evaluation. THUY SAVAGE READING INSTRUCTOR Aug 05, 2018 16:26 LAKEISHA LOMELI MD August 06, 2018 16:01
[2018-08-05] MEDS: BUDESONIDE 0.5 MG/2 ML NEBU. NEB SCH (19:49)
[2018-08-05 20:15] VITALS: BP 138/71
[2018-08-05] MEDS: traZODone 50 MG TABLET. PO SCH (20:24)
[2018-08-05] MEDS: APIXABAN 5 MG TABLET. PO SCH (20:24)
[2018-08-05] MEDS: ATORVASTATIN CALCIUM 40 MG TABLET. PO SCH (20:24)
[2018-08-05 22:31] VITALS: BP 138/77
--- NOTE | 2018-08-05 23:15 | PN ---
DATE: 08/05/2018 SUBJECTIVE: The patient is resting slightly propped up in bed, in no apparent respiratory distress. On questioning him, he denied any complaint. The nursing staff did not voice any concern that he had an uneventful night. He underwent left-sided thoracentesis. About 650 mL of serosanguineous fluid were removed and post-procedure chest x-ray showed no evidence of complication. The patient wanted to go back home; however, it is doubtful whether he is really able to do a lot things for himself and therefore, I will await evaluation by the physical and occupational therapist to decide whether he can be discharged home with home health and/or to go back to [facility]. Meanwhile, I will discontinue his meropenem and discontinue his Sutherland catheter to see whether he can urinate without difficulty. PHYSICAL EXAMINATION: GENERAL: When I examined him, he looked somewhat pale. No jaundice, cyanosis, or thyromegaly. No jugular venous distension. No lower limb edema. VITAL SIGNS: His heart rate was 101, blood pressure 128/62, temperature was 97.8, respiratory rate was 22 and oxygen saturation was 94% on 3 liters of oxygen. HEAD, EYES, EARS, NOSE AND THROAT: Showed normocephalic, atraumatic. NECK: Supple. HEART: Showed normal first and second sounds. No gallop, rub or murmur. CHEST: Clear to auscultation. No crepitation or rhonchi. ABDOMEN: Distended, soft, nontender. No guarding or rigidity. No organomegaly. All hernial orifices intact. Bowel sounds normal. NEUROLOGIC: He was awake, alert, responding appropriately. All cranial nerves intact. He moves extremities without difficulty, although he is mostly bedbound, chair bound. He does have a walker. His intake over the last 24 hours was 500, output was 1400. LABORATORY DATA: His most recent white cell count was 3100, hemoglobin 12, hematocrit 36, MCV 96, and platelet count of 80,000. His chemistry as of yesterday showed a serum sodium 146, potassium 3.9, chloride 103, bicarbonate 41, anion gap of 2, BUN 23, creatinine 2.1, estimated GFR was 51 mL per minute, his glucose 106, calcium was 8.4. ASSESSMENT: 1. Acute on chronic hypoxic hypercapnic respiratory failure, multifactorial, improving. 2. Gktfw-sy-lwphbml systolic congestive heart failure, much better compensated. 3. Ischemic cardiomyopathy with ejection fraction 20% on his most recent echocardiogram. 4. Atrial fibrillation, rate much better controlled. His apixaban was resumed. 5. Coronary artery disease with history of myocardial infarction. 6. Acute kidney injury on chronic kidney disease. His creatinine is stable around 2.1. 7. Hypertension, well controlled. 8. Recurrent episodes of deep vein thrombosis and pulmonary embolism for which he is on apixaban. 9. Type 2 diabetes mellitus, seems to be reasonably controlled. 10. Hyperlipidemia. 11. Morbid obesity, obstructive sleep apnea. 12. Chronic back pain due to multiple lumbar vertebral compression fracture. PLAN: My plan is to discontinue meropenem, discontinue his Sutherland catheter. Consult the hospice case manager to see whether he can be discharged home with home health and/or to go back to his [facility]. KAR PERSAUD MD DR: KEENAN/lindsay JOB#: [id number] / [id number]
[2018-08-06] VITALS (7 sets, daily range): BP systolic 108–145; BP diastolic 59–83
[2018-08-06] MEDS: LORazepam 0.5 MG TABLET PO PRN (02:14)
[2018-08-06] MEDS: LEVOTHYROXINE 50 MCG TABLET PO SCH (05:59)
[2018-08-06] MEDS: glipiZIDE 5 MG TABLET PO SCH ×2 (07:35→17:16)
[2018-08-06] MEDS: PANTOPRAZOLE 40 MG TABLET.DR. PO SCH (07:35)
[2018-08-06] MEDS: IPRATRPIUM/ALBUTEROL 0.5/2.5MG 3 ML NEBU. NEB SCH ×4 (07:57→19:58)
[2018-08-06] MEDS: BUDESONIDE 0.5 MG/2 ML NEBU. NEB SCH ×2 (07:57→19:58)
[2018-08-06] MEDS: INSULIN LISPRO 300 UNITS/3 ML INSULN.PEN. SQ SCH ×3 (08:00→17:00)
[2018-08-06] MEDS: CHOLECALCIFEROL (VITAMIN D3) 1,000 UNIT TABLET PO SCH (08:50)
[2018-08-06] MEDS: LACTOBACILLUS RHAMNOSUS GG 1 CAPSULE. PO SCH ×2 (08:50→21:09)
[2018-08-06] MEDS: FOLIC ACID 1 MG TABLET. PO SCH (08:50)
[2018-08-06] MEDS: busPIRone 10 MG TABLET. PO SCH ×2 (08:50→21:09)
[2018-08-06] MEDS: FLUTICASONE 50MCG/NASAL SPRAY 16GM BOTTLE. NS SCH (08:51)
[2018-08-06] MEDS: FUROSEMIDE 40 MG TABLET. PO SCH ×2 (08:51→14:54)
[2018-08-06] MEDS: ACETAMINOPHEN 500 MG TABLET PO SCH ×3 (08:51→21:09)
[2018-08-06] MEDS: DULoxetine HCL 30 MG CAPSULE.DR PO SCH (08:51)
[2018-08-06] MEDS: METOPROLOL SUCC 24HR ER 100 MG TAB.ER.24H. PO SCH (08:51)
[2018-08-06] MEDS: APIXABAN 5 MG TABLET. PO SCH ×2 (08:51→21:09)
[2018-08-06] MEDS: ASPIRIN ENTERIC COATED 81 MG TABLET.DR. PO SCH (08:51)
[2018-08-06] MEDS: NYSTATIN TOPICAL POWDER 15GM BOTTLE. TP SCH ×2 (08:52→21:10)
[2018-08-06] MEDS ORDERED: ALTEPLASE 1MG SYRINGE. INT CAT ONE ×2 (10:00)
--- NOTE | 2018-08-06 10:43 | PDOC ---
SUBJECTIVE ROS states feeling better, OBJECTIVE Vital Signs Vital Signs Date Time Temp Pulse Resp B/P (MAP) Pulse Ox O2 Delivery O2 Flow Rate FiO2 08/06/18 08:51 88 136/80 08/06/18 08:00 Nasal Cannula 3.0 08/06/18 07:58 94 08/06/18 07:00 98.1 14 98.1 I & 0 Intake and Output 08/06/18 06:59 Intake Total 300 ml Output Total 475 ml Balance -175 ml Intake Oral 300 ml Output Urine Total 475 ml # Voids 1 PHYSICAL EXAM Physical Exam GEN: NAD, Morbidly obese EYES: Vision Unchanged, Conjunctiva Normal EN: No EN Drainage, Mucous Membranes moist NECK: no JVD, no JVP, Supple, no Thyromegaly, short thick neck and unable to visualize JVD CVS: S1S2, no audible Murmur, No Gallop, No Rub,+ Edema, very distal heart sounds RESP: no Rales, no Rhonchi,no Acc. Muscle Use, barely audible breath sounds given morbid obesity GI: BS + ve, NO Bruit, Non Tender, Non Distended, morbidly obese and unable to palpate hepatosplenomegaly : no CVA tenderness, no Suprapubic Tenderness, Sutherland + DIAGNOSIS/ASSESSMENT Assessment & Plan YARELY -ATN/Cardiorenal Slowly improving No labs today ordered for tomorrow am, Monitor Chronic kidney disease stage 3 - Baseline Cr 1.7-1.8 in 2018 No prior labs [facility] Edema in lower extremity: Diuresis as best tolerated by hemodynamics and weight Hypokalemia- resolved Acute on Chronic Systolic and Diastolic CHF - EF OF 20% Pleural Effusion- bilat S/P Rt Thoracentesis on 07/30- 1200 ml fluid drained S/P Rt Thoracentesis 08/04 650 ml removed Pulm following Chronic Metab Alkalosis - presumably chronic compensation for underlying re spiratory acidosis Bicarb going up, may need to decrease Lasix Defer to Pulmonary COPD COMMENT/RELEVANT DATA Meds Current Medications Medications (Trade) Dose Ordered Sig/Bettina Start Time Stop Time Status Last Admin Dose Admin Acetaminophen (Tylenol) 500 mg TID 08/03/18 09:00 08/06/18 08:51 500 MG Albuterol Sulfate (Ventolin Neb Soln) 2.5 mg PRN Q6HRS PRN 07/28/18 18:00 07/28/18 20:07 2.5 MG Albuterol/ Ipratropium (Duoneb) 3 ml RTQID 07/28/18 20:30 08/06/18 07:57 3 ML Alteplase, Recombinant (Cathflo For Central Catheter Clearance) 1 mg 1X ONCE 08/06/18 10:00 08/06/18 10:01 DC 08/06/18 10:03 1 MG Apixaban (Eliquis) 5 mg BID 08/05/18 21:00 08/06/18 08:51 5 MG Aspirin (Ecotrin) 81 mg DAILYWBKFT 07/31/18 08:00 08/06/18 08:51 81 MG Atorvastatin Calcium (Lipitor) 40 mg QHS 07/28/18 21:00 08/05/18 20:24 40 MG Bisacodyl (Dulcolax Supp) 10 mg 1X ONCE 08/01/18 10:30 08/01/18 10:31 DC Budesonide (Pulmicort) 0.5 mg RTBID 07/28/18 12:00 08/06/18 07:57 0.5 MG Buspirone HCl (Buspar) 10 mg BID 07/28/18 12:00 08/06/18 08:50 10 MG Calcitriol (Rocaltrol) 0.25 mcg MoWeFr 07/28/18 12:00 08/04/18 12:30 0.25 MCG Dextrose (Dextrose 50%-Water Syringe) 12.5 gm PRN Q15MIN PRN 07/28/18 12:30 Digoxin (Lanoxin) 500 mcg 1X ONCE 07/31/18 22:00 07/31/18 22:01 DC 07/31/18 21:58 500 MCG Duloxetine HCl (Cymbalta) 60 mg DAILY 07/29/18 09:00 UNV Fluticasone Propionate (Flonase) 2 spray DAILY 07/29/18 09:00 08/06/18 08:51 2 SPRAY Folic Acid (Folic Acid) 1 mg DAILY 07/28/18 12:00 08/06/18 08:50 1 MG Furosemide (Lasix) 40 mg BID92 08/01/18 14:00 08/06/18 08:51 40 MG Glipizide (Glucotrol) 2.5 mg BIDBFRMEAL 07/28/18 16:30 08/06/18 07:35 2.5 MG Info (Anti-Coagulation Monitoring By Pharmacy) 1 each PRN DAILY PRN 08/04/18 19:00 Cancel Info (Icu Electrolyte Protocol) 1 ea CONT PRN PRN 07/30/18 13:45 08/04/18 11:15 DC Insulin Human Lispro (HumaLOG) 0-5 UNITS TIDWMEALS 07/28/18 17:00 08/05/18 12:45 2 UNITS Lactobacillus Rhamnosus (Culturelle) 1 cap BID 07/28/18 21:00 08/06/18 08:50 1 CAP Levothyroxine Sodium (Synthroid) 50 mcg DAILY06 07/28/18 15:30 08/06/18 05:59 50 MCG Lorazepam (Ativan) 0.5 mg PRN Q4HRS PRN 07/28/18 12:15 08/06/18 02:14 0.5 MG Meropenem 1 gm/ Sodium Chloride 100 ml @ 200 mls/hr Q12HR 07/28/18 12:00 08/05/18 08:12 DC 08/04/18 20:39 200 MLS/HR Metoprolol Succinate (Toprol Xl) 100 mg DAILY 08/04/18 09:00 08/06/18 08:51 100 MG Metoprolol Tartrate (Lopressor) 25 mg 1X ONCE 07/30/18 10:00 07/30/18 10:01 DC 07/30/18 10:52 25 MG Milrinone Lactate/ Dextrose 100 ml @ 4.238 mls/ hr CONT PRN 07/28/18 11:00 08/01/18 16:24 DC 07/31/18 19:46 4.238 MLS/HR Non-Formulary Medication (Albuterol Sulfate (Albuterol Sulfate Conc Neb Soln)) 1 vial Q6HRS PRN 07/28/18 12:00 UNV Non-Formulary Medication (Budesonide ) 1 vial BID 07/28/18 21:00 UNV Nystatin (Nystop) 1 ute BID 07/28/18 13:00 08/06/18 08:52 1 UTE Pantoprazole Sodium (Protonix) 40 mg DAILYAC 07/28/18 16:30 08/06/18 07:35 40 MG Potassium Chloride (Klor-Con) 20 meq 1X ONCE 07/30/18 07:45 07/30/18 07:46 DC 07/30/18 08:58 20 MEQ Senna/Docusate Sodium (Senna Plus) 2 tab PRN BID PRN 07/28/18 12:15 08/02/18 14:12 2 TAB Trazodone HCl (Desyrel) 50 mg QHS 07/28/18 21:00 08/05/18 20:24 50 MG Vancomycin HCl (Vanco Per Pharmacy) 1 each PRN DAILY PRN 07/28/18 12:15 07/29/18 14:12 DC 07/28/18 17:03 1 EACH Vancomycin HCl (Vancomycin Trough Level) 1 each 1X ONCE 07/30/18 16:30 07/30/18 16:30 DC Vancomycin HCl 1.75 gm/Sodium Chloride 500 ml @ 250 mls/hr Q24H 07/28/18 17:00 07/29/18 14:12 DC 07/28/18 17:00 250 MLS/HR Vancomycin HCl 2 gm/Sodium Chloride 500 ml @ 250 mls/hr ONCE ONCE 07/28/18 13:00 07/28/18 14:59 Cancel Vitamin D (Vitamin D3) 2,000 unit DAILY 07/28/18 12:00 08/06/18 08:50 2,000 UNIT Lab Laboratory Tests Test 08/05/18 11:37 08/05/18 16:38 08/05/18 21:07 08/06/18 07:33 Glucose (Fingerstick) 165 mg/dL (70-99) 132 mg/dL (70-99) 156 mg/dL (70-99) 115 mg/dL (70-99) Results All relevant outside records, renal labs, imaging studies, telemetry/EKG's were reviewed. SHERRIE PEREIRA MD August 06, 2018 10:43
[2018-08-06] MEDS ORDERED: DOCUSATE SODIUM 100 MG CAPSULE. PO PRN (11:00)
[2018-08-06] MEDS ORDERED: POLYETHYLENE GLYCOL 3350 17 GM PACKET. PO PRN (11:00)
[2018-08-06 12:21] LABS: BASE EXCESS ABG 15 mmol/L (-3-3); HCO3 ABG 44 mmol/L (21-28); PO2 ABG 60 mmHg (65-108); SAT O2 ABG 89 % (92-99)
[2018-08-06] MEDS: CALCITRIOL 0.25 MCG CAPSULE. PO SCH (12:22)
[2018-08-06 12:23] LABS: PCO2 ABG 80 mmHg (35-46)
[2018-08-06 12:24] LABS: FIO2 ABG 32% 3L NC
--- NOTE | 2018-08-06 13:21 | NUR ---
SS following up with discharge planning. SS received phone contact from Krista with the [facility]. Krista reported that at this time pt is too medically complex and the [facility] is unable to meet his needs at this time. SS met with pt and pt's brother in room to discuss. Pt and pt's brother reported understanding that pt will need to discharge to home with home healthcare at discharge. Pt's brother reported that the [facility] does provide a home RN and doctor to visit with pt at home once a month. He also reported that the [facility] provided oxygen for pt at home and pt is normally on 3L [place] at home. Pt and pt's brother requested information on Medicaid. SS provided information with Medicaid application. SS also provided pt and pt's brother with contact information on ELIZABETH ([employer] for [place]) to inquire about Medicare Part B benefits. SS reported that I would reach out to pt's SW at the [facility] to inquire about any additional home services that pt may qualify for and would let them know her response.
--- NOTE | 2018-08-06 13:29 | PDOC ---
THUY SAVAGE COIN MACHINE COLLECTOR 08/06/18 1329: CARDIO Progress Notes Date and Time Date of Service 08/06/2018 Time of Evaluation 1310 Subjective Subjective: No Chest Pain, No Palpitations, Other (sitting up on BSC no SOA) Vitals Vitals Vital Signs Date Time Temp Pulse Resp B/P (MAP) Pulse Ox O2 Delivery O2 Flow Rate FiO2 08/06/18 11:40 95 Nasal Cannula 3.0 08/06/18 11:25 98.3 96 20 129/68 (88) 98.3 Weight Weight [ ] Input and Output Intake and Output Intake and Output 08/06/18 06:59 Intake Total 300 ml Output Total 475 ml Balance -175 ml Intake Oral 300 ml Output Urine Total 475 ml # Voids 1 Laboratory Labs Laboratory Tests Test 08/05/18 16:38 08/05/18 21:07 08/06/18 07:33 08/06/18 11:23 Glucose (Fingerstick) 132 mg/dL (70-99) 156 mg/dL (70-99) 115 mg/dL (70-99) O2 Saturation 89 % (92-99) Arterial Blood pH 7.36 (7.35-7.45) Arterial Blood pCO2 at Patient Temp 80 mmHg (35-46) Arterial Blood pO2 at Patient Temp 60 mmHg (65-108) Arterial Blood HCO3 44 mmol/L (21-28) Arterial Blood Base Excess 15 mmol/L (-3-3) FiO2 32% 3l nc Test 08/06/18 11:53 Glucose (Fingerstick) 157 mg/dL (70-99) Microbiology Micro Microbiology 07/30/18 Anaerobic/Aerobic Culture - Final, Complete 07/30/18 Anaerobic Culture Result 1 (GARCIA) - Final, Complete 07/30/18 Aerobic Culture - Final, Complete 07/30/18 Aerobic Culture Result 1 (GARCIA) - Final, Complete 07/30/18 Gram Stain - Final, Complete 07/30/18 Gram Stain Result 1 (GARCIA) - Final, Complete 07/30/18 Gram Stain Result 2 (GARCIA) - Final, Complete Review of Systems Constitutional: yes: other (CONFUSED) Physical Exam HEENT: Neck Supple W Full Motion Chest: Symmetric LUNGS: Other (diminished, expiratory wheeze) Heart: irregularly irregular (AFIB) Abdomen: Soft N/T, Other (obese) Extremities: Other (1-2+ bilateral LE pitting edema) Neurology: alert, oriented, follow commands Assessment Assessment 1. Acute on chronic respiratory failure; multifactorial with pleural effusion, systolic CHF, COPD, pleural effusion with post thoracentesis 2. Acute on chronic systolic CHF: appears compensated but currently hypercapnic 3. ICM; LVEF 20% 4. AFIB; rate controlled 5. CAD with prior [place] 6. YARELY on CKD; stable Cr at 2 7. Hypertension: controlled 8. H/o recurrent DVT/PE 9. DM2/HLP 10. Obesity 11. Hx of falls Recommendations Continue toprol. Lasix therapy. Eliquis 5 mg po bid Continue with secondary prevention. ASA. Lexiscan as an outpt. Discussed with RN, resume Bipap. PCXR SNU placement pending LAKEISHA LOMELI MD 08/06/18 170: CARDIO Progress Notes Assessment Assessment Patient seen and examined. Agree with PASSENGER CAR UPHOLSTERER APPRENTICE's assessment and plan. Acute on chronic systolic heart failure better compensated Atrial fibrillation rate better controlled Continue current medications including eliquis for stroke prophylaxis Plan ischemic evaluation as an outpatient THUY SVAAGE APRN August 06, 2018 13:29 LAKEISHA LOMELI MD August 06, 2018 17:09
--- NOTE | 2018-08-06 14:34 | RAD ---
EXAM: CHEST 1 VIEW History: Congestive heart failure, COPD COMPARISON: 08/04/2018 TECHNIQUE: Single portable radiograph of the chest FINDINGS: Low lung volumes and technique accentuates heart size and pulmonary vascularity. Mild diffuse prominent appearing bilateral interstitial lung markings. Bibasilar lung airspace likely atelectasis or infiltrates with small bilateral pleural effusions unchanged since prior exam. Right-sided PICC line is again identified. IMPRESSION: 1. Mild diffuse prominent bilateral interstitial lung markings likely mild congestive changes with unchanged bilateral pleural effusions and bibasilar lung airspace opacities likely atelectasis or infiltrates. Electronically signed by: Alex Bridges MD (08/06/2018 2:31 PM) [id number]
--- NOTE | 2018-08-06 16:47 | PDOC ---
PULMONARY PROGRESS NOTES Subjective ON BIPAP Vitals Vital Signs Date Time Temp Pulse Resp B/P (MAP) Pulse Ox O2 Delivery O2 Flow Rate FiO2 08/06/18 16:10 96 BiPAP/CPAP 08/06/18 15:00 96.9 83 24 145/83 (103) 96.9 08/06/18 11:40 3.0 General: Alert Cardiovascular: Other (Diminished) Abdomen: Soft, Non-tender Neuro Exam: Alert Extremities: Other (edema BLE +2) Skin: Warm, Dry Labs Laboratory Tests Test 08/04/18 20:39 08/05/18 07:34 08/05/18 09:15 08/05/18 11:37 Glucose (Fingerstick) 153 mg/dL (70-99) 111 mg/dL (70-99) 165 mg/dL (70-99) Sodium Level 142 mmol/L (136-145) Potassium Level 4.2 mmol/L (3.5-5.1) Chloride Level 101 mmol/L (98-107) Carbon Dioxide Level 43 mmol/L (21-32) Anion Gap (6-14) Blood Urea Nitrogen 21 mg/dL (8-26) Creatinine 2.0 mg/dL (0.7-1.3) Estimated GFR (Cockcroft-Gault) 32.7 Glucose Level 125 mg/dL (70-99) Calcium Level 8.8 mg/dL (8.5-10.1) Test 08/05/18 16:38 08/05/18 21:07 08/06/18 07:33 08/06/18 11:23 Glucose (Fingerstick) 132 mg/dL (70-99) 156 mg/dL (70-99) 115 mg/dL (70-99) O2 Saturation 89 % (92-99) Arterial Blood pH 7.36 (7.35-7.45) Arterial Blood pCO2 at Patient Temp 80 mmHg (35-46) Arterial Blood pO2 at Patient Temp 60 mmHg (65-108) Arterial Blood HCO3 44 mmol/L (21-28) Arterial Blood Base Excess 15 mmol/L (-3-3) FiO2 32% 3l nc Test 08/06/18 11:53 Glucose (Fingerstick) 157 mg/dL (70-99) Laboratory Tests Test 08/05/18 21:07 08/06/18 07:33 08/06/18 11:23 08/06/18 11:53 Glucose (Fingerstick) 156 mg/dL (70-99) 115 mg/dL (70-99) 157 mg/dL (70-99) O2 Saturation 89 % (92-99) Arterial Blood pH 7.36 (7.35-7.45) Arterial Blood pCO2 at Patient Temp 80 mmHg (35-46) Arterial Blood pO2 at Patient Temp 60 mmHg (65-108) Arterial Blood HCO3 44 mmol/L (21-28) Arterial Blood Base Excess 15 mmol/L (-3-3) FiO2 32% 3l nc Medications Active Scripts Medications Dose Route/Sig Max Daily Dose Days Date Category Guaifenesin 200 Mg Tablet 200 Mg PO PRN TID PRN 07/28/18 Reported Budesonide 0.25 Mg/2 Ml Ampul.neb 1 Vial NEB BID 01/29/18 Reported Albuterol Sulfate Conc Neb Soln (Albuterol Sulfate) 2.5 Mg/0.5 Ml Vial.neb 1 Vial NEB Q6HRS PRN 01/29/18 Reported Trazodone Hcl 50 Mg Tablet 1 Tab PO QHS 01/24/18 Reported Culturelle (Lactobacillus Rhamnosus Gg) 1 Each Cap.sprink 1 Each PO 01/24/18 Reported Atorvastatin Calcium 80 Mg Tablet 1 Tab PO DAILY 01/24/18 Reported Buspirone Hcl 10 Mg Tablet 1 Tab PO BID 01/24/18 Reported Glipizide 5 Mg Tablet 1 Tab PO BID 01/24/18 Reported Eliquis (Apixaban) 2.5 Mg Tablet 2.5 Mg PO BID 01/24/18 Reported Protonix (Pantoprazole Sodium) 20 Mg Tablet.dr 1 Tab PO DAILY 01/24/18 Reported Duloxetine Hcl 60 Mg Capsule.dr 60 Mg PO DAILY 01/24/18 Reported Furosemide 20 Mg Tablet 60 Tab PO DAILY 01/24/18 Reported Calcitriol 0.25 Mcg Capsule 1 Cap PO 3X/WEEK 01/24/18 Reported Mucinex (Guaifenesin) 600 Mg Tablet.er 200 Tab PO TID 01/24/18 Reported Potassium Chloride 20 Meq Tablet.er 20 Meq PO DAILY 01/24/18 Reported Levothyroxine Sodium 50 Mcg Tablet 1 Tab PO DAILY 01/24/18 Reported Tylenol (Acetaminophen) 325 Mg Tablet 500 Mg PO TID 01/24/18 Reported Vitamin D3 (Cholecalciferol (Vitamin D3)) 1,000 Unit Tablet 2 Tab PO DAILY 01/24/18 Reported Folic Acid 1 Mg Tablet 1 Tab PO DAILY 01/24/18 Reported Active Scripts Medications Dose Route/Sig Max Daily Dose Days Date Category Guaifenesin 200 Mg Tablet 200 Mg PO PRN TID PRN 07/28/18 Reported Budesonide 0.25 Mg/2 Ml Ampul.neb 1 Vial NEB BID 01/29/18 Reported Albuterol Sulfate Conc Neb Soln (Albuterol Sulfate) 2.5 Mg/0.5 Ml Vial.neb 1 Vial NEB Q6HRS PRN 01/29/18 Reported Trazodone Hcl 50 Mg Tablet 1 Tab PO QHS 01/24/18 Reported Culturelle (Lactobacillus Rhamnosus Gg) 1 Each Cap.sprink 1 Each PO 01/24/18 Reported Atorvastatin Calcium 80 Mg Tablet 1 Tab PO DAILY 01/24/18 Reported Buspirone Hcl 10 Mg Tablet 1 Tab PO BID 01/24/18 Reported Glipizide 5 Mg Tablet 1 Tab PO BID 01/24/18 Reported Eliquis (Apixaban) 2.5 Mg Tablet 2.5 Mg PO BID 01/24/18 Reported Protonix (Pantoprazole Sodium) 20 Mg Tablet.dr 1 Tab PO DAILY 01/24/18 Reported Duloxetine Hcl 60 Mg Capsule.dr 60 Mg PO DAILY 01/24/18 Reported Furosemide 20 Mg Tablet 60 Tab PO DAILY 01/24/18 Reported Calcitriol 0.25 Mcg Capsule 1 Cap PO 3X/WEEK 01/24/18 Reported Mucinex (Guaifenesin) 600 Mg Tablet.er 200 Tab PO TID 01/24/18 Reported Potassium Chloride 20 Meq Tablet.er 20 Meq PO DAILY 01/24/18 Reported Levothyroxine Sodium 50 Mcg Tablet 1 Tab PO DAILY 01/24/18 Reported Tylenol (Acetaminophen) 325 Mg Tablet 500 Mg PO TID 01/24/18 Reported Vitamin D3 (Cholecalciferol (Vitamin D3)) 1,000 Unit Tablet 2 Tab PO DAILY 01/24/18 Reported Folic Acid 1 Mg Tablet 1 Tab PO DAILY 01/24/18 Reported Impression . 1. Acute hypoxemic hypercapnic respiratory failure, multifactorial. 2. Acute on chronic heart failure. 3. Abnormal x-ray with persistent right lower lobe effusion greater than left. 4. Cardiomyopathy, ejection fraction 20-25%. 5. Atrial fibrillation with rapid ventricular response. 6. Type 2 diabetes. 7. Hypertension. 8. Obesity. 9. Chronic obstructive pulmonary disease, unknown FEV1. 10. Possible obstructive sleep apnea. 11. TRANSUDATE EFFUSION REPEAT THORACENTESIS ON 08/04 600 CC REMOVED Procedure Result ANAEROBIC-AEROBIC CULTURE Final Final report ANAEROBIC RES 1 Final Comment No anaerobic growth in 72 hours. AEROBIC CULT Final Final report AEROBIC RES 1 Final Comment No growth in 56 - 72 hours. GRAM STAIN Final Final report GRAM STAIN RES 1 Final Comment No white blood cells seen. GRAM STAIN RES 2 Final No organisms seen Impression: No deep venous thrombus involving the right upper extremity. Plan . NO BETTER TODAY EXTRA LASIX BIPAP REPEAT THORACENTESIS 600 CC PT OT WILL NEED REHAB FOLLOW CARD CHELSEY CASTILLO MD August 06, 2018 16:47
[2018-08-06] MEDS ORDERED: FUROSEMIDE 40 MG/4 ML VIAL. IVP ONE (17:00)
--- NOTE | 2018-08-06 20:53 | NUR ---
Received order from Dr. Hoover for drawing from PICC line.
[2018-08-06] MEDS: traZODone 50 MG TABLET. PO SCH (21:09)
[2018-08-06] MEDS: ATORVASTATIN CALCIUM 40 MG TABLET. PO SCH (21:09)
--- NOTE | 2018-08-06 21:31 | PN ---
DATE: 08/06/2018 SUBJECTIVE: The patient is very sleepy today, very lethargic, very weak, tired. There were plans for him to go home with home health; however, he does not seem to be up to it today. Attempt was made to admit him to the [place] [facility] facility, but they stated they cannot meet his needs. His brother said that he does not think that he can take care of him at home and was wondering about Medicaid application. When I saw him this morning, he was very sleepy, lethargic, but arousable, complaining that he is tired. PHYSICAL EXAMINATION: GENERAL: When I examined him, he was somewhat pale. No jaundice, cyanosis, or thyromegaly. No jugular venous distension. No lower limb edema. VITAL SIGNS: His heart rate was 83, blood pressure was 142/65, temperature was 98.1, respiratory rate was 14, and oxygen saturation was 94% on 3 liters of oxygen. HEAD, EYES, EARS, NOSE AND THROAT: Showed normocephalic, atraumatic. NECK: Supple. HEART: Showed distant first and second heart sounds with no gallop, rub or murmur. CHEST: Shows central trachea, equal reduced expansion, reduced air entry, vesicular breath sounds. I could not appreciate any crepitation or rhonchi. ABDOMEN: Distended, soft, nontender. NEUROLOGIC: He is very lethargic, but arousable. All cranial nerves are intact. He moves extremities without difficulty, although he is mostly bedbound and chair bound. His intake over the last 24 hours was 1200, output was 1925. LABORATORY DATA: His most recent white cell count was 3100, hemoglobin 11.7, hematocrit 36.7, MCV 96, and platelet count of 80,000. As of yesterday, his serum sodium was 142, potassium 4.2, chloride 101, bicarbonate 43, BUN 21, creatinine 2, estimated GFR was 83 mL per minute. His glucose was reasonably controlled. Calcium was 8.8. His pleural fluid culture and sensitivity was so far negative and the pleural fluid also negative for acid fast bacilli. ASSESSMENT: 1. Acute on chronic hypoxic hypercapnic respiratory failure, multifactorial, improving; however, the patient is not really doing well today. He is very lethargic and I did actually order a stat ABG to see whether he is retaining carbon dioxide. 2. Acute on chronic systolic congestive heart failure, much better compensated. 3. Ischemic cardiomyopathy with ejection fraction 20% on his most recent echocardiogram. 4. Atrial fibrillation, rate much better controlled. His apixaban was resumed and the dose was increased to 5 mg twice a day. 5. Coronary artery disease with history of myocardial infarction. 6. Acute kidney injury on chronic kidney disease. His serum creatinine is stable. Yesterday, it was 2 mg/dL. 7. Hypertension, well controlled. 8. 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 9. Type 2 diabetes mellitus, seems to be well controlled. 10. Hyperlipidemia. 11. Morbid obesity, obstructive sleep apnea. 12. Chronic back pain due to multiple lumbar vertebral compression fracture. PLAN: My plan is to arrange for him to have a stat ABG and we will decide on further management accordingly. I am not really sure that he is ready to be discharged home or longterm. KAR PRESAUD MD DR: KEENAN/lindsay JOB#: [id number] / [id number]
[2018-08-07 03:45] VITALS: BP 126/61
[2018-08-07] MEDS: LEVOTHYROXINE 50 MCG TABLET PO SCH (05:34)
[2018-08-07 06:17] LABS: HEMATOCRIT 35.3 % (39.0-53.0); HEMOGLOBIN 11.2 g/dL (13.0-17.5); RED BLOOD COUNT 3.7 x10^6/uL (4.30-5.70); WHITE BLOOD COUNT 3.4 x10^3/uL (4.0-11.0)
[2018-08-07 06:25] LABS: ALBUMIN 2.4 g/dL (3.4-5.0); ALBUMIN/GLOBULIN RATIO 0.8 (1.0-1.7); ALK PHOS 68 U/L (46-116); ALT (SGPT) 23 U/L (16-63); AST (SGOT) 28 U/L (15-37); BLOOD UREA NITROGEN 24 mg/dL (8-26); BUN/CREATININE RATIO 11 (6-20); CALCIUM 8.5 mg/dL (8.5-10.1); CARBON DIOXIDE 44 mmol/L (21-32); CHLORIDE 103 mmol/L (98-107); CREATININE 2.2 mg/dL (0.7-1.3); GFR 29.3; GLUCOSE 163 mg/dL (70-99); PHOSPHORUS 3.8 mg/dL (2.6-4.7); POTASSIUM 3.8 mmol/L (3.5-5.1); SODIUM 143 mmol/L (136-145); TOTAL BILIRUBIN 0.7 mg/dL (0.2-1.0); TOTAL PROTEIN 5.3 g/dL (6.4-8.2)
[2018-08-07 07:00] VITALS: BP 128/60
[2018-08-07] MEDS: PANTOPRAZOLE 40 MG TABLET.DR. PO SCH (07:34)
[2018-08-07] MEDS: glipiZIDE 5 MG TABLET PO SCH ×2 (07:34→16:56)
[2018-08-07] MEDS: IPRATRPIUM/ALBUTEROL 0.5/2.5MG 3 ML NEBU. NEB SCH ×4 (07:59→19:48)
[2018-08-07] MEDS: BUDESONIDE 0.5 MG/2 ML NEBU. NEB SCH ×2 (07:59→19:48)
[2018-08-07] MEDS: INSULIN LISPRO 300 UNITS/3 ML INSULN.PEN. SQ SCH ×3 (08:00→16:56)
[2018-08-07 08:28] LABS: BASE EXCESS ABG 13 mmol/L (-3-3); HCO3 ABG 42 mmol/L (21-28); PO2 ABG 72 mmHg (65-108); SAT O2 ABG 93 % (92-99)
[2018-08-07 09:04] LABS: FIO2 ABG 32; PCO2 ABG 74 mmHg (35-46)
[2018-08-07] MEDS: FLUTICASONE 50MCG/NASAL SPRAY 16GM BOTTLE. NS SCH (09:16)
[2018-08-07] MEDS: busPIRone 10 MG TABLET. PO SCH ×2 (09:17→19:49)
[2018-08-07] MEDS: FOLIC ACID 1 MG TABLET. PO SCH (09:17)
[2018-08-07] MEDS: CHOLECALCIFEROL (VITAMIN D3) 1,000 UNIT TABLET PO SCH (09:17)
[2018-08-07] MEDS: LACTOBACILLUS RHAMNOSUS GG 1 CAPSULE. PO SCH ×2 (09:17→19:49)
[2018-08-07] MEDS: FUROSEMIDE 40 MG TABLET. PO SCH ×2 (09:17→15:00)
[2018-08-07] MEDS: METOPROLOL SUCC 24HR ER 100 MG TAB.ER.24H. PO SCH (09:17)
[2018-08-07] MEDS: ACETAMINOPHEN 500 MG TABLET PO SCH ×3 (09:17→19:49)
[2018-08-07] MEDS: DULoxetine HCL 30 MG CAPSULE.DR PO SCH (09:17)
[2018-08-07] MEDS: NYSTATIN TOPICAL POWDER 15GM BOTTLE. TP SCH ×2 (09:18→20:31)
[2018-08-07] MEDS: APIXABAN 5 MG TABLET. PO SCH (09:18)
[2018-08-07] MEDS: ASPIRIN ENTERIC COATED 81 MG TABLET.DR. PO SCH (09:18)
[2018-08-07 11:00] VITALS: BP 132/65
--- NOTE | 2018-08-07 11:12 | PDOC ---
KOBE BENSON [employer] POWER PLANT ASSEMBLER 08/07/18 1112: CARDIO Progress Notes Date and Time Date of Service 08/07/18 Time of Evaluation 1110 Subjective Subjective: No Chest Pain, No Palpitations, Other (breathing somewhat better today) Vitals Vitals Vital Signs Date Time Temp Pulse Resp B/P (MAP) Pulse Ox O2 Delivery O2 Flow Rate FiO2 08/07/18 09:17 89 128/60 08/07/18 08:00 Nasal Cannula 3.0 08/07/18 07:59 94 08/07/18 07:00 97.5 18 97.5 Weight Weight [ ] Input and Output Intake and Output Intake and Output 08/07/18 07:00 Intake Total 180 ml Output Total 600 ml Balance -420 ml Intake Oral 180 ml Output Urine Total 600 ml # Bowel Movements 2 Laboratory Labs Laboratory Tests Test 08/06/18 11:23 08/06/18 11:53 08/06/18 16:56 08/06/18 20:30 O2 Saturation 89 % (92-99) Arterial Blood pH 7.36 (7.35-7.45) Arterial Blood pCO2 at Patient Temp 80 mmHg (35-46) Arterial Blood pO2 at Patient Temp 60 mmHg (65-108) Arterial Blood HCO3 44 mmol/L (21-28) Arterial Blood Base Excess 15 mmol/L (-3-3) FiO2 32% 3l nc Glucose (Fingerstick) 157 mg/dL (70-99) 106 mg/dL (70-99) 122 mg/dL (70-99) Test 08/07/18 05:40 08/07/18 07:37 08/07/18 08:00 White Blood Count 3.4 x10^3/uL (4.0-11.0) Red Blood Count 3.70 x10^6/uL (4.30-5.70) Hemoglobin 11.2 g/dL (13.0-17.5) Hematocrit 35.3 % (39.0-53.0) Mean Corpuscular Volume 96 fL (79-100) Mean Corpuscular Hemoglobin 30 pg (25-35) Mean Corpuscular Hemoglobin Concent 32 g/dL (31-37) Red Cell Distribution Width 15.0 % (11.5-14.5) Platelet Count 107 x10^3/uL (140-400) Sodium Level 143 mmol/L (136-145) Potassium Level 3.8 mmol/L (3.5-5.1) Chloride Level 103 mmol/L (98-107) Carbon Dioxide Level 44 mmol/L (21-32) Anion Gap (6-14) Blood Urea Nitrogen 24 mg/dL (8-26) Creatinine 2.2 mg/dL (0.7-1.3) Estimated GFR (Cockcroft-Gault) 29.3 BUN/Creatinine Ratio 11 (6-20) Glucose Level 163 mg/dL (70-99) Calcium Level 8.5 mg/dL (8.5-10.1) Phosphorus Level 3.8 mg/dL (2.6-4.7) Total Bilirubin 0.7 mg/dL (0.2-1.0) Aspartate Amino Transf (AST/SGOT) 28 U/L (15-37) Alanine Aminotransferase (ALT/SGPT) 23 U/L (16-63) Alkaline Phosphatase 68 U/L (46-116) Total Protein 5.3 g/dL (6.4-8.2) Albumin 2.4 g/dL (3.4-5.0) Albumin/Globulin Ratio 0.8 (1.0-1.7) Glucose (Fingerstick) 144 mg/dL (70-99) O2 Saturation 93 % (92-99) Arterial Blood pH 7.37 (7.35-7.45) Arterial Blood pCO2 at Patient Temp 74 mmHg (35-46) Arterial Blood pO2 at Patient Temp 72 mmHg (65-108) Arterial Blood HCO3 42 mmol/L (21-28) Arterial Blood Base Excess 13 mmol/L (-3-3) FiO2 32 Microbiology Micro Microbiology 07/30/18 Anaerobic/Aerobic Culture - Final, Complete 07/30/18 Anaerobic Culture Result 1 (GARCIA) - Final, Complete 07/30/18 Aerobic Culture - Final, Complete 07/30/18 Aerobic Culture Result 1 (GARCIA) - Final, Complete 07/30/18 Gram Stain - Final, Complete 07/30/18 Gram Stain Result 1 (GARCIA) - Final, Complete 07/30/18 Gram Stain Result 2 (GARCIA) - Final, Complete Review of Systems Constitutional: yes: other (CONFUSED) Physical Exam HEENT: Neck Supple W Full Motion Chest: Symmetric LUNGS: Other (diminished bases) Heart: irregularly irregular (AFIB) Abdomen: Soft N/T, Other (obese) Extremities: Other (1-2+ bilateral LE pitting edema, 1+ bilateral UE edema ) Neurology: alert, oriented, follow commands Assessment Assessment 1. Acute on chronic respiratory failure; multifactorial with pleural effusion, systolic CHF, COPD, pleural effusion s/p thoracentesis 2. Acute on chronic systolic CHF: better compensated with additional IV Lasix yesterday evening. 3. Presumed ICM; LVEF 20%. Echo 2013 with LVEF 55-60%. [facility] 4. AFIB; rate fairly well controlled 5. CAD cath 2006 in [place] with reported angioplasty, no stent 6. YARELY on CKD; Cr stable at 2.2 7. Hypertension: controlled 8. H/o recurrent DVT/PE on Eliquis 9. DM2/HLP 10. Obesity Recommendations Continue BB for rate control. Lasix therapy. Given a/c HF with recurrent fluid accumulation, h/o CAD, and significant CMP, recommend cardiac cath to r/o contributing obstructive disease. R/b/a, including risk of JESUS requiring HD, discussed with patient ad brother and they are agreeable to proceed. D/w nephrology; recommend hydration 4 hours prior to cath Continue ASA, statin NPO p MN Hold RicardaquLAKEISHA Valdes MD 08/07/182127: CARDIO Progress Notes Assessment Assessment Patient seen and examined. Agree with SWITCHBOARD MANAGER's assessment and plan. Atrial fib rate better controlled In lieu of recurrent fluid accumulation and diminished EF, we will proceed with cardiac cath for definitive evaluation KOBE BENSON APRN August 07, 2018 11:12 LAKEISHA LOMELI MD August 07, 2018 21:28
--- NOTE | 2018-08-07 11:28 | NUR ---
SS following up with discharge planning. SS reached out to home healthcare agencies for assistance with home healthcare for pt at home. [facility], ; fax [phone], agreed to accept pt at discharge. Pt's RN notified. SS will continue to follow for discharge planning.
[2018-08-07] MEDS ORDERED: APIX5TAB PO (12:28)
[2018-08-07] MEDS ORDERED: POLY17PO29 PO (12:28)
[2018-08-07] MEDS ORDERED: DOCU-109 PO (12:28)
[2018-08-07] MEDS ORDERED: METO-247 PO (12:28)
[2018-08-07] MEDS ORDERED: FURO40TA4 PO (12:29)
--- NOTE | 2018-08-07 12:39 | SNU/HH DC ---
DISCHARGE WITH HOME HEALTH DISCHARGE INFORMATION: Discharge Date: August 07, 2018 Final Diagnosis: acute on chronic hypoxic hypercapnic respiratory failure acute on chronic systolic chf Condition on Discharge: Stable CODE STATUS: Code Status: Full HOME HEALTH: Face to Face: I certify this patient is under my care and that I, or a nurse practitioner or physician's design assistant working with me, had a face to face encounter that meets the physician face to face encounter requirements with this patient on 08/07/2018 Medical Complications: CHF, COPD Chcf For: Assess/Skilled Observatio RN For Eval/Treatment: Yes Physical Therapy For: Evalulation/Treatment Occupational Therapy For: Evaluation/Treatment Home Health Aide For: Self-care ELEVATOR ERECTOR For: Community Resources Pt Meets Homebound Status: Unsteady balance w/ amb, POST DISCHARGE ORDERS: Activity Instructions for Disc: Resume previous activity, Activity as tolerated, Walk in house Weight Bearing Status after Di: As tolerated DIET AFTER DISCHARGE: ADA Wound/Incision Care: No wound care needed CHECKS AFTER DISCHARGE: Checks after discharge: Check blood press - daily, Check blood sugar, ac/hs FOLLOW-UP: DC TO SNF LABS: CBC, BMP ON Saturday02/03/2018 TREATMENT/EQUIPMENT ORDERS: Adaptive Equipment Issued: None, Front wheeled walker, Walker Discharge Respiratory Equipmen: Oxygen, BiPAP CERTIFICATION STATEMENT: Certification Statement: Certification Statement: Based on the above finding, I certify that this patient is confined to the home and needs intermittent senior care care, physical therapy and/or speech therapy, or continues to need occupational therapy.~ This patient is under my care, and I have initiated the establishment of the plan of care.~ This patient will be followed by myself or a community physician who will periodically review the plan of care. Home Meds Active Scripts Furosemide (FUROSEMIDE) 40 Mg Tablet, 40 MG PO BID for chf for 30 Days, #60 TAB 5 Refills Prov:KAR PERSAUD MD 08/07/18 Polyethylene Glycol 3350 (MIRALAX) 17 Gm Powd.pack, 1 PACKET PO DAILY for constipation, #2 PACKET 1 Refill Prov:KAR PERSAUD MD 08/07/18 Docusate Sodium (COLACE) 100 Mg Capsule, 1 CAP PO BID for constipation for 30 Days, #60 CAP 5 Refills Prov:KAR PERSAUD MD 08/07/18 Apixaban (ELIQUIS) 5 Mg Tablet, 5 MG PO BID for afib for 30 Days, #60 TAB 5 Refills Prov:KAR PERSAUD MD 08/07/18 Metoprolol Succinate (METOPROLOL SUCCINATE ( XL )) 100 Mg Tab.er.24h, 1 TAB PO DAILY for afib for 30 Days, #30 TAB 5 Refills Prov:KAR PERSAUD MD 08/07/18 Reported Medications Guaifenesin (GUAIFENESIN) 200 Mg Tablet, 200 MG PO PRN TID PRN for COUGH, TAB 07/28/18 Budesonide (BUDESONIDE) 0.25 Mg/2 Ml Ampul.neb, 1 VIAL NEB BID, #60 ML 01/29/18 Albuterol Sulfate (ALBUTEROL SULFATE CONC NEB SOLN) 2.5 Mg/0.5 Ml Vial.neb, 1 VIAL NEB Q6HRS PRN for SHORTNESS OF BREATH, #120 VIAL 5 Refills 01/29/18 Trazodone Hcl (TRAZODONE HCL) 50 Mg Tablet, 1 TAB PO QHS, #30 TAB 1 Refill 01/24/18 Lactobacillus Rhamnosus Gg (CULTURELLE) 1 Each Cap.sprink, 1 EACH PO, CAP 01/24/18 Atorvastatin Calcium (ATORVASTATIN CALCIUM) 80 Mg Tablet, 1 TAB PO DAILY, #30 TAB 5 Refills 01/24/18 Buspirone Hcl (BUSPIRONE HCL) 10 Mg Tablet, 1 TAB PO BID, #60 TAB 1 Refill 01/24/18 Pantoprazole Sodium (PROTONIX) 20 Mg Tablet.dr, 1 TAB PO DAILY, #30 TAB 01/24/18 Duloxetine Hcl (DULOXETINE HCL) 60 Mg Capsule.dr, 60 MG PO DAILY, CAP 01/24/18 Calcitriol (CALCITRIOL) 0.25 Mcg Capsule, 1 CAP PO 3X/WEEK, #30 CAP 5 Refills 01/24/18 Guaifenesin (MUCINEX) 600 Mg Tablet.er, 200 TAB PO TID, #14 TAB 01/24/18 Potassium Chloride (POTASSIUM CHLORIDE) 20 Meq Tablet.er, 20 MEQ PO DAILY, TAB.SR 01/24/18 Levothyroxine Sodium (LEVOTHYROXINE SODIUM) 50 Mcg Tablet, 1 TAB PO DAILY, #30 TAB 5 Refills 01/24/18 Acetaminophen (TYLENOL) 325 Mg Tablet, 500 MG PO TID, TAB 01/24/18 Cholecalciferol (Vitamin D3) (VITAMIN D3) 1,000 Unit Tablet, 2 TAB PO DAILY, #30 TAB 5 Refills 01/24/18 Folic Acid (FOLIC ACID) 1 Mg Tablet, 1 TAB PO DAILY, #90 TAB 1 Refill 01/24/18 Discontinued Reported Medications Glipizide (GLIPIZIDE) 5 Mg Tablet, 1 TAB PO BID, #60 TAB 3 Refills 01/24/18 Apixaban (ELIQUIS) 2.5 Mg Tablet, 2.5 MG PO BID, TAB 01/24/18 Furosemide (FUROSEMIDE) 20 Mg Tablet, 60 TAB PO DAILY, #90 TAB 1 Refill 01/24/18 KAR PERSAUD MD August 07, 2018 12:39
--- NOTE | 2018-08-07 12:47 | PDOC ---
SUBJECTIVE ROS states feeling better, OBJECTIVE Vital Signs Vital Signs Date Time Temp Pulse Resp B/P (MAP) Pulse Ox O2 Delivery O2 Flow Rate FiO2 08/07/18 12:11 94 Nasal Cannula 3.0 08/07/18 11:00 97.5 94 18 132/65 (87) 97.5 I & 0 Intake and Output 08/07/18 06:59 Intake Total 180 ml Output Total 600 ml Balance -420 ml Intake Oral 180 ml Output Urine Total 600 ml # Bowel Movements 2 PHYSICAL EXAM Physical Exam GEN: NAD, Morbidly obese EYES: Vision Unchanged, Conjunctiva Normal EN: , Mucous Membranes moist NECK: no JVD, no JVP, Supple, short thick neck CVS: S1S2, no audible Murmur, No Gallop, No Rub, RESP: no Rales, no Rhonchi,no Acc. Muscle Use, GI: BS + ve, NO Bruit, Non Tender, Non Distended, morbidly obese a : no CVA tenderness, no Suprapubic Tenderness DIAGNOSIS/ASSESSMENT Assessment & Plan YARELY -ATN/Cardiorenal Stable , may be new baseline Anticipate Fluctuation sec to CHF Chronic kidney disease stage 3 - Baseline Cr 1.7-1.8 in 2018 No prior labs Follow up with Nephrology([facility] or with us after dc ) Edema in lower extremity: Diuresis as best tolerated by hemodynamics and weight Hypokalemia- resolved Acute on Chronic Systolic and Diastolic CHF - EF OF 20% Pleural Effusion- bilat S/P Rt Thoracentesis on 07/30- 1200 ml fluid drained S/P Rt Thoracentesis 08/04 650 ml removed Pulm following Chronic Metab Alkalosis - presumably chronic compensation for underlying respiratory acidosis Bicarb going up, may need to decrease Lasix Defer to Pulmonary COPD COMMENT/RELEVANT DATA Meds Current Medications Medications (Trade) Dose Ordered Sig/Bettina Start Time Stop Time Status Last Admin Dose Admin Acetaminophen (Tylenol) 500 mg TID 08/03/18 09:00 08/07/18 09:17 500 MG Albuterol Sulfate (Ventolin Neb Soln) 2.5 mg PRN Q6HRS PRN 07/28/18 18:00 07/28/18 20:07 2.5 MG Albuterol/ Ipratropium (Duoneb) 3 ml RTQID 07/28/18 20:30 08/07/18 12:11 3 ML Alteplase, Recombinant (Cathflo For Central Catheter Clearance) 1 mg 1X ONCE 08/06/18 10:00 08/06/18 10:01 DC 08/06/18 10:03 1 MG Apixaban (Eliquis) 5 mg BID 08/05/18 21:00 08/07/18 09:18 5 MG Aspirin (Ecotrin) 81 mg DAILYWBKFT 07/31/18 08:00 08/07/18 09:18 81 MG Atorvastatin Calcium (Lipitor) 40 mg QHS 07/28/18 21:00 08/06/18 21:09 40 MG Bisacodyl (Dulcolax Supp) 10 mg 1X ONCE 08/01/18 10:30 08/01/18 10:31 DC Budesonide (Pulmicort) 0.5 mg RTBID 07/28/18 12:00 08/07/18 07:59 0.5 MG Buspirone HCl (Buspar) 10 mg BID 07/28/18 12:00 08/07/18 09:17 10 MG Calcitriol (Rocaltrol) 0.25 mcg MoWeFr 07/28/18 12:00 08/06/18 12:22 0.25 MCG Dextrose (Dextrose 50%-Water Syringe) 12.5 gm PRN Q15MIN PRN 07/28/18 12:30 Digoxin (Lanoxin) 500 mcg 1X ONCE 07/31/18 22:00 07/31/18 22:01 DC 07/31/18 21:58 500 MCG Docusate Sodium (Colace) 100 mg PRN DAILY PRN 08/06/18 11:00 08/06/18 11:49 100 MG Duloxetine HCl (Cymbalta) 60 mg DAILY 07/29/18 09:00 UNV Fluticasone Propionate (Flonase) 2 spray DAILY 07/29/18 09:00 08/07/18 09:16 2 SPRAY Folic Acid (Folic Acid) 1 mg DAILY 07/28/18 12:00 08/07/18 09:17 1 MG Furosemide (Lasix) 40 mg 1X ONCE 08/06/18 17:00 08/06/18 17:01 DC 08/06/18 17:16 40 MG Glipizide (Glucotrol) 2.5 mg BIDBFRMEAL 07/28/18 16:30 08/07/18 07:34 2.5 MG Info (Anti-Coagulation Monitoring By Pharmacy) 1 each PRN DAILY PRN 08/04/18 19:00 Cancel Info (Icu Electrolyte Protocol) 1 ea CONT PRN PRN 07/30/18 13:45 08/04/18 11:15 DC Insulin Human Lispro (HumaLOG) 0-5 UNITS TIDWMEALS 07/28/18 17:00 08/06/18 12:25 2 UNITS Lactobacillus Rhamnosus (Culturelle) 1 cap BID 07/28/18 21:00 08/07/18 09:17 1 CAP Levothyroxine Sodium (Synthroid) 50 mcg DAILY06 07/28/18 15:30 08/07/18 05:34 50 MCG Lorazepam (Ativan) 0.5 mg PRN Q4HRS PRN 07/28/18 12:15 08/06/18 02:14 0.5 MG Meropenem 1 gm/ Sodium Chloride 100 ml @ 200 mls/hr Q12HR 07/28/18 12:00 08/05/18 08:12 DC 08/04/18 20:39 200 MLS/HR Metoprolol Succinate (Toprol Xl) 100 mg DAILY 08/04/18 09:00 08/07/18 09:17 100 MG Metoprolol Tartrate (Lopressor) 25 mg 1X ONCE 07/30/18 10:00 07/30/18 10:01 DC 07/30/18 10:52 25 MG Milrinone Lactate/ Dextrose 100 ml @ 4.238 mls/ hr CONT PRN 07/28/18 11:00 08/01/18 16:24 DC 07/31/18 19:46 4.238 MLS/HR Non-Formulary Medication (Albuterol Sulfate (Albuterol Sulfate Conc Neb Soln)) 1 vial Q6HRS PRN 07/28/18 12:00 UNV Non-Formulary Medication (Budesonide ) 1 vial BID 07/28/18 21:00 UNV Nystatin (Nystop) 1 ute BID 07/28/18 13:00 08/07/18 09:18 1 UTE Pantoprazole Sodium (Protonix) 40 mg DAILYAC 07/28/18 16:30 08/07/18 07:34 40 MG Polyethylene Glycol (miraLAX PACKET) 17 gm PRN DAILY PRN 08/06/18 11:00 08/06/18 11:49 17 GM Potassium Chloride (Klor-Con) 20 meq 1X ONCE 07/30/18 07:45 07/30/18 07:46 DC 07/30/18 08:58 20 MEQ Senna/Docusate Sodium (Senna Plus) 2 tab PRN BID PRN 07/28/18 12:15 08/02/18 14:12 2 TAB Trazodone HCl (Desyrel) 50 mg QHS 07/28/18 21:00 08/06/18 21:09 50 MG Vancomycin HCl (Vanco Per Pharmacy) 1 each PRN DAILY PRN 07/28/18 12:15 07/29/18 14:12 DC 07/28/18 17:03 1 EACH Vancomycin HCl (Vancomycin Trough Level) 1 each 1X ONCE 07/30/18 16:30 07/30/18 16:30 DC Vancomycin HCl 1.75 gm/Sodium Chloride 500 ml @ 250 mls/hr Q24H 07/28/18 17:00 07/29/18 14:12 DC 07/28/18 17:00 250 MLS/HR Vancomycin HCl 2 gm/Sodium Chloride 500 ml @ 250 mls/hr ONCE ONCE 07/28/18 13:00 07/28/18 14:59 Cancel Vitamin D (Vitamin D3) 2,000 unit DAILY 07/28/18 12:00 08/07/18 09:17 2,000 UNIT Lab Laboratory Tests Test 08/06/18 16:56 08/06/18 20:30 08/07/18 05:40 08/07/18 07:37 Glucose (Fingerstick) 106 mg/dL (70-99) 122 mg/dL (70-99) 144 mg/dL (70-99) White Blood Count 3.4 x10^3/uL (4.0-11.0) Red Blood Count 3.70 x10^6/uL (4.30-5.70) Hemoglobin 11.2 g/dL (13.0-17.5) Hematocrit 35.3 % (39.0-53.0) Mean Corpuscular Volume 96 fL (79-100) Mean Corpuscular Hemoglobin 30 pg (25-35) Mean Corpuscular Hemoglobin Concent 32 g/dL (31-37) Red Cell Distribution Width 15.0 % (11.5-14.5) Platelet Count 107 x10^3/uL (140-400) Sodium Level 143 mmol/L (136-145) Potassium Level 3.8 mmol/L (3.5-5.1) Chloride Level 103 mmol/L (98-107) Carbon Dioxide Level 44 mmol/L (21-32) Anion Gap (6-14) Blood Urea Nitrogen 24 mg/dL (8-26) Creatinine 2.2 mg/dL (0.7-1.3) Estimated GFR (Cockcroft-Gault) 29.3 BUN/Creatinine Ratio 11 (6-20) Glucose Level 163 mg/dL (70-99) Calcium Level 8.5 mg/dL (8.5-10.1) Phosphorus Level 3.8 mg/dL (2.6-4.7) Total Bilirubin 0.7 mg/dL (0.2-1.0) Aspartate Amino Transf (AST/SGOT) 28 U/L (15-37) Alanine Aminotransferase (ALT/SGPT) 23 U/L (16-63) Alkaline Phosphatase 68 U/L (46-116) Total Protein 5.3 g/dL (6.4-8.2) Albumin 2.4 g/dL (3.4-5.0) Albumin/Globulin Ratio 0.8 (1.0-1.7) Test 08/07/18 08:00 08/07/18 11:43 O2 Saturation 93 % (92-99) Arterial Blood pH 7.37 (7.35-7.45) Arterial Blood pCO2 at Patient Temp 74 mmHg (35-46) Arterial Blood pO2 at Patient Temp 72 mmHg (65-108) Arterial Blood HCO3 42 mmol/L (21-28) Arterial Blood Base Excess 13 mmol/L (-3-3) FiO2 32 Glucose (Fingerstick) 149 mg/dL (70-99) Results All relevant outside records, renal labs, imaging studies, telemetry/EKG's were reviewed. SHERRIE PEREIRA MD August 07, 2018 12:47
--- NOTE | 2018-08-07 13:15 | NUR ---
SS following up with discharge planning. Discharge orders received for home healthcare with [facility]. SS phoned and faxed referral to [facility], ; fax [phone]. Pt's family requested transportation home. SS contacted [facility] transport, [phone], and scheduled transportation for 1500.
[2018-08-07] MEDS: ANTI-COAG MONITOR BY PHARMACY. MC PRN (14:19)
--- NOTE | 2018-08-07 14:41 | PDOC ---
PULMONARY PROGRESS NOTES Subjective on canula Vitals Vital Signs Date Time Temp Pulse Resp B/P (MAP) Pulse Ox O2 Delivery O2 Flow Rate FiO2 08/07/18 12:11 94 Nasal Cannula 3.0 08/07/18 11:00 97.5 94 18 132/65 (87) 97.5 General: Alert, No acute distress Lungs: Other (decrease bases) Cardiovascular: Other (Diminished) Abdomen: Soft, Non-tender Neuro Exam: Alert Extremities: Other (edema BLE +2) Skin: Warm, Dry Labs Laboratory Tests Test 08/05/18 16:38 08/05/18 21:07 08/06/18 07:33 08/06/18 11:23 Glucose (Fingerstick) 132 mg/dL (70-99) 156 mg/dL (70-99) 115 mg/dL (70-99) O2 Saturation 89 % (92-99) Arterial Blood pH 7.36 (7.35-7.45) Arterial Blood pCO2 at Patient Temp 80 mmHg (35-46) Arterial Blood pO2 at Patient Temp 60 mmHg (65-108) Arterial Blood HCO3 44 mmol/L (21-28) Arterial Blood Base Excess 15 mmol/L (-3-3) FiO2 32% 3l nc Test 08/06/18 11:53 08/06/18 16:56 08/06/18 20:30 08/07/18 05:40 Glucose (Fingerstick) 157 mg/dL (70-99) 106 mg/dL (70-99) 122 mg/dL (70-99) White Blood Count 3.4 x10^3/uL (4.0-11.0) Red Blood Count 3.70 x10^6/uL (4.30-5.70) Hemoglobin 11.2 g/dL (13.0-17.5) Hematocrit 35.3 % (39.0-53.0) Mean Corpuscular Volume 96 fL (79-100) Mean Corpuscular Hemoglobin 30 pg (25-35) Mean Corpuscular Hemoglobin Concent 32 g/dL (31-37) Red Cell Distribution Width 15.0 % (11.5-14.5) Platelet Count 107 x10^3/uL (140-400) Sodium Level 143 mmol/L (136-145) Potassium Level 3.8 mmol/L (3.5-5.1) Chloride Level 103 mmol/L (98-107) Carbon Dioxide Level 44 mmol/L (21-32) Anion Gap (6-14) Blood Urea Nitrogen 24 mg/dL (8-26) Creatinine 2.2 mg/dL (0.7-1.3) Estimated GFR (Cockcroft-Gault) 29.3 BUN/Creatinine Ratio 11 (6-20) Glucose Level 163 mg/dL (70-99) Calcium Level 8.5 mg/dL (8.5-10.1) Phosphorus Level 3.8 mg/dL (2.6-4.7) Total Bilirubin 0.7 mg/dL (0.2-1.0) Aspartate Amino Transf (AST/SGOT) 28 U/L (15-37) Alanine Aminotransferase (ALT/SGPT) 23 U/L (16-63) Alkaline Phosphatase 68 U/L (46-116) Total Protein 5.3 g/dL (6.4-8.2) Albumin 2.4 g/dL (3.4-5.0) Albumin/Globulin Ratio 0.8 (1.0-1.7) Test 08/07/18 07:37 08/07/18 08:00 08/07/18 11:43 Glucose (Fingerstick) 144 mg/dL (70-99) 149 mg/dL (70-99) O2 Saturation 93 % (92-99) Arterial Blood pH 7.37 (7.35-7.45) Arterial Blood pCO2 at Patient Temp 74 mmHg (35-46) Arterial Blood pO2 at Patient Temp 72 mmHg (65-108) Arterial Blood HCO3 42 mmol/L (21-28) Arterial Blood Base Excess 13 mmol/L (-3-3) FiO2 32 Laboratory Tests Test 08/06/18 16:56 08/06/18 20:30 08/07/18 05:40 08/07/18 07:37 Glucose (Fingerstick) 106 mg/dL (70-99) 122 mg/dL (70-99) 144 mg/dL (70-99) White Blood Count 3.4 x10^3/uL (4.0-11.0) Red Blood Count 3.70 x10^6/uL (4.30-5.70) Hemoglobin 11.2 g/dL (13.0-17.5) Hematocrit 35.3 % (39.0-53.0) Mean Corpuscular Volume 96 fL (79-100) Mean Corpuscular Hemoglobin 30 pg (25-35) Mean Corpuscular Hemoglobin Concent 32 g/dL (31-37) Red Cell Distribution Width 15.0 % (11.5-14.5) Platelet Count 107 x10^3/uL (140-400) Sodium Level 143 mmol/L (136-145) Potassium Level 3.8 mmol/L (3.5-5.1) Chloride Level 103 mmol/L (98-107) Carbon Dioxide Level 44 mmol/L (21-32) Anion Gap (6-14) Blood Urea Nitrogen 24 mg/dL (8-26) Creatinine 2.2 mg/dL (0.7-1.3) Estimated GFR (Cockcroft-Gault) 29.3 BUN/Creatinine Ratio 11 (6-20) Glucose Level 163 mg/dL (70-99) Calcium Level 8.5 mg/dL (8.5-10.1) Phosphorus Level 3.8 mg/dL (2.6-4.7) Total Bilirubin 0.7 mg/dL (0.2-1.0) Aspartate Amino Transf (AST/SGOT) 28 U/L (15-37) Alanine Aminotransferase (ALT/SGPT) 23 U/L (16-63) Alkaline Phosphatase 68 U/L (46-116) Total Protein 5.3 g/dL (6.4-8.2) Albumin 2.4 g/dL (3.4-5.0) Albumin/Globulin Ratio 0.8 (1.0-1.7) Test 08/07/18 08:00 08/07/18 11:43 O2 Saturation 93 % (92-99) Arterial Blood pH 7.37 (7.35-7.45) Arterial Blood pCO2 at Patient Temp 74 mmHg (35-46) Arterial Blood pO2 at Patient Temp 72 mmHg (65-108) Arterial Blood HCO3 42 mmol/L (21-28) Arterial Blood Base Excess 13 mmol/L (-3-3) FiO2 32 Glucose (Fingerstick) 149 mg/dL (70-99) Medications Active Scripts Medications Dose Route/Sig Max Daily Dose Days Date Category Guaifenesin 200 Mg Tablet 200 Mg PO PRN TID PRN 07/28/18 Reported Budesonide 0.25 Mg/2 Ml Ampul.neb 1 Vial NEB BID 01/29/18 Reported Albuterol Sulfate Conc Neb Soln (Albuterol Sulfate) 2.5 Mg/0.5 Ml Vial.neb 1 Vial NEB Q6HRS PRN 01/29/18 Reported Trazodone Hcl 50 Mg Tablet 1 Tab PO QHS 01/24/18 Reported Culturelle (Lactobacillus Rhamnosus Gg) 1 Each Cap.sprink 1 Each PO 01/24/18 Reported Atorvastatin Calcium 80 Mg Tablet 1 Tab PO DAILY 01/24/18 Reported Buspirone Hcl 10 Mg Tablet 1 Tab PO BID 01/24/18 Reported Glipizide 5 Mg Tablet 1 Tab PO BID 01/24/18 Reported Eliquis (Apixaban) 2.5 Mg Tablet 2.5 Mg PO BID 01/24/18 Reported Protonix (Pantoprazole Sodium) 20 Mg Tablet.dr 1 Tab PO DAILY 01/24/18 Reported Duloxetine Hcl 60 Mg Capsule.dr 60 Mg PO DAILY 01/24/18 Reported Furosemide 20 Mg Tablet 60 Tab PO DAILY 01/24/18 Reported Calcitriol 0.25 Mcg Capsule 1 Cap PO 3X/WEEK 01/24/18 Reported Mucinex (Guaifenesin) 600 Mg Tablet.er 200 Tab PO TID 01/24/18 Reported Potassium Chloride 20 Meq Tablet.er 20 Meq PO DAILY 01/24/18 Reported Levothyroxine Sodium 50 Mcg Tablet 1 Tab PO DAILY 01/24/18 Reported Tylenol (Acetaminophen) 325 Mg Tablet 500 Mg PO TID 01/24/18 Reported Vitamin D3 (Cholecalciferol (Vitamin D3)) 1,000 Unit Tablet 2 Tab PO DAILY 01/24/18 Reported Folic Acid 1 Mg Tablet 1 Tab PO DAILY 01/24/18 Reported Active Scripts Medications Dose Route/Sig Max Daily Dose Days Date Category Guaifenesin 200 Mg Tablet 200 Mg PO PRN TID PRN 07/28/18 Reported Budesonide 0.25 Mg/2 Ml Ampul.neb 1 Vial NEB BID 01/29/18 Reported Albuterol Sulfate Conc Neb Soln (Albuterol Sulfate) 2.5 Mg/0.5 Ml Vial.neb 1 Vial NEB Q6HRS PRN 01/29/18 Reported Trazodone Hcl 50 Mg Tablet 1 Tab PO QHS 01/24/18 Reported Culturelle (Lactobacillus Rhamnosus Gg) 1 Each Cap.sprink 1 Each PO 01/24/18 Reported Atorvastatin Calcium 80 Mg Tablet 1 Tab PO DAILY 01/24/18 Reported Buspirone Hcl 10 Mg Tablet 1 Tab PO BID 01/24/18 Reported Glipizide 5 Mg Tablet 1 Tab PO BID 01/24/18 Reported Eliquis (Apixaban) 2.5 Mg Tablet 2.5 Mg PO BID 01/24/18 Reported Protonix (Pantoprazole Sodium) 20 Mg Tablet.dr 1 Tab PO DAILY 01/24/18 Reported Duloxetine Hcl 60 Mg Capsule.dr 60 Mg PO DAILY 01/24/18 Reported Furosemide 20 Mg Tablet 60 Tab PO DAILY 01/24/18 Reported Calcitriol 0.25 Mcg Capsule 1 Cap PO 3X/WEEK 01/24/18 Reported Mucinex (Guaifenesin) 600 Mg Tablet.er 200 Tab PO TID 01/24/18 Reported Potassium Chloride 20 Meq Tablet.er 20 Meq PO DAILY 01/24/18 Reported Levothyroxine Sodium 50 Mcg Tablet 1 Tab PO DAILY 01/24/18 Reported Tylenol (Acetaminophen) 325 Mg Tablet 500 Mg PO TID 01/24/18 Reported Vitamin D3 (Cholecalciferol (Vitamin D3)) 1,000 Unit Tablet 2 Tab PO DAILY 01/24/18 Reported Folic Acid 1 Mg Tablet 1 Tab PO DAILY 01/24/18 Reported Impression . 1. Acute hypoxemic hypercapnic respiratory failure, multifactorial. 2. Acute on chronic heart failure. 3. Abnormal x-ray with persistent right lower lobe effusion greater than left. 4. Cardiomyopathy, ejection fraction 20-25%. 5. Atrial fibrillation with rapid ventricular response. 6. Type 2 diabetes. 7. Hypertension. 8. Obesity. 9. Chronic obstructive pulmonary disease, unknown FEV1. 10. Possible obstructive sleep apnea. 11. TRANSUDATE EFFUSION REPEAT THORACENTESIS ON 08/04 600 CC REMOVED Procedure Result ANAEROBIC-AEROBIC CULTURE Final Final report ANAEROBIC RES 1 Final Comment No anaerobic growth in 72 hours. AEROBIC CULT Final Final report AEROBIC RES 1 Final Comment No growth in 56 - 72 hours. GRAM STAIN Final Final report GRAM STAIN RES 1 Final Comment No white blood cells seen. GRAM STAIN RES 2 Final No organisms seen Impression: No deep venous thrombus involving the right upper extremity. Plan . CLINICALLY BETTER STILL NOT FULLY AMBULATORY EXTRA LASIX PRN BIPAP QHS/ PT HAS HOME BIPAP REPEAT THORACENTESIS 600 CC PT OT WILL NEED REHAB/ INS DENIES MAY BE HOME IN AM FOLLOW CARD REC CLARITZA PRYOR MD August 07, 2018 14:41
[2018-08-07 15:00] VITALS: BP 118/60
--- NOTE | 2018-08-07 16:15 | NUR ---
SS received notification that pt's discharge has been cancelled due to need for heart cath. SS will continue to follow for discharge planning.
[2018-08-07] MEDS: traZODone 50 MG TABLET. PO SCH (19:49)
[2018-08-07] MEDS: LORazepam 0.5 MG TABLET PO PRN (19:49)
[2018-08-07] MEDS: ATORVASTATIN CALCIUM 40 MG TABLET. PO SCH (19:49)
[2018-08-07 19:51] VITALS: BP 118/62
[2018-08-07 23:42] VITALS: BP 138/65
[2018-08-08] VITALS (15 sets, daily range): BP systolic 114–169; BP diastolic 63–97
[2018-08-08] MEDS: LEVOTHYROXINE 50 MCG TABLET PO SCH (05:21)
[2018-08-08] MEDS ORDERED: IV NORMAL SALINE 1000ML BAG 1,000 ML IV ONE (06:00)
[2018-08-08] MEDS: INSULIN LISPRO 300 UNITS/3 ML INSULN.PEN. SQ SCH ×3 (07:34→17:00)
[2018-08-08] MEDS ORDERED: LIDOCAINE 1% PF 2 ML VIAL. ONE (07:39)
[2018-08-08] MEDS ORDERED: IODIXANOL 320 MG/ML 100 ML VIAL. ONE (07:39)
[2018-08-08] MEDS: IPRATRPIUM/ALBUTEROL 0.5/2.5MG 3 ML NEBU. NEB SCH ×4 (08:00→19:14)
[2018-08-08] MEDS: ASPIRIN ENTERIC COATED 81 MG TABLET.DR. PO SCH (08:08)
[2018-08-08] MEDS: PANTOPRAZOLE 40 MG TABLET.DR. PO SCH (08:09)
[2018-08-08] MEDS ORDERED: fentaNYL PF VIAL 100 MCG/2 ML VIAL ONE (08:20)
[2018-08-08] MEDS ORDERED: HEPARIN for IV BOLUS 10,000 UNIT/10 ML VIAL. ONE (08:20)
[2018-08-08] MEDS ORDERED: NITROGLYCERIN 200 MCG/2 ML SYRINGE FOR CATH/VASC LAB. ONE (08:20)
[2018-08-08] MEDS ORDERED: MIDAZOLAM HCL/PF 2 MG/2 ML VIAL. ONE (08:20)
[2018-08-08] MEDS ORDERED: VERAPAMIL 5 MG/2 ML VIAL. ONE (08:20)
[2018-08-08] MEDS: FUROSEMIDE 40 MG TABLET. PO SCH ×2 (09:00→13:26)
[2018-08-08] MEDS ORDERED: HEPARIN for IV BOLUS 10,000 UNIT/10 ML VIAL. IART ONE (09:15)
[2018-08-08] MEDS ORDERED: IODIXANOL 320 MG/ML 100 ML VIAL. IART ONE (09:15)
[2018-08-08] MEDS ORDERED: CONTRAST GIVEN. MC PRN (09:15)
[2018-08-08] MEDS ORDERED: LIDOCAINE 1% PF 2 ML VIAL. INJ ONE (09:15)
[2018-08-08] MEDS ORDERED: fentaNYL PF VIAL 100 MCG/2 ML VIAL IV ONE (09:15)
[2018-08-08] MEDS ORDERED: MIDAZOLAM HCL/PF 2 MG/2 ML VIAL. IV ONE (09:15)
[2018-08-08] MEDS ORDERED: VERAPAMIL 5 MG/2 ML VIAL. IART ONE (09:15)
[2018-08-08] MEDS ORDERED: NITROGLYCERIN 200 MCG/2 ML SYRINGE FOR CATH/VASC LAB. IART ONE (09:15)
--- NOTE | 2018-08-08 09:25 | NUR ---
patient back to room from woven label designer. patients right radial assessed at this time. pulse present and pulse oximetry applied. patient on 5L o2 NC at this time at 90%. patient not complaining of any pain at this time. patients family at bedside. old drainage around TR band cleaned at this time. will continue to monitor patient.
--- NOTE | 2018-08-08 09:28 | PDOC ---
MODERATE SEDATION ASSESSMENT RISKS/ALTERNATIVES Risks/Alternatives Risks and alternatives of this type of sedation and procedure discussed with: RISK/ALTERNATIVES: Patient H & P ON CHART H & P H & P on chart and reviewed for co-morbid conditions and appropriate labs. H&P ON CHART: Yes STATUS PREG STATUS ASSESSED: N/A MEDS/ALLERGIES REVIEWED Meds/Allergies Reviewed Medications and Allergies including time and route of recently administered narcotics and sedatives. MEDS/ALLERGIES REVIEWED: Yes ASA RATING ASA RATING: III AIRWAY ASSESSMENT Airway Assessment Airway patency, oral function limitations, presence of caps, crowns, dentures, partials, and ability to extend neck assessed. AIRWAY ASSESSMENT: Yes MALLAMPATI SCORE MALLAMPATI SCORE: II PRE-SEDATION ASSESSMENT PRE-SEDATION ASSESSMENT: Yes LAKEISHA LOMELI MD August 08, 2018 09:28
[2018-08-08] MEDS ORDERED: NITROGLYCERIN SUBLINGUAL 0.4 MG BOTTLE OF 25. SL PRN (09:30)
--- NOTE | 2018-08-08 09:38 | CARD ---
MR#: [id number] Date of Study: 08/08/2018 Ordering Physician: KOBE BENSON, Referring Physician: KAR PERSAUD Tech: ELENO SAUNDERS RTR APPROVED REPORT Technologist: ELENO SAUNDERS RTR Nurse: Cordelia Lanza R.N. Procedure(s) performed: Left heart catheterization, selective coronary angiography via right transrad ial approach Moderate sedation:25 mins Fluoro time: 3.5 min Dose: 91 GYCM2 Contrast: 92 NYHA Class: 4 INDICATION The indication(s) include : Acute on chronic systolic heart failure, cardiomyopathy. CS Clinical Frailty Scale [facility] Clinical Frailty Scale: Moderately Frail Heart Failure Heart Failure: Yes If Yes, Newly Diagnosed: No If Yes, HF Type: Systolic If Yes, NYHA Class: Class III PROCEDURE NARRATIVE After explaining the risks, benefits and alternative options, informed consent was obtained from kely ent. Patient was brought to the cardiac Fabric Worker Supervisor and right wrist was prepped and draped in the usual fashion after confirming a positive modified Josué's test. Arterial access was obtained in the righ t radial artery and a 6 Syriac sheath was inserted. 6 Syriac Jake catheter was used to perform donna ective angiography of the left and right coronary arteries. LVEDP and transaortic gradients remeasure d. Left ventriculography was not performed due to elevated creatinine level. Patient tolerated the pr ocedure well. Hemostasis was achieved using TR band. There were no immediate complications. The fo llowing findings were noted. FINDINGS 1. Hemodynamics: Left ventricular end-diastolic pressure of 15 mmHg. No pullback gradient across th e aortic valve. 2. Coronary angiography: a. The left main coronary artery arose from the left sinus of Valsalva, gave rise to the left anteri or descending and left circumflex arteries, was heavily calcified and showed 70% diffuse stenosis. b. The left anterior descending artery showed 40% stenosis in the proximal segment and 70-80% stenos is in the midsegment. c. The left circumflex artery was a large caliber vessel that showed heavily calcified 80% stenosis in the ostial and proximal segments. d. The right coronary artery was a dominant vessel arising from the right sinus of Valsalva that juan antonio wed 70% stenosis in the proximal to midsegment and 100% chronic total occlusion in the distal segment with distal reconstitution of posterior descending branch from left to right collaterals. Conclusion Severe three-vessel coronary artery disease Recommendations CT surgery consultation for possible coronary artery bypass surgery. Signed by : Darell Gaston, Electronically Approved : 08/08/2018 09:37:06
--- NOTE | 2018-08-08 10:19 | PDOC ---
PULMONARY PROGRESS NOTES Subjective on canula s/p left cath/ severe 3 vessel CAD Vitals Vital Signs Date Time Temp Pulse Resp B/P (MAP) Pulse Ox O2 Delivery O2 Flow Rate FiO2 08/08/18 09:17 26 91 NonRebreather Mask 10.0 08/08/18 09:17 100 08/08/18 07:00 98.1 121/66 (84) 98.1 General: No acute distress Lungs: Other (decrease bases) Cardiovascular: Other (Diminished) Abdomen: Soft, Non-tender Neuro Exam: Alert Extremities: Other (edema BLE +2) Skin: Warm, Dry Labs Laboratory Tests Test 08/06/18 11:23 08/06/18 11:53 08/06/18 16:56 08/06/18 20:30 O2 Saturation 89 % (92-99) Arterial Blood pH 7.36 (7.35-7.45) Arterial Blood pCO2 at Patient Temp 80 mmHg (35-46) Arterial Blood pO2 at Patient Temp 60 mmHg (65-108) Arterial Blood HCO3 44 mmol/L (21-28) Arterial Blood Base Excess 15 mmol/L (-3-3) FiO2 32% 3l nc Glucose (Fingerstick) 157 mg/dL (70-99) 106 mg/dL (70-99) 122 mg/dL (70-99) Test 08/07/18 05:40 08/07/18 07:37 08/07/18 08:00 08/07/18 11:43 White Blood Count 3.4 x10^3/uL (4.0-11.0) Red Blood Count 3.70 x10^6/uL (4.30-5.70) Hemoglobin 11.2 g/dL (13.0-17.5) Hematocrit 35.3 % (39.0-53.0) Mean Corpuscular Volume 96 fL (79-100) Mean Corpuscular Hemoglobin 30 pg (25-35) Mean Corpuscular Hemoglobin Concent 32 g/dL (31-37) Red Cell Distribution Width 15.0 % (11.5-14.5) Platelet Count 107 x10^3/uL (140-400) Sodium Level 143 mmol/L (136-145) Potassium Level 3.8 mmol/L (3.5-5.1) Chloride Level 103 mmol/L (98-107) Carbon Dioxide Level 44 mmol/L (21-32) Anion Gap (6-14) Blood Urea Nitrogen 24 mg/dL (8-26) Creatinine 2.2 mg/dL (0.7-1.3) Estimated GFR (Cockcroft-Gault) 29.3 BUN/Creatinine Ratio 11 (6-20) Glucose Level 163 mg/dL (70-99) Calcium Level 8.5 mg/dL (8.5-10.1) Phosphorus Level 3.8 mg/dL (2.6-4.7) Total Bilirubin 0.7 mg/dL (0.2-1.0) Aspartate Amino Transf (AST/SGOT) 28 U/L (15-37) Alanine Aminotransferase (ALT/SGPT) 23 U/L (16-63) Alkaline Phosphatase 68 U/L (46-116) Total Protein 5.3 g/dL (6.4-8.2) Albumin 2.4 g/dL (3.4-5.0) Albumin/Globulin Ratio 0.8 (1.0-1.7) Glucose (Fingerstick) 144 mg/dL (70-99) 149 mg/dL (70-99) O2 Saturation 93 % (92-99) Arterial Blood pH 7.37 (7.35-7.45) Arterial Blood pCO2 at Patient Temp 74 mmHg (35-46) Arterial Blood pO2 at Patient Temp 72 mmHg (65-108) Arterial Blood HCO3 42 mmol/L (21-28) Arterial Blood Base Excess 13 mmol/L (-3-3) FiO2 32 Test 08/07/18 16:40 08/07/18 20:39 08/08/18 07:27 Glucose (Fingerstick) 149 mg/dL (70-99) 164 mg/dL (70-99) 105 mg/dL (70-99) Laboratory Tests Test 08/07/18 11:43 08/07/18 16:40 08/07/18 20:39 08/08/18 07:27 Glucose (Fingerstick) 149 mg/dL (70-99) 149 mg/dL (70-99) 164 mg/dL (70-99) 105 mg/dL (70-99) Medications Active Scripts Medications Dose Route/Sig Max Daily Dose Days Date Category Guaifenesin 200 Mg Tablet 200 Mg PO PRN TID PRN 07/28/18 Reported Budesonide 0.25 Mg/2 Ml Ampul.neb 1 Vial NEB BID 01/29/18 Reported Albuterol Sulfate Conc Neb Soln (Albuterol Sulfate) 2.5 Mg/0.5 Ml Vial.neb 1 Vial NEB Q6HRS PRN 01/29/18 Reported Trazodone Hcl 50 Mg Tablet 1 Tab PO QHS 01/24/18 Reported Culturelle (Lactobacillus Rhamnosus Gg) 1 Each Cap.sprink 1 Each PO 01/24/18 Reported Atorvastatin Calcium 80 Mg Tablet 1 Tab PO DAILY 01/24/18 Reported Buspirone Hcl 10 Mg Tablet 1 Tab PO BID 01/24/18 Reported Glipizide 5 Mg Tablet 1 Tab PO BID 01/24/18 Reported Eliquis (Apixaban) 2.5 Mg Tablet 2.5 Mg PO BID 01/24/18 Reported Protonix (Pantoprazole Sodium) 20 Mg Tablet.dr 1 Tab PO DAILY 01/24/18 Reported Duloxetine Hcl 60 Mg Capsule.dr 60 Mg PO DAILY 01/24/18 Reported Furosemide 20 Mg Tablet 60 Tab PO DAILY 01/24/18 Reported Calcitriol 0.25 Mcg Capsule 1 Cap PO 3X/WEEK 01/24/18 Reported Mucinex (Guaifenesin) 600 Mg Tablet.er 200 Tab PO TID 01/24/18 Reported Potassium Chloride 20 Meq Tablet.er 20 Meq PO DAILY 01/24/18 Reported Levothyroxine Sodium 50 Mcg Tablet 1 Tab PO DAILY 01/24/18 Reported Tylenol (Acetaminophen) 325 Mg Tablet 500 Mg PO TID 01/24/18 Reported Vitamin D3 (Cholecalciferol (Vitamin D3)) 1,000 Unit Tablet 2 Tab PO DAILY 01/24/18 Reported Folic Acid 1 Mg Tablet 1 Tab PO DAILY 01/24/18 Reported Active Scripts Medications Dose Route/Sig Max Daily Dose Days Date Category Guaifenesin 200 Mg Tablet 200 Mg PO PRN TID PRN 07/28/18 Reported Budesonide 0.25 Mg/2 Ml Ampul.neb 1 Vial NEB BID 01/29/18 Reported Albuterol Sulfate Conc Neb Soln (Albuterol Sulfate) 2.5 Mg/0.5 Ml Vial.neb 1 Vial NEB Q6HRS PRN 01/29/18 Reported Trazodone Hcl 50 Mg Tablet 1 Tab PO QHS 01/24/18 Reported Culturelle (Lactobacillus Rhamnosus Gg) 1 Each Cap.sprink 1 Each PO 01/24/18 Reported Atorvastatin Calcium 80 Mg Tablet 1 Tab PO DAILY 01/24/18 Reported Buspirone Hcl 10 Mg Tablet 1 Tab PO BID 01/24/18 Reported Glipizide 5 Mg Tablet 1 Tab PO BID 01/24/18 Reported Eliquis (Apixaban) 2.5 Mg Tablet 2.5 Mg PO BID 01/24/18 Reported Protonix (Pantoprazole Sodium) 20 Mg Tablet.dr 1 Tab PO DAILY 01/24/18 Reported Duloxetine Hcl 60 Mg Capsule.dr 60 Mg PO DAILY 01/24/18 Reported Furosemide 20 Mg Tablet 60 Tab PO DAILY 01/24/18 Reported Calcitriol 0.25 Mcg Capsule 1 Cap PO 3X/WEEK 01/24/18 Reported Mucinex (Guaifenesin) 600 Mg Tablet.er 200 Tab PO TID 01/24/18 Reported Potassium Chloride 20 Meq Tablet.er 20 Meq PO DAILY 01/24/18 Reported Levothyroxine Sodium 50 Mcg Tablet 1 Tab PO DAILY 01/24/18 Reported Tylenol (Acetaminophen) 325 Mg Tablet 500 Mg PO TID 01/24/18 Reported Vitamin D3 (Cholecalciferol (Vitamin D3)) 1,000 Unit Tablet 2 Tab PO DAILY 01/24/18 Reported Folic Acid 1 Mg Tablet 1 Tab PO DAILY 01/24/18 Reported Impression . 1. Acute hypoxemic hypercapnic respiratory failure, multifactorial. 2. Acute on chronic heart failure. 3. Abnormal x-ray with persistent right lower lobe effusion right greater than left. 4. Cardiomyopathy, ejection fraction 20-25%. 5. Atrial fibrillation with rapid ventricular response. 6. Type 2 diabetes. 7. Hypertension. 8. Obesity. 9. Chronic obstructive pulmonary disease, unknown FEV1. 10. Possible obstructive sleep apnea. 11. TRANSUDATE EFFUSION REPEAT THORACENTESIS ON 08/04 600 CC REMOVED Procedure Result ANAEROBIC-AEROBIC CULTURE Final Final report ANAEROBIC RES 1 Final Comment No anaerobic growth in 72 hours. AEROBIC CULT Final Final report AEROBIC RES 1 Final Comment No growth in 56 - 72 hours. GRAM STAIN Final Final report GRAM STAIN RES 1 Final Comment No white blood cells seen. GRAM STAIN RES 2 Final No organisms seen Impression: No deep venous thrombus involving the right upper extremity. Plan . CLINICALLY STABLE SEVERE 3 VESSEL CAD BY CATH/ AWAITING CV SURGERY INPUT STILL NOT FULLY AMBULATORY EXTRA LASIX PRN BIPAP QHS/ PT HAS HOME BIPAP REPEAT THORACENTESIS 600 CC PT /OT WILL NEED REHAB/ INS DENIES FOLLOW CARD REC D/W FAMILY CLARITZA PRYOR MD August 08, 2018 10:19
[2018-08-08] MEDS: glipiZIDE 5 MG TABLET PO SCH ×2 (10:54→16:09)
[2018-08-08] MEDS: CHOLECALCIFEROL (VITAMIN D3) 1,000 UNIT TABLET PO SCH (10:54)
[2018-08-08] MEDS: busPIRone 10 MG TABLET. PO SCH ×2 (10:54→19:43)
[2018-08-08] MEDS: ACETAMINOPHEN 500 MG TABLET PO SCH ×3 (10:54→19:44)
[2018-08-08] MEDS: CALCITRIOL 0.25 MCG CAPSULE. PO SCH (10:54)
[2018-08-08] MEDS: LACTOBACILLUS RHAMNOSUS GG 1 CAPSULE. PO SCH ×2 (10:54→19:44)
[2018-08-08] MEDS: FLUTICASONE 50MCG/NASAL SPRAY 16GM BOTTLE. NS SCH (10:55)
[2018-08-08] MEDS: FOLIC ACID 1 MG TABLET. PO SCH (10:55)
[2018-08-08] MEDS: METOPROLOL SUCC 24HR ER 100 MG TAB.ER.24H. PO SCH (10:55)
[2018-08-08] MEDS: NYSTATIN TOPICAL POWDER 15GM BOTTLE. TP SCH ×2 (10:55→19:43)
[2018-08-08] MEDS: DULoxetine HCL 30 MG CAPSULE.DR PO SCH (10:55)
[2018-08-08 11:18] LABS: HEMATOCRIT 36.9 % (39.0-53.0); HEMOGLOBIN 11.6 g/dL (13.0-17.5); RED BLOOD COUNT 3.83 x10^6/uL (4.30-5.70); RED CELL DISTRIBUTION WIDTH 14.8 % (11.5-14.5)
--- NOTE | 2018-08-08 11:30 | PDOC ---
SUBJECTIVE ROS S/P cardiac cath this am OBJECTIVE Vital Signs Vital Signs Date Time Temp Pulse Resp B/P (MAP) Pulse Ox O2 Delivery O2 Flow Rate FiO2 08/08/18 10:55 100 166/89 08/08/18 09:17 26 91 NonRebreather Mask 10.0 08/08/18 07:00 98.1 98.1 I & 0 Intake and Output 08/08/18 06:59 Intake Total 550 ml Output Total 600 ml Balance -50 ml Intake Oral 550 ml Output Urine Total 600 ml # Voids 1 PHYSICAL EXAM Physical Exam GEN: NAD, Morbidly obese EYES: Vision Unchanged, Conjunctiva Normal EN: , Mucous Membranes moist NECK: no JVD, no JVP, Supple, short thick neck CVS: S1S2, no audible Murmur, No Gallop, No Rub, RESP: no Rales, no Rhonchi,no Acc. Muscle Use, GI: BS + ve, NO Bruit, Non Tender, Non Distended, morbidly obese a : no CVA tenderness, no Suprapubic Tenderness DIAGNOSIS/ASSESSMENT Assessment & Plan YARELY -ATN/Cardiorenal S/P Cardiac cath this am,Monitor for JESUS Anticipate Fluctuation sec to CHF IVF Cautiously avoid Volume Overload Chronic kidney disease stage 3 - Baseline Cr 1.7-1.8 in 2018 No prior labs Edema in lower extremity: Diuresis as best tolerated by hemodynamics and weight Acute on Chronic Systolic and Diastolic CHF - EF OF 20% S/P Cath this am ,Severe three-vessel coronary artery disease.,CT surgery consultation for possible coronary artery bypass surgery. Pleural Effusion- bilat S/P Rt Thoracentesis on 07/30- 1200 ml fluid drained S/P Rt Thoracentesis 08/04 650 ml removed Pulm following Chronic Metab Alkalosis - presumably chronic compensation for underlying respiratory acidosis Bicarb going up, may need to decrease Lasix Defer to Pulmonary COPD COMMENT/RELEVANT DATA Meds Current Medications Medications (Trade) Dose Ordered Sig/Bettina Start Time Stop Time Status Last Admin Dose Admin Acetaminophen (Tylenol) 500 mg TID 08/03/18 09:00 08/08/18 10:54 500 MG Albuterol Sulfate (Ventolin Neb Soln) 2.5 mg PRN Q6HRS PRN 07/28/18 18:00 07/28/18 20:07 2.5 MG Albuterol/ Ipratropium (Duoneb) 3 ml RTQID 07/28/18 20:30 08/07/18 19:48 3 ML Alteplase, Recombinant (Cathflo For Central Catheter Clearance) 1 mg 1X ONCE 08/06/18 10:00 08/06/18 10:01 DC 08/06/18 10:03 1 MG Apixaban (Eliquis) 5 mg BID 08/05/18 21:00 08/07/18 14:36 DC 08/07/18 09:18 5 MG Aspirin (Ecotrin) 81 mg [id number] 07/31/18 08:00 08/08/18 08:08 81 MG Atorvastatin Calcium (Lipitor) 40 mg QHS 07/28/18 21:00 08/07/18 19:49 40 MG Bisacodyl (Dulcolax Supp) 10 mg 1X ONCE 08/01/18 10:30 08/01/18 10:31 DC Budesonide (Pulmicort) 0.5 mg RTBID 07/28/18 12:00 08/07/18 19:48 0.5 MG Buspirone HCl (Buspar) 10 mg BID 07/28/18 12:00 08/08/18 10:54 10 MG Calcitriol (Rocaltrol) 0.25 mcg MoWeFr 07/28/18 12:00 08/08/18 10:54 0.25 MCG Dextrose (Dextrose 50%-Water Syringe) 12.5 gm PRN Q15MIN PRN 07/28/18 12:30 Digoxin (Lanoxin) 500 mcg 1X ONCE 07/31/18 22:00 07/31/18 22:01 DC 07/31/18 21:58 500 MCG Docusate Sodium (Colace) 100 mg PRN DAILY PRN 08/06/18 11:00 08/06/18 11:49 100 MG Duloxetine HCl (Cymbalta) 60 mg DAILY 07/29/18 09:00 UNV Fentanyl Citrate (Fentanyl 2ml Vial) 50 mcg 1X ONCE 08/08/18 09:15 08/08/18 09:16 DC 08/08/18 09:17 50 MCG Fluticasone Propionate (Flonase) 2 spray DAILY 07/29/18 09:00 08/08/18 10:55 2 SPRAY Folic Acid (Folic Acid) 1 mg DAILY 07/28/18 12:00 08/08/18 10:55 1 MG Furosemide (Lasix) 40 mg 1X ONCE 08/06/18 17:00 08/06/18 17:01 DC 08/06/18 17:16 40 MG Glipizide (Glucotrol) 2.5 mg BIDBFRMEAL 07/28/18 16:30 08/08/18 10:54 2.5 MG Heparin Sodium (Porcine) (Heparin Sodium) 2,500 unit 1X ONCE 08/08/18 09:15 08/08/18 09:16 DC 08/08/18 09:16 2,500 UNIT Heparin Sodium/ Sodium Chloride (HEPARIN for ARTERIAL LINE FLUSH) 1,000 unit 1X ONCE 08/08/18 09:15 08/08/18 09:16 DC 08/08/18 09:15 1,000 UNIT Info (Anti-Coagulation Monitoring By Pharmacy) 1 each PRN DAILY PRN 08/04/18 19:00 Cancel Info (CONTRAST GIVEN -- Rx MONITORING) 1 each PRN DAILY PRN 08/08/18 09:15 08/10/18 09:14 Info (Icu Electrolyte Protocol) 1 ea CONT PRN PRN 07/30/18 13:45 08/04/18 11:15 DC Insulin Human Lispro (HumaLOG) 0-5 UNITS TIDWMEALS 07/28/18 17:00 08/06/18 12:25 2 UNITS Iodixanol (Visipaque 320) 92 ml 1X ONCE 08/08/18 09:15 08/08/18 09:16 DC 08/08/18 09:14 92 ML Lactobacillus Rhamnosus (Culturelle) 1 cap BID 07/28/18 21:00 08/08/18 10:54 1 CAP Levothyroxine Sodium (Synthroid) 50 mcg DAILY06 07/28/18 15:30 08/07/18 05:34 50 MCG Lidocaine HCl (Xylocaine-Mpf 1% 2ml Vial) 2 ml 1X ONCE 08/08/18 09:15 08/08/18 09:16 DC 08/08/18 09:18 2 ML Lorazepam (Ativan) 0.5 mg PRN Q4HRS PRN 07/28/18 12:15 08/07/18 19:49 0.5 MG Meropenem 1 gm/ Sodium Chloride 100 ml @ 200 mls/hr Q12HR 07/28/18 12:00 08/05/18 08:12 DC 08/04/18 20:39 200 MLS/HR Metoprolol Succinate (Toprol Xl) 100 mg DAILY 08/04/18 09:00 08/08/18 10:55 100 MG Metoprolol Tartrate (Lopressor) 25 mg 1X ONCE 07/30/18 10:00 07/30/18 10:01 DC 07/30/18 10:52 25 MG Midazolam HCl (Versed) 1 mg 1X ONCE 08/08/18 09:15 08/08/18 09:16 DC 08/08/18 09:18 1 MG Milrinone Lactate/ Dextrose 100 ml @ 4.238 mls/ hr CONT PRN 07/28/18 11:00 08/01/18 16:24 DC 07/31/18 19:46 4.238 MLS/HR Nitroglycerin (Nitroglycerin) 200 mcg 1X ONCE 08/08/18 09:15 08/08/18 09:16 DC 08/08/18 09:15 200 MCG Nitroglycerin (Nitrostat) 0.4 mg PRN Q5MIN PRN 08/08/18 09:30 Non-Formulary Medication (Albuterol Sulfate (Albuterol Sulfate Conc Neb Soln)) 1 vial Q6HRS PRN 07/28/18 12:00 UNV Non-Formulary Medication (Budesonide ) 1 vial BID 07/28/18 21:00 UNV Nystatin (Nystop) 1 ute BID 07/28/18 13:00 08/08/18 10:55 1 UTE Pantoprazole Sodium (Protonix) 40 mg DAILYAC 07/28/18 16:30 08/08/18 08:09 40 MG Polyethylene Glycol (miraLAX PACKET) 17 gm PRN DAILY PRN 08/06/18 11:00 08/06/18 11:49 17 GM Potassium Chloride (Klor-Con) 20 meq 1X ONCE 07/30/18 07:45 07/30/18 07:46 DC 07/30/18 08:58 20 MEQ Senna/Docusate Sodium (Senna Plus) 2 tab PRN BID PRN 07/28/18 12:15 08/02/18 14:12 2 TAB Sodium Chloride 1,000 ml @ 100 mls/hr 1X ONCE 08/08/18 06:00 08/08/18 15:59 08/08/18 05:27 100 MLS/HR Trazodone HCl (Desyrel) 50 mg QHS 07/28/18 21:00 08/07/18 19:49 50 MG Vancomycin HCl (Vanco Per Pharmacy) 1 each PRN DAILY PRN 07/28/18 12:15 07/29/18 14:12 DC 07/28/18 17:03 1 EACH Vancomycin HCl (Vancomycin Trough Level) 1 each 1X ONCE 07/30/18 16:30 07/30/18 16:30 DC Vancomycin HCl 1.75 gm/Sodium Chloride 500 ml @ 250 mls/hr Q24H 07/28/18 17:00 07/29/18 14:12 DC 07/28/18 17:00 250 MLS/HR Vancomycin HCl 2 gm/Sodium Chloride 500 ml @ 250 mls/hr ONCE ONCE 07/28/18 13:00 07/28/18 14:59 Cancel Verapamil HCl (Verapamil) 2.5 mg 1X ONCE 08/08/18 09:15 08/08/18 09:16 DC 08/08/18 09:17 2.5 MG Vitamin D (Vitamin D3) 2,000 unit DAILY 07/28/18 12:00 08/08/18 10:54 2,000 UNIT Lab Laboratory Tests Test 08/07/18 11:43 08/07/18 16:40 08/07/18 20:39 08/08/18 07:27 Glucose (Fingerstick) 149 mg/dL (70-99) 149 mg/dL (70-99) 164 mg/dL (70-99) 105 mg/dL (70-99) Test 08/08/18 11:05 White Blood Count 4.0 x10^3/uL (4.0-11.0) Red Blood Count 3.83 x10^6/uL (4.30-5.70) Hemoglobin 11.6 g/dL (13.0-17.5) Hematocrit 36.9 % (39.0-53.0) Mean Corpuscular Volume 96 fL (79-100) Mean Corpuscular Hemoglobin 30 pg (25-35) Mean Corpuscular Hemoglobin Concent 32 g/dL (31-37) Red Cell Distribution Width 14.8 % (11.5-14.5) Platelet Count 126 x10^3/uL (140-400) Results All relevant outside records, renal labs, imaging studies, telemetry/EKG's were reviewed. SHERRIE PEREIRA MD August 08, 2018 11:30
--- NOTE | 2018-08-08 11:33 | NUR ---
SS following up with discharge planning. AMBIKA from [facility] met with pt and family in room to complete Medicaid Application. SS met with pt and family and completed Healthcare DPOA paperwork. Per notes pt receiving heart cath today. SS will continue to follow for discharge planning.
[2018-08-08 11:40] LABS: CALCIUM 8.7 mg/dL (8.5-10.1); CREATININE 2.1 mg/dL (0.7-1.3); GFR 30.9; POTASSIUM 4.2 mmol/L (3.5-5.1)
[2018-08-08 11:46] LABS: ALBUMIN 2.5 g/dL (3.4-5.0); ALBUMIN/GLOBULIN RATIO 0.8 (1.0-1.7); TOTAL BILIRUBIN 0.6 mg/dL (0.2-1.0); TOTAL PROTEIN 5.7 g/dL (6.4-8.2)
[2018-08-08] MEDS: BUDESONIDE 0.5 MG/2 ML NEBU. NEB SCH ×2 (12:12→19:14)
--- NOTE | 2018-08-08 13:26 | NUR ---
TO HOLD TODAYS LASIX PER DR PEREIRA.
--- NOTE | 2018-08-08 14:56 | PDOC2 ---
CONSULT Date of Consult Date of Consult DATE: 08/08/18 TIME: 14:52 Referring Physician Referring Physician: Dr Gaston Identification/Chief Complaint Chief Complaint SOB Source Source: Chart review, Patient History of Present Illness Reason for Visit: The patient is a 73-year-old male who was admitted on July 28 with shortness of breath, owing to acute on chronic CHF. The patient is oxygen dependent and has severe COPD with a baseline CO2 of 70-80 and the compensated pH. An echo showed cardiomyopathy with an ejection fraction of 20% which led to a coronary angiogram today which showed severe three-vessel disease including 70% distal left mainstem disease 80% mid LAD, left circumflex and an occluded distal RCA. I was consulted to consider the patient for surgical coronary revascularization. Past Medical History Cardiovascular: AFIB, CAD, CHF, HTN GI: Constipation Heme/Onc: Anemia NOS Renal/: Chronic renal insuff Endocrine: Diabetes, Hyperparathyroidism Past Surgical History Past Surgical History: Cataract Removal Family History Family History: No Significant Current Medications Current Medications Current Medications Milrinone Lactate/ Dextrose 100 ml @ 4.238 mls/ hr CONT PRN IV SEE I/O RECORD Last administered on 07/31/18at 19:46; Start 07/28/18 at 11:00; Stop 08/01/18 at 16:24; Status DC Acetaminophen (Tylenol) 500 mg TID PO Last administered on 08/02/18at 20:53; Start 07/28/18 at 14:00; Stop 08/03/18 at 08:34; Status DC Buspirone HCl (Buspar) 10 mg BID PO Last administered on 08/08/18at 10:54; Start 07/28/18 at 12:00 Vitamin D (Vitamin D3) 2,000 unit DAILY PO Last administered on 08/08/18 10:54; Start 07/28/18 at 12:00 Folic Acid (Folic Acid) 1 mg DAILY PO Last administered on 08/08/18at 10:55; Start 07/28/18 at 12:00 Non-Formulary Medication (Albuterol Sulfate (Albuterol Sulfate Conc Neb Soln)) 1 vial Q6HRS PRN NEB SHORTNESS OF BREATH; Start 07/28/18 at 12:00; Status UNV Non-Formulary Medication (Budesonide ) 1 vial BID NEB ; Start 07/28/18 at 21:00; Status UNV Calcitriol (Rocaltrol) 0.25 mcg MoWeFr PO Last administered on 08/08/18 10:54; Start 07/28/18 at 12:00 Duloxetine HCl (Cymbalta) 60 mg DAILY PO Last administered on 08/08/18 10:55; Start 07/28/18 at 12:00 Levothyroxine Sodium (Synthroid) 50 mcg DAILY06 PO Last administered on 08/07/18 05:34; Start 07/28/18 at 15:30 Atorvastatin Calcium (Lipitor) 40 mg QHS PO Last administered on 08/07/18 19:49; Start 07/28/18 at 21:00 Budesonide (Pulmicort) 0.5 mg RTBID NEB ; Start 07/28/18 at 20:00; Status UNV Fluticasone Propionate (Flonase) 2 spray DAILY NS Last administered on 08/08/18 10:55; Start 07/29/18 at 09:00 Duloxetine HCl (Cymbalta) 60 mg DAILY PO ; Start 07/29/18 at 09:00; Status UNV Furosemide (Lasix) 80 mg DAILY IVP Last administered on 07/30/18 08:52; Start 07/28/18 at 13:00; Stop 07/30/18 at 12:35; Status DC Lactobacillus Rhamnosus (Culturelle) 1 cap BID PO Last administered on 08/08/18 10:54; Start 07/28/18 at 21:00 Lorazepam (Ativan) 0.5 mg PRN Q4HRS PRN PO ANXIETY / AGITATION Last administered on 08/07/18 19:49; Start 07/28/18 at 12:15 Meropenem 1 gm/ Sodium Chloride 100 ml @ 200 mls/hr Q12HR IV Last administered on 08/04/18 20:39; Start 07/28/18 at 12:00; Stop 08/05/18 at 08:12; Status DC Metoprolol Tartrate (Lopressor) 50 mg BID PO Last administered on 07/31/18 08:20; Start 07/28/18 at 12:00; Stop 07/31/18 at 11:50; Status DC Nystatin (Nystop) 1 ute BID TP Last administered on 08/08/18 10:55; Start 07/28/18 at 13:00 Pantoprazole Sodium (Protonix) 40 mg DAILYAC PO Last administered on 08/08/18 08:09; Start 07/28/18 at 16:30 Senna/Docusate Sodium (Senna Plus) 2 tab PRN BID PRN PO CONSTIPATION, 1ST CHOICE Last administered on 08/02/18 14:12; Start 07/28/18 at 12:15 Vancomycin HCl (Vanco Per Pharmacy) 1 each PRN DAILY PRN MC SEE COMMENTS Last administered on 07/28/18 17:03; Start 07/28/18 at 12:15; Stop 07/29/18 at 14:12; Status DC Glipizide (Glucotrol) 2.5 mg BIDBFRMEAL PO Last administered on 08/08/18 10:54; Start 07/28/18 at 16:30 Trazodone HCl (Desyrel) 50 mg QHS PO Last administered on 08/07/18 19:49; Start 07/28/18 at 21:00 Budesonide (Pulmicort) 0.5 mg RTBID NEB Last administered on 08/08/18 12:12; Start 07/28/18 at 12:00 Insulin Human Lispro (HumaLOG) 0-5 UNITS TIDWMEALS SQ Last administered on 08/06/18 12:25; Start 07/28/18 at 17:00 Dextrose (Dextrose 50%-Water Syringe) 12.5 gm PRN Q15MIN PRN IV SEE COMMENTS; Start 07/28/18 at 12:30 Albuterol Sulfate (Ventolin Neb Soln) 2.5 mg PRN Q6HRS PRN NEB SHORTNESS OF BREATH Last administered on 07/28/18 20:07; Start 07/28/18 at 18:00 Vancomycin HCl 2 gm/Sodium Chloride 500 ml @ 250 mls/hr ONCE ONCE IV ; Start 07/28/18 at 13:00; Stop 07/28/18 at 14:59; Status Cancel Vancomycin HCl 1.75 gm/Sodium Chloride 500 ml @ 250 mls/hr Q24H IV Last administered on 07/28/18 17:00; Start 07/28/18 at 17:00; Stop 07/29/18 at 14:12; Status DC Vancomycin HCl (Vancomycin Trough Level) 1 each 1X ONCE MC ; Start 07/30/18 at 16:30; Stop 07/30/18 at 16:30; Status DC Albuterol/ Ipratropium (Duoneb) 3 ml RTQID NEB Last administered on 08/08/18at 12:12; Start 07/28/18 at 20:30 Furosemide (Lasix) 40 mg 1X ONCE IVP Last administered on 07/29/18at 00:28; Start 07/29/18 at 00:15; Stop 07/29/18 at 00:16; Status DC Potassium Chloride (Klor-Con) 20 meq 1X ONCE PO Last administered on 07/30/18at 08:58; Start 07/30/18 at 07:45; Stop 07/30/18 at 07:46; Status DC Aspirin (Ecotrin) 81 mg DAILYWBKFT PO Last administered on 08/08/18at 08:08; Start 07/31/18 at 08:00 Metoprolol Tartrate (Lopressor) 25 mg 1X ONCE PO Last administered on 07/30/18at 10:52; Start 07/30/18 at 10:00; Stop 07/30/18 at 10:01; Status DC Furosemide (Lasix) 80 mg BID IVP Last administered on 08/01/18at 09:07; Start 07/30/18 at 21:00; Stop 08/01/18 at 11:05; Status DC Info (Icu Electrolyte Protocol) 1 ea CONT PRN PRN MC PER PROTOCOL; Start at 13:45; Stop 08/04/18 at 11:15; Status DC Metoprolol Succinate (Toprol Xl) 75 mg DAILY PO Last administered on 08/03/18at 08:26; Start 07/31/18 at 12:00; Stop 08/03/18 at 18:10; Status DC Apixaban (Eliquis) 5 mg BID PO Last administered on 08/01/18at 09:04; Start 07/31/18 at 21:00; Stop 08/01/18 at 16:24; Status DC Info (Anti-Coagulation Monitoring By Pharmacy) 1 each PRN DAILY PRN MC SEE COMMENTS Last administered on 08/07/18at 14:19; Start 07/31/18 at 17:30 Digoxin (Lanoxin) 500 mcg 1X ONCE IV Last administered on 07/31/18 21:58; Start 07/31/18 at 22:00; Stop 07/31/18 at 22:01; Status DC Bisacodyl (Dulcolax Supp) 10 mg 1X ONCE AR ; Start 08/01/18 at 10:30; Stop 08/01/18 at 10:31; Status DC Furosemide (Lasix) 40 mg BID92 PO Last administered on 08/07/18 15:00; Start 08/01/18 at 14:00 Acetaminophen (Tylenol) 500 mg TID PO Last administered on 08/08/18 14:16; Start 08/03/18 at 09:00 Metoprolol Succinate (Toprol Xl) 100 mg DAILY PO Last administered on 08/08/18 10:55; Start 08/04/18 at 09:00 Apixaban (Eliquis) 2.5 mg BID PO Last administered on 08/05/18 10:25; Start 08/05/18 at 09:00; Stop 08/05/18 at 16:24; Status DC Info (Anti-Coagulation Monitoring By Pharmacy) 1 each PRN DAILY PRN MC SEE COMMENTS; Start 08/04/18 at 19:00; Status Cancel Apixaban (Eliquis) 5 mg BID PO Last administered on 08/07/18at 09:18; Start 08/05/18 at 21:00; Stop 08/07/18 at 14:36; Status DC Alteplase, Recombinant (Cathflo For Central Catheter Clearance) 1 mg 1X ONCE INT CAT ; Start 08/06/18 at 10:00; Stop 08/06/18 at 10:01; Status DC Alteplase, Recombinant (Cathflo For Central Catheter Clearance) 1 mg 1X ONCE INT CAT Last administered on 08/06/18at 10:03; Start 08/06/18 at 10:00; Stop 08/06/18 at 10:01; Status DC Docusate Sodium (Colace) 100 mg PRN DAILY PRN PO HARD STOOLS Last administered on 08/06/18at 11:49; Start 08/06/18 at 11:00 Polyethylene Glycol (miraLAX PACKET) 17 gm PRN DAILY PRN PO CONSTIPATION, 2ND CHOICE Last administered on 08/06/18at 11:49; Start 08/06/18 at 11:00 Furosemide (Lasix) 40 mg 1X ONCE IVP Last administered on 08/06/18at 17:16; Start 08/06/18 at 17:00; Stop 08/06/18 at 17:01; Status DC Sodium Chloride 1,000 ml @ 100 mls/hr 1X ONCE IV Last administered on 08/08/18at 05:27; Start 08/08/18 at 06:00; Stop 08/08/18 at 15:59 Iodixanol (Visipaque 320) 100 ml STK-MED ONCE .ROUTE ; Start 08/08/18 at 07:39; Stop 08/08/18 at 07:40; Status DC Lidocaine HCl (Xylocaine-Mpf 1% 2ml Vial) 2 ml STK-MED ONCE .ROUTE ; Start 08/08/18 at 07:39; Stop 08/08/18 at 07:40; Status DC Heparin Sodium/ Sodium Chloride 1,000 ml @ As Directed STK-MED ONCE .ROUTE ; Start 08/08/18 at 07:40; Stop 08/08/18 at 07:41; Status DC Fentanyl Citrate (Fentanyl 2ml Vial) 100 mcg STK-MED ONCE .ROUTE ; Start 08/08/18 at 08:20; Stop 08/08/18 at 08:23; Status DC Midazolam HCl (Versed) 2 mg STK-MED ONCE .ROUTE ; Start 08/08/18 at 08:20; Stop 08/08/18 at 08:23; Status DC Heparin Sodium (Porcine) (Heparin Sodium) 10,000 unit STK-MED ONCE .ROUTE ; Start 08/08/18 at 08:20; Stop 08/08/18 at 08:24; Status DC Verapamil HCl (Verapamil) 5 mg STK-MED ONCE .ROUTE ; Start 08/08/18 at 08:20; Stop 08/08/18 at 08:24; Status DC Nitroglycerin (Nitroglycerin) 200 mcg STK-MED ONCE .ROUTE ; Start 08/08/18 at 08:20; Stop 08/08/18 at 08:24; Status DC Nitroglycerin (Nitroglycerin) 200 mcg 1X ONCE IART Last administered on 08/08/18at 09:15; Start 08/08/18 at 09:15; Stop 08/08/18 at 09:16; Status DC Verapamil HCl (Verapamil) 2.5 mg 1X ONCE IART Last administered on 08/08/18 09:17; Start 08/08/18 at 09:15; Stop 08/08/18 at 09:16; Status DC Heparin Sodium (Porcine) (Heparin Sodium) 2,500 unit 1X ONCE IART Last administered on 08/08/18at 09:16; Start 08/08/18 at 09:15; Stop 08/08/18 at 09:16; Status DC Heparin Sodium/ Sodium Chloride (HEPARIN for ARTERIAL LINE FLUSH) 1,000 unit 1X ONCE IART Last administered on 08/08/18at 09:15; Start 08/08/18 at 09:15; Stop 08/08/18 at 09:16; Status DC Midazolam HCl (Versed) 1 mg 1X ONCE IV Last administered on 08/08/18 09:18; S tart 08/08/18 at 09:15; Stop 08/08/18 at 09:16; Status DC Fentanyl Citrate (Fentanyl 2ml Vial) 50 mcg 1X ONCE IV Last administered on 08/08/18at 09:17; Start 08/08/18 at 09:15; Stop 08/08/18 at 09:16; Status DC Iodixanol (Visipaque 320) 92 ml 1X ONCE IART Last administered on 08/08/18at 09:14; Start 08/08/18 at 09:15; Stop 08/08/18 at 09:16; Status DC Lidocaine HCl (Xylocaine-Mpf 1% 2ml Vial) 2 ml 1X ONCE INJ Last administered on 08/08/18at 09:18; Start 08/08/18 at 09:15; Stop 08/08/18 at 09:16; Status DC Info (CONTRAST GIVEN -- Rx MONITORING) 1 each PRN DAILY PRN MC SEE COMMENTS; Start 08/08/18 at 09:15; Stop 08/10/18 at 09:14 Nitroglycerin (Nitrostat) 0.4 mg PRN Q5MIN PRN SL CHEST PAIN; Start 08/08/18 at 09:30 Active Scripts Active Furosemide 40 Mg Tablet 40 Mg PO BID 30 Days Miralax (Polyethylene Glycol 3350) 17 Gm Powd.pack 1 Packet PO DAILY Colace (Docusate Sodium) 100 Mg Capsule 1 Cap PO BID 30 Days Eliquis (Apixaban) 5 Mg Tablet 5 Mg PO BID 30 Days Metoprolol Succinate ( Xl ) (Metoprolol Succinate) 100 Mg Tab.er.24h 1 Tab PO DAILY 30 Days Reported Guaifenesin 200 Mg Tablet 200 Mg PO PRN TID PRN Budesonide 0.25 Mg/2 Ml Ampul.neb 1 Vial NEB BID Albuterol Sulfate Conc Neb Soln (Albuterol Sulfate) 2.5 Mg/0.5 Ml Vial.neb 1 Vial NEB Q6HRS PRN Trazodone Hcl 50 Mg Tablet 1 Tab PO QHS Culturelle (Lactobacillus Rhamnosus Gg) 1 Each Cap.sprink 1 Each PO Atorvastatin Calcium 80 Mg Tablet 1 Tab PO DAILY Buspirone Hcl 10 Mg Tablet 1 Tab PO BID Protonix (Pantoprazole Sodium) 20 Mg Tablet.dr 1 Tab PO DAILY Duloxetine Hcl 60 Mg Capsule.dr 60 Mg PO DAILY Calcitriol 0.25 Mcg Capsule 1 Cap PO 3X/WEEK Mucinex (Guaifenesin) 600 Mg Tablet.er 200 Tab PO TID Potassium Chloride 20 Meq Tablet.er 20 Meq PO DAILY Levothyroxine Sodium 50 Mcg Tablet 1 Tab PO DAILY Tylenol (Acetaminophen) 325 Mg Tablet 500 Mg PO TID Vitamin D3 (Cholecalciferol (Vitamin D3)) 1,000 Unit Tablet 2 Tab PO DAILY Folic Acid 1 Mg Tablet 1 Tab PO DAILY Allergies Allergies: Coded Allergies: Penicillins (Verified Allergy, Intermediate, 01/29/18) oxycodone (Verified Allergy, Intermediate, Rash, 01/29/18) ROS General: YES: Fatigue; No: Chills, Night Sweats, Malaise, Appetite, Other PSYCHOLOGICAL ROS: No: Anxiety, Behavioral Disorder, Concentration difficultie, Decreased libido, Depression, Disorientation, Hallucinations, Hostility, Irritablity, Memory difficulties, Mood Swings, Obsessive thoughts, Physical abuse, Sexual abuse, Sleep disturbances, Suicidal ideation, Other Eyes: No Blurry vision, No Decreased vision, No Double vision, No Dry eyes, No Excessive tearing, No Eye Pain, No Itchy Eyes, No Loss of vision, No Photop hobia, No Scotomata, No Uses contacts, No Uses glasses, No Other HEENT: No: Heacaches, Visual Changes, Hearing change, Nasal congestion, Nasal discharge, Oral lesions, Sinus pain, Sore Throat, Epistaxis, Sneezing, Snoring, Tinnitus, Vertigo, Vocal changes ALLERGY AND IMMUNOLOGY: No: Hives, Insect Bite Sensitivity, Itchy/Watery Eyes, Nasal Congestion, Post Nasal Drip, Seasonal Allergies Hematological and Lymphatic: No: Bleeding Problems, Blood Clots, Blood Transfusions, Brusing, Night Sweats, Pallor, Swollen Lymph Nodes ENDOCRINE: No: Breast Changes, Galactorrhea, Hair Pattern Changes, Hot Flashes, Malaise/lethargy, Mood Swings, Palpitations, Polydipsia/polyuria, Skin Changes, Temperature Intolerance, Unexpected Weight Changes Respiratory: YES: Orthopnea, Shortness of breath; No: Cough, Hemoptysis, Pleuritic Pain, SOB with excertion, Sputum Changes, Stridor, Tachypnea, Wheezing Gastrointestinal: No Nausea, No Vomiting, No Abdominal Pain, No Diarrhea, No Constipation, No Melena, No Hematochezia Genitourinary: No Dysuria, No Frequency, No Incontinence, No Hematuria, No Retention, No Discharge, No Urgency, No Pain, No Flank Pain Musculoskeletal: No Gait Disturbance, No Joint Pain, No Joint Stiffness, No Joint Swelling, No Muscle Pain, No Muscular Weakness, No Pain In:, No Swelling In: Neurological: No Behavorial Changes, No Bowel/Bladder ControlChng, No Confusion, No Dizziness, No Gait Disturbance, No Headaches, No Impaired Coord/balance, No Memory Loss, No Numbness/Tingling, No Seizures, No Speech Problems, No Tremors, No Visual Changes, No Weakness Skin: No Dry Skin, No Eczema, No Hair Changes, No Lumps, No Mole Changes, No Mottling, No Nail Changes, No Pruritus, No Rash, No Skin Lesion Changes, No Acne Physical Exam General: Alert, Oriented X3, Cooperative HEENT: PERRLA Lungs: Other (reduced air entry) Heart: Normal S1, Normal S2, Other (irregular) Abdomen: Soft, No tenderness Extremities: Other (edema) Skin: No significant lesion Neuro: Normal speech, Strength at 5/5 X4 ext, Normal tone, Sensation intact, Cranial nerves 3-12 NL Psych/Mental Status: Mental status NL MUSCULOSKELETAL: No deformity Vitals VITALS Vital Signs Date Time Temp Pulse Resp B/P (MAP) Pulse Ox O2 Delivery O2 Flow Rate FiO2 08/08/18 12:16 99 Nasal Cannula 3.0 08/08/18 11:00 98.3 109 22 169/80 (109) 98.3 Labs Labs Laboratory Tests Test 08/06/18 16:56 08/06/18 20:30 08/07/18 05:40 08/07/18 07:37 Glucose (Fingerstick) 106 mg/dL (70-99) 122 mg/dL (70-99) 144 mg/dL (70-99) White Blood Count 3.4 x10^3/uL (4.0-11.0) Red Blood Count 3.70 x10^6/uL (4.30-5.70) Hemoglobin 11.2 g/dL (13.0-17.5) Hematocrit 35.3 % (39.0-53.0) Mean Corpuscular Volume 96 fL (79-100) Mean Corpuscular Hemoglobin 30 pg (25-35) Mean Corpuscular Hemoglobin Concent 32 g/dL (31-37) Red Cell Distribution Width 15.0 % (11.5-14.5) Platelet Count 107 x10^3/uL (140-400) Sodium Level 143 mmol/L (136-145) Potassium Level 3.8 mmol/L (3.5-5.1) Chloride Level 103 mmol/L (98-107) Carbon Dioxide Level 44 mmol/L (21-32) Anion Gap (6-14) Blood Urea Nitrogen 24 mg/dL (8-26) Creatinine 2.2 mg/dL (0.7-1.3) Estimated GFR (Cockcroft-Gault) 29.3 BUN/Creatinine Ratio 11 (6-20) Glucose Level 163 mg/dL (70-99) Calcium Level 8.5 mg/dL (8.5-10.1) Phosphorus Level 3.8 mg/dL (2.6-4.7) Total Bilirubin 0.7 mg/dL (0.2-1.0) Aspartate Amino Transf (AST/SGOT) 28 U/L (15-37) Alanine Aminotransferase (ALT/SGPT) 23 U/L (16-63) Alkaline Phosphatase 68 U/L (46-116) Total Protein 5.3 g/dL (6.4-8.2) Albumin 2.4 g/dL (3.4-5.0) Albumin/Globulin Ratio 0.8 (1.0-1.7) Test 08/07/18 08:00 08/07/18 11:43 08/07/18 16:40 08/07/18 20:39 O2 Saturation 93 % (92-99) Arterial Blood pH 7.37 (7.35-7.45) Arterial Blood pCO2 at Patient Temp 74 mmHg (35-46) Arterial Blood pO2 at Patient Temp 72 mmHg (65-108) Arterial Blood HCO3 42 mmol/L (21-28) Arterial Blood Base Excess 13 mmol/L (-3-3) FiO2 32 Glucose (Fingerstick) 149 mg/dL (70-99) 149 mg/dL (70-99) 164 mg/dL (70-99) Test 08/08/18 07:27 08/08/18 11:05 08/08/18 11:47 Glucose (Fingerstick) 105 mg/dL (70-99) 139 mg/dL (70-99) White Blood Count 4.0 x10^3/uL (4.0-11.0) Red Blood Count 3.83 x10^6/uL (4.30-5.70) Hemoglobin 11.6 g/dL (13.0-17.5) Hematocrit 36.9 % (39.0-53.0) Mean Corpuscular Volume 96 fL (79-100) Mean Corpuscular Hemoglobin 30 pg (25-35) Mean Corpuscular Hemoglobin Concent 32 g/dL (31-37) Red Cell Distribution Width 14.8 % (11.5-14.5) Platelet Count 126 x10^3/uL (140-400) Sodium Level 145 mmol/L (136-145) Potassium Level 4.2 mmol/L (3.5-5.1) Chloride Level 102 mmol/L (98-107) Carbon Dioxide Level 42 mmol/L (21-32) Anion Gap 1 (6-14) Blood Urea Nitrogen 20 mg/dL (8-26) Creatinine 2.1 mg/dL (0.7-1.3) Estimated GFR (Cockcroft-Gault) 30.9 BUN/Creatinine Ratio 10 (6-20) Glucose Level 172 mg/dL (70-99) Calcium Level 8.7 mg/dL (8.5-10.1) Total Bilirubin 0.6 mg/dL (0.2-1.0) Aspartate Amino Transf (AST/SGOT) 28 U/L (15-37) Alanine Aminotransferase (ALT/SGPT) 25 U/L (16-63) Alkaline Phosphatase 73 U/L (46-116) Total Protein 5.7 g/dL (6.4-8.2) Albumin 2.5 g/dL (3.4-5.0) Albumin/Globulin Ratio 0.8 (1.0-1.7) Laboratory Tests Test 08/07/18 16:40 08/07/18 20:39 08/08/18 07:27 08/08/18 11:05 Glucose (Fingerstick) 149 mg/dL (70-99) 164 mg/dL (70-99) 105 mg/dL (70-99) White Blood Count 4.0 x10^3/uL (4.0-11.0) Red Blood Count 3.83 x10^6/uL (4.30-5.70) Hemoglobin 11.6 g/dL (13.0-17.5) Hematocrit 36.9 % (39.0-53.0) Mean Corpuscular Volume 96 fL (79-100) Mean Corpuscular Hemoglobin 30 pg (25-35) Mean Corpuscular Hemoglobin Concent 32 g/dL (31-37) Red Cell Distribution Width 14.8 % (11.5-14.5) Platelet Count 126 x10^3/uL (140-400) Sodium Level 145 mmol/L (136-145) Potassium Level 4.2 mmol/L (3.5-5.1) Chloride Level 102 mmol/L (98-107) Carbon Dioxide Level 42 mmol/L (21-32) Anion Gap 1 (6-14) Blood Urea Nitrogen 20 mg/dL (8-26) Creatinine 2.1 mg/dL (0.7-1.3) Estimated GFR (Cockcroft-Gault) 30.9 BUN/Creatinine Ratio 10 (6-20) Glucose Level 172 mg/dL (70-99) Calcium Level 8.7 mg/dL (8.5-10.1) Total Bilirubin 0.6 mg/dL (0.2-1.0) Aspartate Amino Transf (AST/SGOT) 28 U/L (15-37) Alanine Aminotransferase (ALT/SGPT) 25 U/L (16-63) Alkaline Phosphatase 73 U/L (46-116) Total Protein 5.7 g/dL (6.4-8.2) Albumin 2.5 g/dL (3.4-5.0) Albumin/Globulin Ratio 0.8 (1.0-1.7) Test 08/08/18 11:47 Glucose (Fingerstick) 139 mg/dL (70-99) Images Images FINDINGS 1. Hemodynamics: Left ventricular end-diastolic pressure of 15 mmHg. No pullback gradient across the aortic valve. 2. Coronary angiography: a. The left main coronary artery arose from the left sinus of Valsalva, gave rise to the left anterior descending and left circumflex arteries, was heavily calcified and showed 70% diffuse stenosis. b. The left anterior descending artery showed 40% stenosis in the proximal segment and 70-80% stenosis in the midsegment. c. The left circumflex artery was a large caliber vessel that showed heavily calcified 80% stenosis in the ostial and proximal segments. d. The right coronary artery was a dominant vessel arising from the right sinus of Valsalva that showed 70% stenosis in the proximal to midsegment and 100% chronic total occlusion in the distal segment with distal reconstitution of posterior descending branch from left to right collaterals. Assessment/Plan Assessment/Plan The patient is a 73-year-old male who was admitted on July 28 with shortness of breath, owing to acute on chronic CHF. The patient is oxygen dependent and has severe COPD with a baseline CO2 of 70-80 and the compensated pH. An echo showed cardiomyopathy with an ejection fraction of 20% which led to a coronary angiogram today which showed severe three-vessel disease including 70% distal left mainstem disease 80% mid LAD, left circumflex and an occluded distal RCA. I was consulted to consider the patient for surgical coronary revascularization. Given the severity of his chronic hypercapnic respiratory failure, the patient is not a candidate for open heart surgery whatsoever. His baseline CO2 is 70-80 and this is a chronic issue given that his pH is compensated and not related to his current episode of CHF. The patient has multiorgan failure which includes respiratory failure, renal failure, cardiomyopathy, thrombocytopenia, in conjun ction with extremely poor functional status. All the above put him at prohibitive risk for any type of surgery. He may not even be a candidate for high risk PCI, as I don't think he'll be able to lie flat on his back and will require intubation.It would subsequently be extremely difficult to extubate this patient. Will leave the decision up to cardiology. Would recommend continued medical management. PHOEBE CAPUTO MD August 08, 2018 14:56
[2018-08-08] MEDS: traZODone 50 MG TABLET. PO SCH (19:43)
[2018-08-08] MEDS: LORazepam 0.5 MG TABLET PO PRN (19:44)
[2018-08-08] MEDS: ATORVASTATIN CALCIUM 40 MG TABLET. PO SCH (19:44)
--- NOTE | 2018-08-09 00:10 | PN ---
DATE: 08/08/2018 SUBJECTIVE: The patient apparently had had cardiac catheterization, which showed that he has triple vessel disease and the cardiothoracic surgeon was consulted to see whether he is a candidate for coronary artery bypass graft surgery. PHYSICAL EXAMINATION: GENERAL: When I examined him, he was resting slightly propped up in bed, in no apparent respiratory distress. He was sleepy, but arousable. He was pale, not jaundiced, no cyanosis or thyromegaly. No jugular venous distension. No lower limb edema. VITAL SIGNS: His heart rate was 100, blood pressure was 121/66, temperature was 98.1, respiratory rate was 26 and oxygen saturation was 91% on 10 liters of oxygen. HEAD, EYES, EARS, NOSE AND THROAT: Showed normocephalic, atraumatic. NECK: Supple. HEART: Showed normal first and second heart sounds. No gallop, rub or murmur. CHEST: Clear to auscultation. No crepitation or rhonchi. ABDOMEN: Distended, soft, nontender. NEUROLOGIC: He was sleepy, but arousable. All cranial nerves intact. He moves extremities without difficulty. His intake was 180, output was 600. LABORATORY DATA: As of this morning, his white cell count was 3400, hemoglobin 11, hematocrit 35, MCV 96 and platelet count of 107,000. Serum sodium was 143, potassium 3.8, chloride 103, bicarbonate 44, BUN 24, creatinine 2.2, estimated GFR was 29 mL per minute, glucose 163, calcium was 8.5, phosphorus 3.8. Total bilirubin, AST, ALT, alkaline phosphatase were normal. Total protein was 5.3, albumin was 2.4. ASSESSMENT: 1. Status post left heart cardiac catheterization with severe 3-vessel coronary artery disease. 2. Acute on chronic hypoxic hypercapnic respiratory failure, multifactorial. 3. Acute on chronic systolic congestive heart failure due to ischemic cardiomyopathy and ejection fraction of 20%. 4. Atrial fibrillation, rate much better controlled. His apixaban was resumed and the dose was increased to 5 mg twice a day. 5. Coronary artery disease, history of myocardial infarction. 6. Acute kidney injury on chronic kidney disease. His serum creatinine is stable. 7. Hypertension. 8. 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 9. Type 2 diabetes mellitus, seems to be well controlled. 10. Hyperlipidemia. 11. Morbid obesity, obstructive sleep apnea. 12. Chronic back pain due to multiple lumbar vertebral compression fractures. PLAN: We will repeat lab work as he is likely to have acute on chronic kidney injury due to probably contrast-induced nephropathy. KAR PERSAUD MD DR: KEENAN/lindsay JOB#: [id number] / [id number]
[2018-08-09 03:15] VITALS: BP 109/57
[2018-08-09] MEDS: LEVOTHYROXINE 50 MCG TABLET PO SCH (05:28)
[2018-08-09 05:56] LABS: CALCIUM 8.8 mg/dL (8.5-10.1); GFR 32.7; POTASSIUM 3.6 mmol/L (3.5-5.1)
[2018-08-09 07:00] VITALS: BP 133/74
[2018-08-09] MEDS: INSULIN LISPRO 300 UNITS/3 ML INSULN.PEN. SQ SCH ×3 (08:00→17:00)
[2018-08-09] MEDS: BUDESONIDE 0.5 MG/2 ML NEBU. NEB SCH ×2 (08:47→20:15)
[2018-08-09] MEDS: IPRATRPIUM/ALBUTEROL 0.5/2.5MG 3 ML NEBU. NEB SCH ×4 (08:47→20:15)
[2018-08-09] MEDS: ACETAMINOPHEN 500 MG TABLET PO SCH ×3 (09:29→19:39)
[2018-08-09] MEDS: DULoxetine HCL 30 MG CAPSULE.DR PO SCH (09:29)
[2018-08-09] MEDS: LACTOBACILLUS RHAMNOSUS GG 1 CAPSULE. PO SCH ×2 (09:29→19:40)
[2018-08-09] MEDS: METOPROLOL SUCC 24HR ER 100 MG TAB.ER.24H. PO SCH (09:29)
[2018-08-09] MEDS: FUROSEMIDE 40 MG TABLET. PO SCH ×2 (09:29→13:47)
[2018-08-09] MEDS: CHOLECALCIFEROL (VITAMIN D3) 1,000 UNIT TABLET PO SCH (09:29)
[2018-08-09] MEDS: busPIRone 10 MG TABLET. PO SCH ×2 (09:29→19:40)
[2018-08-09] MEDS: PANTOPRAZOLE 40 MG TABLET.DR. PO SCH (09:29)
[2018-08-09] MEDS: ASPIRIN ENTERIC COATED 81 MG TABLET.DR. PO SCH (09:29)
[2018-08-09] MEDS: FOLIC ACID 1 MG TABLET. PO SCH (09:30)
[2018-08-09] MEDS: glipiZIDE 5 MG TABLET PO SCH ×2 (09:30→17:22)
[2018-08-09] MEDS: NYSTATIN TOPICAL POWDER 15GM BOTTLE. TP SCH ×2 (09:31→19:41)
[2018-08-09] MEDS: FLUTICASONE 50MCG/NASAL SPRAY 16GM BOTTLE. NS SCH (09:31)
--- NOTE | 2018-08-09 10:22 | PDOC ---
PULMONARY PROGRESS NOTES Subjective on canula s/p left cath/ severe 3 vessel CAD Vitals Vital Signs Date Time Temp Pulse Resp B/P (MAP) Pulse Ox O2 Delivery O2 Flow Rate FiO2 08/09/18 09:29 104 133/74 08/09/18 08:49 94 Nasal Cannula 3.0 08/09/18 07:00 97.7 24 97.7 General: No acute distress Lungs: Other (decrease bases) Cardiovascular: Other (Diminished) Abdomen: Soft, Non-tender Neuro Exam: Alert Extremities: Other (edema BLE +2) Skin: Warm, Dry Labs Laboratory Tests Test 08/07/18 11:43 08/07/18 16:40 08/07/18 20:39 08/08/18 07:27 Glucose (Fingerstick) 149 mg/dL (70-99) 149 mg/dL (70-99) 164 mg/dL (70-99) 105 mg/dL (70-99) Test 08/08/18 11:05 08/08/18 11:47 08/08/18 16:55 08/08/18 21:29 White Blood Count 4.0 x10^3/uL (4.0-11.0) Red Blood Count 3.83 x10^6/uL (4.30-5.70) Hemoglobin 11.6 g/dL (13.0-17.5) Hematocrit 36.9 % (39.0-53.0) Mean Corpuscular Volume 96 fL (79-100) Mean Corpuscular Hemoglobin 30 pg (25-35) Mean Corpuscular Hemoglobin Concent 32 g/dL (31-37) Red Cell Distribution Width 14.8 % (11.5-14.5) Platelet Count 126 x10^3/uL (140-400) Sodium Level 145 mmol/L (136-145) Potassium Level 4.2 mmol/L (3.5-5.1) Chloride Level 102 mmol/L (98-107) Carbon Dioxide Level 42 mmol/L (21-32) Anion Gap 1 (6-14) Blood Urea Nitrogen 20 mg/dL (8-26) Creatinine 2.1 mg/dL (0.7-1.3) Estimated GFR (Cockcroft-Gault) 30.9 BUN/Creatinine Ratio 10 (6-20) Glucose Level 172 mg/dL (70-99) Calcium Level 8.7 mg/dL (8.5-10.1) Total Bilirubin 0.6 mg/dL (0.2-1.0) Aspartate Amino Transf (AST/SGOT) 28 U/L (15-37) Alanine Aminotransferase (ALT/SGPT) 25 U/L (16-63) Alkaline Phosphatase 73 U/L (46-116) Total Protein 5.7 g/dL (6.4-8.2) Albumin 2.5 g/dL (3.4-5.0) Albumin/Globulin Ratio 0.8 (1.0-1.7) Glucose (Fingerstick) 139 mg/dL (70-99) 127 mg/dL (70-99) 167 mg/dL (70-99) Test 08/09/18 05:30 08/09/18 07:06 Sodium Level 147 mmol/L (136-145) Potassium Level 3.6 mmol/L (3.5-5.1) Chloride Level 103 mmol/L (98-107) Carbon Dioxide Level 42 mmol/L (21-32) Anion Gap 2 (6-14) Blood Urea Nitrogen 20 mg/dL (8-26) Creatinine 2.0 mg/dL (0.7-1.3) Estimated GFR (Cockcroft-Gault) 32.7 Glucose Level 91 mg/dL (70-99) Calcium Level 8.8 mg/dL (8.5-10.1) Glucose (Fingerstick) 90 mg/dL (70-99) Laboratory Tests Test 08/08/18 11:05 08/08/18 11:47 08/08/18 16:55 08/08/18 21:29 White Blood Count 4.0 x10^3/uL (4.0-11.0) Red Blood Count 3.83 x10^6/uL (4.30-5.70) Hemoglobin 11.6 g/dL (13.0-17.5) Hematocrit 36.9 % (39.0-53.0) Mean Corpuscular Volume 96 fL (79-100) Mean Corpuscular Hemoglobin 30 pg (25-35) Mean Corpuscular Hemoglobin Concent 32 g/dL (31-37) Red Cell Distribution Width 14.8 % (11.5-14.5) Platelet Count 126 x10^3/uL (140-400) Sodium Level 145 mmol/L (136-145) Potassium Level 4.2 mmol/L (3.5-5.1) Chloride Level 102 mmol/L (98-107) Carbon Dioxide Level 42 mmol/L (21-32) Anion Gap 1 (6-14) Blood Urea Nitrogen 20 mg/dL (8-26) Creatinine 2.1 mg/dL (0.7-1.3) Estimated GFR (Cockcroft-Gault) 30.9 BUN/Creatinine Ratio 10 (6-20) Glucose Level 172 mg/dL (70-99) Calcium Level 8.7 mg/dL (8.5-10.1) Total Bilirubin 0.6 mg/dL (0.2-1.0) Aspartate Amino Transf (AST/SGOT) 28 U/L (15-37) Alanine Aminotransferase (ALT/SGPT) 25 U/L (16-63) Alkaline Phosphatase 73 U/L (46-116) Total Protein 5.7 g/dL (6.4-8.2) Albumin 2.5 g/dL (3.4-5.0) Albumin/Globulin Ratio 0.8 (1.0-1.7) Glucose (Fingerstick) 139 mg/dL (70-99) 127 mg/dL (70-99) 167 mg/dL (70-99) Test 08/09/18 05:30 08/09/18 07:06 Sodium Level 147 mmol/L (136-145) Potassium Level 3.6 mmol/L (3.5-5.1) Chloride Level 103 mmol/L (98-107) Carbon Dioxide Level 42 mmol/L (21-32) Anion Gap 2 (6-14) Blood Urea Nitrogen 20 mg/dL (8-26) Creatinine 2.0 mg/dL (0.7-1.3) Estimated GFR (Cockcroft-Gault) 32.7 Glucose Level 91 mg/dL (70-99) Calcium Level 8.8 mg/dL (8.5-10.1) Glucose (Fingerstick) 90 mg/dL (70-99) Medications Active Scripts Medications Dose Route/Sig Max Daily Dose Days Date Category Guaifenesin 200 Mg Tablet 200 Mg PO PRN TID PRN 07/28/18 Reported Budesonide 0.25 Mg/2 Ml Ampul.neb 1 Vial NEB BID 01/29/18 Reported Albuterol Sulfate Conc Neb Soln (Albuterol Sulfate) 2.5 Mg/0.5 Ml Vial.neb 1 Vial NEB Q6HRS PRN 01/29/18 Reported Trazodone Hcl 50 Mg Tablet 1 Tab PO QHS 01/24/18 Reported Culturelle (Lactobacillus Rhamnosus Gg) 1 Each Cap.sprink 1 Each PO 01/24/18 Reported Atorvastatin Calcium 80 Mg Tablet 1 Tab PO DAILY 01/24/18 Reported Buspirone Hcl 10 Mg Tablet 1 Tab PO BID 01/24/18 Reported Glipizide 5 Mg Tablet 1 Tab PO BID 01/24/18 Reported Eliquis (Apixaban) 2.5 Mg Tablet 2.5 Mg PO BID 01/24/18 Reported Protonix (Pantoprazole Sodium) 20 Mg Tablet.dr 1 Tab PO DAILY 01/24/18 Reported Duloxetine Hcl 60 Mg Capsule.dr 60 Mg PO DAILY 01/24/18 Reported Furosemide 20 Mg Tablet 60 Tab PO DAILY 01/24/18 Reported Calcitriol 0.25 Mcg Capsule 1 Cap PO 3X/WEEK 01/24/18 Reported Mucinex (Guaifenesin) 600 Mg Tablet.er 200 Tab PO TID 01/24/18 Reported Potassium Chloride 20 Meq Tablet.er 20 Meq PO DAILY 01/24/18 Reported Levothyroxine Sodium 50 Mcg Tablet 1 Tab PO DAILY 01/24/18 Reported Tylenol (Acetaminophen) 325 Mg Tablet 500 Mg PO TID 01/24/18 Reported Vitamin D3 (Cholecalciferol (Vitamin D3)) 1,000 Unit Tablet 2 Tab PO DAILY 01/24/18 Reported Folic Acid 1 Mg Tablet 1 Tab PO DAILY 01/24/18 Reported Active Scripts Medications Dose Route/Sig Max Daily Dose Days Date Category Guaifenesin 200 Mg Tablet 200 Mg PO PRN TID PRN 07/28/18 Reported Budesonide 0.25 Mg/2 Ml Ampul.neb 1 Vial NEB BID 01/29/18 Reported Albuterol Sulfate Conc Neb Soln (Albuterol Sulfate) 2.5 Mg/0.5 Ml Vial.neb 1 Vial NEB Q6HRS PRN 01/29/18 Reported Trazodone Hcl 50 Mg Tablet 1 Tab PO QHS 01/24/18 Reported Culturelle (Lactobacillus Rhamnosus Gg) 1 Each Cap.sprink 1 Each PO 01/24/18 Reported Atorvastatin Calcium 80 Mg Tablet 1 Tab PO DAILY 01/24/18 Reported Buspirone Hcl 10 Mg Tablet 1 Tab PO BID 01/24/18 Reported Glipizide 5 Mg Tablet 1 Tab PO BID 01/24/18 Reported Eliquis (Apixaban) 2.5 Mg Tablet 2.5 Mg PO BID 01/24/18 Reported Protonix (Pantoprazole Sodium) 20 Mg Tablet.dr 1 Tab PO DAILY 01/24/18 Reported Duloxetine Hcl 60 Mg Capsule.dr 60 Mg PO DAILY 01/24/18 Reported Furosemide 20 Mg Tablet 60 Tab PO DAILY 01/24/18 Reported Calcitriol 0.25 Mcg Capsule 1 Cap PO 3X/WEEK 01/24/18 Reported Mucinex (Guaifenesin) 600 Mg Tablet.er 200 Tab PO TID 01/24/18 Reported Potassium Chloride 20 Meq Tablet.er 20 Meq PO DAILY 01/24/18 Reported Levothyroxine Sodium 50 Mcg Tablet 1 Tab PO DAILY 01/24/18 Reported Tylenol (Acetaminophen) 325 Mg Tablet 500 Mg PO TID 01/24/18 Reported Vitamin D3 (Cholecalciferol (Vitamin D3)) 1,000 Unit Tablet 2 Tab PO DAILY 01/24/18 Reported Folic Acid 1 Mg Tablet 1 Tab PO DAILY 01/24/18 Reported Impression . 1. Acute hypoxemic hypercapnic respiratory failure, multifactorial. 2. Acute on chronic heart failure. 3. Abnormal x-ray with persistent right lower lobe effusion right greater than left. 4. Cardiomyopathy, ejection fraction 20-25%. 5. Atrial fibrillation with rapid ventricular response. 6. Type 2 diabetes. 7. Hypertension. 8. Obesity. 9. Chronic obstructive pulmonary disease, unknown FEV1. 10. Possible obstructive sleep apnea. 11. TRANSUDATE EFFUSION REPEAT THORACENTESIS ON 08/04 600 CC REMOVED Procedure Result ANAEROBIC-AEROBIC CULTURE Final Final report ANAEROBIC RES 1 Final Comment No anaerobic growth in 72 hours. AEROBIC CULT Final Final report AEROBIC RES 1 Final Comment No growth in 56 - 72 hours. GRAM STAIN Final Final report GRAM STAIN RES 1 Final Comment No white blood cells seen. GRAM STAIN RES 2 Final No organisms seen Impression: No deep venous thrombus involving the right upper extremity. Plan . CLINICALLY STABLE SEVERE 3 VESSEL CAD BY CATH/ POOR SURGICAL CANDIDATE PER CV SURGERY STILL NOT FULLY AMBULATORY LASIX PRN BIPAP QHS/ PT HAS HOME BIPAP REPEAT THORACENTESIS 600 CC PT /OT WILL NEED REHAB/ INS DENIES FOLLOW CARD REC D/W FAMILY CLARITZA PRYOR MD August 09, 2018 10:22
[2018-08-09 10:44] VITALS: BP 123/70
--- NOTE | 2018-08-09 12:03 | PDOC ---
Renal-Progress Notes Subjective Notes Notes NONE History of Present Illness Hx of present illness STABLE Vitals Vitals Vital Signs Date Time Temp Pulse Resp B/P (MAP) Pulse Ox O2 Delivery O2 Flow Rate FiO2 08/09/18 10:44 99.0 94 24 123/70 (87) 95 Nasal Cannula 99.0 08/09/18 08:49 3.0 Weight Weight [ ] I.O. Intake and Output Intake and Output 08/09/18 07:00 Intake Total 60 ml Output Total 200 ml Balance -140 ml Intake Oral 60 ml Output Urine Total 200 ml # Voids 2 # Bowel Movements 3 Labs Labs Laboratory Tests Test 08/08/18 16:55 08/08/18 21:29 08/09/18 05:30 08/09/18 07:06 Glucose (Fingerstick) 127 mg/dL (70-99) 167 mg/dL (70-99) 90 mg/dL (70-99) Sodium Level 147 mmol/L (136-145) Potassium Level 3.6 mmol/L (3.5-5.1) Chloride Level 103 mmol/L (98-107) Carbon Dioxide Level 42 mmol/L (21-32) Anion Gap 2 (6-14) Blood Urea Nitrogen 20 mg/dL (8-26) Creatinine 2.0 mg/dL (0.7-1.3) Estimated GFR (Cockcroft-Gault) 32.7 Glucose Level 91 mg/dL (70-99) Calcium Level 8.8 mg/dL (8.5-10.1) Test 08/09/18 11:23 Glucose (Fingerstick) 145 mg/dL (70-99) Micro Micro Microbiology 07/30/18 Anaerobic/Aerobic Culture - Final, Complete 07/30/18 Anaerobic Culture Result 1 (AGRCIA) - Final, Complete 07/30/18 Aerobic Culture - Final, Complete 07/30/18 Aerobic Culture Result 1 (GARCIA) - Final, Complete 07/30/18 Gram Stain - Final, Complete 07/30/18 Gram Stain Result 1 (GARCIA) - Final, Complete 07/30/18 Gram Stain Result 2 (GARCIA) - Final, Complete Review of Systems Constitutional: yes: other (CONFUSED) Physical Exam General Appearance: no apparent distress Skin: warm Respiratory: decreased breath sounds Heart: S1S2, other (IRREGULAR) Abdomen: soft, bowel sounds present Genitourinary: mendoza catheter Extremities: edema Neurology: alert, oriented, follow commands Assessment Assessment IMP YARELY RESOLVED HYPOKALEMIA CKD STAGE 3 WITH CR OF 1.7-1.8 ACUTE ON CHRONIC SYSTOLIC AND DIASTOLIC CHF CM WITH EF OF 20% AFIB RVR-BETTER DM II HTN COPD CHRONIC MET ALKALOSIS S/P HEART CATH HYPERNATREMIA PLAN MAY NEED SOME FREE WATER IF NA STILL UP IN AM CONT LASIX REPLACE K NEEDED BIPAP NEEDED SUPPLEMENTAL O2 TRIAL OF PINA-I TO AFTERLOAD LATER WILL FOLLOW JOSE ANTONIO JACKSON MD August 09, 2018 12:03
--- NOTE | 2018-08-09 13:43 | PDOC ---
PROGRESS NOTES Subjective Subjective Patient seen and examined More comfortable today. Objective Objective Vital Signs Date Time Temp Pulse Resp B/P (MAP) Pulse Ox O2 Delivery O2 Flow Rate FiO2 08/09/18 12:02 98 Nasal Cannula 4.0 08/09/18 10:44 99.0 94 24 123/70 (87) 99.0 Intake and Output 08/09/18 07:00 Intake Total 60 ml Output Total 200 ml Balance -140 ml Intake Oral 60 ml Output Urine Total 200 ml # Voids 2 # Bowel Movements 3 Physical Exam Abdomen: Normal bowel sounds Heart: Other (irregularly irregular) General: mild distress Lungs: Other (mildly decreased breath sounds) Assessment Assessment 1. Acute on chronic respiratory failure; multifactorial with pleural effusion, systolic CHF, COPD, pleural effusion s/p thoracentesis. Mildly improved today. 2. Acute on chronic systolic CHF: Mildly mproved. Continuing medical treatment. 3. Presumed ICM; LVEF 20%. Echo 2013 with LVEF 55-60%. [facility] 4. AFIB; rate fairly well controlled 5. CAD. Catheterization yesterday showed severe three-vessel disease including left main disease. Patient was seen by the cardiovascular surgery service who did not believe he was a candidate for bypass. Patient also is not an candidate for percutaneous treatment. We will continue medical treatment. 6. YARELY on CKD; monitoring creatinine. 7. Hypertension: controlled 8. H/o recurrent DVT/PE On anticoagulation. 9. DM2/HLP 10. Obesity Comment Review of Relevant I have reviewed the following items arturo (where applicable) has been applied. Labs Laboratory Tests Test 08/07/18 16:40 08/07/18 20:39 08/08/18 07:27 08/08/18 11:05 Glucose (Fingerstick) 149 mg/dL (70-99) 164 mg/dL (70-99) 105 mg/dL (70-99) White Blood Count 4.0 x10^3/uL (4.0-11.0) Red Blood Count 3.83 x10^6/uL (4.30-5.70) Hemoglobin 11.6 g/dL (13.0-17.5) Hematocrit 36.9 % (39.0-53.0) Mean Corpuscular Volume 96 fL (79-100) Mean Corpuscular Hemoglobin 30 pg (25-35) Mean Corpuscular Hemoglobin Concent 32 g/dL (31-37) Red Cell Distribution Width 14.8 % (11.5-14.5) Platelet Count 126 x10^3/uL (140-400) Sodium Level 145 mmol/L (136-145) Potassium Level 4.2 mmol/L (3.5-5.1) Chloride Level 102 mmol/L (98-107) Carbon Dioxide Level 42 mmol/L (21-32) Anion Gap 1 (6-14) Blood Urea Nitrogen 20 mg/dL (8-26) Creatinine 2.1 mg/dL (0.7-1.3) Estimated GFR (Cockcroft-Gault) 30.9 BUN/Creatinine Ratio 10 (6-20) Glucose Level 172 mg/dL (70-99) Calcium Level 8.7 mg/dL (8.5-10.1) Total Bilirubin 0.6 mg/dL (0.2-1.0) Aspartate Amino Transf (AST/SGOT) 28 U/L (15-37) Alanine Aminotransferase (ALT/SGPT) 25 U/L (16-63) Alkaline Phosphatase 73 U/L (46-116) Total Protein 5.7 g/dL (6.4-8.2) Albumin 2.5 g/dL (3.4-5.0) Albumin/Globulin Ratio 0.8 (1.0-1.7) Test 08/08/18 11:47 08/08/18 16:55 08/08/18 21:29 08/09/18 05:30 Glucose (Fingerstick) 139 mg/dL (70-99) 127 mg/dL (70-99) 167 mg/dL (70-99) Sodium Level 147 mmol/L (136-145) Potassium Level 3.6 mmol/L (3.5-5.1) Chloride Level 103 mmol/L (98-107) Carbon Dioxide Level 42 mmol/L (21-32) Anion Gap 2 (6-14) Blood Urea Nitrogen 20 mg/dL (8-26) Creatinine 2.0 mg/dL (0.7-1.3) Estimated GFR (Cockcroft-Gault) 32.7 Glucose Level 91 mg/dL (70-99) Calcium Level 8.8 mg/dL (8.5-10.1) Test 08/09/18 07:06 08/09/18 11:23 Glucose (Fingerstick) 90 mg/dL (70-99) 145 mg/dL (70-99) Laboratory Tests Test 08/08/18 16:55 08/08/18 21:29 08/09/18 05:30 08/09/18 07:06 Glucose (Fingerstick) 127 mg/dL (70-99) 167 mg/dL (70-99) 90 mg/dL (70-99) Sodium Level 147 mmol/L (136-145) Potassium Level 3.6 mmol/L (3.5-5.1) Chloride Level 103 mmol/L (98-107) Carbon Dioxide Level 42 mmol/L (21-32) Anion Gap 2 (6-14) Blood Urea Nitrogen 20 mg/dL (8-26) Creatinine 2.0 mg/dL (0.7-1.3) Estimated GFR (Cockcroft-Gault) 32.7 Glucose Level 91 mg/dL (70-99) Calcium Level 8.8 mg/dL (8.5-10.1) Test 08/09/18 11:23 Glucose (Fingerstick) 145 mg/dL (70-99) Microbiology 07/30/18 Anaerobic/Aerobic Culture - Final, Complete 07/30/18 Anaerobic Culture Result 1 (GARCIA) - Final, Complete 07/30/18 Aerobic Culture - Final, Complete 07/30/18 Aerobic Culture Result 1 (GARCIA) - Final, Complete 07/30/18 Gram Stain - Final, Complete 07/30/18 Gram Stain Result 1 (GARCIA) - Final, Complete 07/30/18 Gram Stain Result 2 (GARCIA) - Final, Complete Medications Current Medications Milrinone Lactate/ Dextrose 100 ml @ 4.238 mls/ hr CONT PRN IV SEE I/O RECORD Last administered on 07/31/18at 19:46; Start 07/28/18 at 11:00; Stop 08/01/18 at 16:24; Status DC Acetaminophen (Tylenol) 500 mg TID PO Last administered on 08/02/18at 20:53; Start 07/28/18 at 14:00; Stop 08/03/18 at 08:34; Status DC Buspirone HCl (Buspar) 10 mg BID PO Last administered on 08/09/18at 09:29; Start 07/28/18 at 12:00 Vitamin D (Vitamin D3) 2,000 unit DAILY PO Last administered on 08/09/18 09:29; Start 07/28/18 at 12:00 Folic Acid (Folic Acid) 1 mg DAILY PO Last administered on 08/09/18 09:30; Start 07/28/18 at 12:00 Non-Formulary Medication (Albuterol Sulfate (Albuterol Sulfate Conc Neb Soln)) 1 vial Q6HRS PRN NEB SHORTNESS OF BREATH; Start 07/28/18 at 12:00; Status UNV Non-Formulary Medication (Budesonide ) 1 vial BID NEB ; Start 07/28/18 at 21:00; Status UNV Calcitriol (Rocaltrol) 0.25 mcg MoWeFr PO Last administered on 08/08/18 10:54; Start 07/28/18 at 12:00 Duloxetine HCl (Cymbalta) 60 mg DAILY PO Last administered on 08/09/18 09:29; Start 07/28/18 at 12:00 Levothyroxine Sodium (Synthroid) 50 mcg DAILY06 PO Last administered on 08/09/18 05:28; Start 07/28/18 at 15:30 Atorvastatin Calcium (Lipitor) 40 mg QHS PO Last administered on 08/08/18 19:44; Start 07/28/18 at 21:00 Budesonide (Pulmicort) 0.5 mg RTBID NEB ; Start 07/28/18 at 20:00; Status UNV Fluticasone Propionate (Flonase) 2 spray DAILY NS Last administered on 08/09/18 09:31; Start 07/29/18 at 09:00 Duloxetine HCl (Cymbalta) 60 mg DAILY PO ; Start 07/29/18 at 09:00; Status UNV Furosemide (Lasix) 80 mg DAILY IVP Last administered on 07/30/18 08:52; Start 07/28/18 at 13:00; Stop 07/30/18 at 12:35; Status DC Lactobacillus Rhamnosus (Culturelle) 1 cap BID PO Last administered on 08/09/18 09:29; Start 07/28/18 at 21:00 Lorazepam (Ativan) 0.5 mg PRN Q4HRS PRN PO ANXIETY / AGITATION Last administered on 08/08/18 19:44; Start 07/28/18 at 12:15 Meropenem 1 gm/ Sodium Chloride 100 ml @ 200 mls/hr Q12HR IV Last administered on 08/04/18 20:39; Start 07/28/18 at 12:00; Stop 08/05/18 at 08:12; Status DC Metoprolol Tartrate (Lopressor) 50 mg BID PO Last administered on 07/31/18 08:20; Start 07/28/18 at 12:00; Stop 07/31/18 at 11:50; Status DC Nystatin (Nystop) 1 ute BID TP Last administered on 08/09/18 09:31; Start 07/28/18 at 13:00 Pantoprazole Sodium (Protonix) 40 mg DAILYAC PO Last administered on 08/09/18 09:29; Start 07/28/18 at 16:30 Senna/Docusate Sodium (Senna Plus) 2 tab PRN BID PRN PO CONSTIPATION, 1ST CHOICE Last administered on 08/02/18 14:12; Start 07/28/18 at 12:15 Vancomycin HCl (Vanco Per Pharmacy) 1 each PRN DAILY PRN MC SEE COMMENTS Last administered on 07/28/18 17:03; Start 07/28/18 at 12:15; Stop 07/29/18 at 14:12; Status DC Glipizide (Glucotrol) 2.5 mg BIDBFRMEAL PO Last administered on 08/09/18 09:30; Start 07/28/18 at 16:30 Trazodone HCl (Desyrel) 50 mg QHS PO Last administered on 08/08/18 19:43; Start 07/28/18 at 21:00 Budesonide (Pulmicort) 0.5 mg RTBID NEB Last administered on 08/09/18 08:47; Start 07/28/18 at 12:00 Insulin Human Lispro (HumaLOG) 0-5 UNITS TIDWMEALS SQ Last administered on 08/06/18 12:25; Start 07/28/18 at 17:00 Dextrose (Dextrose 50%-Water Syringe) 12.5 gm PRN Q15MIN PRN IV SEE COMMENTS; Start 07/28/18 at 12:30 Albuterol Sulfate (Ventolin Neb Soln) 2.5 mg PRN Q6HRS PRN NEB SHORTNESS OF BREATH Last administered on 07/28/18at 20:07; Start 07/28/18 at 18:00 Vancomycin HCl 2 gm/Sodium Chloride 500 ml @ 250 mls/hr ONCE ONCE IV ; Start 07/28/18 at 13:00; Stop 07/28/18 at 14:59; Status Cancel Vancomycin HCl 1.75 gm/Sodium Chloride 500 ml @ 250 mls/hr Q24H IV Last administered on 07/28/18at 17:00; Start 07/28/18 at 17:00; Stop 07/29/18 at 14:12; Status DC Vancomycin HCl (Vancomycin Trough Level) 1 each 1X ONCE MC ; Start 07/30/18 at 16:30; Stop 07/30/18 at 16:30; Status DC Albuterol/ Ipratropium (Duoneb) 3 ml RTQID NEB Last administered on 08/09/18at 12:01; Start 07/28/18 at 20:30 Furosemide (Lasix) 40 mg 1X ONCE IVP Last administered on 07/29/18at 00:28; Start 07/29/18 at 00:15; Stop 07/29/18 at 00:16; Status DC Potassium Chloride (Klor-Con) 20 meq 1X ONCE PO Last administered on 07/30/18at 08:58; Start 07/30/18 at 07:45; Stop 07/30/18 at 07:46; Status DC Aspirin (Ecotrin) 81 mg DAILYWBKFT PO Last administered on 08/09/18at 09:29; Start 07/31/18 at 08:00 Metoprolol Tartrate (Lopressor) 25 mg 1X ONCE PO Last administered on 07/30/18at 10:52; Start 07/30/18 at 10:00; Stop 07/30/18 at 10:01; Status DC Furosemide (Lasix) 80 mg BID IVP Last administered on 08/01/18at 09:07; Start 07/30/18 at 21:00; Stop 08/01/18 at 11:05; Status DC Info (Icu Electrolyte Protocol) 1 ea CONT PRN PRN MC PER PROTOCOL; Start 07/30/18 at 13:45; Stop 08/04/18 at 11:15; Status DC Metoprolol Succinate (Toprol Xl) 75 mg DAILY PO Last administered on 08/03/18 08:26; Start 07/31/18 at 12:00; Stop 08/03/18 at 18:10; Status DC Apixaban (Eliquis) 5 mg BID PO Last administered on 08/01/18at 09:04; Start 07/31/18 at 21:00; Stop 08/01/18 at 16:24; Status DC Info (Anti-Coagulation Monitoring By Pharmacy) 1 each PRN DAILY PRN MC SEE COMMENTS Last administered on 08/07/18at 14:19; Start 07/31/18 at 17:30 Digoxin (Lanoxin) 500 mcg 1X ONCE IV Last administered on 07/31/18at 21:58; Start 07/31/18 at 22:00; Stop 07/31/18 at 22:01; Status DC Bisacodyl (Dulcolax Supp) 10 mg 1X ONCE AL ; Start 08/01/18 at 10:30; Stop 08/01/18 at 10:31; Status DC Furosemide (Lasix) 40 mg BID92 PO Last administered on 08/09/18 09:29; Start 08/01/18 at 14:00 Acetaminophen (Tylenol) 500 mg TID PO Last administered on 08/09/18 09:29; Start 08/03/18 at 09:00 Metoprolol Succinate (Toprol Xl) 100 mg DAILY PO Last administered on 08/09/18 09:29; Start 08/04/18 at 09:00 Apixaban (Eliquis) 2.5 mg BID PO Last administered on 08/05/18 10:25; Start 08/05/18 at 09:00; Stop 08/05/18 at 16:24; Status DC Info (Anti-Coagulation Monitoring By Pharmacy) 1 each PRN DAILY PRN MC SEE COMMENTS; Start 08/04/18 at 19:00; Status Cancel Apixaban (Eliquis) 5 mg BID PO Last administered on 08/07/18 09:18; Start 08/05/18 at 21:00; Stop 08/07/18 at 14:36; Status DC Alteplase, Recombinant (Cathflo For Central Catheter Clearance) 1 mg 1X ONCE INT CAT ; Start 08/06/18 at 10:00; Stop 08/06/18 at 10:01; Status DC Alteplase, Recombinant (Cathflo For Central Catheter Clearance) 1 mg 1X ONCE INT CAT Last administered on 08/06/18at 10:03; Start 08/06/18 at 10:00; Stop 08/06/18 at 10:01; Status DC Docusate Sodium (Colace) 100 mg PRN DAILY PRN PO HARD STOOLS Last administered on 08/06/18at 11:49; Start 08/06/18 at 11:00 Polyethylene Glycol (miraLAX PACKET) 17 gm PRN DAILY PRN PO CONSTIPATION, 2ND CHOICE Last administered on 08/06/18at 11:49; Start 08/06/18 at 11:00 Furosemide (Lasix) 40 mg 1X ONCE IVP Last administered on 08/06/18at 17:16; Start 08/06/18 at 17:00; Stop 08/06/18 at 17:01; Status DC Sodium Chloride 1,000 ml @ 100 mls/hr 1X ONCE IV Last administered on 08/08/18at 05:27; Start 08/08/18 at 06:00; Stop 08/08/18 at 15:59; Status DC Iodixanol (Visipaque 320) 100 ml STK-MED ONCE .ROUTE ; Start 08/08/18 at 07:39; Stop 08/08/18 at 07:40; Status DC Lidocaine HCl (Xylocaine-Mpf 1% 2ml Vial) 2 ml STK-MED ONCE .ROUTE ; Start 08/08/18 at 07:39; Stop 08/08/18 at 07:40; Status DC Heparin Sodium/ Sodium Chloride 1,000 ml @ As Directed STK-MED ONCE .ROUTE ; Start 08/08/18 at 07:40; Stop 08/08/18 at 07:41; Status DC Fentanyl Citrate (Fentanyl 2ml Vial) 100 mcg STK-MED ONCE .ROUTE ; Start 08/08/18 at 08:20; Stop 08/08/18 at 08:23; Status DC Midazolam HCl (Versed) 2 mg STK-MED ONCE .ROUTE ; Start 08/08/18 at 08:20; Stop 08/08/18 at 08:23; Status DC Heparin Sodium (Porcine) (Heparin Sodium) 10,000 unit STK-MED ONCE .ROUTE ; Start 08/08/18 at 08:20; Stop 08/08/18 at 08:24; Status DC Verapamil HCl (Verapamil) 5 mg STK-MED ONCE .ROUTE ; Start 08/08/18 at 08:20; Stop 08/08/18 at 08:24; Status DC Nitroglycerin (Nitroglycerin) 200 mcg STK-MED ONCE .ROUTE ; Start 08/08/18 at 08:20; Stop 08/08/18 at 08:24; Status DC Nitroglycerin (Nitroglycerin) 200 mcg 1X ONCE IART Last administered on 08/08/18 09:15; Start 08/08/18 at 09:15; Stop 08/08/18 at 09:16; Status DC Verapamil HCl (Verapamil) 2.5 mg 1X ONCE IART Last administered on 08/08/18 09:17; Start 08/08/18 at 09:15; Stop 08/08/18 at 09:16; Status DC Heparin Sodium (Porcine) (Heparin Sodium) 2,500 unit 1X ONCE IART Last administered on 08/08/18 09:16; Start 08/08/18 at 09:15; Stop 08/08/18 at 09:16; Status DC Heparin Sodium/ Sodium Chloride (HEPARIN for ARTERIAL LINE FLUSH) 1,000 unit 1X ONCE IART Last administered on 08/08/18 09:15; Start 08/08/18 at 09:15; Stop 08/08/18 at 09:16; Status DC Midazolam HCl (Versed) 1 mg 1X ONCE IV Last administered on 08/08/18 09:18; Start 08/08/18 at 09:15; Stop 08/08/18 at 09:16; Status DC Fentanyl Citrate (Fentanyl 2ml Vial) 50 mcg 1X ONCE IV Last administered on 08/08/18 09:17; Start 08/08/18 at 09:15; Stop 08/08/18 at 09:16; Status DC Iodixanol (Visipaque 320) 92 ml 1X ONCE IART Last administered on 08/08/18 09:14; Start 08/08/18 at 09:15; Stop 08/08/18 at 09:16; Status DC Lidocaine HCl (Xylocaine-Mpf 1% 2ml Vial) 2 ml 1X ONCE INJ Last administered on 08/08/18 09:18; Start 08/08/18 at 09:15; Stop 08/08/18 at 09:16; Status DC Info (CONTRAST GIVEN -- Rx MONITORING) 1 each PRN DAILY PRN MC SEE COMMENTS; Start 08/08/18 at 09:15; Stop 08/10/18 at 09:14 Nitroglycerin (Nitrostat) 0.4 mg PRN Q5MIN PRN SL CHEST PAIN; Start 08/08/18 at 09:30 Active Scripts Active Furosemide 40 Mg Tablet 40 Mg PO BID 30 Days Miralax (Polyethylene Glycol 3350) 17 Gm Powd.pack 1 Packet PO DAILY Colace (Docusate Sodium) 100 Mg Capsule 1 Cap PO BID 30 Days Eliquis (Apixaban) 5 Mg Tablet 5 Mg PO BID 30 Days Metoprolol Succinate ( Xl ) (Metoprolol Succinate) 100 Mg Tab.er.24h 1 Tab PO DAILY 30 Days Reported Guaifenesin 200 Mg Tablet 200 Mg PO PRN TID PRN Budesonide 0.25 Mg/2 Ml Ampul.neb 1 Vial NEB BID Albuterol Sulfate Conc Neb Soln (Albuterol Sulfate) 2.5 Mg/0.5 Ml Vial.neb 1 Vial NEB Q6HRS PRN Trazodone Hcl 50 Mg Tablet 1 Tab PO QHS Culturelle (Lactobacillus Rhamnosus Gg) 1 Each Cap.sprink 1 Each PO Atorvastatin Calcium 80 Mg Tablet 1 Tab PO DAILY Buspirone Hcl 10 Mg Tablet 1 Tab PO BID Protonix (Pantoprazole Sodium) 20 Mg Tablet.dr 1 Tab PO DAILY Duloxetine Hcl 60 Mg Capsule.dr 60 Mg PO DAILY Calcitriol 0.25 Mcg Capsule 1 Cap PO 3X/WEEK Mucinex (Guaifenesin) 600 Mg Tablet.er 200 Tab PO TID Potassium Chloride 20 Meq Tablet.er 20 Meq PO DAILY Levothyroxine Sodium 50 Mcg Tablet 1 Tab PO DAILY Tylenol (Acetaminophen) 325 Mg Tablet 500 Mg PO TID Vitamin D3 (Cholecalciferol (Vitamin D3)) 1,000 Unit Tablet 2 Tab PO DAILY Folic Acid 1 Mg Tablet 1 Tab PO DAILY Vitals/I & O Vital Sign - Last 24 Hours 08/08/18 08/08/18 08/08/18 08/08/18 15:00 16:10 19:05 19:17 Temp 97.6 97.1 97.6 97.1 Pulse 87 88 Resp 18 22 B/P (MAP) 138/87 (104) 121/63 (82) Pulse Ox 94 94 94 94 O2 Delivery Nasal Cannula Nasal Cannula BiPAP/CPAP Nasal Cannula O2 Flow Rate 4.0 3.0 3.0 08/08/18 08/08/18 08/08/18 08/08/18 19:17 20:46 20:46 22:27 Pulse Ox 94 96 O2 Delivery Nasal Cannula Bi-pap BiPAP/CPAP O2 Flow Rate 3.0 3.0 3.0 08/08/18 08/09/18 08/09/18 08/09/18 23:44 01:00 03:10 03:15 Temp 97.4 97.7 97.4 97.7 Pulse 95 94 Resp 22 24 B/P (MAP) 114/76 (89) 109/57 (74) Pulse Ox 93 94 94 94 O2 Delivery BiPAP/CPAP BiPAP/CPAP BiPAP/CPAP BiPAP/CPAP 08/09/18 08/09/18 08/09/18 08/09/18 07:00 08:00 08:00 08:49 Temp 97.7 97.7 Pulse 104 Resp 24 B/P (MAP) 133/74 (93) Pulse Ox 96 94 O2 Delivery BiPAP/CPAP Nasal Cannula Nasal Cannula O2 Flow Rate 4.0 3.0 3.0 08/09/18 08/09/18 08/09/18 09:29 10:44 12:02 Temp 99.0 99.0 Pulse 104 94 Resp 24 B/P (MAP) 133/74 123/70 (87) Pulse Ox 95 98 O2 Delivery Nasal Cannula Nasal Cannula O2 Flow Rate 4.0 Intake and Output 08/08/18 08/08/18 08/09/18 15:00 23:00 07:00 Intake Total 60 ml Output Total 200 ml Balance -200 ml 60 ml DOE MARIA MD August 09, 2018 13:43
[2018-08-09] MEDS: APIXABAN 5 MG TABLET. PO SCH ×2 (13:49→19:40)
[2018-08-09 14:41] VITALS: BP 103/53
[2018-08-09] MEDS: ANTI-COAG MONITOR BY PHARMACY. MC PRN (14:50)
[2018-08-09 19:05] VITALS: BP 110/58
[2018-08-09] MEDS: traZODone 50 MG TABLET. PO SCH (19:39)
[2018-08-09] MEDS: ATORVASTATIN CALCIUM 40 MG TABLET. PO SCH (19:40)
[2018-08-09] MEDS: LORazepam 0.5 MG TABLET PO PRN (19:40)
--- NOTE | 2018-08-09 21:41 | RAD ---
EXAM: Left foot, 3 views. HISTORY: Erythema. Blunt trauma. COMPARISON: None. FINDINGS: 3 views of the left foot are obtained. There is no acute fracture, dislocation or subluxation. There is dorsal forefoot soft tissue swelling. There are vascular calcifications. IMPRESSION: 1. No acute osseous finding. 2. Dorsal forefoot soft tissue swelling. Electronically signed by: Priya Oliva MD (08/09/2018 9:38 PM) [facility]
[2018-08-09 23:00] VITALS: BP 114/59
--- NOTE | 2018-08-10 01:40 | PN ---
DATE: 08/09/2018 SUBJECTIVE: The patient is resting, slightly propped up in his recliner in no apparent respiratory distress. He is awake, alert. On questioning him, he denied any complaint, in particular denied any chest pain, shortness of breath, orthopnea, paroxysmal nocturnal dyspnea. Denied any cough, phlegm or hemoptysis. His cardiac catheterization revealed severe 3-vessel disease. He was seen in consultation by the cardiothoracic surgeon, who did not recommend any surgical intervention or even percutaneous coronary intervention as he would not be able to lie flat on his back and will require intubation. PHYSICAL EXAMINATION: GENERAL: When I examined him today, he looked pale, no jaundice, cyanosis or thyromegaly. No jugular venous distention, but mild generalized anasarca. VITAL SIGNS: Her heart rate was 104, blood pressure was 133/74, temperature was 97.7, respiratory rate was 24, and oxygen saturation was 96% on 3 liters of oxygen. HEAD, EYES, EARS, NOSE AND THROAT: Showed normocephalic, atraumatic. NECK: Supple. HEART: Showed normal first and second sounds. No gallop, rub or murmur. CHEST: Shows central trachea, equal bilateral expansion, air entry, vesicular sounds. No crepitation or rhonchi. ABDOMEN: Distended, soft, nontender. NEUROLOGIC: He is awake, alert, responding appropriately. All cranial nerves intact. EXTREMITIES: He moves extremities without difficulty, although he is mostly bed bound, wheelchair bound. His intake over the last 24 hours was 550, output was 600. LABORATORY DATA: As of this morning, his white cell count was 4000, hemoglobin 12, hematocrit 36, MCV 96, and platelet count 226,000. Serum sodium is slightly up at 147, potassium 3.6, chloride 103, bicarbonate 42, anion gap of 2, BUN 20, creatinine 2, estimated GFR was 33 mL per minute. His glucose was 91, calcium was 8.8. ASSESSMENT: 1. The patient is status post left heart cardiac catheterization was severe 3-vessel coronary artery disease. Apparently, according to the cardiothoracic surgeon is not a candidate for surgical intervention or even for PCI intervention. 2. Acute on chronic hypoxic hypercapnic respiratory failure, multifactorial. 3. Acute on chronic systolic congestive heart failure , ischemic cardiomyopathy with an ejection fraction of only 20%. 4. Atrial fibrillation, rate controlled. 5. Coronary artery disease, status post myocardial infarctions. 6. Acute kidney injury on chronic kidney disease. His serum creatinine stable at around 2 mg/dL. 7. Hypertension, well controlled. 8. Recurrent episode of deep vein thrombosis and pulmonary embolism for which he was in apixaban. 9. Type 2 diabetes mellitus, seems to be well controlled. 10. Hyperlipidemia. 11. Morbid obesity, obstructive sleep apnea. 12. Chronic back pain due to multiple lumbar vertebral compression fracture. PLAN: Await the evaluation by the or nurse manager whether any plans for any percutaneous coronary interventions. KAR PERSAUD MD DR: KEENAN/lindsay JOB#: [id number] / [id number]
[2018-08-10 03:30] VITALS: BP 125/65
[2018-08-10] MEDS: LEVOTHYROXINE 50 MCG TABLET PO SCH (05:48)
[2018-08-10 06:07] LABS: CALCIUM 8.4 mg/dL (8.5-10.1); CREATININE 2.1 mg/dL (0.7-1.3); GFR 30.9; POTASSIUM 3.7 mmol/L (3.5-5.1)
[2018-08-10 07:00] VITALS: BP 168/80
[2018-08-10] MEDS: INSULIN LISPRO 300 UNITS/3 ML INSULN.PEN. SQ SCH ×3 (08:00→17:00)
[2018-08-10] MEDS: NYSTATIN TOPICAL POWDER 15GM BOTTLE. TP SCH ×2 (08:18→20:36)
[2018-08-10] MEDS: FLUTICASONE 50MCG/NASAL SPRAY 16GM BOTTLE. NS SCH (08:18)
[2018-08-10] MEDS: ACETAMINOPHEN 500 MG TABLET PO SCH ×3 (08:19→20:36)
[2018-08-10] MEDS: FUROSEMIDE 40 MG TABLET. PO SCH ×2 (08:19→13:48)
[2018-08-10] MEDS: glipiZIDE 5 MG TABLET PO SCH ×2 (08:19→17:08)
[2018-08-10] MEDS: CHOLECALCIFEROL (VITAMIN D3) 1,000 UNIT TABLET PO SCH (08:19)
[2018-08-10] MEDS: ASPIRIN ENTERIC COATED 81 MG TABLET.DR. PO SCH (08:19)
[2018-08-10] MEDS: LACTOBACILLUS RHAMNOSUS GG 1 CAPSULE. PO SCH ×2 (08:19→20:36)
[2018-08-10] MEDS: PANTOPRAZOLE 40 MG TABLET.DR. PO SCH (08:19)
[2018-08-10] MEDS: FOLIC ACID 1 MG TABLET. PO SCH (08:19)
[2018-08-10] MEDS: APIXABAN 5 MG TABLET. PO SCH ×2 (08:19→20:36)
[2018-08-10] MEDS: DULoxetine HCL 30 MG CAPSULE.DR PO SCH (08:19)
[2018-08-10] MEDS: busPIRone 10 MG TABLET. PO SCH ×2 (08:20→20:36)
[2018-08-10] MEDS: METOPROLOL SUCC 24HR ER 100 MG TAB.ER.24H. PO SCH (08:20)
[2018-08-10] MEDS: IPRATRPIUM/ALBUTEROL 0.5/2.5MG 3 ML NEBU. NEB SCH ×4 (08:40→20:52)
[2018-08-10] MEDS: BUDESONIDE 0.5 MG/2 ML NEBU. NEB SCH ×2 (08:41→20:52)
[2018-08-10] MEDS: ANTI-COAG MONITOR BY PHARMACY. MC PRN (08:43)
[2018-08-10 11:00] VITALS: BP 148/68
--- NOTE | 2018-08-10 11:31 | PDOC ---
PULMONARY PROGRESS NOTES Subjective on canula s/p left cath/ severe 3 vessel CAD Vitals Vital Signs Date Time Temp Pulse Resp B/P (MAP) Pulse Ox O2 Delivery O2 Flow Rate FiO2 08/10/18 08:40 94 Nasal Cannula 4.0 08/10/18 08:20 103 125/65 08/10/18 07:00 97.5 18 97.5 General: No acute distress Lungs: Other (decrease bases) Cardiovascular: Other (Diminished) Abdomen: Soft, Non-tender Neuro Exam: Alert Extremities: Other (edema BLE +2) Skin: Warm, Dry Labs Laboratory Tests Test 08/08/18 11:47 08/08/18 16:55 08/08/18 21:29 08/09/18 05:30 Glucose (Fingerstick) 139 mg/dL (70-99) 127 mg/dL (70-99) 167 mg/dL (70-99) Sodium Level 147 mmol/L (136-145) Potassium Level 3.6 mmol/L (3.5-5.1) Chloride Level 103 mmol/L (98-107) Carbon Dioxide Level 42 mmol/L (21-32) Anion Gap 2 (6-14) Blood Urea Nitrogen 20 mg/dL (8-26) Creatinine 2.0 mg/dL (0.7-1.3) Estimated GFR (Cockcroft-Gault) 32.7 Glucose Level 91 mg/dL (70-99) Calcium Level 8.8 mg/dL (8.5-10.1) Test 08/09/18 07:06 08/09/18 11:23 08/09/18 16:31 08/09/18 20:48 Glucose (Fingerstick) 90 mg/dL (70-99) 145 mg/dL (70-99) 151 mg/dL (70-99) 121 mg/dL (70-99) Test 08/10/18 05:45 08/10/18 08:10 Sodium Level 145 mmol/L (136-145) Potassium Level 3.7 mmol/L (3.5-5.1) Chloride Level 102 mmol/L (98-107) Carbon Dioxide Level 41 mmol/L (21-32) Anion Gap 2 (6-14) Blood Urea Nitrogen 19 mg/dL (8-26) Creatinine 2.1 mg/dL (0.7-1.3) Estimated GFR (Cockcroft-Gault) 30.9 Glucose Level 111 mg/dL (70-99) Calcium Level 8.4 mg/dL (8.5-10.1) Glucose (Fingerstick) 113 mg/dL (70-99) Laboratory Tests Test 08/09/18 16:31 08/09/18 20:48 08/10/18 05:45 08/10/18 08:10 Glucose (Fingerstick) 151 mg/dL (70-99) 121 mg/dL (70-99) 113 mg/dL (70-99) Sodium Level 145 mmol/L (136-145) Potassium Level 3.7 mmol/L (3.5-5.1) Chloride Level 102 mmol/L (98-107) Carbon Dioxide Level 41 mmol/L (21-32) Anion Gap 2 (6-14) Blood Urea Nitrogen 19 mg/dL (8-26) Creatinine 2.1 mg/dL (0.7-1.3) Estimated GFR (Cockcroft-Gault) 30.9 Glucose Level 111 mg/dL (70-99) Calcium Level 8.4 mg/dL (8.5-10.1) Medications Active Scripts Medications Dose Route/Sig Max Daily Dose Days Date Category Guaifenesin 200 Mg Tablet 200 Mg PO PRN TID PRN 07/28/18 Reported Budesonide 0.25 Mg/2 Ml Ampul.neb 1 Vial NEB BID 01/29/18 Reported Albuterol Sulfate Conc Neb Soln (Albuterol Sulfate) 2.5 Mg/0.5 Ml Vial.neb 1 Vial NEB Q6HRS PRN 01/29/18 Reported Trazodone Hcl 50 Mg Tablet 1 Tab PO QHS 01/24/18 Reported Culturelle (Lactobacillus Rhamnosus Gg) 1 Each Cap.sprink 1 Each PO 01/24/18 Reported Atorvastatin Calcium 80 Mg Tablet 1 Tab PO DAILY 01/24/18 Reported Buspirone Hcl 10 Mg Tablet 1 Tab PO BID 01/24/18 Reported Glipizide 5 Mg Tablet 1 Tab PO BID 01/24/18 Reported Eliquis (Apixaban) 2.5 Mg Tablet 2.5 Mg PO BID 01/24/18 Reported Protonix (Pantoprazole Sodium) 20 Mg Tablet.dr 1 Tab PO DAILY 01/24/18 Reported Duloxetine Hcl 60 Mg Capsule.dr 60 Mg PO DAILY 01/24/18 Reported Furosemide 20 Mg Tablet 60 Tab PO DAILY 01/24/18 Reported Calcitriol 0.25 Mcg Capsule 1 Cap PO 3X/WEEK 01/24/18 Reported Mucinex (Guaifenesin) 600 Mg Tablet.er 200 Tab PO TID 01/24/18 Reported Potassium Chloride 20 Meq Tablet.er 20 Meq PO DAILY 01/24/18 Reported Levothyroxine Sodium 50 Mcg Tablet 1 Tab PO DAILY 01/24/18 Reported Tylenol (Acetaminophen) 325 Mg Tablet 500 Mg PO TID 01/24/18 Reported Vitamin D3 (Cholecalciferol (Vitamin D3)) 1,000 Unit Tablet 2 Tab PO DAILY 01/24/18 Reported Folic Acid 1 Mg Tablet 1 Tab PO DAILY 01/24/18 Reported Active Scripts Medications Dose Route/Sig Max Daily Dose Days Date Category Guaifenesin 200 Mg Tablet 200 Mg PO PRN TID PRN 07/28/18 Reported Budesonide 0.25 Mg/2 Ml Ampul.neb 1 Vial NEB BID 01/29/18 Reported Albuterol Sulfate Conc Neb Soln (Albuterol Sulfate) 2.5 Mg/0.5 Ml Vial.neb 1 Vial NEB Q6HRS PRN 01/29/18 Reported Trazodone Hcl 50 Mg Tablet 1 Tab PO QHS 01/24/18 Reported Culturelle (Lactobacillus Rhamnosus Gg) 1 Each Cap.sprink 1 Each PO 01/24/18 Reported Atorvastatin Calcium 80 Mg Tablet 1 Tab PO DAILY 01/24/18 Reported Buspirone Hcl 10 Mg Tablet 1 Tab PO BID 01/24/18 Reported Glipizide 5 Mg Tablet 1 Tab PO BID 01/24/18 Reported Eliquis (Apixaban) 2.5 Mg Tablet 2.5 Mg PO BID 01/24/18 Reported Protonix (Pantoprazole Sodium) 20 Mg Tablet.dr 1 Tab PO DAILY 01/24/18 Reported Duloxetine Hcl 60 Mg Capsule.dr 60 Mg PO DAILY 01/24/18 Reported Furosemide 20 Mg Tablet 60 Tab PO DAILY 01/24/18 Reported Calcitriol 0.25 Mcg Capsule 1 Cap PO 3X/WEEK 01/24/18 Reported Mucinex (Guaifenesin) 600 Mg Tablet.er 200 Tab PO TID 01/24/18 Reported Potassium Chloride 20 Meq Tablet.er 20 Meq PO DAILY 10/19/18 Reported Levothyroxine Sodium 50 Mcg Tablet 1 Tab PO DAILY 01/24/18 Reported Tylenol (Acetaminophen) 325 Mg Tablet 500 Mg PO TID 01/24/18 Reported Vitamin D3 (Cholecalciferol (Vitamin D3)) 1,000 Unit Tablet 2 Tab PO DAILY 01/24/18 Reported Folic Acid 1 Mg Tablet 1 Tab PO DAILY 01/24/18 Reported Impression . 1. Acute hypoxemic hypercapnic respiratory failure, multifactorial. 2. Acute on chronic heart failure. 3. Abnormal x-ray with persistent right lower lobe effusion right greater than left. 4. Cardiomyopathy, ejection fraction 20-25%. 5. Atrial fibrillation with rapid ventricular response. 6. Type 2 diabetes. 7. Hypertension. 8. Obesity. 9. Chronic obstructive pulmonary disease, unknown FEV1. 10. Possible obstructive sleep apnea. 11. TRANSUDATE EFFUSION REPEAT THORACENTESIS ON 08/04 600 CC REMOVED Procedure Result ANAEROBIC-AEROBIC CULTURE Final Final report ANAEROBIC RES 1 Final Comment No anaerobic growth in 72 hours. AEROBIC CULT Final Final report AEROBIC RES 1 Final Comment No growth in 56 - 72 hours. GRAM STAIN Final Final report GRAM STAIN RES 1 Final Comment No white blood cells seen. GRAM STAIN RES 2 Final No organisms seen Impression: No deep venous thrombus involving the right upper extremity. Plan . CLINICALLY STABLE SEVERE 3 VESSEL CAD BY CATH/ POOR SURGICAL CANDIDATE PER CV SURGERY LASIX BIPAP QHS/ PT HAS HOME BIPAP REPEAT THORACENTESIS 600 CC PT /OT WILL NEED REHAB/ INS DENIES FOLLOW CARD REC CLARTIZA PRYOR MD August 10, 2018 11:31
--- NOTE | 2018-08-10 12:05 | PDOC ---
Renal-Progress Notes Subjective Notes Notes NON NEW COMPLAINTS History of Present Illness Hx of present illness STABLE Vitals Vitals Vital Signs Date Time Temp Pulse Resp B/P (MAP) Pulse Ox O2 Delivery O2 Flow Rate FiO2 08/10/18 08:40 94 Nasal Cannula 4.0 08/10/18 08:20 103 125/65 08/10/18 07:00 97.5 18 97.5 Weight Weight [ ] I.O. Intake and Output Intake and Output 08/10/18 07:00 Intake Total 560 ml Output Total 300 ml Balance 260 ml Intake Oral 560 ml Output Urine Total 100 ml Stool Total 200 ml # Voids 4 # Bowel Movements 2 Labs Labs Laboratory Tests Test 08/09/18 16:31 08/09/18 20:48 08/10/18 05:45 08/10/18 08:10 Glucose (Fingerstick) 151 mg/dL (70-99) 121 mg/dL (70-99) 113 mg/dL (70-99) Sodium Level 145 mmol/L (136-145) Potassium Level 3.7 mmol/L (3.5-5.1) Chloride Level 102 mmol/L (98-107) Carbon Dioxide Level 41 mmol/L (21-32) Anion Gap 2 (6-14) Blood Urea Nitrogen 19 mg/dL (8-26) Creatinine 2.1 mg/dL (0.7-1.3) Estimated GFR (Cockcroft-Gault) 30.9 Glucose Level 111 mg/dL (70-99) Calcium Level 8.4 mg/dL (8.5-10.1) Test 08/10/18 11:54 Glucose (Fingerstick) 163 mg/dL (70-99) Micro Micro Microbiology 07/30/18 Anaerobic/Aerobic Culture - Final, Complete 07/30/18 Anaerobic Culture Result 1 (GARCIA) - Final, Complete 07/30/18 Aerobic Culture - Final, Complete 07/30/18 Aerobic Culture Result 1 (GARCIA) - Final, Complete 07/30/18 Gram Stain - Final, Complete 07/30/18 Gram Stain Result 1 (GARCIA) - Final, Complete 07/30/18 Gram Stain Result 2 (GARCIA) - Final, Complete Review of Systems Constitutional: yes: other (CONFUSED) Physical Exam General Appearance: no apparent distress Skin: warm Respiratory: decreased breath sounds Heart: S1S2, other (IRREGULAR) Abdomen: soft, bowel sounds present Genitourinary: mendoza catheter Extremities: edema Neurology: alert, oriented, follow commands Assessment Assessment IMP YARELY RESOLVED HYPOKALEMIA-RESOLVED CKD STAGE 3 WITH CR OF 1.7-1.8 ACUTE ON CHRONIC SYSTOLIC AND DIASTOLIC CHF CM WITH EF OF 20% AFIB RVR-BETTER DM II HTN-LABILE COPD CHRONIC MET ALKALOSIS S/P HEART CATH HYPERNATREMIA-RESOLVED PLAN CONT LASIX REPLACE K NEEDED BIPAP NEEDED SUPPLEMENTAL O2 TRIAL OF LISINOPRIL WILL FOLLOW JOSE ANTONIO JACKSON MD August 10, 2018 12:05
[2018-08-10 15:00] VITALS: BP 146/84
[2018-08-10 19:00] VITALS: BP 141/72
[2018-08-10] MEDS: ATORVASTATIN CALCIUM 40 MG TABLET. PO SCH (20:37)
[2018-08-10] MEDS: traZODone 50 MG TABLET. PO SCH (20:37)
[2018-08-10 22:49] VITALS: BP 116/66
--- NOTE | 2018-08-10 23:54 | PN ---
DATE: 08/10/2018 SUBJECTIVE: The patient is resting, slightly propped up in bed, eating his breakfast comfortably, in no apparent distress. On questioning him, he denied any complaint. Particularly, he denied any chest pain, shortness of breath, cough or phlegm. He was seen by the technical rep yesterday and apparently, he is not a candidate for any percutaneous intervention. The cardiovascular surgeon also did not believe that he is a candidate for coronary artery bypass graft surgery. PHYSICAL EXAMINATION: GENERAL: When I examined him this morning, he looked well and was clearly in no apparent respiratory distress, slightly pale; not jaundiced or cyanosed from thyromegaly. No jugular venous distention. No lower limb edema. VITAL SIGNS: His heart rate was 103, blood pressure was 125/65, temperature was 97.5, respiratory rate was 18 and oxygen saturation was 95% on 4 liters of oxygen. HEENT: Examination of the head, eyes, ears, nose and throat showed he is normocephalic, atraumatic. NECK: Supple. HEART: Normal first and second heart sounds. No gallop, rub or murmur. CHEST: Clear to auscultation. No crepitation or rhonchi. ABDOMEN: Distended, soft and nontender. NEUROLOGIC: He was awake, alert, responding appropriately. All cranial nerves intact. He moved extremities without difficulty, although he was mostly bed bound and wheelchair bound. His intake and output were incompletely recorded. LABORATORY DATA: As of this morning, his serum sodium was 145, potassium 3.7, chloride 102, bicarbonate 41, anion gap of 2, BUN 19, creatinine 2.1, estimated GFR was 31 mL per minute, his glucose 111 and calcium was 8.4. His white cell count was 4000, hemoglobin 11.6, hematocrit 36.9, MCV 96 and platelet count 226,000. ASSESSMENT: 1. Kmmwz-dd-mhwyuqn hypoxic hypercapnic respiratory failure, multifactorial. 2. Acwvw-se-opuumci systolic congestive heart failure secondary to ischemic cardiomyopathy with an ejection fraction of only 20%. 3. The patient is status post left heart catheterization, found to have severe 3-vessel coronary artery disease, for which he was evaluated by the cardiothoracic surgeon, who does not believe the patient is a candidate for surgical intervention or even PCI intervention. 4. Atrial fibrillation, rate controlled, well anticoagulated. 5. Coronary artery disease, status post myocardial infarction. 6. Acute kidney injury on chronic kidney disease. His serum creatinine is stable around 2 mg/dL. 7. Hypertension, well controlled. 8. 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 9. Type 2 diabetes mellitus, seems to be well controlled. 10. Hyperlipidemia. 11. Morbid obesity with obstructive sleep apnea. 12. Chronic back pain due to multiple lumbar vertebral compression fractures. PLAN: The plan is obviously to continue with medical treatment as he is not a candidate for bypass surgery or even percutaneous coronary intervention. Unfortunately, he does not have Medicare part B or Medicaid and the [facility] are not willing to help him. This leaves only discharging him home with home health as the only option available. KAR PERSAUD MD DR: KEENAN/lindsay JOB#: [id number] / [id number]
[2018-08-11 02:43] VITALS: BP 122/70
[2018-08-11] MEDS: LEVOTHYROXINE 50 MCG TABLET PO SCH (05:26)
[2018-08-11 06:05] LABS: CALCIUM 8.3 mg/dL (8.5-10.1); CREATININE 2.1 mg/dL (0.7-1.3); GFR 30.9; POTASSIUM 3.8 mmol/L (3.5-5.1)
[2018-08-11 07:00] VITALS: BP 98/53
[2018-08-11] MEDS: BUDESONIDE 0.5 MG/2 ML NEBU. NEB SCH ×2 (07:58→19:49)
[2018-08-11] MEDS: IPRATRPIUM/ALBUTEROL 0.5/2.5MG 3 ML NEBU. NEB SCH ×4 (07:58→19:49)
[2018-08-11] MEDS: INSULIN LISPRO 300 UNITS/3 ML INSULN.PEN. SQ SCH ×3 (08:00→17:00)
[2018-08-11] MEDS: FUROSEMIDE 40 MG TABLET. PO SCH ×2 (08:48→14:23)
[2018-08-11] MEDS: LISINOPRIL 5 MG TABLET. PO SCH (08:50)
[2018-08-11] MEDS: busPIRone 10 MG TABLET. PO SCH ×2 (08:51→20:29)
[2018-08-11] MEDS: CALCITRIOL 0.25 MCG CAPSULE. PO SCH (08:51)
[2018-08-11] MEDS: CHOLECALCIFEROL (VITAMIN D3) 1,000 UNIT TABLET PO SCH (08:51)
[2018-08-11] MEDS: glipiZIDE 5 MG TABLET PO SCH ×2 (08:52→17:02)
[2018-08-11] MEDS: ASPIRIN ENTERIC COATED 81 MG TABLET.DR. PO SCH (08:52)
[2018-08-11] MEDS: LACTOBACILLUS RHAMNOSUS GG 1 CAPSULE. PO SCH ×2 (08:53→20:29)
[2018-08-11] MEDS: DULoxetine HCL 30 MG CAPSULE.DR PO SCH (08:53)
[2018-08-11] MEDS: METOPROLOL SUCC 24HR ER 100 MG TAB.ER.24H. PO SCH (08:53)
[2018-08-11] MEDS: PANTOPRAZOLE 40 MG TABLET.DR. PO SCH (08:53)
[2018-08-11] MEDS: FLUTICASONE 50MCG/NASAL SPRAY 16GM BOTTLE. NS SCH (08:54)
[2018-08-11] MEDS: FOLIC ACID 1 MG TABLET. PO SCH (08:54)
[2018-08-11] MEDS: APIXABAN 5 MG TABLET. PO SCH ×2 (08:54→20:29)
[2018-08-11] MEDS: NYSTATIN TOPICAL POWDER 15GM BOTTLE. TP SCH ×2 (08:55→20:30)
[2018-08-11] MEDS: ACETAMINOPHEN 500 MG TABLET PO SCH ×3 (09:00→20:29)
--- NOTE | 2018-08-11 09:26 | PDOC2 ---
PALLIATIVE CARE Palliative Care Note Palliative Care Consult requested by Dr. Hoover/Case Management to address plan of care. 1. Nizfx-zp-qisphma hypoxic hypercapnic respiratory failure, multifactorial. 2. Tkxev-tz-ybsvxle systolic congestive heart failure secondary to ischemic cardiomyopathy with an ejection fraction of only 20%. 3. The patient is status post left heart catheterization, found to have severe 3-vessel coronary artery disease, for which he was evaluated by the cardiothoracic surgeon, who does not believe the patient is a candidate for surgical intervention or even PCI intervention. 4. Atrial fibrillation, rate controlled, well anticoagulated. 5. Coronary artery disease, status post myocardial infarction. 6. Acute kidney injury on chronic kidney disease. His serum creatinine is stable around 2 mg/dL. 7. Hypertension, well controlled. 8. 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 9. Type 2 diabetes mellitus, seems to be well controlled. 10. Hyperlipidemia. 11. Morbid obesity with obstructive sleep apnea. 12. Chronic back pain due to multiple lumbar vertebral compression fractures. PLAN: The plan is obviously to continue with medical treatment as he is not a candidate for bypass surgery or even percutaneous coronary intervention. Unfortunately, he does not have Medicare part B or Medicaid and the [facility] are not willing to help him. This leaves only discharging him home with home health as the only option available. ROSEY AGUIRRE August 11, 2018 09:26
--- NOTE | 2018-08-11 10:30 | PDOC ---
KOBE BENSON [employer]LECT[employer]ER INST[employer]ER HELPER 08/11/18 1030: CARDIO Progress Notes Date and Time Date of Service 08/11/18 Time of Evaluation 0940 Subjective Subjective: No Chest Pain, No Palpitations, Other (breathing better today) Vitals Vitals Vital Signs Date Time Temp Pulse Resp B/P (MAP) Pulse Ox O2 Delivery O2 Flow Rate FiO2 08/11/18 08:53 96 158/68 08/11/18 08:03 95 Nasal Cannula 4.0 08/11/18 07:00 97.8 20 97.8 Weight Weight [ ] Input and Output Intake and Output Intake and Output 08/11/18 07:00 Intake Total 0 ml Output Total 675 ml Balance -675 ml Intake Oral 0 ml Output Urine Total 675 ml # Bowel Movements 1 Laboratory Labs Laboratory Tests Test 08/10/18 11:54 08/10/18 17:11 08/10/18 20:35 08/11/18 05:30 Glucose (Fingerstick) 163 mg/dL (70-99) 149 mg/dL (70-99) 121 mg/dL (70-99) Sodium Level 145 mmol/L (136-145) Potassium Level 3.8 mmol/L (3.5-5.1) Chloride Level 102 mmol/L (98-107) Carbon Dioxide Level 41 mmol/L (21-32) Anion Gap 2 (6-14) Blood Urea Nitrogen 18 mg/dL (8-26) Creatinine 2.1 mg/dL (0.7-1.3) Estimated GFR (Cockcroft-Gault) 30.9 Glucose Level 94 mg/dL (70-99) Calcium Level 8.3 mg/dL (8.5-10.1) Test 08/11/18 06:59 Glucose (Fingerstick) 88 mg/dL (70-99) Microbiology Micro Microbiology 07/30/18 Anaerobic/Aerobic Culture - Final, Complete 07/30/18 Anaerobic Culture Result 1 (GARCIA) - Final, Complete 07/30/18 Aerobic Culture - Final, Complete 07/30/18 Aerobic Culture Result 1 (GARCIA) - Final, Complete 07/30/18 Gram Stain - Final, Complete 07/30/18 Gram Stain Result 1 (GARCIA) - Final, Complete 07/30/18 Gram Stain Result 2 (GARCIA) - Final, Complete Review of Systems Constitutional: yes: other (CONFUSED) Physical Exam HEENT: Neck Supple W Full Motion Chest: Symmetric LUNGS: Other (diminished bases) Heart: irregularly irregular (AFIB) Abdomen: Soft N/T, Other (obese) Extremities: Other (1+ bilateral LE pitting edema, 1+ bilateral UE edema ) Neurology: alert, oriented, follow commands Assessment Assessment 1. Acute on chronic respiratory failure; multifactorial 2. Acute on chronic systolic CHF: better compensated 3. 3V CAD; poor surgical candidate. high-risk for PCI 4. ICM; LVEF 20%. 5. AFIB; rate fairly well controlled 6. YARELY on CKD; Cr stable at 2.1 7. Hypertension: controlled 8. H/o recurrent DVT/PE on Eliquis 9. DM2/HLP 10. Obesity Recommendations Continue BB for rate control. Lasix therapy. Continue ASA, statin Eliquis for stroke prophylaxis. Having difficulty with placement upon discharge. Palliative care consulted to address goal SHIRLENE RAMOS MD 08/11/18 [id number]: CARDIO Progress Notes Plan Plan Pt. seen and examined. Agree with above T[employer] Builder note. We discussed treatment options. He does not have angina. He still is very debilitated. Doubt that PCI would enable him any improvement in his quality of life. He needs aggressive rehab and then consider PCI on an outpt basis. PCI now would be high risk and may risk ESRD as well. I had a long conversation with patient and he wishes to be on the hospice program due to social issues finding rehab placement Will await family meeting tomorrow. KOBE BENSON APRN August 11, 2018 10:30 SHIRLENE RAMOS MD August 11, 2018 22:43
--- NOTE | 2018-08-11 10:44 | PDOC ---
PULMONARY PROGRESS NOTES Subjective on canula s/p left cath/ severe 3 vessel CAD Vitals Vital Signs Date Time Temp Pulse Resp B/P (MAP) Pulse Ox O2 Delivery O2 Flow Rate FiO2 08/11/18 08:53 96 158/68 08/11/18 08:03 95 Nasal Cannula 4.0 08/11/18 07:00 97.8 20 97.8 General: No acute distress Lungs: Other (decrease bases) Cardiovascular: Other (Diminished) Abdomen: Soft, Non-tender Neuro Exam: Alert Extremities: Other (edema BLE +2) Skin: Warm, Dry Labs Laboratory Tests Test 08/09/18 11:23 08/09/18 16:31 08/09/18 20:48 08/10/18 05:45 Glucose (Fingerstick) 145 mg/dL (70-99) 151 mg/dL (70-99) 121 mg/dL (70-99) Sodium Level 145 mmol/L (136-145) Potassium Level 3.7 mmol/L (3.5-5.1) Chloride Level 102 mmol/L (98-107) Carbon Dioxide Level 41 mmol/L (21-32) Anion Gap 2 (6-14) Blood Urea Nitrogen 19 mg/dL (8-26) Creatinine 2.1 mg/dL (0.7-1.3) Estimated GFR (Cockcroft-Gault) 30.9 Glucose Level 111 mg/dL (70-99) Calcium Level 8.4 mg/dL (8.5-10.1) Test 08/10/18 08:10 08/10/18 11:54 08/10/18 17:11 08/10/18 20:35 Glucose (Fingerstick) 113 mg/dL (70-99) 163 mg/dL (70-99) 149 mg/dL (70-99) 121 mg/dL (70-99) Test 08/11/18 05:30 08/11/18 06:59 Sodium Level 145 mmol/L (136-145) Potassium Level 3.8 mmol/L (3.5-5.1) Chloride Level 102 mmol/L (98-107) Carbon Dioxide Level 41 mmol/L (21-32) Anion Gap 2 (6-14) Blood Urea Nitrogen 18 mg/dL (8-26) Creatinine 2.1 mg/dL (0.7-1.3) Estimated GFR (Cockcroft-Gault) 30.9 Glucose Level 94 mg/dL (70-99) Calcium Level 8.3 mg/dL (8.5-10.1) Glucose (Fingerstick) 88 mg/dL (70-99) Laboratory Tests Test 08/10/18 11:54 08/10/18 17:11 08/10/18 20:35 08/11/18 05:30 Glucose (Fingerstick) 163 mg/dL (70-99) 149 mg/dL (70-99) 121 mg/dL (70-99) Sodium Level 145 mmol/L (136-145) Potassium Level 3.8 mmol/L (3.5-5.1) Chloride Level 102 mmol/L (98-107) Carbon Dioxide Level 41 mmol/L (21-32) Anion Gap 2 (6-14) Blood Urea Nitrogen 18 mg/dL (8-26) Creatinine 2.1 mg/dL (0.7-1.3) Estimated GFR (Cockcroft-Gault) 30.9 Glucose Level 94 mg/dL (70-99) Calcium Level 8.3 mg/dL (8.5-10.1) Test 08/11/18 06:59 Glucose (Fingerstick) 88 mg/dL (70-99) Medications Active Scripts Medications Dose Route/Sig Max Daily Dose Days Date Category Guaifenesin 200 Mg Tablet 200 Mg PO PRN TID PRN 07/28/18 Reported Budesonide 0.25 Mg/2 Ml Ampul.neb 1 Vial NEB BID 01/29/18 Reported Albuterol Sulfate Conc Neb Soln (Albuterol Sulfate) 2.5 Mg/0.5 Ml Vial.neb 1 Vial NEB Q6HRS PRN 01/29/18 Reported Trazodone Hcl 50 Mg Tablet 1 Tab PO QHS 01/24/18 Reported Culturelle (Lactobacillus Rhamnosus Gg) 1 Each Cap.sprink 1 Each PO 01/24/18 Reported Atorvastatin Calcium 80 Mg Tablet 1 Tab PO DAILY 01/24/18 Reported Buspirone Hcl 10 Mg Tablet 1 Tab PO BID 01/24/18 Reported Glipizide 5 Mg Tablet 1 Tab PO BID 01/24/18 Reported Eliquis (Apixaban) 2.5 Mg Tablet 2.5 Mg PO BID 01/24/18 Reported Protonix (Pantoprazole Sodium) 20 Mg Tablet.dr 1 Tab PO DAILY 01/24/18 Reported Duloxetine Hcl 60 Mg Capsule.dr 60 Mg PO DAILY 01/24/18 Reported Furosemide 20 Mg Tablet 60 Tab PO DAILY 01/24/18 Reported Calcitriol 0.25 Mcg Capsule 1 Cap PO 3X/WEEK 01/24/18 Reported Mucinex (Guaifenesin) 600 Mg Tablet.er 200 Tab PO TID 01/24/18 Reported Potassium Chloride 20 Meq Tablet.er 20 Meq PO DAILY 01/24/18 Reported Levothyroxine Sodium 50 Mcg Tablet 1 Tab PO DAILY 01/24/18 Reported Tylenol (Acetaminophen) 325 Mg Tablet 500 Mg PO TID 01/24/18 Reported Vitamin D3 (Cholecalciferol (Vitamin D3)) 1,000 Unit Tablet 2 Tab PO DAILY 01/24/18 Reported Folic Acid 1 Mg Tablet 1 Tab PO DAILY 01/24/18 Reported Active Scripts Medications Dose Route/Sig Max Daily Dose Days Date Category Guaifenesin 200 Mg Tablet 200 Mg PO PRN TID PRN 07/28/18 Reported Budesonide 0.25 Mg/2 Ml Ampul.neb 1 Vial NEB BID 01/29/18 Reported Albuterol Sulfate Conc Neb Soln (Albuterol Sulfate) 2.5 Mg/0.5 Ml Vial.neb 1 Vial NEB Q6HRS PRN 01/29/18 Reported Trazodone Hcl 50 Mg Tablet 1 Tab PO QHS 01/24/18 Reported Culturelle (Lactobacillus Rhamnosus Gg) 1 Each Cap.sprink 1 Each PO 01/24/18 Reported Atorvastatin Calcium 80 Mg Tablet 1 Tab PO DAILY 01/24/18 Reported Buspirone Hcl 10 Mg Tablet 1 Tab PO BID 01/24/18 Reported Glipizide 5 Mg Tablet 1 Tab PO BID 01/24/18 Reported Eliquis (Apixaban) 2.5 Mg Tablet 2.5 Mg PO BID 01/24/18 Reported Protonix (Pantoprazole Sodium) 20 Mg Tablet.dr 1 Tab PO DAILY 01/24/18 Reported Duloxetine Hcl 60 Mg Capsule.dr 60 Mg PO DAILY 01/24/18 Reported Furosemide 20 Mg Tablet 60 Tab PO DAILY 01/24/18 Reported Calcitriol 0.25 Mcg Capsule 1 Cap PO 3X/WEEK 01/24/18 Reported Mucinex (Guaifenesin) 600 Mg Tablet.er 200 Tab PO TID 01/24/18 Reported Potassium Chloride 20 Meq Tablet.er 20 Meq PO DAILY 01/24/18 Reported Levothyroxine Sodium 50 Mcg Tablet 1 Tab PO DAILY 01/24/18 Reported Tylenol (Acetaminophen) 325 Mg Tablet 500 Mg PO TID 01/24/18 Reported Vitamin D3 (Cholecalciferol (Vitamin D3)) 1,000 Unit Tablet 2 Tab PO DAILY 01/24/18 Reported Folic Acid 1 Mg Tablet 1 Tab PO DAILY 01/24/18 Reported Impression . 1. Acute hypoxemic hypercapnic respiratory failure, multifactorial. 2. Acute on chronic heart failure. 3. Abnormal x-ray with persistent right lower lobe effusion right greater than left. 4. Cardiomyopathy, ejection fraction 20-25%. 5. Atrial fibrillation with rapid ventricular response. 6. Type 2 diabetes. 7. Hypertension. 8. Obesity. 9. Chronic obstructive pulmonary disease, unknown FEV1. 10. Possible obstructive sleep apnea. 11. TRANSUDATE EFFUSION REPEAT THORACENTESIS ON 08/04 600 CC REMOVED Procedure Result --------- ANAEROBIC-AEROBIC CULTURE Final Final report ANAEROBIC RES 1 Final Comment No anaerobic growth in 72 hours. AEROBIC CULT Final Final report AEROBIC RES 1 Final Comment No growth in 56 - 72 hours. GRAM STAIN Final Final report GRAM STAIN RES 1 Final Comment No white blood cells seen. GRAM STAIN RES 2 Final No organisms seen Impression: No deep venous thrombus involving the right upper extremity. Plan . CLINICALLY STABLE SEVERE 3 VESSEL CAD BY CATH/ POOR SURGICAL CANDIDATE PER CV SURGERY / CARDIOLOGY TO CONSIDER STENT LASIX BIPAP QHS/ PT HAS HOME BIPAP REPEAT THORACENTESIS 600 CC PT /OT WILL NEED REHAB/ INS DENIES FOLLOW CARD REC CLARITZA PRYOR MD August 11, 2018 10:44
--- NOTE | 2018-08-11 10:53 | PDOC ---
Renal-Progress Notes Subjective Notes Notes NO NEW COMPLAINTS History of Present Illness Hx of present illness STABLE Vitals Vitals Vital Signs Date Time Temp Pulse Resp B/P (MAP) Pulse Ox O2 Delivery O2 Flow Rate FiO2 08/11/18 08:53 96 158/68 08/11/18 08:03 95 Nasal Cannula 4.0 08/11/18 07:00 97.8 20 97.8 Weight Weight [ ] I.O. Intake and Output Intake and Output 08/11/18 07:00 Intake Total 0 ml Output Total 675 ml Balance -675 ml Intake Oral 0 ml Output Urine Total 675 ml # Bowel Movements 1 Labs Labs Laboratory Tests Test 08/10/18 11:54 08/10/18 17:11 08/10/18 20:35 08/11/18 05:30 Glucose (Fingerstick) 163 mg/dL (70-99) 149 mg/dL (70-99) 121 mg/dL (70-99) Sodium Level 145 mmol/L (136-145) Potassium Level 3.8 mmol/L (3.5-5.1) Chloride Level 102 mmol/L (98-107) Carbon Dioxide Level 41 mmol/L (21-32) Anion Gap 2 (6-14) Blood Urea Nitrogen 18 mg/dL (8-26) Creatinine 2.1 mg/dL (0.7-1.3) Estimated GFR (Cockcroft-Gault) 30.9 Glucose Level 94 mg/dL (70-99) Calcium Level 8.3 mg/dL (8.5-10.1) Test 08/11/18 06:59 Glucose (Fingerstick) 88 mg/dL (70-99) Micro Micro Microbiology 07/30/18 Anaerobic/Aerobic Culture - Final, Complete 07/30/18 Anaerobic Culture Result 1 (GARCIA) - Final, Complete 07/30/18 Aerobic Culture - Final, Complete 07/30/18 Aerobic Culture Result 1 (GARCIA) - Final, Complete 07/30/18 Gram Stain - Final, Complete 07/30/18 Gram Stain Result 1 (GARCIA) - Final, Complete 07/30/18 Gram Stain Result 2 (GARCIA) - Final, Complete Review of Systems Constitutional: yes: other (CONFUSED) Physical Exam General Appearance: no apparent distress Skin: warm Respiratory: decreased breath sounds Heart: S1S2, other (IRREGULAR) Abdomen: soft, bowel sounds present Genitourinary: mendoza catheter Extremities: edema Neurology: alert, oriented, follow commands Assessment Assessment IMP YARELY RESOLVED-CR OF 2.0 HYPOKALEMIA-RESOLVED CKD STAGE 3 WITH CR OF 1.7-1.8 ACUTE ON CHRONIC SYSTOLIC AND DIASTOLIC CHF CM WITH EF OF 20% AFIB RVR-BETTER DM II HTN-LABILE COPD CHRONIC MET ALKALOSIS S/P HEART CATH HYPERNATREMIA-RESOLVED PLAN CONT LASIX AND PINA-I REPLACE K NEEDED WILL FOLLOW JOSE ANTONIO JACKSON MD August 11, 2018 10:53
[2018-08-11 11:17] VITALS: BP 116/58
--- NOTE | 2018-08-11 12:25 | NUR ---
SS following up with discharge planning. Per notes pt is not a candidate for bypass surgery. Palliative Care consulted. Dr. Clemente requesting transfer to [facility]. Case management assisting with transfer request to [facility]. Per child support case officer, María Lutz, request for transfer has been made and records have been faxed. SS will await acceptance decision from the MD and will await Palliative Care meeting with family and will proceed accordingly. Pt's RN notified.
--- NOTE | 2018-08-11 13:20 | NUR ---
SS following up with discharge planning. SS received notification that pt was declined for transfer to the [facility]. Palliative Care following to address goals of care. SS will continue to follow for discharge planning.
[2018-08-11 15:18] VITALS: BP 97/55
--- NOTE | 2018-08-11 16:45 | PDOC2 ---
PALLIATIVE CARE Palliative Care Note Palliative Care Consult requested by Dr. Hoover to address goals of care. Medical Assessment per Medical Record; ASSESSMENT: 1. Cfmny-lv-fluxbdp hypoxic hypercapnic respiratory failure, multifactorial. 2. Mijkf-kr-afnltms systolic congestive heart failure secondary to ischemic cardiomyopathy with an ejection fraction of only 20%. 3. The patient is status post left heart catheterization, found to have severe 3-vessel coronary artery disease, for which he was evaluated by the cardiothoracic surgeon, who does not believe the patient is a candidate for surgical intervention or even PCI intervention. 4. Atrial fibrillation, rate controlled, well anticoagulated. 5. Coronary artery disease, status post myocardial infarction. 6. Acute kidney injury on chronic kidney disease. His serum creatinine is stable around 2 mg/dL. 7. Hypertension, well controlled. 8. 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 9. Type 2 diabetes mellitus, 10. Hyperlipidemia. 11. Morbid obesity with obstructive sleep apnea. 12. Chronic back pain due to multiple lumbar vertebral compression fractures. Patient alert. Denies pain. Mild SOB at rest. Plan Family Meeting tomorrow at 1300. Spoke with his brother Mansoor who will contact other family members. ROSEY AGUIRRE August 11, 2018 16:45
[2018-08-11 19:42] VITALS: BP 126/80
[2018-08-11] MEDS: traZODone 50 MG TABLET. PO SCH (20:29)
[2018-08-11] MEDS: ATORVASTATIN CALCIUM 40 MG TABLET. PO SCH (20:29)
[2018-08-11 23:19] VITALS: BP 103/59
--- NOTE | 2018-08-12 01:10 | PN ---
DATE: 08/11/2018 SUBJECTIVE: The patient is resting, slightly propped up in bed, in no apparent respiratory distress. He is awake, alert. On questioning him, he denied any complaint, in particular denied any chest pain or shortness of breath. When the nursing staff did not voice any concern and stated that he had an uneventful night. PHYSICAL EXAMINATION: GENERAL: When I examined him, he looked pale. No jaundice, cyanosis or thyromegaly. No jugular venous distention. No lower limb edema. VITAL SIGNS: His heart rate was 96, blood pressure was 158/68, temperature was 97.8, respiratory rate was 20 and oxygen saturation was 95% on 4 liters of oxygen. HEAD, EYES, EARS, NOSE AND THROAT: Showed normocephalic and atraumatic. NECK: Supple. HEART: Showed normal first and second sounds. No gallop, rub or murmur. CHEST: Clear to auscultation. No crepitation or rhonchi. ABDOMEN: Distended, soft and nontender. No guarding or rigidity. No organomegaly. All hernial orifice intact. Bowel sounds normal. NEUROLOGICAL: He was awake, alert, responding appropriately. All cranial nerves intact. He moves extremities without difficulty, although he is mostly bed bound. His intake over the last 24 hours was 560, output was 300. LABORATORY DATA: As of this morning, his serum sodium was 145, potassium 3.8, chloride 102, bicarbonate 41, anion gap of 2, BUN 18, creatinine 2.1, estimated GFR was 31 mL per minute and his glucose was 94. Calcium was 8.3. ASSESSMENT: 1. Xdruk-uv-lxzhflr hypoxic hypercapnic respiratory failure, multifactorial. 2. Tnyjg-ju-htclkle systolic congestive heart failure secondary to ischemic cardiomyopathy and ejection fraction of only 20%. 3. The patient is status post left heart catheterization and was found to have severe 3-vessel coronary artery disease for which he was evaluated by the cardiothoracic surgeon, who did not believe the patient is a candidate for any surgical intervention or even percutaneous coronary intervention. 4. Atrial fibrillation, rate controlled, well anticoagulated. 5. Coronary artery disease, status post myocardial infarction. 6. Acute kidney injury on chronic kidney disease. His serum creatinine is stable around 2 mg/dL. 7. Hypertension. This seems to be well controlled. 8. 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 9. Type 2 diabetes mellitus, seems to be well controlled. 10. Hyperlipidemia. 11. Morbid obesity, obstructive sleep apnea. 12. Chronic back pain due to multiple lumbar vertebral compression fracture. PLAN: My plan is to await the evaluation by the Cardiology team regarding the PCI with stent deployment. If that is not an option, we will probably consider palliative care consult. KAR PERSAUD MD DR: KEENAN/lindsay JOB#: [id number] / [id number]
[2018-08-12] MEDS: LORazepam 0.5 MG TABLET PO PRN (03:14)
[2018-08-12 03:20] VITALS: BP 117/51
[2018-08-12] MEDS: LEVOTHYROXINE 50 MCG TABLET PO SCH (04:58)
[2018-08-12 05:29] LABS: HEMATOCRIT 32.8 % (39.0-53.0); HEMOGLOBIN 10.5 g/dL (13.0-17.5); RED BLOOD COUNT 3.45 x10^6/uL (4.30-5.70); RED CELL DISTRIBUTION WIDTH 14.7 % (11.5-14.5); WHITE BLOOD COUNT 3.1 x10^3/uL (4.0-11.0)
[2018-08-12 05:34] LABS: ALBUMIN 2.4 g/dL (3.4-5.0); ALBUMIN/GLOBULIN RATIO 0.9 (1.0-1.7); ALK PHOS 66 U/L (46-116); ALT (SGPT) 18 U/L (16-63); AST (SGOT) 20 U/L (15-37); BLOOD UREA NITROGEN 18 mg/dL (8-26); BUN/CREATININE RATIO 8 (6-20); CALCIUM 8.5 mg/dL (8.5-10.1); CARBON DIOXIDE 42 mmol/L (21-32); CHLORIDE 103 mmol/L (98-107); CREATININE 2.2 mg/dL (0.7-1.3); GFR 29.3; GLUCOSE 91 mg/dL (70-99); POTASSIUM 3.5 mmol/L (3.5-5.1); SODIUM 143 mmol/L (136-145); TOTAL BILIRUBIN 0.6 mg/dL (0.2-1.0); TOTAL PROTEIN 5.2 g/dL (6.4-8.2)
[2018-08-12] MEDS: IPRATRPIUM/ALBUTEROL 0.5/2.5MG 3 ML NEBU. NEB SCH ×4 (05:39→19:33)
[2018-08-12] MEDS: BUDESONIDE 0.5 MG/2 ML NEBU. NEB SCH ×2 (05:39→19:33)
[2018-08-12 07:00] VITALS: BP 122/67
[2018-08-12] MEDS: INSULIN LISPRO 300 UNITS/3 ML INSULN.PEN. SQ SCH ×3 (08:00→17:00)
[2018-08-12] MEDS: glipiZIDE 5 MG TABLET PO SCH ×2 (08:35→17:26)
[2018-08-12] MEDS: APIXABAN 5 MG TABLET. PO SCH ×2 (08:36→21:15)
[2018-08-12] MEDS: FUROSEMIDE 40 MG TABLET. PO SCH ×2 (08:36→13:56)
[2018-08-12] MEDS: busPIRone 10 MG TABLET. PO SCH ×2 (08:36→21:15)
[2018-08-12] MEDS: CHOLECALCIFEROL (VITAMIN D3) 1,000 UNIT TABLET PO SCH (08:36)
[2018-08-12] MEDS: LACTOBACILLUS RHAMNOSUS GG 1 CAPSULE. PO SCH ×2 (08:36→21:14)
[2018-08-12] MEDS: ACETAMINOPHEN 500 MG TABLET PO SCH ×3 (08:36→21:15)
[2018-08-12] MEDS: ASPIRIN ENTERIC COATED 81 MG TABLET.DR. PO SCH (08:37)
[2018-08-12] MEDS: PANTOPRAZOLE 40 MG TABLET.DR. PO SCH (08:37)
[2018-08-12] MEDS: LISINOPRIL 5 MG TABLET. PO SCH (08:37)
[2018-08-12] MEDS: DULoxetine HCL 30 MG CAPSULE.DR PO SCH (08:37)
[2018-08-12] MEDS: NYSTATIN TOPICAL POWDER 15GM BOTTLE. TP SCH ×2 (08:38→21:15)
[2018-08-12] MEDS: METOPROLOL SUCC 24HR ER 100 MG TAB.ER.24H. PO SCH (08:38)
[2018-08-12] MEDS: FOLIC ACID 1 MG TABLET. PO SCH (08:38)
[2018-08-12] MEDS: FLUTICASONE 50MCG/NASAL SPRAY 16GM BOTTLE. NS SCH (08:39)
--- NOTE | 2018-08-12 09:15 | PDOC ---
PULMONARY PROGRESS NOTES Subjective PT OFF BIPAP ON NC 02 NOT MORE SOA Vitals Vital Signs Date Time Temp Pulse Resp B/P (MAP) Pulse Ox O2 Delivery O2 Flow Rate FiO2 08/12/18 08:38 97 122/67 08/12/18 07:45 Nasal Cannula 4.0 08/12/18 07:00 98.3 20 94 98.3 ROS: No Nausea, No Chest Pain, No Abdominal Pain, No Increase Cough General: Alert, No acute distress Lungs: Crackles, Other (decrease bases) Cardiovascular: S1, S2, Other (Diminished) Abdomen: Soft, Non-tender, Other (OBESE) Neuro Exam: Alert Extremities: Other (edema BLE +2) Skin: Warm, Dry Labs Laboratory Tests Test 08/10/18 11:54 08/10/18 17:11 08/10/18 20:35 08/11/18 05:30 Glucose (Fingerstick) 163 mg/dL (70-99) 149 mg/dL (70-99) 121 mg/dL (70-99) Sodium Level 145 mmol/L (136-145) Potassium Level 3.8 mmol/L (3.5-5.1) Chloride Level 102 mmol/L (98-107) Carbon Dioxide Level 41 mmol/L (21-32) Anion Gap 2 (6-14) Blood Urea Nitrogen 18 mg/dL (8-26) Creatinine 2.1 mg/dL (0.7-1.3) Estimated GFR (Cockcroft-Gault) 30.9 Glucose Level 94 mg/dL (70-99) Calcium Level 8.3 mg/dL (8.5-10.1) Test 08/11/18 06:59 08/11/18 11:04 08/11/18 16:38 08/11/18 20:33 Glucose (Fingerstick) 88 mg/dL (70-99) 152 mg/dL (70-99) 143 mg/dL (70-99) 160 mg/dL (70-99) Test 08/12/18 05:05 08/12/18 07:32 White Blood Count 3.1 x10^3/uL (4.0-11.0) Red Blood Count 3.45 x10^6/uL (4.30-5.70) Hemoglobin 10.5 g/dL (13.0-17.5) Hematocrit 32.8 % (39.0-53.0) Mean Corpuscular Volume 95 fL (79-100) Mean Corpuscular Hemoglobin 31 pg (25-35) Mean Corpuscular Hemoglobin Concent 32 g/dL (31-37) Red Cell Distribution Width 14.7 % (11.5-14.5) Platelet Count 124 x10^3/uL (140-400) Sodium Level 143 mmol/L (136-145) Potassium Level 3.5 mmol/L (3.5-5.1) Chloride Level 103 mmol/L (98-107) Carbon Dioxide Level 42 mmol/L (21-32) Anion Gap (6-14) Blood Urea Nitrogen 18 mg/dL (8-26) Creatinine 2.2 mg/dL (0.7-1.3) Estimated GFR (Cockcroft-Gault) 29.3 BUN/Creatinine Ratio 8 (6-20) Glucose Level 91 mg/dL (70-99) Calcium Level 8.5 mg/dL (8.5-10.1) Total Bilirubin 0.6 mg/dL (0.2-1.0) Aspartate Amino Transf (AST/SGOT) 20 U/L (15-37) Alanine Aminotransferase (ALT/SGPT) 18 U/L (16-63) Alkaline Phosphatase 66 U/L (46-116) Total Protein 5.2 g/dL (6.4-8.2) Albumin 2.4 g/dL (3.4-5.0) Albumin/Globulin Ratio 0.9 (1.0-1.7) Glucose (Fingerstick) 96 mg/dL (70-99) Laboratory Tests Test 08/11/18 11:04 08/11/18 16:38 08/11/18 20:33 08/12/18 05:05 Glucose (Fingerstick) 152 mg/dL (70-99) 143 mg/dL (70-99) 160 mg/dL (70-99) White Blood Count 3.1 x10^3/uL (4.0-11.0) Red Blood Count 3.45 x10^6/uL (4.30-5.70) Hemoglobin 10.5 g/dL (13.0-17.5) Hematocrit 32.8 % (39.0-53.0) Mean Corpuscular Volume 95 fL (79-100) Mean Corpuscular Hemoglobin 31 pg (25-35) Mean Corpuscular Hemoglobin Concent 32 g/dL (31-37) Red Cell Distribution Width 14.7 % (11.5-14.5) Platelet Count 124 x10^3/uL (140-400) Sodium Level 143 mmol/L (136-145) Potassium Level 3.5 mmol/L (3.5-5.1) Chloride Level 103 mmol/L (98-107) Carbon Dioxide Level 42 mmol/L (21-32) Anion Gap (6-14) Blood Urea Nitrogen 18 mg/dL (8-26) Creatinine 2.2 mg/dL (0.7-1.3) Estimated GFR (Cockcroft-Gault) 29.3 BUN/Creatinine Ratio 8 (6-20) Glucose Level 91 mg/dL (70-99) Calcium Level 8.5 mg/dL (8.5-10.1) Total Bilirubin 0.6 mg/dL (0.2-1.0) Aspartate Amino Transf (AST/SGOT) 20 U/L (15-37) Alanine Aminotransferase (ALT/SGPT) 18 U/L (16-63) Alkaline Phosphatase 66 U/L (46-116) Total Protein 5.2 g/dL (6.4-8.2) Albumin 2.4 g/dL (3.4-5.0) Albumin/Globulin Ratio 0.9 (1.0-1.7) Test 08/12/18 07:32 Glucose (Fingerstick) 96 mg/dL (70-99) Medications Active Scripts Medications Dose Route/Sig Max Daily Dose Days Date Category Guaifenesin 200 Mg Tablet 200 Mg PO PRN TID PRN 07/28/18 Reported Budesonide 0.25 Mg/2 Ml Ampul.neb 1 Vial NEB BID 01/29/18 Reported Albuterol Sulfate Conc Neb Soln (Albuterol Sulfate) 2.5 Mg/0.5 Ml Vial.neb 1 Vial NEB Q6HRS PRN 01/29/18 Reported Trazodone Hcl 50 Mg Tablet 1 Tab PO QHS 01/24/18 Reported Culturelle (Lactobacillus Rhamnosus Gg) 1 Each Cap.sprink 1 Each PO 01/24/18 Reported Atorvastatin Calcium 80 Mg Tablet 1 Tab PO DAILY 01/24/18 Reported Buspirone Hcl 10 Mg Tablet 1 Tab PO BID 01/24/18 Reported Glipizide 5 Mg Tablet 1 Tab PO BID 01/24/18 Reported Eliquis (Apixaban) 2.5 Mg Tablet 2.5 Mg PO BID 01/24/18 Reported Protonix (Pantoprazole Sodium) 20 Mg Tablet.dr 1 Tab PO DAILY 01/24/18 Reported Duloxetine Hcl 60 Mg Capsule.dr 60 Mg PO DAILY 01/24/18 Reported Furosemide 20 Mg Tablet 60 Tab PO DAILY 01/24/18 Reported Calcitriol 0.25 Mcg Capsule 1 Cap PO 3X/WEEK 01/24/18 Reported Mucinex (Guaifenesin) 600 Mg Tablet.er 200 Tab PO TID 01/24/18 Reported Potassium Chloride 20 Meq Tablet.er 20 Meq PO DAILY 01/24/18 Reported Levothyroxine Sodium 50 Mcg Tablet 1 Tab PO DAILY 01/24/18 Reported Tylenol (Acetaminophen) 325 Mg Tablet 500 Mg PO TID 01/24/18 Reported Vitamin D3 (Cholecalciferol (Vitamin D3)) 1,000 Unit Tablet 2 Tab PO DAILY 01/24/18 Reported Folic Acid 1 Mg Tablet 1 Tab PO DAILY 01/24/18 Reported Active Scripts Medications Dose Route/Sig Max Daily Dose Days Date Category Guaifenesin 200 Mg Tablet 200 Mg PO PRN TID PRN 07/28/18 Reported Budesonide 0.25 Mg/2 Ml Ampul.neb 1 Vial NEB BID 01/29/18 Reported Albuterol Sulfate Conc Neb Soln (Albuterol Sulfate) 2.5 Mg/0.5 Ml Vial.neb 1 Vial NEB Q6HRS PRN 01/29/18 Reported Trazodone Hcl 50 Mg Tablet 1 Tab PO QHS 01/24/18 Reported Culturelle (Lactobacillus Rhamnosus Gg) 1 Each Cap.sprink 1 Each PO 01/24/18 Reported Atorvastatin Calcium 80 Mg Tablet 1 Tab PO DAILY 01/24/18 Reported Buspirone Hcl 10 Mg Tablet 1 Tab PO BID 01/24/18 Reported Glipizide 5 Mg Tablet 1 Tab PO BID 01/24/18 Reported Eliquis (Apixaban) 2.5 Mg Tablet 2.5 Mg PO BID 01/24/18 Reported Protonix (Pantoprazole Sodium) 20 Mg Tablet.dr 1 Tab PO DAILY 01/24/18 Reported Duloxetine Hcl 60 Mg Capsule.dr 60 Mg PO DAILY 01/24/18 Reported Furosemide 20 Mg Tablet 60 Tab PO DAILY 01/24/18 Reported Calcitriol 0.25 Mcg Capsule 1 Cap PO 3X/WEEK 01/24/18 Reported Mucinex (Guaifenesin) 600 Mg Tablet.er 200 Tab PO TID 01/24/18 Reported Potassium Chloride 20 Meq Tablet.er 20 Meq PO DAILY 01/24/18 Reported Levothyroxine Sodium 50 Mcg Tablet 1 Tab PO DAILY 01/24/18 Reported Tylenol (Acetaminophen) 325 Mg Tablet 500 Mg PO TID 01/24/18 Reported Vitamin D3 (Cholecalciferol (Vitamin D3)) 1,000 Unit Tablet 2 Tab PO DAILY 01/24/18 Reported Folic Acid 1 Mg Tablet 1 Tab PO DAILY 01/24/18 Reported Impression . 1. Acute hypoxemic hypercapnic respiratory failure, multifactorial. 2. Acute on chronic heart failure. 3. Abnormal x-ray with persistent right lower lobe effusion right greater than left. 4. Cardiomyopathy, ejection fraction 20-25%. 5. Atrial fibrillation with rapid ventricular response. 6. Type 2 diabetes. 7. Hypertension. 8. Obesity. 9. Chronic obstructive pulmonary disease, unknown FEV1. 10. Possible obstructive sleep apnea. 11. TRANSUDATE EFFUSION REPEAT THORACENTESIS ON 08/04 600 CC REMOVED 12 CAD 3 VD NOT A SURGICAL CANDIDATE Procedure Result ANAEROBIC-AEROBIC CULTURE Final Final report ANAEROBIC RES 1 Final Comment No anaerobic growth in 72 hours. AEROBIC CULT Final Final report AEROBIC RES 1 Final Comment No growth in 56 - 72 hours. GRAM STAIN Final Final report GRAM STAIN RES 1 Final Comment No white blood cells seen. GRAM STAIN RES 2 Final No organisms seen Impression: No deep venous thrombus involving the right upper extremity. Plan . PALLIATIVE CARE MEETING TODAY WITH MULTIPLE FAMILY MEMBERS MYSELF AND PAT ANSWERED ALL QUESTIONS PT ELECTED TO GO HOME WITH HOSPICE I CONCUR NOT A CANDIDATE FOR AGGRESSIVE MEASURE OUT OF HOSPITAL DNR STATUS SIGNED SEE PAT NOTES CHELSEY CASTILLO MD August 12, 2018 09:15
[2018-08-12] MEDS: ANTI-COAG MONITOR BY PHARMACY. MC PRN (09:49)
[2018-08-12 11:00] VITALS: BP 115/61
--- NOTE | 2018-08-12 11:14 | PDOC ---
Renal-Progress Notes Subjective Notes Notes NONE History of Present Illness Hx of present illness STABLE Vitals Vitals Vital Signs Date Time Temp Pulse Resp B/P (MAP) Pulse Ox O2 Delivery O2 Flow Rate FiO2 08/12/18 08:38 97 122/67 08/12/18 07:45 Nasal Cannula 4.0 08/12/18 07:00 98.3 20 94 98.3 Weight Weight [ ] I.O. Intake and Output Intake and Output 08/12/18 07:00 Intake Total 1230 ml Output Total 1000 ml Balance 230 ml Intake Oral 1230 ml Output Urine Total 1000 ml Labs Labs Laboratory Tests Test 08/11/18 16:38 08/11/18 20:33 08/12/18 05:05 08/12/18 07:32 Glucose (Fingerstick) 143 mg/dL (70-99) 160 mg/dL (70-99) 96 mg/dL (70-99) White Blood Count 3.1 x10^3/uL (4.0-11.0) Red Blood Count 3.45 x10^6/uL (4.30-5.70) Hemoglobin 10.5 g/dL (13.0-17.5) Hematocrit 32.8 % (39.0-53.0) Mean Corpuscular Volume 95 fL (79-100) Mean Corpuscular Hemoglobin 31 pg (25-35) Mean Corpuscular Hemoglobin Concent 32 g/dL (31-37) Red Cell Distribution Width 14.7 % (11.5-14.5) Platelet Count 124 x10^3/uL (140-400) Sodium Level 143 mmol/L (136-145) Potassium Level 3.5 mmol/L (3.5-5.1) Chloride Level 103 mmol/L (98-107) Carbon Dioxide Level 42 mmol/L (21-32) Anion Gap (6-14) Blood Urea Nitrogen 18 mg/dL (8-26) Creatinine 2.2 mg/dL (0.7-1.3) Estimated GFR (Cockcroft-Gault) 29.3 BUN/Creatinine Ratio 8 (6-20) Glucose Level 91 mg/dL (70-99) Calcium Level 8.5 mg/dL (8.5-10.1) Total Bilirubin 0.6 mg/dL (0.2-1.0) Aspartate Amino Transf (AST/SGOT) 20 U/L (15-37) Alanine Aminotransferase (ALT/SGPT) 18 U/L (16-63) Alkaline Phosphatase 66 U/L (46-116) Total Protein 5.2 g/dL (6.4-8.2) Albumin 2.4 g/dL (3.4-5.0) Albumin/Globulin Ratio 0.9 (1.0-1.7) Micro Micro Microbiology 07/30/18 Anaerobic/Aerobic Culture - Final, Complete 07/30/18 Anaerobic Culture Result 1 (GARCIA) - Final, Complete 07/30/18 Aerobic Culture - Final, Complete 07/30/18 Aerobic Culture Result 1 (GARCIA) - Final, Complete 07/30/18 Gram Stain - Final, Complete 07/30/18 Gram Stain Result 1 (GARCIA) - Final, Complete 07/30/18 Gram Stain Result 2 (GARCIA) - Final, Complete Review of Systems Constitutional: yes: other (CONFUSED) Physical Exam General Appearance: no apparent distress Skin: warm Respiratory: decreased breath sounds Heart: S1S2, other (IRREGULAR) Abdomen: soft, bowel sounds present Genitourinary: mendoza catheter Extremities: edema Neurology: alert, oriented, follow commands Assessment Assessment IMP YARELY RESOLVED-CR OF 2.2 HYPOKALEMIA-RESOLVED CKD STAGE 3 WITH CR OF 1.7-1.8 ACUTE ON CHRONIC SYSTOLIC AND DIASTOLIC CHF CM WITH EF OF 20% AFIB RVR-BETTER DM II HTN-LABILE COPD CHRONIC MET ALKALOSIS S/P HEART CATH HYPERNATREMIA-RESOLVED PLAN CONT LASIX AND PINA-I REPLACE K NEEDED WILL FOLLOW JOSE ANTONIO JACKSON MD August 12, 2018 11:14
[2018-08-12 15:00] VITALS: BP 120/55
--- NOTE | 2018-08-12 15:39 | NUR ---
SS following up with discharge planning. Pt and family agreeable to home with hospice. SS met with pt and family in room and was notified to phone and fax referral to [facility], ; fax [phone]. SS phoned and faxed referral to [facility].
--- NOTE | 2018-08-12 15:53 | PDOC2 ---
PALLIATIVE CARE Palliative Care Note Palliative Care Patient alert. Sitting up in chair -visiting with family. Met with patient, Mansoor-brother; sisters Rachel and Reina; son Uri per phone and daughter Anais per phone; (Kusum from [facility] who has been working with patient / applying for Medicaid and who also invited Iram from [facility]). Reviewed Medical Condition; Heart Failure 20% EF; post heart catheterization 3 vessel disease--evaluated by cardiothoracic surgeon--not a candidate for surgery or PCI per cardiology. COPD; Thoracentesis; YARELY ; HTN. Dr. Bay joined meeting and reviewed medical condition and options. Discussed options for care. Patient would like to focus on comfort. He would like to go home. Discussed family support needed and hiring care givers in addition to what the family could provide. Patient is Medicaid pending so [facility] Medicaid pending would be an option now or when needed. Discussed Hospice Support. Family mentioned Hospice as option since they were familiar with their services. Informed that patient and family could discuss with Kaleigh LEIVA about their choice of agencies. Discussed Code Status; Informed of risks and benefits. Patient would like to remain Full Code. Would like attempt at CPR once. Has been resuscitated in 2006 when he had his NE. Family supportive of his decision. Plan: Home with Hospice; Iram and Kusum continued conversation with family. Full Code. Kaleigh LEIVA will assist with discharge plan. ROSEY AGUIRRE August 12, 2018 15:52
--- NOTE | 2018-08-12 17:12 | PDOC ---
Provider Note Provider Note I had a long discussion with the patient and his sisters and brother regarding his current situation after the palate of care meting. We discussed his multisystem failure including respiratory failure, cardiac failure and renal failure. I discussed with him that he will eventually likely continue to worsen with respect to his multisystem issues. We talked about the possibility of returning to the hospital versus continued comfort care through the his hospice service at home. After extensive discussion the patient wished to be made a DO NOT RESUSCITATE status. He understands the indications of this. The patient and family were all in full agreement. Agree with transition to hospice with DO NOT RESUSCITATE orders in place. SHIRLENE RAMOS MD August 12, 2018 17:12
[2018-08-12 19:44] VITALS: BP 112/66
--- NOTE | 2018-08-12 19:56 | PN ---
DATE: SUBJECTIVE: The patient is sitting comfortably in his recliner, in no apparent distress, awake, alert, denied any complaint. The nursing staff did not voice any concern and stated that he had an uneventful night. He apparently was given choice yesterday, been more aggressive treatment and/or going home with hospice and apparently he has decided to go home with hospice. There is a meeting arranged for between him and his brother, sisters and children and the palliative care team and after which we can probably discharge him either today or tomorrow home with hospice. PHYSICAL EXAMINATION: GENERAL: When I examined him, he looked pale, but no jaundice, cyanosis or thyromegaly. No jugular venous distension. No lower limb edema. VITAL SIGNS: His heart rate was 97, blood pressure was 122/67, temperature was 98.3, respiratory rate 20, and oxygen saturation was 94% on 4 liters of oxygen. HEAD, EYES, EARS, NOSE AND THROAT: Normocephalic, atraumatic. NECK: Supple. HEART: Showed normal first and second sounds. No gallop, rub or murmur. CHEST: Clear to auscultation. No crepitation or rhonchi. ABDOMEN: Distended, soft, nontender. No guarding or rigidity. No organomegaly. Hernial orifice intact. Bowel sounds normal. NEUROLOGIC: He was awake, alert, responding appropriately. All his cranial nerves are intact. He moves extremities without difficulty, although he is mostly bedbound, chair bound. His intake over the last 24 hours was incompletely recorded, output was 675. LABORATORY DATA: As of this morning, his white cell count was 8100, hemoglobin 10, hematocrit 33, MCV 95, and platelet count of 124,000. His chemistry showed a serum sodium 143, potassium 3.5, chloride 103, bicarbonate 42, BUN is 18, creatinine 2.2, estimated GFR was 29 mL per minute, his glucose was 91, calcium was 8.5. Total bilirubin, AST, ALT, alkaline phosphatase were normal. Total protein was 5.2, albumin was 2.4. ASSESSMENT AND PLAN: 1. Hqlcl-tj-uuwovjd hypoxic hypercapnic respiratory failure, multifactorial, stable. 2. Acute on chronic systolic congestive heart failure secondary to ischemic cardiomyopathy with an ejection fraction of only 20%. 3. The patient is status post left heart catheterization where he was found to have severe 3-vessel coronary artery disease for which he was evaluated by the cardiothoracic surgeon, who did not recommend any surgical intervention or even percutaneous coronary intervention. 4. Atrial fibrillation, rate controlled, well anticoagulated. 5. Coronary artery disease, status post myocardial infarction. 6. Acute kidney injury on chronic kidney disease. His serum creatinine is stable around 2 mg/dL. 7. Hypertension. This seems to be well controlled. 8. 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 9. Type 2 diabetes mellitus, seems to be well controlled. 10. Hyperlipidemia. 11. Morbid obesity, obstructive sleep apnea. 12. Chronic back pain due to multiple lumbar vertebral compression fracture. Apparently meeting scheduled today between the family and palliative care for further decision regarding discharge home with hospice. KAR PERSAUD MD DR: KEENAN/lindsay JOB#: [id number] / [id number]
[2018-08-12] MEDS: ATORVASTATIN CALCIUM 40 MG TABLET. PO SCH (21:15)
[2018-08-12] MEDS: traZODone 50 MG TABLET. PO SCH (21:15)
[2018-08-12 23:25] VITALS: BP 99/56
[2018-08-13] MEDS ORDERED: traMADol 50 MG TABLET PO PRN (01:45)
[2018-08-13 03:30] VITALS: BP 116/74
[2018-08-13] MEDS: PANTOPRAZOLE 40 MG TABLET.DR. PO SCH (05:53)
[2018-08-13] MEDS: LEVOTHYROXINE 50 MCG TABLET PO SCH (05:53)
[2018-08-13 07:30] VITALS: BP 131/59
[2018-08-13] MEDS ORDERED: ALTEPLASE 1MG SYRINGE. INT CAT ONE (08:00)
[2018-08-13] MEDS: INSULIN LISPRO 300 UNITS/3 ML INSULN.PEN. SQ SCH (08:00)
[2018-08-13] MEDS: BUDESONIDE 0.5 MG/2 ML NEBU. NEB SCH (08:07)
[2018-08-13] MEDS: IPRATRPIUM/ALBUTEROL 0.5/2.5MG 3 ML NEBU. NEB SCH (08:07)
[2018-08-13] MEDS: ANTI-COAG MONITOR BY PHARMACY. MC PRN (08:10)
[2018-08-13 08:13] LABS: CALCIUM 8.7 mg/dL (8.5-10.1); CREATININE 2.3 mg/dL (0.7-1.3); GFR 27.9; POTASSIUM 3.8 mmol/L (3.5-5.1)
[2018-08-13] MEDS: FOLIC ACID 1 MG TABLET. PO SCH (08:31)
[2018-08-13] MEDS: glipiZIDE 5 MG TABLET PO SCH (08:31)
[2018-08-13] MEDS: LACTOBACILLUS RHAMNOSUS GG 1 CAPSULE. PO SCH (08:31)
[2018-08-13] MEDS: CHOLECALCIFEROL (VITAMIN D3) 1,000 UNIT TABLET PO SCH (08:31)
[2018-08-13] MEDS: ASPIRIN ENTERIC COATED 81 MG TABLET.DR. PO SCH (08:32)
[2018-08-13] MEDS: FUROSEMIDE 40 MG TABLET. PO SCH (08:32)
[2018-08-13] MEDS: busPIRone 10 MG TABLET. PO SCH (08:32)
[2018-08-13] MEDS: APIXABAN 5 MG TABLET. PO SCH (08:32)
[2018-08-13] MEDS: DULoxetine HCL 30 MG CAPSULE.DR PO SCH (08:32)
[2018-08-13] MEDS: LISINOPRIL 5 MG TABLET. PO SCH (08:33)
[2018-08-13] MEDS: METOPROLOL SUCC 24HR ER 100 MG TAB.ER.24H. PO SCH (08:33)
[2018-08-13] MEDS: FLUTICASONE 50MCG/NASAL SPRAY 16GM BOTTLE. NS SCH (08:33)
[2018-08-13] MEDS: ACETAMINOPHEN 500 MG TABLET PO SCH (08:33)
[2018-08-13] MEDS: NYSTATIN TOPICAL POWDER 15GM BOTTLE. TP SCH (08:34)
--- NOTE | 2018-08-13 09:07 | PDOC ---
PULMONARY PROGRESS NOTES Subjective PT OFF BIPAP ON NC 02 NOT MORE SOA Vitals Vital Signs Date Time Temp Pulse Resp B/P (MAP) Pulse Ox O2 Delivery O2 Flow Rate FiO2 08/13/18 08:33 89 131/59 08/13/18 08:09 96 Nasal Cannula 3.0 08/13/18 07:30 98.1 28 98.1 ROS: No Nausea, No Chest Pain, No Abdominal Pain, No Increase Cough General: Alert, No acute distress Lungs: Crackles, Other (decrease bases) Cardiovascular: S1, S2, Other (Diminished) Abdomen: Soft, Non-tender, Other (OBESE) Neuro Exam: Alert Extremities: Other (edema BLE +2) Skin: Warm, Dry Labs Laboratory Tests Test 08/11/18 11:04 08/11/18 16:38 08/11/18 20:33 08/12/18 05:05 Glucose (Fingerstick) 152 mg/dL (70-99) 143 mg/dL (70-99) 160 mg/dL (70-99) White Blood Count 3.1 x10^3/uL (4.0-11.0) Red Blood Count 3.45 x10^6/uL (4.30-5.70) Hemoglobin 10.5 g/dL (13.0-17.5) Hematocrit 32.8 % (39.0-53.0) Mean Corpuscular Volume 95 fL (79-100) Mean Corpuscular Hemoglobin 31 pg (25-35) Mean Corpuscular Hemoglobin Concent 32 g/dL (31-37) Red Cell Distribution Width 14.7 % (11.5-14.5) Platelet Count 124 x10^3/uL (140-400) Sodium Level 143 mmol/L (136-145) Potassium Level 3.5 mmol/L (3.5-5.1) Chloride Level 103 mmol/L (98-107) Carbon Dioxide Level 42 mmol/L (21-32) Anion Gap (6-14) Blood Urea Nitrogen 18 mg/dL (8-26) Creatinine 2.2 mg/dL (0.7-1.3) Estimated GFR (Cockcroft-Gault) 29.3 BUN/Creatinine Ratio 8 (6-20) Glucose Level 91 mg/dL (70-99) Calcium Level 8.5 mg/dL (8.5-10.1) Total Bilirubin 0.6 mg/dL (0.2-1.0) Aspartate Amino Transf (AST/SGOT) 20 U/L (15-37) Alanine Aminotransferase (ALT/SGPT) 18 U/L (16-63) Alkaline Phosphatase 66 U/L (46-116) Total Protein 5.2 g/dL (6.4-8.2) Albumin 2.4 g/dL (3.4-5.0) Albumin/Globulin Ratio 0.9 (1.0-1.7) Test 08/12/18 07:32 08/12/18 11:14 08/12/18 16:23 08/12/18 20:33 Glucose (Fingerstick) 96 mg/dL (70-99) 148 mg/dL (70-99) 145 mg/dL (70-99) 123 mg/dL (70-99) Test 08/13/18 07:30 08/13/18 07:32 Sodium Level 144 mmol/L (136-145) Potassium Level 3.8 mmol/L (3.5-5.1) Chloride Level 102 mmol/L (98-107) Carbon Dioxide Level 42 mmol/L (21-32) Anion Gap 0 (6-14) Blood Urea Nitrogen 18 mg/dL (8-26) Creatinine 2.3 mg/dL (0.7-1.3) Estimated GFR (Cockcroft-Gault) 27.9 Glucose Level 102 mg/dL (70-99) Calcium Level 8.7 mg/dL (8.5-10.1) Glucose (Fingerstick) 94 mg/dL (70-99) Laboratory Tests Test 08/12/18 11:14 08/12/18 16:23 08/12/18 20:33 08/13/18 07:30 Glucose (Fingerstick) 148 mg/dL (70-99) 145 mg/dL (70-99) 123 mg/dL (70-99) Sodium Level 144 mmol/L (136-145) Potassium Level 3.8 mmol/L (3.5-5.1) Chloride Level 102 mmol/L (98-107) Carbon Dioxide Level 42 mmol/L (21-32) Anion Gap 0 (6-14) Blood Urea Nitrogen 18 mg/dL (8-26) Creatinine 2.3 mg/dL (0.7-1.3) Estimated GFR (Cockcroft-Gault) 27.9 Glucose Level 102 mg/dL (70-99) Calcium Level 8.7 mg/dL (8.5-10.1) Test 08/13/18 07:32 Glucose (Fingerstick) 94 mg/dL (70-99) Medications Active Scripts Medications Dose Route/Sig Max Daily Dose Days Date Category Guaifenesin 200 Mg Tablet 200 Mg PO PRN TID PRN 07/28/18 Reported Budesonide 0.25 Mg/2 Ml Ampul.neb 1 Vial NEB BID 01/29/18 Reported Albuterol Sulfate Conc Neb Soln (Albuterol Sulfate) 2.5 Mg/0.5 Ml Vial.neb 1 Vial NEB Q6HRS PRN 01/29/18 Reported Trazodone Hcl 50 Mg Tablet 1 Tab PO QHS 01/24/18 Reported Culturelle (Lactobacillus Rhamnosus Gg) 1 Each Cap.sprink 1 Each PO 01/24/18 Reported Atorvastatin Calcium 80 Mg Tablet 1 Tab PO DAILY 01/24/18 Reported Buspirone Hcl 10 Mg Tablet 1 Tab PO BID 01/24/18 Reported Glipizide 5 Mg Tablet 1 Tab PO BID 01/24/18 Reported Eliquis (Apixaban) 2.5 Mg Tablet 2.5 Mg PO BID 01/24/18 Reported Protonix (Pantoprazole Sodium) 20 Mg Tablet.dr 1 Tab PO DAILY 01/24/18 Reported Duloxetine Hcl 60 Mg Capsule.dr 60 Mg PO DAILY 01/24/18 Reported Furosemide 20 Mg Tablet 60 Tab PO DAILY 01/24/18 Reported Calcitriol 0.25 Mcg Capsule 1 Cap PO 3X/WEEK 01/24/18 Reported Mucinex (Guaifenesin) 600 Mg Tablet.er 200 Tab PO TID 01/24/18 Reported Potassium Chloride 20 Meq Tablet.er 20 Meq PO DAILY 01/24/18 Reported Levothyroxine Sodium 50 Mcg Tablet 1 Tab PO DAILY 01/24/18 Reported Tylenol (Acetaminophen) 325 Mg Tablet 500 Mg PO TID 01/24/18 Reported Vitamin D3 (Cholecalciferol (Vitamin D3)) 1,000 Unit Tablet 2 Tab PO DAILY 01/24/18 Reported Folic Acid 1 Mg Tablet 1 Tab PO DAILY 01/24/18 Reported Active Scripts Medications Dose Route/Sig Max Daily Dose Days Date Category Guaifenesin 200 Mg Tablet 200 Mg PO PRN TID PRN 07/28/18 Reported Budesonide 0.25 Mg/2 Ml Ampul.neb 1 Vial NEB BID 01/29/18 Reported Albuterol Sulfate Conc Neb Soln (Albuterol Sulfate) 2.5 Mg/0.5 Ml Vial.neb 1 Vial NEB Q6HRS PRN 01/29/18 Reported Trazodone Hcl 50 Mg Tablet 1 Tab PO QHS 01/24/18 Reported Culturelle (Lactobacillus Rhamnosus Gg) 1 Each Cap.sprink 1 Each PO 01/24/18 Reported Atorvastatin Calcium 80 Mg Tablet 1 Tab PO DAILY 01/24/18 Reported Buspirone Hcl 10 Mg Tablet 1 Tab PO BID 01/24/18 Reported Glipizide 5 Mg Tablet 1 Tab PO BID 01/24/18 Reported Eliquis (Apixaban) 2.5 Mg Tablet 2.5 Mg PO BID 01/24/18 Reported Protonix (Pantoprazole Sodium) 20 Mg Tablet.dr 1 Tab PO DAILY 01/24/18 Reported Duloxetine Hcl 60 Mg Capsule.dr 60 Mg PO DAILY 01/24/18 Reported Furosemide 20 Mg Tablet 60 Tab PO DAILY 01/24/18 Reported Calcitriol 0.25 Mcg Capsule 1 Cap PO 3X/WEEK 01/24/18 Reported Mucinex (Guaifenesin) 600 Mg Tablet.er 200 Tab PO TID 01/24/18 Reported Potassium Chloride 20 Meq Tablet.er 20 Meq PO DAILY 01/24/18 Reported Levothyroxine Sodium 50 Mcg Tablet 1 Tab PO DAILY 01/24/18 Reported Tylenol (Acetaminophen) 325 Mg Tablet 500 Mg PO TID 01/24/18 Reported Vitamin D3 (Cholecalciferol (Vitamin D3)) 1,000 Unit Tablet 2 Tab PO DAILY 01/24/18 Reported Folic Acid 1 Mg Tablet 1 Tab PO DAILY 01/24/18 Reported Impression . 1. Acute hypoxemic hypercapnic respiratory failure, multifactorial. 2. Acute on chronic heart failure. 3. Abnormal x-ray with persistent right lower lobe effusion right greater than left. 4. Cardiomyopathy, ejection fraction 20-25%. 5. Atrial fibrillation with rapid ventricular response. 6. Type 2 diabetes. 7. Hypertension. 8. Obesity. 9. Chronic obstructive pulmonary disease, unknown FEV1. 10. Possible obstructive sleep apnea. 11. TRANSUDATE EFFUSION REPEAT THORACENTESIS ON 08/04 600 CC REMOVED 12 CAD 3 VD NOT A SURGICAL CANDIDATE Procedure Result ANAEROBIC-AEROBIC CULTURE Final Final report ANAEROBIC RES 1 Final Comment No anaerobic growth in 72 hours. AEROBIC CULT Final Final report AEROBIC RES 1 Final Comment No growth in 56 - 72 hours. GRAM STAIN Final Final report GRAM STAIN RES 1 Final Comment No white blood cells seen. GRAM STAIN RES 2 Final No organisms seen Impression: No deep venous thrombus involving the right upper extremity. Plan . PALLIATIVE CARE MEETING TODAY WITH MULTIPLE FAMILY MEMBERS MYSELF AND PAT ANSWERED ALL QUESTIONS PT ELECTED TO GO HOME WITH HOSPICE I CONCUR NOT A CANDIDATE FOR AGGRESSIVE MEASURE OUT OF HOSPITAL DNR STATUS SIGNED SEE ROSEY NOTES CHELSEY CASTILLO MD August 13, 2018 09:07
--- NOTE | 2018-08-13 09:56 | SNU/HH DC ---
DISCHARGE ORDERS DISCHARGE INFORMATION: DISCHARGE DATE: August 07, 2018 CONDITION ON DISCHARGE: Stable CODE STATUS: Code Status: DNR/DNI HOSPICE: HOSPICE: Yes HOSPICE EVAL & TREAT: Yes POST DISCHARGE ORDERS: ACTIVITY ORDERS: Resume previous activity, Activity as tolerated, Walk in house WEIGHT BEARING STATUS: As tolerated DIET AFTER DISCHARGE: ADA WOUND/INCISION CARE: No wound care needed CHECKS AFTER DISCHARGE: CHECKS AFTER DISCHARGE: Check blood press - daily, Check blood sugar, ac/hs TREATMENT/EQUIPMENT ORDERS: ADAPTIVE EQUIPMENT NEEDED: None, Front wheeled walker, Walker RESPIRATORY EQUIPMENT NEEDED: Oxygen, BiPAP DISCHARGE MEDICATIONS: Home Meds Active Scripts Furosemide (FUROSEMIDE) 40 Mg Tablet, 40 MG PO BID for chf for 30 Days, #60 TAB 5 Refills Prov:KAR PERSAUD MD 08/07/18 Polyethylene Glycol 3350 (MIRALAX) 17 Gm Powd.pack, 1 PACKET PO DAILY for constipation, #2 PACKET 1 Refill Prov:KAR PERSAUD MD 08/07/18 Docusate Sodium (COLACE) 100 Mg Capsule, 1 CAP PO BID for constipation for 30 Days, #60 CAP 5 Refills Prov:KAR PERSAUD MD 08/07/18 Apixaban (ELIQUIS) 5 Mg Tablet, 5 MG PO BID for afib for 30 Days, #60 TAB 5 Refills Prov:KAR PERSAUD MD 08/07/18 Metoprolol Succinate (METOPROLOL SUCCINATE ( XL )) 100 Mg Tab.er.24h, 1 TAB PO DAILY for afib for 30 Days, #30 TAB 5 Refills Prov:KAR PERSAUD MD 08/07/18 Reported Medications Guaifenesin (GUAIFENESIN) 200 Mg Tablet, 200 MG PO PRN TID PRN for COUGH, TAB 07/28/18 Budesonide (BUDESONIDE) 0.25 Mg/2 Ml Ampul.neb, 1 VIAL NEB BID, #60 ML 01/29/18 Albuterol Sulfate (ALBUTEROL SULFATE CONC NEB SOLN) 2.5 Mg/0.5 Ml Vial.neb, 1 VIAL NEB Q6HRS PRN for SHORTNESS OF BREATH, #120 VIAL 5 Refills 01/29/18 Trazodone Hcl (TRAZODONE HCL) 50 Mg Tablet, 1 TAB PO QHS, #30 TAB 1 Refill 01/24/18 Lactobacillus Rhamnosus Gg (CULTURELLE) 1 Each Cap.sprink, 1 EACH PO, CAP 01/24/18 Atorvastatin Calcium (ATORVASTATIN CALCIUM) 80 Mg Tablet, 1 TAB PO DAILY, #30 TAB 5 Refills 01/24/18 Buspirone Hcl (BUSPIRONE HCL) 10 Mg Tablet, 1 TAB PO BID, #60 TAB 1 Refill 01/24/18 Pantoprazole Sodium (PROTONIX) 20 Mg Tablet.dr, 1 TAB PO DAILY, #30 TAB 01/24/18 Duloxetine Hcl (DULOXETINE HCL) 60 Mg Capsule.dr, 60 MG PO DAILY, CAP 01/24/18 Calcitriol (CALCITRIOL) 0.25 Mcg Capsule, 1 CAP PO 3X/WEEK, #30 CAP 5 Refills 01/24/18 Guaifenesin (MUCINEX) 600 Mg Tablet.er, 200 TAB PO TID, #14 TAB 01/24/18 Potassium Chloride (POTASSIUM CHLORIDE) 20 Meq Tablet.er, 20 MEQ PO DAILY, TAB.SR 01/24/18 Levothyroxine Sodium (LEVOTHYROXINE SODIUM) 50 Mcg Tablet, 1 TAB PO DAILY, #30 TAB 5 Refills 01/24/18 Acetaminophen (TYLENOL) 325 Mg Tablet, 500 MG PO TID, TAB 01/24/18 Cholecalciferol (Vitamin D3) (VITAMIN D3) 1,000 Unit Tablet, 2 TAB PO DAILY, #30 TAB 5 Refills 01/24/18 Folic Acid (FOLIC ACID) 1 Mg Tablet, 1 TAB PO DAILY, #90 TAB 1 Refill 01/24/18 Discontinued Reported Medications Glipizide (GLIPIZIDE) 5 Mg Tablet, 1 TAB PO BID, #60 TAB 3 Refills 01/24/18 Apixaban (ELIQUIS) 2.5 Mg Tablet, 2.5 MG PO BID, TAB 01/24/18 Furosemide (FUROSEMIDE) 20 Mg Tablet, 60 TAB PO DAILY, #90 TAB 1 Refill 01/24/18 KAR PERSAUD MD August 13, 2018 09:56
--- NOTE | 2018-08-13 10:02 | NUR ---
SS following up with discharge planning. Discharge orders phoned and faxed to [facility], ; fax [phone]. Pt will discharge today and return to home with [facility] at 1100 via [facility]. Pt, pt's family, and pt's RN notified.
--- NOTE | 2018-08-13 10:28 | PDOC ---
Renal-Progress Notes Subjective Notes Notes NONE History of Present Illness Hx of present illness NO CHANGES Vitals Vitals Vital Signs Date Time Temp Pulse Resp B/P (MAP) Pulse Ox O2 Delivery O2 Flow Rate FiO2 08/13/18 08:33 89 131/59 08/13/18 08:09 96 Nasal Cannula 3.0 08/13/18 07:30 98.1 28 98.1 Weight Weight [ ] I.O. Intake and Output Intake and Output 08/13/18 06:59 Intake Total 560 ml Output Total 375 ml Balance 185 ml Intake Oral 560 ml Output Urine Total 375 ml # Voids 1 Labs Labs Laboratory Tests Test 08/12/18 11:14 08/12/18 16:23 08/12/18 20:33 08/13/18 07:30 Glucose (Fingerstick) 148 mg/dL (70-99) 145 mg/dL (70-99) 123 mg/dL (70-99) Sodium Level 144 mmol/L (136-145) Potassium Level 3.8 mmol/L (3.5-5.1) Chloride Level 102 mmol/L (98-107) Carbon Dioxide Level 42 mmol/L (21-32) Anion Gap 0 (6-14) Blood Urea Nitrogen 18 mg/dL (8-26) Creatinine 2.3 mg/dL (0.7-1.3) Estimated GFR (Cockcroft-Gault) 27.9 Glucose Level 102 mg/dL (70-99) Calcium Level 8.7 mg/dL (8.5-10.1) Test 08/13/18 07:32 Glucose (Fingerstick) 94 mg/dL (70-99) Micro Micro Microbiology 07/30/18 Anaerobic/Aerobic Culture - Final, Complete 07/30/18 Anaerobic Culture Result 1 (GARCIA) - Final, Complete 07/30/18 Aerobic Culture - Final, Complete 07/30/18 Aerobic Culture Result 1 (GARCIA) - Final, Complete 07/30/18 Gram Stain - Final, Complete 07/30/18 Gram Stain Result 1 (GARCIA) - Final, Complete 07/30/18 Gram Stain Result 2 (GARCIA) - Final, Complete Review of Systems Constitutional: yes: other (CONFUSED) Physical Exam General Appearance: no apparent distress Skin: warm Respiratory: decreased breath sounds Heart: S1S2, other (IRREGULAR) Abdomen: soft, bowel sounds present Genitourinary: mendoza catheter Extremities: edema Neurology: alert, oriented, follow commands Assessment Assessment IMP YARELY RESOLVED-CR OF 2.1 HYPOKALEMIA-RESOLVED CKD STAGE 3 WITH CR OF 1.7-1.8 ACUTE ON CHRONIC SYSTOLIC AND DIASTOLIC CHF CM WITH EF OF 20% AFIB RVR-BETTER DM II HTN-LABILE COPD CHRONIC MET ALKALOSIS S/P HEART CATH HYPERNATREMIA-RESOLVED PLAN HOSPICE PLANS NOTED WILL SIGN OFF JOSE ANTONIO JACKSON MD August 13, 2018 10:28
[2018-08-13 10:42] VITALS: BP 125/58
--- NOTE | 2018-08-13 11:59 | NUR ---
Discharge Note: [facility] Discharge instructions and discharge home medications reviewed with Patient and a copy given. All questions have been answered and understanding verbalized. The following instructions and handouts were given: Apixaban, Docusate, Furosemide, Metoprolol, and Miralax. Patient discharged to home with hospice via ambulance.
--- NOTE | 2018-08-13 17:24 | DS ---
DATE OF DISCHARGE: 08/13/2018 HISTORY OF PRESENT ILLNESS: The patient is a 73-year-old male patient who was originally transferred from [facility] where he was admitted with [id number] hypoxic respiratory failure that is multifactorial and the patient was basically seen in consultation by the spinning operator and etl analyst developer. His echocardiogram showed that his ejection fraction has dramatically dropped from 50-60% down to 20%, and initially after his medical treatment was optimized, decision was made to discharge him home with home health; however, he underwent cardiac catheterization, which basically showed that he has severe 3-vessel disease, although, the patient himself was asymptomatic, and had no chest pain. He was seen in consultation by the cardiothoracic surgeon as well as the etl analyst developer who also did not feel that the patient is a candidate for bypass surgery or stent deployment, and therefore, we consulted the palliative care team. The patient basically opted to go home on hospice. PHYSICAL EXAMINATION: GENERAL: When I saw him today, he looked well and was clearly in no apparent respiratory distress, slightly pale, but no jaundice, cyanosis, or thyromegaly. No jugular venous distension. No limb edema. VITAL SIGNS: His heart rate was 89, blood pressure was 131/59, temperature was 98.1, respiratory rate was 28 and oxygen saturation was 96% on 3 liters of oxygen. HEAD, EYES, EARS, NOSE AND THROAT: Normocephalic, atraumatic. NECK: Supple. HEART: Showed normal first and second heart sounds with no gallop, rub or murmur. CHEST: Clear to auscultation. No crepitation or rhonchi. ABDOMEN: Distended, soft, nontender. No guarding or rigidity. No organomegaly. Hernial orifice is intact. Bowel sounds normal. NEUROLOGIC: He was awake, alert, responding appropriately. All cranial nerves are intact. He moves extremities without difficulty, although, he is mostly bedbound, chair bound. He does walk with a walker. LABORATORY DATA: His most recent lab work as of yesterday showed a white cell count 33,100, hemoglobin 10.5, hematocrit 32.8, MCV 95, and platelet count of 124,000. Serum sodium was 144, potassium 3.8, chloride 102, bicarbonate 42, BUN 18, creatinine 2.3, estimated GFR was 28 mL per minute, glucose 102, and calcium was 8.7. His prothrombin time was 15.7, INR 1.1. DISCHARGE MEDICATIONS: He was discharged home on hospice to continue on apixaban 5 mg twice a day, Colace 100 mg twice a day, furosemide 40 mg twice a day, metoprolol succinate 100 mg daily, polyethylene glycol 17 grams daily, he is also on acetaminophen 500 mg 3 times a day, albuterol sulfate by nebulizer every 6 hours, atorvastatin calcium 80 mg daily, Pulmicort 0.25 mg 2 mL by nebulizer twice a day, buspirone 10 mg twice a day, calcitriol 0.25 mcg 3 times per week. He is on ergocalciferol 2000 International Units once a day, duloxetine 60 mg once a day, folic acid 1 mg once a day, Mucinex 600 mg 3 times a day, guaifenesin 200 mg t.i.d., Lactobacillus rhamnosus 1 capsule twice a day, levothyroxine 50 mcg once a day, Protonix 20 mg once a day, potassium chloride 20 mEq once a day and trazodone 50 mg at bedtime. FINAL DISCHARGE DIAGNOSES: 1. Acute on chronic hypoxic hypercapnic respiratory failure, multifactorial, stable. 2. Acute on chronic systolic congestive heart failure secondary to ischemic cardiomyopathy with ejection fraction of only 20%. 3. The patient is status post left heart catheterization and was found to have severe 3-vessel coronary artery disease. However, he is not a candidate for any surgical intervention or even percutaneous coronary intervention as per cardiothoracic surgeon recommendation. 4. Atrial fibrillation, rate controlled, anticoagulated. 5. Coronary artery disease, status post myocardial infarction. 6. Acute kidney injury on chronic kidney disease. His serum creatinine is around 2.3 mg/dL. 7. Hypertension, seems to be well controlled. 8. 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 9. Type 2 diabetes, seems to be well controlled. 10. Hyperlipidemia, on atorvastatin. 11. Morbid obesity, obstructive sleep apnea. 12. Chronic back pain due to multiple lumbar vertebral compression fracture. KAR PERSAUD MD DR: KEENAN/lindsay JOB#: [id number] / [id number]
== END 2018-08-13 11:45 | disposition hospice, home (50) | DRG 871 ==
LOC: 1 WEST ICU 10:32 → 2 SOUTH 08-01 19:56
PROVIDERS: ADMIT Internal Medicine; ATTEND Internal Medicine
PROC: 5A09457 Assistance with Respiratory Ventilation, 24-96 Consecutive Hours, Continuous Positive Airway Pressure (ICD-10-PCS; 2018-07-28)
PROC: 0W993ZZ Drainage of Right Pleural Cavity, Percutaneous Approach (ICD-10-PCS; 2018-07-30)
PROC: 02HV33Z Insertion of Infusion Device into Superior Vena Cava, Percutaneous Approach (ICD-10-PCS; 2018-07-30)
PROC: 5A09357 Assistance with Respiratory Ventilation, Less than 24 Consecutive Hours, Continuous Positive Airway Pressure (ICD-10-PCS; 2018-08-02)
PROC: 0W9B3ZZ Drainage of Left Pleural Cavity, Percutaneous Approach (ICD-10-PCS; principal; 2018-08-04)
PROC: 5A09357 Assistance with Respiratory Ventilation, Less than 24 Consecutive Hours, Continuous Positive Airway Pressure (ICD-10-PCS; 2018-08-04)
PROC: 5A09357 Assistance with Respiratory Ventilation, Less than 24 Consecutive Hours, Continuous Positive Airway Pressure (ICD-10-PCS; 2018-08-05)
PROC: 5A09357 Assistance with Respiratory Ventilation, Less than 24 Consecutive Hours, Continuous Positive Airway Pressure (ICD-10-PCS; 2018-08-06)
PROC: 4A023N7 Measurement of Cardiac Sampling and Pressure, Left Heart, Percutaneous Approach (ICD-10-PCS; 2018-08-08)
PROC: B2111ZZ Fluoroscopy of Multiple Coronary Arteries using Low Osmolar Contrast (ICD-10-PCS; 2018-08-08)
PROC: 5A09357 Assistance with Respiratory Ventilation, Less than 24 Consecutive Hours, Continuous Positive Airway Pressure (ICD-10-PCS; 2018-08-08)
PROC: 5A09357 Assistance with Respiratory Ventilation, Less than 24 Consecutive Hours, Continuous Positive Airway Pressure (ICD-10-PCS; 2018-08-10)
DX: A41.9 Sepsis, unspecified organism (principal); N17.0 Acute kidney failure with tubular necrosis; J18.9 Pneumonia, unspecified organism; I26.99 Other pulmonary embolism without acute cor pulmonale; J96.21 Acute and chronic respiratory failure with hypoxia; J96.22 Acute and chronic respiratory failure with hypercapnia; I50.23 Acute on chronic systolic (congestive) heart failure; E87.0 Hyperosmolality and hypernatremia; E87.3 Alkalosis; I13.0 Hypertensive heart and chronic kidney disease with heart failure and stage 1 through stage 4 chronic kidney disease, or unspecified chronic kidney disease; J44.0 Chronic obstructive pulmonary disease with (acute) lower respiratory infection; J44.1 Chronic obstructive pulmonary disease with (acute) exacerbation; M48.56XA Collapsed vertebra, not elsewhere classified, lumbar region, initial encounter for fracture; N18.4 Chronic kidney disease, stage 4 (severe); D69.59 Other secondary thrombocytopenia; E03.9 Hypothyroidism, unspecified; Z88.0 Allergy status to penicillin; Z88.8 Allergy status to other drugs, medicaments and biological substances; E11.22 Type 2 diabetes mellitus with diabetic chronic kidney disease; E66.01 Morbid (severe) obesity due to excess calories; E78.5 Hyperlipidemia, unspecified; E21.3 Hyperparathyroidism, unspecified; E87.6 Hypokalemia; G47.33 Obstructive sleep apnea (adult) (pediatric); G89.29 Other chronic pain; I25.10 Atherosclerotic heart disease of native coronary artery without angina pectoris; I25.2 Old myocardial infarction; Z66 Do not resuscitate; I25.5 Ischemic cardiomyopathy; I35.8 Other nonrheumatic aortic valve disorders; I48.91 Unspecified atrial fibrillation; N40.0 Benign prostatic hyperplasia without lower urinary tract symptoms; Y95 Nosocomial condition; Z79.01 Long term (current) use of anticoagulants; Z82.49 Family history of ischemic heart disease and other diseases of the circulatory system; Z86.711 Personal history of pulmonary embolism; Z86.718 Personal history of other venous thrombosis and embolism; Z87.01 Personal history of pneumonia (recurrent); Z87.891 Personal history of nicotine dependence; Z91.81 History of falling; Z98.41 Cataract extraction status, right eye; Z98.42 Cataract extraction status, left eye; Z99.81 Dependence on supplemental oxygen; Z74.01 Bed confinement status; Z68.37 Body mass index [BMI] 37.0-37.9, adult; Z79.899 Other long term (current) drug therapy
CPT/HCPCS: 32555; 36415; 36569; 36600; 71045; 73630; 80048; 80053; 82805; 82962; 83615; 83735; 83986; 84100; 84155; 84157; 84443; 85027; 85610; 87071; 87075; 87116; 87641; 88112; 88305; 93458; 93971; 94640; 94660; 94760; 99152; 99153; C1769; C1892; J1160; J1644; J1815; J1940; J2185; J2250; J2260; J3010; J3370; J3490; J7030; J7040; J7613; J7620; J7626; Q9967; 97110; 97116; 97530; 97535

== ENCOUNTER 2018-08-19 03:49 | Inpatient (IN) | payer OTHER, SELFPAY ==
[~2018-08-19] VITALS: Ht 177.8 cm; Wt 117.0 kg
[~2018-08-19 03:49] MED LIST changes: +APIX5TAB PO; +DOCU-109 PO; +GUAI200T3 PO; +METO-247 PO; +POLY17PO29 PO
--- NOTE | 2018-08-19 04:35 | PHYS DOC ---
Past Medical History Past Medical History: CAD, COPD, Diabetes-Type II, DVT, Hypothyroid, MO, Pneumonia, Other Additional Past Medical Histor: PE,BPH,CKD,O. SLEEP APNEA,CHRONIC BACK PAIN Past Surgical History: Other Additional Past Surgical Histo: LOOP MONITOR, BILAT CATARACTS Alcohol Use: Heavy Drug Use: None Adult General Chief Complaint Chief Complaint: SUICDAL IDEATION HPI HPI Patient is a 73 year old BIBA with complaint of possible suicide attempt he wanted to take nitro to overdose but it was actually tag away. appparently he was trying to hurt himself. i d/w fany the hospice nurse. she had to send him out due to possible suicide attempt. (apparently the brother was supposed to help keep his symptoms under control but he went to bed instead). clinical status is very poor to begin with, EF 20, at baseline. fany will meet patient at home, and help with a clinical care plan for patient safety. Review of Systems Review of Systems limited by mental status Current Medications Current Medications Current Medications Medications (Trade) Dose Ordered Sig/Bettina Start Time Stop Time Status Last Admin Dose Admin Lorazepam (Ativan Intensol) 2 mg 1X ONCE 08/19/18 05:00 08/19/18 05:01 DC 08/19/18 04:42 2 MG Morphine Sulfate (Roxanol Conc) 10 mg 1X ONCE 08/19/18 05:30 08/19/18 05:31 DC 08/19/18 05:01 10 MG Allergies Allergies Allergies Coded Allergies Type Severity Reaction Last Updated Verified Penicillins Allergy Intermediate 01/29/18 Yes oxycodone Allergy Intermediate Rash 01/29/18 Yes Physical Exam Physical Exam Constitutional: Well developed, ill appearing. HENT: Normocephalic, atraumatic, bilateral external ears normal, oropharynx dry, no oral exudates, nose normal. [] Eyes: PERRla, Neck: Normal range of motion, no tenderness, supple, no stridor. [] Cardiovascular:Heart rate regular rhythm, no murmur [] Lungs & Thorax: tachypnea, wheezing, significant increase in resp effort Abdomen: Bowel sounds normal, soft, no tenderness, no masses, no pulsatile masses. [] Skin: Warm, dry, no erythema, no rash. [] Back: No tenderness, no CVA tenderness. [] Extremities: sig edema.] Neurologic: eyes open follows commands, not speaking much. Psychologic: mood anxious Current Patient Data Vital Signs Vital Signs Date Time Temp Pulse Resp B/P (MAP) Pulse Ox O2 Delivery O2 Flow Rate FiO2 08/19/18 06:43 109 112/71 (85) 87 NonRebreather Mask 15.0 08/19/18 03:49 97.8 27 97.8 EKG EKG [] Radiology/Procedures Radiology/Procedures [] Course & Med Decision Making Course & Med Decision Making Pertinent Labs and Imaging studies reviewed. (See chart for details) []This is a hospice patient after the hospice nurse feels he probably has 48 hours left OR LESS. JORJE saw the patient in the er. who talked to family extensively i d/w estuardo plan to admit for comfort care. roxanol and ativan given in the er. Dragon Disclaimer Dragon Disclaimer This electronic medical record was generated, in whole or in part, using a voice recognition dictation system. Departure Departure Impression: Primary Impression: Hospice care Disposition: ADMITTED INPATIENT Admitting Physician: Geno Hoang Condition: GUARDED Referrals: KAR PERSAUD MD (PCP) SHALONDA RILEY MD August 19, 2018 04:35
[2018-08-19] MEDS ORDERED: LORazepam INTENSOL 2 MG/ML ORAL.CONC SL ONE (05:00)
[2018-08-19] MEDS ORDERED: MORPHINE SULFATE 20 MG/ML CONC SOLUTION. SL ONE ×3 (05:00→08:15)
[2018-08-19 06:43] VITALS: BP 112/71
[2018-08-19] MEDS ORDERED: MORPHINE SULFATE 20 MG/ML CONC SOLUTION. SL SCH (08:00)
--- NOTE | 2018-08-19 08:00 | NUR ---
pt admitted to room 516 accompanied by [facility], Lori, RN, and Patti RN. pt nonresponsive. placed on 6L nc after nonrebreather removed. Family now at bedside. HH working with Dr. Hoover to obtain new medication orders.
[2018-08-19] MEDS ORDERED: LORazepam INTENSOL 2 MG/ML ORAL.CONC SL PRN (08:15)
--- NOTE | 2018-08-19 09:13 | NUR ---
Pt passed at 0912, as per [facility] staff.
[2018-08-19] MEDS ORDERED: SCOPOLAMINE 1.5MG PATCH. TD SCH (09:30)
--- NOTE | 2018-08-19 10:07 | SSS ---
ADMIT DATE: 08/19/2018 HISTORY OF PRESENT ILLNESS: The patient is a 73-year-old male patient with a multitude of medical problems who was discharged only recently home with hospice as he has a triple vessel disease and given his other multiple comorbidities, he was not a candidate for any open heart surgery or even percutaneous coronary intervention, and therefore, he was discharged home to go on hospice. Apparently, he was brought to the Emergency Room with a complaint of suicidal attempt. He wanted to take at night through to overdose, but it was actually tagged away, and therefore, the hospice nurse sent him to the Emergency Room for possible suicidal attempt. By the time he arrived to the Emergency Room, he was hypotensive, hypoxic, and as he is DNR/DNI, he was admitted for inpatient hospice care. Around 9:00 a.m. this morning, he has no spontaneous breathing. No audible heart sounds. No palpable pulses. The patient was pronounced on 08/19/2018. The cause of is cardiopulmonary arrest, acute on chronic hypoxic hypercapnic respiratory failure, acute on chronic systolic congestive heart failure. KAR PERSAUD MD DR: KEENAN/lindsay JOB#: [id number] / [id number]
--- NOTE | 2018-08-19 11:45 | NUR ---
pt body bagged and taken to morgue. family has not selected home as of yet. security and air conditioning supervisor aware.
== END 2018-08-19 12:00 | disposition expired | DRG 291 ==
LOC: ER 03:49 → 5 NORTH 07:06
PROVIDERS: ADMIT Internal Medicine; ATTEND Internal Medicine
DX: I50.23 Acute on chronic systolic (congestive) heart failure (principal); J96.21 Acute and chronic respiratory failure with hypoxia; J96.22 Acute and chronic respiratory failure with hypercapnia; Z51.5 Encounter for palliative care; E03.9 Hypothyroidism, unspecified; E11.22 Type 2 diabetes mellitus with diabetic chronic kidney disease; I25.10 Atherosclerotic heart disease of native coronary artery without angina pectoris; G47.30 Sleep apnea, unspecified; J44.9 Chronic obstructive pulmonary disease, unspecified; N18.9 Chronic kidney disease, unspecified; N40.0 Benign prostatic hyperplasia without lower urinary tract symptoms; Z66 Do not resuscitate; G89.29 Other chronic pain; Z87.01 Personal history of pneumonia (recurrent); I25.2 Old myocardial infarction
CPT/HCPCS: 99285-25